=== PATIENT | female | born 1950 | race American Indian/Alaskan Native ===

== ENCOUNTER 2017-04-08 17:44 | Inpatient (IN) | payer MEDICARE, OTHER ==
[2017-04-08] MEDS ORDERED: NITROGLYCERIN OINT 1 INCH/GM PACKET TOPICAL STA (18:10)
--- NOTE | 2017-04-08 18:12 | ED ---
General Adult HPI - General Chief complaint: Arrhythmia/Palpitations Stated complaint: chest pain Time Seen by Provider: 04/08/17 18:05 Source: patient, RN notes reviewed Mode of arrival: wheelchair Limitations: no limitations - History of Present Illness Initial comments: Patient is a pleasant 66-year-old female presenting to the emergency department complaining of dyspnea and chest discomfort. Symptoms have been present for a couple of days. Patient has a known history of atrial fibrillation and does feel palpitations. Discomfort is mild and mostly persistent. Patient has noticed some leg swelling. Patient has similar symptoms previously that she attributes atrial fibrillation. - Related Data Home Medications Medication Instructions Recorded Confirmed Atenolol [Tenormin] 50 mg PO HS 04/08/17 04/08/17 Cholecalciferol [Vitamin D3] 1,000 unit PO DAILY 04/08/17 04/08/17 Escitalopram [Lexapro] 10 mg PO HS 04/08/17 04/08/17 Furosemide [Lasix] 40 mg PO DAILY 04/08/17 04/08/17 Glucosamine Sulfate 500 mg PO DAILY 04/08/17 04/08/17 Levothyroxine Sodium [Synthroid] 75 mcg PO DAILY 04/08/17 04/08/17 Lidocaine 5% Oint [Xylocaine 5% 1 applic TOPICAL DAILY PRN 04/08/17 04/08/17 Oint] Multivit-Min/Iron/Folic/Lutein 1 tab PO DAILY 04/08/17 04/08/17 [Centrum Silver Women Tablet] Olmesartan/Hydrochlorothiazide 1 tab PO DAILY 04/08/17 04/08/17 [Benicar Hct 20-12.5 mg Tablet] Rivaroxaban [Xarelto] 20 mg PO HS 04/08/17 04/08/17 Allergies Allergy/AdvReac Type Severity Reaction Status Date / Time aspirin Allergy Unknown Verified 04/08/17 18:36 ibuprofen [From Motrin] Allergy Unknown Verified 04/08/17 18:36 pregabalin [From Lyrica] Allergy Rapid Verified 04/08/17 18:36 Heart Rate Review of Systems ROS Statement: Those systems with pertinent positive or pertinent negative responses have been documented in the HPI. ROS Other: All systems not noted in ROS Statement are negative. Constitutional: Denies: fever Eyes: Denies: eye pain ENT: Denies: ear pain Respiratory: Reports: dyspnea Cardiovascular: Reports: chest pain, palpitations Endocrine: Denies: fatigue Gastrointestinal: Denies: abdominal pain Genitourinary: Denies: dysuria Musculoskeletal: Denies: back pain Skin: Denies: rash Neurological: Denies: weakness Past Medical History Past Medical History: Atrial Flutter, Fibromyalgia, Osteoarthritis (OA) Additional Past Medical History / Comment(s): won willebrand History of Any Multi-Drug Resistant Organisms: None Reported Past Surgical History: Joint Replacement, Orthopedic Surgery Additional Past Surgical History / Comment(s): bilateral knees , eye, left wrist Past Psychological History: No Psychological Hx Reported Smoking Status: Never smoker Past Alcohol Use History: None Reported Past Drug Use History: None Reported General Exam Limitations: no limitations General appearance: alert, in no apparent distress Head exam: Present: atraumatic Eye exam: Present: normal appearance, PERRL ENT exam: Present: normal oropharynx Neck exam: Present: normal inspection Respiratory exam: Present: normal lung sounds bilaterally Cardiovascular Exam: Present: tachycardia, irregular rhythm Expanded Peripheral pulses: 2+: Dorsalis Pedis (R), Dorsalis Pedis (L) GI/Abdominal exam: Present: soft. Absent: tenderness Extremities exam: Present: pedal edema. Absent: calf tenderness Neurological exam: Present: alert Psychiatric exam: Present: normal affect, normal mood Skin exam: Present: normal color Course Vital Signs 04/08/17 04/08/17 04/08/17 17:46 18:52 20:06 Temperature 98.5 F 98.7 F Pulse Rate 144 H 105 H Respiratory 22 24 15 Rate Blood Pressure 141/67 96/55 O2 Sat by Pulse 92 L 94 L Oximetry 04/08/17 21:28 Temperature Pulse Rate 89 Respiratory 18 Rate Blood Pressure 132/72 O2 Sat by Pulse 94 L Oximetry EKG Findings - EKG Comments: EKG Findings:: A. fib with RVR, rate 116. QRS 80. QT 328. QTC 455. Normal axis. Q waves in lead III. Nonspecific T waves. Medical Decision Making - Medical Decision Making Patient reevaluated and resting comfortably in bed. Discomfort mild this time. Patient and family updated on results and plan. Case was discussed with Dr. Mccarty, who will admit for hospital call. - Lab Data Result diagrams: 04/08/17 18:20 04/08/17 18:20 Lab Results 04/08/17 04/08/17 04/08/17 Range/Units 18:20 18:20 18:20 WBC 6.0 (3.8-10.6) k/uL RBC 4.05 (3.80-5.40) m/uL Hgb 13.3 (11.4-16.0) gm/dL Hct 38.6 (34.0-46.0) % MCV 95.3 (80.0-100.0) fL MCH 33.0 (25.0-35.0) pg MCHC 34.6 (31.0-37.0) g/dL RDW 13.5 (11.5-15.5) % Plt Count 242 (150-450) k/uL Neutrophils % 69 % Lymphocytes % 19 % Monocytes % 6 % Eosinophils % 4 % Basophils % 0 % Neutrophils # 4.2 (1.3-7.7) k/uL Lymphocytes # 1.2 (1.0-4.8) k/uL Monocytes # 0.4 (0-1.0) k/uL Eosinophils # 0.2 (0-0.7) k/uL Basophils # 0.0 (0-0.2) k/uL PT (9.0-12.0) sec INR (<1.2) APTT (22.0-30.0) sec D-Dimer (<0.60) mg/L FEU Sodium 140 (137-145) mmol/L Potassium 3.4 L (3.5-5.1) mmol/L Chloride 101 (98-107) mmol/L Carbon Dioxide 32 H (22-30) mmol/L Anion Gap 7 mmol/L BUN 15 (7-17) mg/dL Creatinine 0.96 (0.52-1.04) mg/dL Est GFR (MDRD) Af Amer >60 (>60 ml/min/1.73 sqM) Est GFR (MDRD) Non-Af 58 (>60 ml/min/1.73 sqM) Glucose 101 H (74-99) mg/dL Calcium 9.0 (8.4-10.2) mg/dL Total Bilirubin 0.6 (0.2-1.3) mg/dL AST 20 (14-36) U/L ALT 27 (9-52) U/L Alkaline Phosphatase 58 (38-126) U/L Total Creatine Kinase 40 (30-135) U/L CK-MB (CK-2) <0.2 (0.0-2.4) ng/mL CK-MB (CK-2) Rel Index Troponin I <0.012 (0.000-0.034) ng/mL NT-Pro-B Natriuret Pep pg/mL Total Protein 5.9 L (6.3-8.2) g/dL Albumin 3.2 L (3.5-5.0) g/dL 04/08/17 04/08/17 04/08/17 Range/Units 18:20 18:20 18:20 WBC (3.8-10.6) k/uL RBC (3.80-5.40) m/uL Hgb (11.4-16.0) gm/dL Hct (34.0-46.0) % MCV (80.0-100.0) fL MCH (25.0-35.0) pg MCHC (31.0-37.0) g/dL RDW (11.5-15.5) % Plt Count (150-450) k/uL Neutrophils % % Lymphocytes % % Monocytes % % Eosinophils % % Basophils % % Neutrophils # (1.3-7.7) k/uL Lymphocytes # (1.0-4.8) k/uL Monocytes # (0-1.0) k/uL Eosinophils # (0-0.7) k/uL Basophils # (0-0.2) k/uL PT 10.5 (9.0-12.0) sec INR 1.0 (<1.2) APTT 22.1 (22.0-30.0) sec D-Dimer 1.04 H (<0.60) mg/L FEU Sodium (137-145) mmol/L Potassium (3.5-5.1) mmol/L Chloride (98-107) mmol/L Carbon Dioxide (22-30) mmol/L Anion Gap mmol/L BUN (7-17) mg/dL Creatinine (0.52-1.04) mg/dL Est GFR (MDRD) Af Amer (>60 ml/min/1.73 sqM) Est GFR (MDRD) Non-Af (>60 ml/min/1.73 sqM) Glucose (74-99) mg/dL Calcium (8.4-10.2) mg/dL Total Bilirubin (0.2-1.3) mg/dL AST (14-36) U/L ALT (9-52) U/L Alkaline Phosphatase (38-126) U/L Total Creatine Kinase (30-135) U/L CK-MB (CK-2) (0.0-2.4) ng/mL CK-MB (CK-2) Rel Index Troponin I (0.000-0.034) ng/mL NT-Pro-B Natriuret Pep 1470 pg/mL Total Protein (6.3-8.2) g/dL Albumin (3.5-5.0) g/dL - Radiology Data Radiology results: report reviewed (Computed tomography scan of the chest shows no pulmonary embolism. There is pulmonary interstitial infiltrates possibly fibrosis.) Disposition Clinical Impression: Atrial fibrillation, Chest pain, Dyspnea Disposition: ADMITTED IP TO THIS HOSP Referrals: None,Stated [Primary Care Provider] - 1-2 days
[2017-04-08 18:34] LABS: Basophils % (A) 0 %; CH 32.5; CHCM 34.3; Eosinophils # (A) 0.2 k/uL (0-0.7); Eosinophils % (A) 4 %; HCT 38.6 % (34.0-46.0); HDW 2.61; HGB 13.3 gm/dL (11.4-16.0); Luc % (Auto) 2; Lymphocytes # (A) 1.2 k/uL (1.0-4.8); Lymphocytes % (A) 19 %; MCHC 34.6 g/dL (31.0-37.0); MCV 95.3 fL (80.0-100.0); Mean Platelet Volume 7.6; Monocytes # (A) 0.4 k/uL (0-1.0); Monocytes % (A) 6 %; Neutrophils # (A) 4.2 k/uL (1.3-7.7); Neutrophils % (A) 69 %; RBC 4.05 m/uL (3.80-5.40); RDW 13.5 % (11.5-15.5); WBC (Perox) 6.01
[2017-04-08 18:45] LABS: ALT 27 U/L (9-52); AST 20 U/L (14-36); Alkaline Phosphatase 58 U/L (38-126); Anion Gap 7 mmol/L; Blood Urea Nitrogen 15 mg/dL (7-17); Carbon Dioxide 32 mmol/L (22-30); Chloride 101 mmol/L (98-107); Glucose 101 mg/dL (74-99); Non-African American GFR(MDRD) 58 (>60 ml/min/1.73 sqM); Potassium 3.4 mmol/L (3.5-5.1); Sodium 140 mmol/L (137-145); Total Bilirubin 0.6 mg/dL (0.2-1.3); Total Protein 5.9 g/dL (6.3-8.2)
--- NOTE | 2017-04-08 18:48 | XR ---
EXAMINATION TYPE: XR chest 2V DATE OF EXAM: 04/08/2017 COMPARISON: 05/17/2012 HISTORY: Short of breath TECHNIQUE: Frontal and lateral views of the chest are obtained. FINDINGS: There is some coarsening of interstitial markings. There is no heart failure. Costophrenic angles are clear. Heart is not enlarged. There are chest leads. Bony thorax is intact. IMPRESSION: Mild pulmonary fibrotic changes. No heart failure.
[2017-04-08 18:50] LABS: Partial Thromboplastin Time 22.1 sec (22.0-30.0); Prothrombin Time 10.5 sec (9.0-12.0)
[2017-04-08 18:55] LABS: Creatine Kinase 40 U/L (30-135)
[2017-04-08 19:08] LABS: Creatine Kinase MB <0.2 ng/mL (0.0-2.4); Troponin I <0.012 ng/mL (0.000-0.034)
[2017-04-08] MEDS ORDERED: RX INFO: IV CONTRAST WAS GIVEN 1 EACH MISC MISCELLANE PRN (19:44)
--- NOTE | 2017-04-08 20:57 | CT ---
EXAMINATION TYPE: CT angio chest DATE OF EXAM: 04/08/2017 8:50 PM COMPARISON: 05/09/2012 HISTORY: Shortness of breath and chest pain CT DLP: 1034 mGycm Automated exposure control for dose reduction was used. CONTRAST: CTA scan of the thorax is performed with IV Contrast, patient injected with 100 mL of Visipaque 320, pulmonary embolism protocol. There are 3-D post processed images.. FINDINGS: There are patchy interstitial pulmonary infiltrates. There is no evidence of a pulmonary mass. Heart is enlarged. There is no pleural effusion. There is mild pleural thickening at the left posterior shira g base. There is no pericardial effusion. I see no filling defects in the pulmonary arteries. There is no evidence of thoracic aortic aneurysm or dissection. There are a few mediastinal lymph nodes that measure up to 1 cm. There are no hilar ma sses. IMPRESSION: NO EVIDENCE OF PULMONARY EMBOLISM. THERE IS PULMONARY INTERSTITIAL INFILTRATES THAT ARE SLIGHTLY INCR EASED COMPARED TO OLD CT SCAN AND COULD RELATE TO PULMONARY FIBROSIS. NONSPECIFIC MEDIASTINAL LYMPH N ODES ARE INCREASED COMPARED TO OLD EXAM.
[2017-04-08] MEDS ORDERED: IPRATROPIUM-ALBUTEROL 3 ML NEB INHALATION PRN (21:35)
[2017-04-08] MEDS ORDERED: NITROGLYCERIN SL TABS 0.4 MG TAB SUBLINGUAL PRN (21:35)
[2017-04-08] MEDS ORDERED: NON-FORMULARY DRUG (Lidocaine 5% Oint 1 APPLIC) TOPICAL PRN (23:24)
[2017-04-08] MEDS ORDERED: Potassium Replacement Protocol 1 EACH MISC MISCELLANE PRN (23:33)
[2017-04-09 00:16] LABS: Creatine Kinase 39 U/L (30-135)
[2017-04-09 00:30] LABS: Creatine Kinase MB <0.2 ng/mL (0.0-2.4); Troponin I <0.012 ng/mL (0.000-0.034)
[2017-04-09] MEDS: FUROSEMIDE 10 MG/ML 4 ML VIAL IV SCH ×3 (00:42→20:16)
[2017-04-09] MEDS: POTASSIUM CHLORIDE ER 20 MEQ TAB.ER PO SCH ×2 (00:42→01:13)
[2017-04-09] MEDS: ATENOLOL 50 MG TAB PO SCH ×2 (00:42→18:00)
[2017-04-09] MEDS: RIVAROXABAN 10 MG TAB PO SCH ×2 (00:42→20:16)
[2017-04-09] MEDS: NITROGLYCERIN OINT 1 INCH/GM PACKET TOPICAL SCH ×5 (00:55→16:53)
[2017-04-09 06:02] LABS: Cholesterol 164 mg/dL (<200); HDL Cholesterol 29 mg/dL (40-60)
[2017-04-09 06:19] LABS: Creatine Kinase 37 U/L (30-135)
[2017-04-09 06:33] LABS: Creatine Kinase MB 0.3 ng/mL (0.0-2.4); Troponin I <0.012 ng/mL (0.000-0.034)
[2017-04-09] MEDS: IPRATROPIUM-ALBUTEROL 3 ML NEB INHALATION SCH ×4 (08:33→21:00)
[2017-04-09] MEDS: MULTIVITAMINS, THERA 1 EACH TAB PO SCH (08:36)
[2017-04-09] MEDS: CHOLECALCIFEROL 1,000 UNIT TAB PO SCH (08:36)
[2017-04-09] MEDS: LOSARTAN 50 MG TAB PO SCH (08:37)
[2017-04-09] MEDS: HYDROCHLOROTHIAZIDE 12.5 MG CAP PO SCH (08:37)
[2017-04-09] MEDS ORDERED: NON-FORMULARY DRUG (Glucosamine Sulfate 500 MG) PO SCH (09:00)
[2017-04-09] MEDS ORDERED: LEVOTHYROXINE 75 MCG TAB PO SCH (09:00)
[2017-04-09 09:42] LABS: Calcium 8.6 mg/dL (8.4-10.2); Potassium 3.9 mmol/L (3.5-5.1)
[2017-04-09] MEDS: methylPREDNISolone SOD SUCCI 40 MG/ML 1 ML VIAL IV SCH ×2 (11:28→16:17)
--- NOTE | 2017-04-09 11:56 | CONS ---
CHIEF COMPLAINT: Shortness of breath. Radha is a 66 year old lady with history of atrial fibrillation, hypertension, dyslipidemia, who [place] to live out of town, recently moved to [place], comes in complaining of shortness of breath, leg edema and episodes of chest pain. Her shortness of breath is mild to moderate in intensity. Came on progressively related to exertion, relieved with rest. She also has leg edema. There is no history of paroxysmal nocturnal dyspnea or orthopnea. There is no history of recent myocardial infarction. There is no history of coronary artery disease or angioplasty. She apparently has had a negative stress test in the past. The patient has chronic atrial fibrillation and is adequately anticoagulated with Xarelto. Her chest discomfort is precordial and at times radiates to left arm. This has been going on for several months. It is mild in intensity. Sometimes related to exertion and sometimes it is not. The patient has also has cough. Her BNP is elevated at 1470. Past medical history is negative for chronic A. fib, hypertension, hypothyroidism. Medications include: 1. Xarelto. 2. Benicar. 3. Synthroid. 4. Lasix. 5. Lexapro. 6. Atenolol. ALLERGIC TO MOTRIN, LYRICA AND ASPIRIN. Family history is negative for premature coronary artery disease. Social history is negative for current smoking. There is no ETOH or drug abuse. Review of systems: HEENT: Unremarkable. Cardiac as described above. Respiratory as described above. GI negative. : Negative. Musculoskeletal significant for arthritis. Psych/social: Negative. Endocrine: Negative. Dermatological: Negative. Constitutional: Negative. Oncological: Negative. The rest of the system review is not relevant. On exam, comfortable at rest. Afebrile. Vital signs are stable. There is no jugular venous distention. Carotid upstroke is normal. There is no bruit. Chest exam reveals good air entry bilaterally. Heart exam first and second heart sounds. Irregular rhythm. There is a systolic murmur left lower sternal border. Abdomen is soft, nontender. Examination of the extremities reveals bilateral pitting edema. Peripheral pulses are felt. Labs show a potassium 3.9, creatinine 1, three sets of tropes are negative. BNP is 1470, LDL 112, hemoglobin 13.3. ASSESSMENT: 1. Acute onset congestive heart failure. 2. Chronic atrial fibrillation with controlled ventricular rate. 3. Chest pain, rule out coronary artery disease. PLAN: We will treat the patient with intravenous diuretics, marta inhibitors, beta blockers, obtain a 2D echo to evaluate her LV function. Once her heart failure improves, we should probably do a stress test on her and if this shows ischemia, consider cardiac catheterization. SHAE
--- NOTE | 2017-04-09 12:04 | P.CNPUL ---
History of Present Illness Consult date: 04/09/17 Requesting physician: Leobardo Mccarty Reason for consult: dyspnea Chief complaint: Shortness of breath History of present illness: This is a 66-year-old female patient being seen, examined and evaluated. This patient came into the emergency room on 04/08/2017 with shortness of breath, dyspnea and chest pain with palpitations. The patient states that these symptoms had been going on for the past 3-4 days. Patient also has had some bilateral lower extremity edema as well which she states she has experienced in the past due to her atrial fibrillation. Lab workup in the emergency room revealed a elevated d-dimer of 1.04, troponins were negative, BNP 1470 her potassium was 3.4. EKG revealed atrial fibrillation with rapid ventricular rate approximately 116. Nonspecific T waves were present. CTA of the chest was performed and shows no evidence of pulmonary embolism, there is pulmonary interstitial infiltrates that are slightly increased compared to old computed tomography scan and could relate to pulmonary fibrosis, nonspecific mediastinal lymph nodes are increased compared to old exam as well. The comparison exam was done on 05/09/2012. The patient does not use home oxygen or nebulizer treatment. This patient was a previous smoker, 1-2 packs per week for many years and quit approximately 2 years ago. Upon examination the patient is resting up in bed on 2 L of supplemental oxygen via nasal cannula. The patient states she feels slightly better today she reports having palpitations throughout the night however no chest pain this morning. Patient states she does feel short of breath with exertion or extensive conversation. Patient states the nebulizer treatments are helping though. Review of Systems 14 point review of systems was completed and is negative unless noted above in the HPI. Past Medical History Past Medical History: Atrial Flutter, Fibromyalgia, Osteoarthritis (OA) Additional Past Medical History / Comment(s): Harrison Harris History of Any Multi-Drug Resistant Organisms: None Reported Past Surgical History: Back Surgery, Breast Surgery, Joint Replacement, Orthopedic Surgery Additional Past Surgical History / Comment(s): bilateral knees , Cataracts with lens implants with both eyes , left breast lumpectomy Past Anesthesia/Blood Transfusion Reactions: Postoperative Nausea & Vomiting ( PONV) Past Psychological History: Depression Smoking Status: Former smoker Past Alcohol Use History: None Reported Additional Past Alcohol Use History / Comment(s): quit 2 years a go, smoked 1pack a week Past Drug Use History: None Reported - Past Family History Sister(s) Additional Family Medical History / Comment(s): form of Leukemia - bone marrow transplant from patient Brother(s) Family Medical History: Diabetes Mellitus Father Additional Family Medical History / Comment(s): from enlarged heart Medications and Allergies Home Medications Medication Instructions Recorded Confirmed Type Atenolol [Tenormin] 50 mg PO HS 04/08/17 04/08/17 History Cholecalciferol [Vitamin D3] 1,000 unit PO DAILY 04/08/17 04/08/17 History Escitalopram [Lexapro] 10 mg PO HS 04/08/17 04/08/17 History Furosemide [Lasix] 40 mg PO DAILY 04/08/17 04/08/17 History Levothyroxine Sodium [Synthroid] 75 mcg PO DAILY 04/08/17 04/08/17 History Lidocaine 5% Oint [Xylocaine 5% 1 applic TOPICAL DAILY PRN 04/08/17 04/08/17 History Oint] Multivit-Min/Iron/Folic/Lutein 1 tab PO DAILY 04/08/17 04/08/17 History [Centrum Silver Women Tablet] Olmesartan/Hydrochlorothiazide 1 tab PO DAILY 04/08/17 04/08/17 History [Benicar Hct 20-12.5 mg Tablet] RX: Glucosamine Sulfate 500 mg PO DAILY 04/08/17 04/08/17 History Rivaroxaban [Xarelto] 20 mg PO HS 04/08/17 04/08/17 History Allergies Allergy/AdvReac Type Severity Reaction Status Date / Time aspirin Allergy Unknown Verified 04/08/17 18:36 ibuprofen [From Motrin] Allergy Unknown Verified 04/08/17 18:36 pregabalin [From Lyrica] Allergy Rapid Verified 04/08/17 18:36 Heart Rate Physical Exam Vitals: Vital Signs Temp Pulse Pulse Resp BP BP Pulse Ox 04/09/17 08:47 70 04/09/17 08:35 70 96 04/09/17 04:00 97.3 F L 81 18 113/57 97 04/08/17 23:55 85 04/08/17 23:41 78 04/08/17 21:57 98.7 F 86 18 121/66 98 04/08/17 21:53 97.1 F L 94 20 94 L 04/08/17 21:28 89 18 132/72 94 L 04/08/17 20:06 98.7 F 105 H 15 96/55 94 L 04/08/17 18:52 24 04/08/17 17:46 98.5 F 144 H 22 141/67 92 L Intake and Output 04/08/17 04/09/17 04/09/17 22:59 06:59 14:59 Output Total 1800 800 Balance -1800 -800 Output: Urine 1800 800 Other: # Voids 2 Weight 153.1 kg 152.1 kg GENERAL EXAM: Alert, active, comfortable in no apparent distress. HEAD: Normocephalic. EYES: Normal reaction of pupils, equal size. NOSE: Clear with pink turbinates. THROAT: No erythema or exudates. NECK: No masses, no JVD. CHEST: No chest wall deformity. LUNGS: Equal air entry with faint few wheezes present, no crackles, rhonchi or dullness. CVS: S1 and S2 normal with no audible mumurs, regular rhythm. ABDOMEN: No hepatosplenomegaly, normal bowel sounds, no guarding or rigidity. EXTREMITIES: +1 edema noted, pedal pulses palpable. SKIN: No rashes CENTRAL NERVOUS SYSTEM: No focal deficits, tone is normal in all 4 extremities. Results - Laboratory Findings CBC and BMP: 04/08/17 18:20 04/09/17 05:38 PT/INR, D-dimer PT 10.5 sec (9.0-12.0) 04/08/17 18:20 INR 1.0 (<1.2) 04/08/17 18:20 D-Dimer 1.04 mg/L FEU (<0.60) H 04/08/17 18:20 Abnormal lab findings: Abnormal Labs 04/08/17 04/08/17 04/09/17 18:20 18:20 05:38 D-Dimer 1.04 H Potassium 3.4 L Carbon Dioxide 32 H Creatinine Glucose 101 H Total Protein 5.9 L Albumin 3.2 L LDL Cholesterol, Calc 112 H HDL Cholesterol 29 L 04/09/17 05:38 D-Dimer Potassium Carbon Dioxide 36 H Creatinine 1.12 H Glucose 108 H Total Protein Albumin LDL Cholesterol, Calc HDL Cholesterol - Diagnostic Findings CT scan - chest: report reviewed, image reviewed Assessment and Plan Plan: Assessment Pulomary Fibrosis Mediastinal lymphadenopathy Acute hypoxic respiratory failure Chest pain, can not exclude CAD Acute onset of congestive heart failure Atrial fibrillation with rapid ventricular rate Fibromyalgia Osteoarthritis Plan Medications have been reviewed and will be continued as ordered. We will add Solu-Medrol. Initiate and encourage incentive spirometer, patient pulling volumes approximately 2000. Continue with pulmonary hygiene, coughing and deep breathing exercises, and supportive care. Supplemental oxygen to maintain oxygen saturations of 92% or better. Continue nebulizer treatment, the addition of budesonide. GI and DVT prophylaxis. We will continue to monitor labs/results and adjust treatment as necessary. Further recommendations pending. I performed an examination of the patient and discussed their management with the nurse practitioner. I have reviewed the nurse practitioner's note and agree with the documented findings and plan of care.
--- NOTE | 2017-04-09 18:43 | ECHOF ---
Referral Reason:afib MEASUREMENTS -------- HEIGHT: 172.7 cm WEIGHT: 152.9 kg BP: 113/57 RVIDd: 2.4 cm (< 3.3) IVSd: 1.0 cm (0.6 - 1.1) LVIDd: 5.4 cm (3.9 - 5.3) LVPWd: 0.9 cm (0.6 - 1.1) IVSs: 1.5 cm LVIDs: 4.0 cm LVPWs: 1.1 cm LA Diam: 5.2 cm (2.7 - 3.8) Ao Diam: 3.2 cm (2.0 - 3.7) AV Cusp: 1.6 cm (1.5 - 2.6) LA Diam: 5.5 cm (2.7 - 3.8) MV EXCURSION: 22.256 mm (> 18.000) MV EF SLOPE: 106 mm/s (70 - 150) EPSS: 1.4 cm RAP: 5.00 mmHg RVSP: 15.66 mmHg FINDINGS -------- Atrial fibrillation. This was a technically difficult study with suboptimal views. Morbid Obesity This was a techncally difficult study with suboptimal views, , Definity utilized for enhancement of images. There is mild concentric left ventricular hypertrophy. Overall left ventricular systolic function is mild-moderately impaired with, an EF between 40 - 45 %. The right ventricle is normal in size. The left atrium is markedly dilated. The right atrial size is normal. 1.5MG OF DEFINITY UTLIZED: 2 OR MORE WALL SEGMENTS NOT VISUALIZED. There is mild aortic valve sclerosis. Mild mitral regurgitation is present. Mild tricuspid regurgitation present. There is no evidence of pulmonary hypertension. The right ventricular systolic pressure, as measured by Doppler, is 15.66mmHg. The pulmonic valve was not well visualized. The aortic root size is normal. There is no pericardial effusion. CONCLUSIONS -------- 1. This was a technically difficult study with suboptimal views. 2. Mild tricuspid regurgitation present. 3. There is no evidence of pulmonary hypertension. 4. The pulmonic valve was not well visualized. 5. The aortic root size is normal. 6. There is no pericardial effusion. 7. Morbid Obesity 8. This was a techncally difficult study with suboptimal views, , Definity utilized for enhancement of images. 9. There is mild concentric left ventricular hypertrophy. 10. Overall left ventricular systolic function is mild-moderately impaired with, an EF between 40 - 45 %. 11. The left atrium is markedly dilated. 12. 1.5MG OF DEFINITY UTLIZED: 2 OR MORE WALL SEGMENTS NOT VISUALIZED. 13. There is mild aortic valve sclerosis. 14. Mild mitral regurgitation is present. [employer]FFEE URN ATTENDANT: Katelyn Mireles RDCS
[2017-04-09] MEDS: INSULIN LISPRO (humaLOG) 300 UNIT/3 ML VIAL SQ SCH (20:15)
[2017-04-09] MEDS: ESCITALOPRAM 10 MG TAB PO SCH (20:16)
[2017-04-09] MEDS: ACETAMINOPHEN TAB 325 MG TAB PO PRN (20:16)
[2017-04-09 20:26] LABS: Glucose,Whole Blood 172 mg/dL (75-99)
[2017-04-09] MEDS: BUDESONIDE 0.5 MG/2 ML NEBU INHALATION SCH (21:00)
--- NOTE | 2017-04-09 21:32 | HP ---
CHIEF COMPLAINT: [id number]-old white female who presented to the ER with some dyspnea and chest discomfort for the past couple of days. She has a history of atrial fibrillation with palpitations. It is mainly substernal, more like a heaviness. She was exposed to some chemicals with fertilizer over the last 2 weeks that may have triggered some shortness of breath and wheezing. [place] That may be contributing to the atrial fibrillation and the shortness of breath and chest tightness. Home medications include: 1. Tenormin. 2. Multivitamins. 3. Lexapro. 4. Lasix. 5. Glucosamine. 6. Synthroid. 7. Benicar HCT. 8. Xarelto. ALLERGIES: 1. ASPIRIN. 2. MOTRIN. 3. LYRICA. Fourteen-point review of systems negative except as mentioned in the HPI. PAST MEDICAL HISTORY: 1. Atrial fibrillation/flutter. 2. Fibromyalgia. 3. Osteoarthritis. PAST SURGICAL HISTORY: 1. Joint replacement. 2. Orthopedic surgery, bilateral knees. 3. Eye. 4. Left wrist. Non-smoker. PHYSICAL EXAM: Temperature 98.7, pulse 100 to 140, respiratory rate 18 to 20, blood pressure 100 to 140 over 50s to 60s. Saturation 92% to 94% on room air. CARDIOVASCULAR: Tachycardia. Irregular rhythm. LUNGS: Normal lung sounds. Mild wheezes x4. Decreased breath sounds x4. ENT: Normal to inspection. Normal oropharynx. OPHTHALMOLOGIC: Pupils equal, round and reactive to light and accommodation. EXTREMITIES: Pedal edema. Calf tenderness. NEUROLOGIC: Alert and oriented x3. PSYCH: Fair mood and affect. SKIN: Normal color. ENDOCRINE: BMI is over 40. EKG shows atrial fibrillation with rapid ventricular response. Potassium is low at 3.4. Sodium 140. Platelets 101. White count is 6. Hemoglobin 13.3. Albumin is low at 3.2. ASSESSMENT: 1. Atrial fibrillation. 2. Chest pain. 3. Dyspnea. 4. Suspect pulmonary fibrosis as seen on CT scan of the chest. Cardiology workup will be done. Updrafts will be tried as well as some IV Lasix , as she has an elevated BNP for congestive heart failure, diastolic. Monitor for atrial fibrillation. Await cardiology recommendations and pulmonary recommendations. [facility]
[2017-04-09 22:32] LABS: Hemoglobin A1C 5.7 % (4.2-6.1)
[2017-04-10] MEDS: NITROGLYCERIN OINT 1 INCH/GM PACKET TOPICAL SCH ×5 (00:25→23:32)
[2017-04-10] MEDS: methylPREDNISolone SOD SUCCI 40 MG/ML 1 ML VIAL IV SCH ×4 (00:26→23:31)
[2017-04-10 06:04] LABS: Glucose,Whole Blood 146 mg/dL (75-99)
[2017-04-10] MEDS: INSULIN LISPRO (humaLOG) 300 UNIT/3 ML VIAL SQ SCH ×4 (06:32→21:03)
[2017-04-10] MEDS: LEVOTHYROXINE 75 MCG TAB PO SCH (06:32)
[2017-04-10] MEDS: ACETAMINOPHEN TAB 325 MG TAB PO PRN ×2 (06:39→21:03)
[2017-04-10 07:05] LABS: Basophils % (A) 0 %; CH 32.2; CHCM 33.1; Eosinophils # (A) 0.1 k/uL (0-0.7); Eosinophils % (A) 1 %; HCT 43.7 % (34.0-46.0); HDW 2.49; HGB 14.4 gm/dL (11.4-16.0); Luc # (Auto) 0.03; Luc % (Auto) 0; Lymphocytes # (A) 0.9 k/uL (1.0-4.8); Lymphocytes % (A) 9 %; MCH 32.2 pg (25.0-35.0); MCHC 32.9 g/dL (31.0-37.0); MCV 97.9 fL (80.0-100.0); Mean Platelet Volume 7.7; Monocytes # (A) 0.1 k/uL (0-1.0); Monocytes % (A) 1 %; Neutrophils # (A) 8.9 k/uL (1.3-7.7); Neutrophils % (A) 89 %; RBC 4.46 m/uL (3.80-5.40); RDW 13.8 % (11.5-15.5); WBC 10.1 k/uL (3.8-10.6); WBC (Perox) 10.45
[2017-04-10 07:16] LABS: ALT 31 U/L (9-52); AST 22 U/L (14-36); Alkaline Phosphatase 58 U/L (38-126); Anion Gap 11 mmol/L; Blood Urea Nitrogen 20 mg/dL (7-17); Calcium 9.5 mg/dL (8.4-10.2); Carbon Dioxide 30 mmol/L (22-30); Chloride 98 mmol/L (98-107); Glucose 144 mg/dL (74-99); Non-African American GFR(MDRD) 55 (>60 ml/min/1.73 sqM); Sodium 139 mmol/L (137-145); Total Bilirubin 0.7 mg/dL (0.2-1.3); Total Protein 6.7 g/dL (6.3-8.2)
[2017-04-10] MEDS: CHOLECALCIFEROL 1,000 UNIT TAB PO SCH (07:54)
[2017-04-10] MEDS: LOSARTAN 50 MG TAB PO SCH (07:54)
[2017-04-10] MEDS: FUROSEMIDE 10 MG/ML 4 ML VIAL IV SCH ×2 (07:54→21:03)
[2017-04-10] MEDS: HYDROCHLOROTHIAZIDE 12.5 MG CAP PO SCH (07:55)
[2017-04-10] MEDS: MULTIVITAMINS, THERA 1 EACH TAB PO SCH (07:55)
[2017-04-10] MEDS: IPRATROPIUM-ALBUTEROL 3 ML NEB INHALATION SCH ×4 (10:42→19:16)
[2017-04-10] MEDS: BUDESONIDE 0.5 MG/2 ML NEBU INHALATION SCH ×2 (10:45→19:16)
--- NOTE | 2017-04-10 11:16 | P.PN ---
Subjective Patient seen and evaluated examined during the round, she is feeling slightly better shortness of breath and palpitation has improved swelling in the lower extremity has reviewed as well her computed tomography scan of his chest has reviewed the nonspecific lymphadenopathy in the mediastinal area and some interstitial pattern was seen at the bases likely developing pulmonary fibrosis or interstitial lung disease her heart rate is better under control cardiovascular services following I've discussed with her about sleep study as outpatient which is to perform she will likely need follow-up computed tomography scan down the road for monitoring mediastinal lymph nodes as well as interstitial lung disease Objective - Vital Signs Vital signs: Vital Signs Temp 97.1 F L 04/10/17 08:00 Pulse 88 04/10/17 10:57 Resp 19 04/10/17 08:00 BP 108/68 04/10/17 08:00 Pulse Ox 90 L 04/10/17 08:00 Intake & Output 04/09/17 04/10/17 04/10/17 18:59 06:59 18:59 Intake Total 180 Output Total 3600 1750 Balance -3420 -1750 Weight 149.1 kg Intake: Oral 180 Output: Urine 3600 1750 - Exam GENERAL EXAM: Alert, active, comfortable in no apparent distress. HEAD: Normocephalic. EYES: Normal reaction of pupils, equal size. NOSE: Clear with pink turbinates. THROAT: No erythema or exudates. NECK: No masses, no JVD. CHEST: No chest wall deformity. LUNGS: Equal air entry with faint few wheezes present, no crackles, rhonchi or dullness. CVS: S1 and S2 normal with no audible mumurs, regular rhythm. ABDOMEN: No hepatosplenomegaly, normal bowel sounds, no guarding or rigidity. EXTREMITIES: +1 edema noted, pedal pulses palpable. SKIN: No rashes CENTRAL NERVOUS SYSTEM: No focal deficits, tone is normal in all 4 extremities. 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 We will add Solu-Medrol. Initiate and encourage incentive spirometer, patient pulling volumes approximately 2000. Continue with pulmonary hygiene, coughing and deep breathing exercises, and supportive care. Supplemental oxygen to maintain oxygen saturations of 92% or better. Continue nebulizer treatment, the addition of budesonide. GI and DVT prophylaxis. As dictated above likely will need to be followed up in office as well as sleep study We will continue to monitor labs /results and adjust treatment as necessary. Further recommendations pending. Time with Patient: Greater than 30
[2017-04-10 12:05] LABS: Glucose,Whole Blood 146 mg/dL (75-99)
--- NOTE | 2017-04-10 12:18 | P.PN ---
Subjective Principal diagnosis: Cogestive heart failure this is a 66-year-old with known history of atrial fibrillation, hypertension, and hyperlipidemia, who used to live in [place], currently moved back to this area. She presented to the hospital with symptoms of progressively worsening shortness of breath and associated leg edema. She has been diuresing well overall, continues to have peripheral edema however much improved. Echocardiogram with Doppler study was performed which revealed an ejection fraction of 40-45%. Objective - Vital Signs Vital signs: Vital Signs Temp 97.1 F L 04/10/17 08:00 Pulse 88 04/10/17 10:57 Resp 19 04/10/17 08:00 BP 108/68 04/10/17 08:00 Pulse Ox 90 L 04/10/17 08:00 Intake & Output 04/09/17 04/10/17 04/10/17 18:59 06:59 18:59 Intake Total 180 Output Total 3600 1750 Balance -3420 -1750 Weight 149.1 kg Intake: Oral 180 Output: Urine 3600 1750 - Exam PHYSICAL EXAMINATION: HEENT: [Head is atraumatic, normocephalic. Pupils equal, round. Neck is supple. There is no elevated jugular venous pressure.] HEART EXAMINATION: heart S1 and S2 irregularly irregular CHEST EXAMINATION:[ Lungs are clear with fine expiratory wheezing. No chest wall tenderness is noted on palpation or with deep breathing.] ABDOMEN: [ Soft,obese, nontender. Bowel sounds are heard. No organomegaly noted] . EXTREMITIES:[ 2+ peripheral pulses with 1+ evidence of peripheral edema and no calf tenderness noted]. NEUROLOGIC [patient is awake, alert and oriented -3.] . - Labs CBC & Chem 7: 04/10/17 06:43 04/10/17 06:43 Labs: Abnormal Lab Results - Last 24 Hours (Table) 04/09/17 04/10/17 04/10/17 Range/Units 20:14 06:02 06:43 Neutrophils # 8.9 H (1.3-7.7) k/uL Lymphocytes # 0.9 L (1.0-4.8) k/uL BUN (7-17) mg/dL Glucose (74-99) mg/dL POC Glucose (mg/dL) 172 H 146 H (75-99) mg/dL 04/10/17 04/10/17 Range/Units 06:43 11:52 Neutrophils # (1.3-7.7) k/uL Lymphocytes # (1.0-4.8) k/uL BUN 20 H (7-17) mg/dL Glucose 144 H (74-99) mg/dL POC Glucose (mg/dL) 146 H (75-99) mg/dL Assessment and Plan (1) Diastolic CHF, acute on chronic Status: Acute (2) Chronic a-fib Status: Acute (3) Chest pain Status: Acute Plan: From cardiology's perspective, we'll continue current dose of IV Lasix. Once the patient is stable from a heart failure perspective, consider stress testing. DNP note has been reviewed, I agree with a documented findings and plan of care. Patient was seen and examined.
--- NOTE | 2017-04-10 13:20 | XR ---
EXAMINATION TYPE: XR chest 2V DATE OF EXAM: 04/10/2017 COMPARISON: 04/08/2017 HISTORY: Pulmonary fibrosis TECHNIQUE: Frontal and lateral views of the chest are obtained. FINDINGS: There is no heart failure nor confluent pneumonic infiltrate. There is mild linear density at the left lung base. Heart size is normal. There are chest leads. IMPRESSION: Minimal subsegmental atelectasis or scarring at the left lung base. No change compared t o old exam.
[2017-04-10] MEDS: ALPRAZolam 0.5 MG TAB PO PRN (16:01)
[2017-04-10 17:17] LABS: Glucose,Whole Blood 135 mg/dL (75-99)
[2017-04-10 20:37] LABS: Glucose,Whole Blood 237 mg/dL (75-99)
[2017-04-10] MEDS: ESCITALOPRAM 10 MG TAB PO SCH (21:03)
[2017-04-10] MEDS: ATENOLOL 50 MG TAB PO SCH (21:03)
[2017-04-10] MEDS: RIVAROXABAN 10 MG TAB PO SCH (21:03)
[2017-04-11] MEDS: NITROGLYCERIN OINT 1 INCH/GM PACKET TOPICAL SCH ×4 (05:07→23:14)
[2017-04-11 06:18] LABS: Glucose,Whole Blood 144 mg/dL (75-99)
[2017-04-11] MEDS: LEVOTHYROXINE 75 MCG TAB PO SCH (06:55)
[2017-04-11] MEDS: INSULIN LISPRO (humaLOG) 300 UNIT/3 ML VIAL SQ SCH ×4 (06:55→22:14)
[2017-04-11 06:57] LABS: Basophils % (A) 0 %; CHCM 32.6; Eosinophils % (A) 0 %; HCT 44.5 % (34.0-46.0); HDW 2.49; HGB 14.9 gm/dL (11.4-16.0); Luc # (Auto) 0.03; Luc % (Auto) 0; Lymphocytes # (A) 0.9 k/uL (1.0-4.8); Lymphocytes % (A) 7 %; MCHC 33.4 g/dL (31.0-37.0); MCV 98.7 fL (80.0-100.0); Mean Platelet Volume 7.7; Monocytes # (A) 0.2 k/uL (0-1.0); Monocytes % (A) 2 %; Neutrophils # (A) 12.4 k/uL (1.3-7.7); Neutrophils % (A) 91 %; RBC 4.51 m/uL (3.80-5.40); RDW 13.7 % (11.5-15.5); WBC 13.6 k/uL (3.8-10.6); WBC (Perox) 13.87
[2017-04-11 07:08] LABS: ALT 33 U/L (9-52); AST 24 U/L (14-36); Alkaline Phosphatase 52 U/L (38-126); Anion Gap 10 mmol/L; Blood Urea Nitrogen 31 mg/dL (7-17); Calcium 9.5 mg/dL (8.4-10.2); Carbon Dioxide 32 mmol/L (22-30); Chloride 98 mmol/L (98-107); Glucose 135 mg/dL (74-99); Non-African American GFR(MDRD) 50 (>60 ml/min/1.73 sqM); Potassium 4.5 mmol/L (3.5-5.1); Sodium 140 mmol/L (137-145); Total Bilirubin 0.5 mg/dL (0.2-1.3)
[2017-04-11] MEDS: IPRATROPIUM-ALBUTEROL 3 ML NEB INHALATION SCH ×4 (08:40→19:31)
[2017-04-11] MEDS: BUDESONIDE 0.5 MG/2 ML NEBU INHALATION SCH ×2 (08:40→19:31)
[2017-04-11] MEDS: HYDROCHLOROTHIAZIDE 12.5 MG CAP PO SCH (09:28)
[2017-04-11] MEDS: LOSARTAN 50 MG TAB PO SCH (09:28)
[2017-04-11] MEDS: CHOLECALCIFEROL 1,000 UNIT TAB PO SCH (09:28)
[2017-04-11] MEDS: MULTIVITAMINS, THERA 1 EACH TAB PO SCH (09:28)
[2017-04-11] MEDS: methylPREDNISolone SOD SUCCI 40 MG/ML 1 ML VIAL IV SCH ×3 (09:29→23:13)
[2017-04-11] MEDS: FUROSEMIDE 10 MG/ML 4 ML VIAL IV SCH ×2 (09:29→22:14)
--- NOTE | 2017-04-11 10:00 | PN ---
SUBJECTIVE: 66 year old obese white female admitted with COPD exacerbation, CHF exacerbation, secondary to exposure to fertilizer fumes as well as dust and dirt at the [facility]. The patient is improving with IV Lasix as well as IV steroids and updrafts treatments. The patient will continue to wean steroids and Lasix to oral. Possible discharge home in the next 24 to 48 hours if she continues to improve. Her lungs are mostly clear today with mild wheezes. Hematological, she has 2 to 3+ pitting edema. Endocrine: Her BMI is over 40. She has wheezes times four. Lungs mild to moderate. Psych: She is appropriate , given appropriate answers. ASSESSMENT: 1. Chronic obstructive pulmonary disease exacerbation. 2. Diastolic congestive heart failure exacerbation. 3. Morbid obesity. 4. Hypertension. Continue current treatment with Lasix, Solu-Medrol and updrafts. She will follow up in my office in the next two to three days once discharged. SHAE
--- NOTE | 2017-04-11 10:49 | P.PN ---
Subjective Patient seen and evaluated examined during the round, she is feeling slightly better shortness of breath and palpitation has improved swelling in the lower extremity has reviewed as well her computed tomography scan of his chest has reviewed the nonspecific lymphadenopathy in the mediastinal area and some interstitial pattern was seen at the bases likely developing pulmonary fibrosis or interstitial lung disease her heart rate is better under control cardiovascular services following I've discussed with her about sleep study as outpatient which is to perform she will likely need follow-up computed tomography scan down the road for monitoring mediastinal lymph nodes as well as interstitial lung disease 04/11/17, patient seen and evaluated examined today she remains intermittently in atrial fibrillation with controlled ventricular response she is being diuresed anasarca and third spacing is slightly improved she feels a difference less short of breath now her cough congestion has improved still feel extremely weak and tired she does have a history of snoring not sure about apneic events though her medication laboratory data reviewed Objective - Vital Signs Vital signs: Vital Signs Temp 98 F 04/11/17 08:00 Pulse 76 04/11/17 08:56 Resp 18 04/11/17 08:00 BP 120/77 04/11/17 08:00 Pulse Ox 92 L 04/11/17 08:00 Intake & Output 04/10/17 04/11/17 04/11/17 18:59 06:59 18:59 Intake Total 280 Output Total 400 900 Balance -400 -900 280 Weight 149.3 kg Intake: Oral 280 Output: Urine 400 900 Other: # Voids 1,000 - Exam GENERAL EXAM: Alert, active, comfortable in no apparent distress. HEAD: Normocephalic. EYES: Normal reaction of pupils, equal size. NOSE: Clear with pink turbinates. THROAT: No erythema or exudates. NECK: No masses, no JVD. CHEST: No chest wall deformity. LUNGS: Equal air entry with faint few wheezes present, no crackles, rhonchi or dullness. CVS: S1 and S2 normal with no audible mumurs, regular rhythm. ABDOMEN: No hepatosplenomegaly, normal bowel sounds, no guarding or rigidity. EXTREMITIES: +1 edema noted, pedal pulses palpable. SKIN: No rashes CENTRAL NERVOUS SYSTEM: No focal deficits, tone is normal in all 4 extremities. - Labs CBC & Chem 7: 04/11/17 06:30 04/11/17 06:28 Labs: Abnormal Lab Results - Last 24 Hours (Table) 04/10/17 04/10/17 04/10/17 Range/Units 11:52 16:53 20:35 WBC (3.8-10.6) k/uL Neutrophils # (1.3-7.7) k/uL Lymphocytes # (1.0-4.8) k/uL Carbon Dioxide (22-30) mmol/L BUN (7-17) mg/dL Creatinine (0.52-1.04) mg/dL Glucose (74-99) mg/dL POC Glucose (mg/dL) 146 H 135 H 237 H (75-99) mg/dL 04/11/17 04/11/17 04/11/17 Range/Units 06:17 06:28 06:30 WBC 13.6 H (3.8-10.6) k/uL Neutrophils # 12.4 H (1.3-7.7) k/uL Lymphocytes # 0.9 L (1.0-4.8) k/uL Carbon Dioxide 32 H (22-30) mmol/L BUN 31 H (7-17) mg/dL Creatinine 1.09 H (0.52-1.04) mg/dL Glucose 135 H (74-99) mg/dL POC Glucose (mg/dL) 144 H (75-99) mg/dL Assessment and Plan Plan: Atrial fibrillation with rapid ventricular rate, leading to acute diastolic heart failure, with the acute and chronic systolic heart failure ejection fraction is 40% Mediastinal lymphadenopathy, nonspecific Acute hypoxic respiratory failure, likely related to multifactorial processes including pulmonary and cardiovascular Chest pain, can not exclude CAD Acute onset of congestive heart failure, acute on chronic diastolic heart failure, with systolic heart failure likely acute on chronic 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 We will add Solu-Medrol. Initiate and encourage incentive spirometer, patient pulling volumes approximately 2000. Continue with pulmonary hygiene, coughing and deep breathing exercises, and supportive care. Supplemental oxygen to maintain oxygen saturations of 92% or better. Continue nebulizer treatment, the addition of budesonide. GI and DVT prophylaxis. As dictated above likely will need to be followed up in office as well as sleep study We will continue to monitor labs /results and adjust treatment as necessary. Further recommendations pending. Will change IV steroids to by mouth prednisone next 24 hours Time with Patient: Greater than 30
[2017-04-11 12:20] LABS: Glucose,Whole Blood 104 mg/dL (75-99)
[2017-04-11 17:15] LABS: Glucose,Whole Blood 120 mg/dL (75-99)
[2017-04-11 20:50] LABS: Glucose,Whole Blood 157 mg/dL (75-99)
[2017-04-11] MEDS: ATENOLOL 50 MG TAB PO SCH (22:14)
[2017-04-11] MEDS: ESCITALOPRAM 10 MG TAB PO SCH (22:14)
[2017-04-11] MEDS: RIVAROXABAN 10 MG TAB PO SCH (22:14)
[2017-04-11] MEDS: ALPRAZolam 0.5 MG TAB PO PRN (23:13)
[2017-04-12 06:21] LABS: Glucose,Whole Blood 142 mg/dL (75-99)
[2017-04-12] MEDS: LEVOTHYROXINE 75 MCG TAB PO SCH (06:38)
[2017-04-12] MEDS: NITROGLYCERIN OINT 1 INCH/GM PACKET TOPICAL SCH ×3 (06:38→17:07)
[2017-04-12] MEDS: INSULIN LISPRO (humaLOG) 300 UNIT/3 ML VIAL SQ SCH ×4 (06:39→21:25)
[2017-04-12 07:00] LABS: Basophils % (A) 0 %; CH 31.9; CHCM 32.5; Eosinophils % (A) 0 %; HCT 45.4 % (34.0-46.0); HDW 2.45; HGB 14.6 gm/dL (11.4-16.0); Luc # (Auto) 0.03; Luc % (Auto) 0; Lymphocytes # (A) 0.7 k/uL (1.0-4.8); Lymphocytes % (A) 7 %; MCH 31.7 pg (25.0-35.0); MCHC 32.1 g/dL (31.0-37.0); MCV 98.8 fL (80.0-100.0); Mean Platelet Volume 7.5; Monocytes # (A) 0.3 k/uL (0-1.0); Monocytes % (A) 2 %; Neutrophils # (A) 9.7 k/uL (1.3-7.7); Neutrophils % (A) 90 %; RBC 4.59 m/uL (3.80-5.40); RDW 13.4 % (11.5-15.5); WBC 10.8 k/uL (3.8-10.6); WBC (Perox) 10.76
[2017-04-12 07:24] LABS: Calcium 9.2 mg/dL (8.4-10.2); Magnesium 2.2 mg/dL (1.6-2.3); Potassium 4.6 mmol/L (3.5-5.1); Total Bilirubin 0.5 mg/dL (0.2-1.3); Total Protein 6.5 g/dL (6.3-8.2)
[2017-04-12] MEDS: BUDESONIDE 0.5 MG/2 ML NEBU INHALATION SCH ×2 (08:42→19:50)
[2017-04-12] MEDS: IPRATROPIUM-ALBUTEROL 3 ML NEB INHALATION SCH ×4 (08:42→19:50)
[2017-04-12] MEDS: LOSARTAN 50 MG TAB PO SCH (09:35)
[2017-04-12] MEDS: HYDROCHLOROTHIAZIDE 12.5 MG CAP PO SCH (09:35)
[2017-04-12] MEDS: methylPREDNISolone SOD SUCCI 40 MG/ML 1 ML VIAL IV SCH ×2 (09:35→15:04)
[2017-04-12] MEDS: CHOLECALCIFEROL 1,000 UNIT TAB PO SCH (09:36)
[2017-04-12] MEDS: MULTIVITAMINS, THERA 1 EACH TAB PO SCH (09:36)
[2017-04-12] MEDS: FUROSEMIDE 10 MG/ML 4 ML VIAL IV SCH (09:36)
[2017-04-12 11:29] LABS: Glucose,Whole Blood 108 mg/dL (75-99)
--- NOTE | 2017-04-12 14:50 | P.PN ---
Subjective Principal diagnosis: Cogestive heart failure this is a 66-year-old with known history of atrial fibrillation, hypertension, and hyperlipidemia, who used to live in [place], currently moved back to this area. She presented to the hospital with symptoms of progressively worsening shortness of breath and associated leg edema. She has been diuresing well overall, her weight today is down 4 kg, continues to have peripheral edema however much improved. Echocardiogram with Doppler study was performed which revealed an ejection fraction of 40-45%. Patient did have an episode of chest discomfort through the night last night, by the time of her the nurse arrived, symptoms have pretty much resolved. She was given however Nitropaste along with one sublingual nitroglycerin. EKG was also performed at that time which did not reveal any acute changes. At the time of our examination she is currently chest pain-free. Objective - Vital Signs Vital signs: Vital Signs Temp 98.1 F 04/12/17 12:00 Pulse 76 04/12/17 12:26 Resp 20 04/12/17 12:00 BP 130/74 04/12/17 12:00 Pulse Ox 95 04/12/17 12:00 Intake & Output 04/11/17 04/12/17 04/12/17 18:59 06:59 18:59 Intake Total 620 700 Output Total 1800 5400 1100 Balance -1180 -5400 -400 Weight 145.9 kg Intake: Oral 620 700 Output: Urine 1800 5400 1100 Other: Voiding Method Toilet # Voids 1 1 # Bowel Movements 1 - Exam PHYSICAL EXAMINATION: HEENT: [Head is atraumatic, normocephalic. Pupils equal, round. Neck is supple. There is no elevated jugular venous pressure.] HEART EXAMINATION: heart S1 and S2 irregularly irregular CHEST EXAMINATION:[ Lungs are clear with fine expiratory wheezing. No chest wall tenderness is noted on palpation or with deep breathing.] ABDOMEN: [ Soft,obese, nontender. Bowel sounds are heard. No organomegaly noted] . EXTREMITIES:[ 2+ peripheral pulses with 1+ evidence of peripheral edema and no calf tenderness noted]. NEUROLOGIC [patient is awake, alert and oriented -3.] . - Labs CBC & Chem 7: 04/12/17 06:38 04/12/17 06:38 Labs: Abnormal Lab Results - Last 24 Hours (Table) 04/11/17 04/11/17 04/12/17 Range/Units 16:59 20:49 06:20 WBC (3.8-10.6) k/uL Neutrophils # (1.3-7.7) k/uL Lymphocytes # (1.0-4.8) k/uL Chloride (98-107) mmol/L Carbon Dioxide (22-30) mmol/L BUN (7-17) mg/dL Creatinine (0.52-1.04) mg/dL Glucose (74-99) mg/dL POC Glucose (mg/dL) 120 H 157 H 142 H (75-99) mg/dL 04/12/17 04/12/17 04/12/17 Range/Units 06:38 06:38 11:28 WBC 10.8 H (3.8-10.6) k/uL Neutrophils # 9.7 H (1.3-7.7) k/uL Lymphocytes # 0.7 L (1.0-4.8) k/uL Chloride 95 L (98-107) mmol/L Carbon Dioxide 35 H (22-30) mmol/L BUN 35 H (7-17) mg/dL Creatinine 1.23 H (0.52-1.04) mg/dL Glucose 137 H (74-99) mg/dL POC Glucose (mg/dL) 108 H (75-99) mg/dL Assessment and Plan (1) Diastolic CHF, acute on chronic Status: Acute (2) Chronic a-fib Status: Acute (3) Chest pain Status: Acute Plan: From cardiology's perspective, would discontinue the IV Lasix and start the patient on oral diuretics. We'll also obtain 3 troponins, if negative schedule the patient for Doris scan. If the enzymes are positive we would recommend cardiac catheterization. DNP note has been reviewed, I agree with a documented findings and plan of care. Patient was seen and examined.
[2017-04-12] MEDS: FUROSEMIDE 40 MG TAB PO SCH (15:04)
--- NOTE | 2017-04-12 15:29 | P.PN ---
Subjective Patient seen and evaluated examined during the round, she is feeling slightly better shortness of breath and palpitation has improved swelling in the lower extremity has reviewed as well her computed tomography scan of his chest has reviewed the nonspecific lymphadenopathy in the mediastinal area and some interstitial pattern was seen at the bases likely developing pulmonary fibrosis or interstitial lung disease her heart rate is better under control cardiovascular services following I've discussed with her about sleep study as outpatient which is to perform she will likely need follow-up computed tomography scan down the road for monitoring mediastinal lymph nodes as well as interstitial lung disease 04/11/17, patient seen and evaluated examined today she remains intermittently in atrial fibrillation with controlled ventricular response she is being diuresed anasarca and third spacing is slightly improved she feels a difference less short of breath now her cough congestion has improved still feel extremely weak and tired she does have a history of snoring not sure about apneic events though her medication laboratory data reviewed 04/12/17 patient is seen in the examined today on rounds. Patient continues on room air she does complain of some shortness of breath with exertion. She currently is using her incentive spirometer and pulling volumes of 1750 ML's. Apparently overnight the patient did have some chest discomfort she was given nitro paste as well as sub-lingual nitroglycerin. An EKG was performed and did not show any acute changes. Currently she denies any chest pain at this time. Cardiology is aware and is following the patient closely. Objective - Vital Signs Vital signs: Vital Signs Temp 98.1 F 04/12/17 12:00 Pulse 76 04/12/17 12:26 Resp 20 04/12/17 12:00 BP 130/74 04/12/17 12:00 Pulse Ox 95 04/12/17 12:00 Intake & Output 04/11/17 04/12/17 04/12/17 18:59 06:59 18:59 Intake Total 620 700 Output Total 1800 5400 2400 Balance -1180 -5400 -1700 Weight 145.9 kg Intake: Oral 620 700 Output: Urine 1800 5400 2400 Other: Voiding Method Toilet # Voids 1 1 # Bowel Movements 1 - Exam GENERAL EXAM: Alert, active, comfortable in no apparent distress. HEAD: Normocephalic. EYES: Normal reaction of pupils, equal size. NOSE: Clear with pink turbinates. THROAT: No erythema or exudates. NECK: No masses, no JVD. CHEST: No chest wall deformity. LUNGS: Equal air entry with faint few wheezes present, no crackles, rhonchi or dullness. CVS: S1 and S2 normal with no audible mumurs, regular rhythm. ABDOMEN: No hepatosplenomegaly, normal bowel sounds, no guarding or rigidity. EXTREMITIES: +1 edema noted, pedal pulses palpable. SKIN: No rashes CENTRAL NERVOUS SYSTEM: No focal deficits, tone is normal in all 4 extremities. - Labs CBC & Chem 7: 04/12/17 06:38 04/12/17 06:38 Labs: Abnormal Lab Results - Last 24 Hours (Table) 04/11/17 04/11/17 04/12/17 Range/Units 16:59 20:49 06:20 WBC (3.8-10.6) k/uL Neutrophils # (1.3-7.7) k/uL Lymphocytes # (1.0-4.8) k/uL Chloride (98-107) mmol/L Carbon Dioxide (22-30) mmol/L BUN (7-17) mg/dL Creatinine (0.52-1.04) mg/dL Glucose (74-99) mg/dL POC Glucose (mg/dL) 120 H 157 H 142 H (75-99) mg/dL 04/12/17 04/12/17 04/12/17 Range/Units 06:38 06:38 11:28 WBC 10.8 H (3.8-10.6) k/uL Neutrophils # 9.7 H (1.3-7.7) k/uL Lymphocytes # 0.7 L (1.0-4.8) k/uL Chloride 95 L (98-107) mmol/L Carbon Dioxide 35 H (22-30) mmol/L BUN 35 H (7-17) mg/dL Creatinine 1.23 H (0.52-1.04) mg/dL Glucose 137 H (74-99) mg/dL POC Glucose (mg/dL) 108 H (75-99) mg/dL Assessment and Plan Plan: Assessment Pulomary Fibrosis Mediastinal lymphadenopathy Acute hypoxic respiratory failure Chest pain, can not exclude CAD Acute onset of congestive heart failure Atrial fibrillation with rapid ventricular rate Fibromyalgia Osteoarthritis Plan Medications have been reviewed and will be continued as ordered. We will switch her over to oral steroids to start tomorrow morning. Initiate and encourage incentive spirometer, patient pulling volumes approximately 2000. Continue with pulmonary hygiene, coughing and deep breathing exercises, and supportive care. Supplemental oxygen to maintain oxygen saturations of 92% or better. Continue nebulizer treatment, the addition of budesonide. GI and DVT prophylaxis. Patient will likely need follow-up with in the outpatient setting as well as have a polysomnogram for sleep apnea. We will continue to monitor labs/results and adjust treatment as necessary. Further recommendations pending. I performed an examination of the patient and discussed their management with the nurse practitioner. I have reviewed the nurse practitioner's note and agree with the documented findings and plan of care.
[2017-04-12 16:30] LABS: Glucose,Whole Blood 150 mg/dL (75-99)
[2017-04-12] MEDS ORDERED: RIVAROXABAN 15 MG TAB PO SCH (21:00)
[2017-04-12 21:14] LABS: Glucose,Whole Blood 149 mg/dL (75-99)
[2017-04-12] MEDS: ESCITALOPRAM 10 MG TAB PO SCH (21:24)
[2017-04-12] MEDS: ATENOLOL 50 MG TAB PO SCH (21:25)
[2017-04-13] MEDS: NITROGLYCERIN OINT 1 INCH/GM PACKET TOPICAL SCH ×3 (00:41→12:26)
[2017-04-13] MEDS: ALPRAZolam 0.5 MG TAB PO PRN ×2 (00:41→21:52)
[2017-04-13] MEDS ORDERED: REGADENOSON 0.4 MG/5 ML SYRINGE IV ONE (06:00)
[2017-04-13 06:02] LABS: Glucose,Whole Blood 117 mg/dL (75-99)
[2017-04-13] MEDS: INSULIN LISPRO (humaLOG) 300 UNIT/3 ML VIAL SQ SCH ×4 (06:40→20:49)
[2017-04-13] MEDS: IPRATROPIUM-ALBUTEROL 3 ML NEB INHALATION SCH ×4 (07:47→20:45)
[2017-04-13] MEDS: BUDESONIDE 0.5 MG/2 ML NEBU INHALATION SCH ×2 (07:47→20:45)
--- NOTE | 2017-04-13 11:21 | NM ---
EXAMINATION TYPE: NM stress lexiscan cardiolite DATE OF EXAM: 04/13/2017 COMPARISON: 05/18/2012 HISTORY: 66-year-old female with chest pain TECHNIQUE: After the intravenous administration of 11.0 mCi Tc 99m Sestamibi - Cardiolite resting SP ECT images acquired 45 minutes post injection. The patient received 0.4mg Lexiscan, 27.5 mCi Tc 99m Sestamibi - Stress images obtained [address] injection FINDINGS: Review of stress and rest SPECT images demonstrates perfusion abnormality of involving the inferior m id to basal wall on rest images suggesting diaphragmatic attenuation. However, there is decreased per fusion to the inferolateral apical wall on stress images. Gated analysis shows wall. Estimated left ventricular ejection fraction is mildly reduced at 48 %. T ID is calculated at 0.82, within normal limits. IMPRESSION: 1. Prominent attenuation artifacts. However, there is an area suspicious for reversibility along the inferolateral apical wall. Further EKG and clinical correlation recommended. 2. Mildly reduced LVEF (48%).
[2017-04-13 11:27] LABS: Glucose,Whole Blood 104 mg/dL (75-99)
[2017-04-13] MEDS: CHOLECALCIFEROL 1,000 UNIT TAB PO SCH (12:24)
[2017-04-13] MEDS: LEVOTHYROXINE 75 MCG TAB PO SCH (12:24)
[2017-04-13] MEDS: HYDROCHLOROTHIAZIDE 12.5 MG CAP PO SCH (12:25)
[2017-04-13] MEDS: FUROSEMIDE 40 MG TAB PO SCH (12:25)
[2017-04-13] MEDS: LOSARTAN 50 MG TAB PO SCH (12:25)
[2017-04-13] MEDS: MULTIVITAMINS, THERA 1 EACH TAB PO SCH (12:25)
[2017-04-13] MEDS: predniSONE 20 MG TAB PO SCH (12:26)
--- NOTE | 2017-04-13 13:13 | PN ---
SUBJECTIVE: A 66-year-old white female who had some chest pain today from the right shoulder down to the left chest. Nitroglycerine paste was given. Chest pain improved. She remains on IV Lasix and updraft treatments and IV steroids and updrafts and IV antibiotics. PSYCH: She has flat mood and affect, more lively today. CARDIOVASCULAR: S1, S2. LUNGS: Scattered wheezes. HEMATOLOGIC: Negative Homans. VASCULAR: Normal dorsalis pedis, posterior. ASSESSMENT: 1. Acute congestive heart failure exacerbation. 2. Acute chronic obstructive pulmonary disease exacerbation. 3. Tracheobronchitis. 4. Atypical chest pain. 5. Angina equivalent. Continue with nitro paste, antibiotics, steroids, updrafts. Please see further orders. MTDD
--- NOTE | 2017-04-13 14:13 | EST ---
DATE OF SERVICE: 04/13/2017 LEXISCAN CARDIOLITE STUDY INDICATION: Chest pain. BASELINE HEART RATE: 73 BASELINE BLOOD PRESSURE: 129/81 MAXIMUM HEART RATE: 85 MAXIMUM BLOOD PRESSURE: 133/93 85% MPHR: 131 100% MPHR: 154 METS: - MAXIMUM STAGE REACHED:- TOTAL EXERCISE TIME: - Patient was given Lexiscan injection over a period of 15 seconds. Peak heart rate of 85 was achieved. Maximum blood pressure of 133/93 mmHg was noted. Resting EKG shows evidence of atrial fibrillation with normal QRS complex and nonspecific ST-T changes. No ST segment depression suggestive of ischemia was noted. No dysarrhthmias noted. FINAL IMPRESSION: This EKG does not show any evidence of ST-segment depression suggestive of ischemia during Lexiscan injection. The results of the nuclear study will follow. [facility]
--- NOTE | 2017-04-13 15:30 | P.PN ---
Subjective Principal diagnosis: Cogestive heart failure this is a 66-year-old with known history of atrial fibrillation, hypertension, and hyperlipidemia, who used to live in [place], currently moved back to this area. She presented to the hospital with symptoms of progressively worsening shortness of breath and associated leg edema. She has been diuresing well overall, her weight today is down 4 kg, continues to have peripheral edema however much improved. Echocardiogram with Doppler study was performed which revealed an ejection fraction of 40-45%. Patient did have an episode of chest discomfort through the night last night, by the time of her the nurse arrived, symptoms have pretty much resolved. She was given however Nitropaste along with one sublingual nitroglycerin. EKG was also performed at that time which did not reveal any acute changes. At the time of our examination she is currently chest pain-free. 04/13/2017 patient underwent a Lexiscan stress test today which revealed prominent attenuation artifacts. However there is an area suspicious for reversibility along the inferior lateral apical wall. For this reason patient was advised to undergo cardiac catheterization. The risks and the benefits were explained to the patient in detail. She is on Xarelto for anticoagulation, we will hold his Xarelto today and schedule the patient for cardiac catheterization on with Dr. Saenz.we'll also hold her Lasix today. Objective - Vital Signs Vital signs: Vital Signs Temp 96.6 F L 04/13/17 10:50 Pulse 96 04/13/17 15:23 Resp 18 04/13/17 10:50 BP 121/87 04/13/17 10:50 Pulse Ox 93 L 04/13/17 10:50 Intake & Output 04/12/17 04/13/17 04/13/17 18:59 06:59 18:59 Intake Total 700 240 Output Total 2650 800 200 Balance -1950 -800 40 Weight 145.9 kg 146.6 kg Intake: Oral 700 240 Output: Urine 2650 800 200 Other: Voiding Method Toilet Toilet Toilet # Voids 1 1 # Bowel Movements 1 - Exam PHYSICAL EXAMINATION: HEENT: [Head is atraumatic, normocephalic. Pupils equal, round. Neck is supple. There is no elevated jugular venous pressure.] HEART EXAMINATION: heart S1 and S2 irregularly irregular CHEST EXAMINATION:[ Lungs are clear with fine expiratory wheezing. No chest wall tenderness is noted on palpation or with deep breathing.] ABDOMEN: [ Soft,obese, nontender. Bowel sounds are heard. No organomegaly noted] . EXTREMITIES:[ 2+ peripheral pulses with 1+ evidence of peripheral edema and no calf tenderness noted]. NEUROLOGIC [patient is awake, alert and oriented -3.] . - Labs CBC & Chem 7: 04/12/17 06:38 04/12/17 06:38 Labs: Abnormal Lab Results - Last 24 Hours (Table) 04/12/17 04/12/17 04/13/17 Range/Units 16:29 21:14 06:00 POC Glucose (mg/dL) 150 H 149 H 117 H (75-99) mg/dL 04/13/17 Range/Units 11:26 POC Glucose (mg/dL) 104 H (75-99) mg/dL Assessment and Plan (1) Diastolic CHF, acute on chronic Status: Acute (2) Chronic a-fib Status: Acute (3) Chest pain Status: Acute Plan: From cardiology's perspective, we will hold the patient's Lasix today. Hold xarelto. Schedule patient for cardiac catheterization on with Dr. Saenz. DNP note has been reviewed, I agree with a documented findings and plan of care. Patient was seen and examined.
--- NOTE | 2017-04-13 16:45 | P.PN ---
Subjective Patient seen and evaluated examined during the round, she is feeling slightly better shortness of breath and palpitation has improved swelling in the lower extremity has reviewed as well her computed tomography scan of his chest has reviewed the nonspecific lymphadenopathy in the mediastinal area and some interstitial pattern was seen at the bases likely developing pulmonary fibrosis or interstitial lung disease her heart rate is better under control cardiovascular services following I've discussed with her about sleep study as outpatient which is to perform she will likely need follow-up computed tomography scan down the road for monitoring mediastinal lymph nodes as well as interstitial lung disease 04/11/17, patient seen and evaluated examined today she remains intermittently in atrial fibrillation with controlled ventricular response she is being diuresed anasarca and third spacing is slightly improved she feels a difference less short of breath now her cough congestion has improved still feel extremely weak and tired she does have a history of snoring not sure about apneic events though her medication laboratory data reviewed Patient seen and evaluated examined on selective care mild degree of shortness of breath and cough is present which is dry and nonproductive she has been ambulating she has been noted to have intermittent episodes of snoring and apneic events patient is agreeable for sleep study and outpatient basis Objective - Vital Signs Vital signs: Vital Signs Temp 96.6 F L 04/13/17 10:50 Pulse 96 04/13/17 15:23 Resp 18 04/13/17 10:50 BP 121/87 04/13/17 10:50 Pulse Ox 93 L 04/13/17 10:50 Intake & Output 04/12/17 04/13/17 04/13/17 18:59 06:59 18:59 Intake Total 700 240 Output Total 2650 800 500 Balance -1950 -800 -260 Weight 145.9 kg 146.6 kg Intake: Oral 700 240 Output: Urine 2650 800 500 Other: Voiding Method Toilet Toilet Toilet # Voids 1 1 # Bowel Movements 1 - Exam GENERAL EXAM: Alert, active, comfortable in no apparent distress. HEAD: Normocephalic. EYES: Normal reaction of pupils, equal size. NOSE: Clear with pink turbinates. THROAT: No erythema or exudates. NECK: No masses, no JVD. CHEST: No chest wall deformity. LUNGS: Equal air entry with faint few wheezes present, no crackles, rhonchi or dullness. CVS: S1 and S2 normal with no audible mumurs, regular rhythm. ABDOMEN: No hepatosplenomegaly, normal bowel sounds, no guarding or rigidity. EXTREMITIES: +1 edema noted, pedal pulses palpable. SKIN: No rashes CENTRAL NERVOUS SYSTEM: No focal deficits, tone is normal in all 4 extremities. - Labs CBC & Chem 7: 04/12/17 06:38 04/12/17 06:38 Labs: Abnormal Lab Results - Last 24 Hours (Table) 04/12/17 04/13/17 04/13/17 Range/Units 21:14 06:00 11:26 POC Glucose (mg/dL) 149 H 117 H 104 H (75-99) mg/dL Assessment and Plan Plan: Obstructive sleep apnea Atrial fibrillation with rapid ventricular rate, leading to acute diastolic heart failure, with the acute and chronic systolic heart failure ejection fraction is 40% Mediastinal lymphadenopathy, nonspecific Acute hypoxic respiratory failure, likely related to multifactorial processes including pulmonary and cardiovascular Chest pain, can not exclude CAD Acute onset of congestive heart failure, acute on chronic diastolic heart failure, with systolic heart failure likely acute on chronic 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 We will continue Solu-Medrol. Initiate and encourage incentive spirometer, patient pulling volumes, change in the the steroids to oral prednisone and next 24 approximately 1999. Continue with pulmonary hygiene, coughing and deep breathing exercises, and supportive care. Supplemental oxygen to maintain oxygen saturations of 92% or better. Continue nebulizer treatment, the addition of budesonide. GI and DVT prophylaxis. As dictated above likely will need to be followed up in office as well as sleep study We will continue to monitor labs /results and adjust treatment as necessary. Further recommendations pending. Sleep study as outpatient Time with Patient: Less than 30
[2017-04-13 16:50] LABS: Glucose,Whole Blood 119 mg/dL (75-99)
[2017-04-13] MEDS: ESCITALOPRAM 10 MG TAB PO SCH (20:34)
[2017-04-13] MEDS: ATENOLOL 50 MG TAB PO SCH (20:34)
[2017-04-13 20:45] LABS: Glucose,Whole Blood 169 mg/dL (75-99)
[2017-04-14 02:04] LABS: Glucose,Whole Blood 102 mg/dL (75-99)
[2017-04-14 06:11] LABS: Glucose,Whole Blood 111 mg/dL (75-99)
[2017-04-14] MEDS: INSULIN LISPRO (humaLOG) 300 UNIT/3 ML VIAL SQ SCH ×4 (06:12→21:50)
[2017-04-14] MEDS: LEVOTHYROXINE 75 MCG TAB PO SCH (06:15)
[2017-04-14] MEDS: ACETAMINOPHEN TAB 325 MG TAB PO PRN (06:25)
[2017-04-14] MEDS: BUDESONIDE 0.5 MG/2 ML NEBU INHALATION SCH ×2 (07:26→19:33)
[2017-04-14] MEDS: IPRATROPIUM-ALBUTEROL 3 ML NEB INHALATION SCH ×4 (07:26→19:33)
[2017-04-14] MEDS: HYDROCHLOROTHIAZIDE 12.5 MG CAP PO SCH (08:46)
[2017-04-14] MEDS: CHOLECALCIFEROL 1,000 UNIT TAB PO SCH (08:46)
[2017-04-14] MEDS: LOSARTAN 50 MG TAB PO SCH (08:46)
[2017-04-14] MEDS: MULTIVITAMINS, THERA 1 EACH TAB PO SCH (08:47)
[2017-04-14] MEDS: predniSONE 20 MG TAB PO SCH (08:47)
[2017-04-14 11:52] LABS: Glucose,Whole Blood 94 mg/dL (75-99)
--- NOTE | 2017-04-14 12:08 | P.PN ---
Subjective Patient seen and evaluated examined during the round, she is feeling slightly better shortness of breath and palpitation has improved swelling in the lower extremity has reviewed as well her computed tomography scan of his chest has reviewed the nonspecific lymphadenopathy in the mediastinal area and some interstitial pattern was seen at the bases likely developing pulmonary fibrosis or interstitial lung disease her heart rate is better under control cardiovascular services following I've discussed with her about sleep study as outpatient which is to perform she will likely need follow-up computed tomography scan down the road for monitoring mediastinal lymph nodes as well as interstitial lung disease 04/11/17, patient seen and evaluated examined today she remains intermittently in atrial fibrillation with controlled ventricular response she is being diuresed anasarca and third spacing is slightly improved she feels a difference less short of breath now her cough congestion has improved still feel extremely weak and tired she does have a history of snoring not sure about apneic events though her medication laboratory data reviewed 04/12/17 patient is seen in the examined today on rounds. Patient continues on room air she does complain of some shortness of breath with exertion. She currently is using her incentive spirometer and pulling volumes of 1750 ML's. Apparently overnight the patient did have some chest discomfort she was given nitro paste as well as sub-lingual nitroglycerin. An EKG was performed and did not show any acute changes. Currently she denies any chest pain at this time. Cardiology is aware and is following the patient closely. 04/13/17- Patient seen and evaluated examined on selective care mild degree of shortness of breath and cough is present which is dry and nonproductive she has been ambulating she has been noted to have intermittent episodes of snoring and apneic events patient is agreeable for sleep study and outpatient basis. 04/14/17 patient is seen and examined today on rounds. She continues to be on room air however does have a degree of shortness of breath with exertion. Patient denies any cough or congestion. The patient is scheduled to have a cardiac catheterization procedure with cardiology tomorrow. Cardiology is following her closely. Xarelto is currently on hold. Objective - Vital Signs Vital signs: Vital Signs Temp 97.0 F L 04/14/17 11:58 Pulse 80 04/14/17 11:59 Resp 16 04/14/17 11:59 BP 111/62 04/14/17 11:58 Pulse Ox 95 04/14/17 11:58 Intake & Output 04/13/17 04/14/17 04/14/17 18:59 06:59 18:59 Intake Total 480 180 Output Total 500 1400 Balance -20 -1400 180 Weight 146.6 kg Intake: Oral 480 180 Output: Urine 500 1400 Other: Voiding Method Toilet Toilet Toilet # Voids 1 1 - Exam GENERAL EXAM: Alert, active, comfortable in no apparent distress. HEAD: Normocephalic. EYES: Normal reaction of pupils, equal size. NOSE: Clear with pink turbinates. THROAT: No erythema or exudates. NECK: No masses, no JVD. CHEST: No chest wall deformity. LUNGS: Equal air entry with faint few wheezes present, no crackles, rhonchi or dullness. CVS: S1 and S2 normal with no audible mumurs, regular rhythm. ABDOMEN: No hepatosplenomegaly, normal bowel sounds, no guarding or rigidity. EXTREMITIES: +1 edema noted, pedal pulses palpable. SKIN: No rashes CENTRAL NERVOUS SYSTEM: No focal deficits, tone is normal in all 4 extremities. - Labs CBC & Chem 7: 04/12/17 06:38 04/12/17 06:38 Labs: Abnormal Lab Results - Last 24 Hours (Table) 04/13/17 04/13/17 04/14/17 Range/Units 16:49 20:44 02:02 POC Glucose (mg/dL) 119 H 169 H 102 H (75-99) mg/dL 04/14/17 Range/Units 06:10 POC Glucose (mg/dL) 111 H (75-99) mg/dL Assessment and Plan Plan: Assessment Pulomary Fibrosis Mediastinal lymphadenopathy Acute hypoxic respiratory failure Chest pain, can not exclude CAD Acute onset of congestive heart failure Atrial fibrillation with rapid ventricular rate Fibromyalgia Osteoarthritis Plan Medications have been reviewed and will be continued as ordered. We will decrease the patient's prednisone to 20 mg which we'll start tomorrow. Initiate and encourage incentive spirometer, patient pulling volumes approximately 2000. Continue with pulmonary hygiene, coughing and deep breathing exercises, and supportive care. Supplemental oxygen to maintain oxygen saturations of 92% or better. Continue nebulizer treatment, the addition of budesonide. GI and DVT prophylaxis. Patient will likely need follow-up with in the outpatient setting as well as have a polysomnogram for sleep apnea. We will continue to monitor labs/results and adjust treatment as necessary. Further recommendations pending. I performed an examination of the patient and discussed their management with the nurse practitioner. I have reviewed the nurse practitioner's note and agree with the documented findings and plan of care.
--- NOTE | 2017-04-14 12:29 | PN ---
SUBJECTIVE: A 66-year-old white female with acute diastolic CHF, unstable angina, COPD exacerbation, anxiety, hypertension. Patient continues on IV Lasix , updraft treatments, IV steroids, unstable angina with nitroglycerin paste. Abnormal stress test. Today was stress echo. She will be scheduled for heart catheterization in two days. Continue with IV Lasix at this time, IV steroids, updraft treatments. Cardiovascular: S1, S2. Lungs: Transmitted upper airway sounds. Hematologic: Negative Homans. Endocrine: BMI is over 40. ASSESSMENT: 1. Unstable angina. 2. Acute diastolic congestive heart failure. 3. Chronic obstructive pulmonary disease exacerbation 4. Anxiety. 5. Hypertension. Continue treatments as mentioned above. Prognosis is guarded. All medications reviewed with patient as well as her future care and cardiac catheterization on two days from now. SHAE
--- NOTE | 2017-04-14 14:39 | P.PN ---
Subjective Principal diagnosis: Cogestive heart failure this is a 66-year-old with known history of atrial fibrillation, hypertension, and hyperlipidemia, who used to live in [place], currently moved back to this area. She presented to the hospital with symptoms of progressively worsening shortness of breath and associated leg edema. She has been diuresing well overall, her weight today is down 4 kg, continues to have peripheral edema however much improved. Echocardiogram with Doppler study was performed which revealed an ejection fraction of 40-45%. Patient did have an episode of chest discomfort through the night last night, by the time of her the nurse arrived, symptoms have pretty much resolved. She was given however Nitropaste along with one sublingual nitroglycerin. EKG was also performed at that time which did not reveal any acute changes. At the time of our examination she is currently chest pain-free. 04/13/2017 patient underwent a Lexiscan stress test today which revealed prominent attenuation artifacts. However there is an area suspicious for reversibility along the inferior lateral apical wall. For this reason patient was advised to undergo cardiac catheterization. The risks and the benefits were explained to the patient in detail. She is on Xarelto for anticoagulation, we will hold his Xarelto today and schedule the patient for cardiac catheterization on with Dr. Saenz.we'll also hold her Lasix today. 04/14/2017 Patient seen and examined this morning, denies any further chest pain through the night last night. She is scheduled to undergo cardiac catheterization tomorrow with Dr. Saenz, Xarelto is on hold. Objective - Vital Signs Vital signs: Vital Signs Temp 97.0 F L 04/14/17 11:58 Pulse 80 04/14/17 11:59 Resp 16 04/14/17 11:59 BP 111/62 04/14/17 11:58 Pulse Ox 95 04/14/17 11:58 Intake & Output 04/13/17 04/14/17 04/14/17 18:59 06:59 18:59 Intake Total 480 180 Output Total 500 1400 Balance -20 -1400 180 Weight 146.6 kg Intake: Oral 480 180 Output: Urine 500 1400 Other: Voiding Method Toilet Toilet Toilet # Voids 1 1 - Exam PHYSICAL EXAMINATION: HEENT: [Head is atraumatic, normocephalic. Pupils equal, round. Neck is supple. There is no elevated jugular venous pressure.] HEART EXAMINATION: heart S1 and S2 irregularly irregular CHEST EXAMINATION:[ Lungs are clear with fine expiratory wheezing. No chest wall tenderness is noted on palpation or with deep breathing.] ABDOMEN: [ Soft,obese, nontender. Bowel sounds are heard. No organomegaly noted] . EXTREMITIES:[ 2+ peripheral pulses with 1+ evidence of peripheral edema and no calf tenderness noted]. NEUROLOGIC [patient is awake, alert and oriented -3.] . - Labs CBC & Chem 7: 04/12/17 06:38 04/12/17 06:38 Labs: Abnormal Lab Results - Last 24 Hours (Table) 04/13/17 04/13/17 04/14/17 Range/Units 16:49 20:44 02:02 POC Glucose (mg/dL) 119 H 169 H 102 H (75-99) mg/dL 04/14/17 Range/Units 06:10 POC Glucose (mg/dL) 111 H (75-99) mg/dL Assessment and Plan (1) Diastolic CHF, acute on chronic Status: Acute (2) Chronic a-fib Status: Acute (3) Chest pain Status: Acute Plan: From cardiology's perspective, we will hold the patient's Lasix today. Hold xarelto. Schedule patient for cardiac catheterization on with Dr. Saenz. DNP note has been reviewed, I agree with a documented findings and plan of care. Patient was seen and examined.
[2017-04-14] MEDS: SODIUM CHLORIDE 0.9% 1,000 ML IV SCH (16:10)
[2017-04-14 17:11] LABS: Glucose,Whole Blood 140 mg/dL (75-99)
[2017-04-14] MEDS: ESCITALOPRAM 10 MG TAB PO SCH (20:29)
[2017-04-14] MEDS: ATENOLOL 50 MG TAB PO SCH (20:29)
[2017-04-14 20:50] LABS: Glucose,Whole Blood 144 mg/dL (75-99)
[2017-04-14] MEDS: ALPRAZolam 0.5 MG TAB PO PRN (21:50)
[2017-04-15] MEDS: SODIUM CHLORIDE 0.9% 1,000 ML IV SCH ×3 (05:04→19:41)
[2017-04-15 06:03] LABS: Glucose,Whole Blood 82 mg/dL (75-99)
[2017-04-15] MEDS: predniSONE 20 MG TAB PO SCH ×2 (06:10→06:14)
[2017-04-15] MEDS: CHOLECALCIFEROL 1,000 UNIT TAB PO SCH (06:10)
[2017-04-15] MEDS: LOSARTAN 50 MG TAB PO SCH (06:11)
[2017-04-15] MEDS: MULTIVITAMINS, THERA 1 EACH TAB PO SCH (06:11)
[2017-04-15] MEDS: HYDROCHLOROTHIAZIDE 12.5 MG CAP PO SCH (06:11)
[2017-04-15] MEDS: LEVOTHYROXINE 75 MCG TAB PO SCH (06:11)
[2017-04-15] MEDS: INSULIN LISPRO (humaLOG) 300 UNIT/3 ML VIAL SQ SCH ×4 (06:14→21:43)
[2017-04-15 07:36] LABS: Calcium 8.6 mg/dL (8.4-10.2)
[2017-04-15] MEDS ORDERED: ASPIRIN 325 MG TAB PO STA (07:58)
[2017-04-15] MEDS: IPRATROPIUM-ALBUTEROL 3 ML NEB INHALATION SCH ×5 (08:42→20:37)
[2017-04-15] MEDS: BUDESONIDE 0.5 MG/2 ML NEBU INHALATION SCH ×3 (08:42→20:35)
[2017-04-15] MEDS ORDERED: MIDAZOLAM 2 MG/2 ML VIAL ONE (08:47)
[2017-04-15] MEDS ORDERED: fentaNYL (PF) 50 MCG/ML 2 ML AMP ONE (08:47)
[2017-04-15] MEDS ORDERED: LIDOCAINE 2% INJ 20 MG/ML SQ ONE (09:08)
[2017-04-15] MEDS ORDERED: fentaNYL (PF) 50 MCG/ML 2 ML AMP IV ONE (09:09)
[2017-04-15] MEDS ORDERED: IV FLUID CONTINUATION 1,000 ML IV ONE (09:10)
[2017-04-15] MEDS ORDERED: MIDAZOLAM 2 MG/2 ML VIAL IV ONE (09:10)
[2017-04-15] MEDS ORDERED: IODIXANOL 320 MG/ML 100 ML INTRAARTER ONE (09:17)
--- NOTE | 2017-04-15 09:24 | PN ---
SUBJECTIVE: A white female who is breathing better today despite pulmonary fibrosis and chest pain with abnormal echo stress testing for which she is scheduled to have heart catheterization in the morning. She remains on IV Lasix. Her Xarelto is on hold due to heart catheterizations in the morning. Temp 97, pulse 80s, respiratory 16 to 20, blood pressure 111/62, O2 is 95% on room air. CARDIOVASCULAR: S1, S2. LUNGS: Scattered wheeze. HEMATOLOGIC: Negative Homans. PSYCH: Fair mood and affect. NEUROLOGIC: Alert and oriented x3. White count 10.8, hemoglobin 14.6, BUN 35, creatinine 1.23. ASSESSMENT: 1. Pulmonary fibrosis. 2. Atypical chest pain, possible coronary artery disease. 3. Congestive heart failure. 4. Atrial fibrillation, rapid ventricular rate response. 5. Fibromyalgia. 6. Osteoarthritis. 7. Acute hypoxic respiratory failure. Continue to wean steroids, heart catheterization will be done in the morning if it is normal. She will be sent home on tapered course over the next few days. Maintain oxygen over 92%. ( ). Please see further orders. MTDD
[2017-04-15] MEDS ORDERED: RX INFO: IV CONTRAST WAS GIVEN 1 EACH MISC MISCELLANE PRN (09:25)
--- NOTE | 2017-04-15 10:02 | CC ---
INDICATION: Chest pain with abnormal stress test. PROCEDURE NOTE: After obtaining informed consent, left heart catheterization and coronary angiogram are performed via the right femoral artery using standard Keren catheters. The patient tolerated the procedure well without any obvious immediate complications. FINDINGS: 1. HEMODYNAMICS: Left ventricular end-diastolic pressure is 8 to 10 mm. There is no significant gradient across he aortic valve. 2. LEFT VENTRICULOGRAM: The left ventriculogram is not performed. 3. ANGIOGRAPHIC DATA: LEFT MAIN CORONARY ARTERY: Left main coronary artery is a normal size vessel and is free of stenosis. Divides into left anterior descending coronary artery and circumflex coronary artery. LAD and its branches and circumflex coronary artery and its branches are free of significant stenosis. Right coronary artery is a large codominant vessel and is free of significant stenosis. CONCLUSIONS: Normal coronary arteries. Normal left ventricular end-diastolic pressure. I reviewed angiographic data with the patient and told her that her chest discomfort is noncardiac in origin and the stress test is a false positive stress test. She is on Xarelto, which I am going to resume today. She can be discharged home later today if her groin is stable. I will perform GURDEEP and cardioversion on her in 3 weeks time. Patient received moderate conscious sedation and the total sedation time was about 20 minutes. [facility]
[2017-04-15 12:06] LABS: Glucose,Whole Blood 116 mg/dL (75-99)
--- NOTE | 2017-04-15 12:31 | P.PN ---
Subjective Patient seen and evaluated examined during the round, she is feeling slightly better shortness of breath and palpitation has improved swelling in the lower extremity has reviewed as well her computed tomography scan of his chest has reviewed the nonspecific lymphadenopathy in the mediastinal area and some interstitial pattern was seen at the bases likely developing pulmonary fibrosis or interstitial lung disease her heart rate is better under control cardiovascular services following I've discussed with her about sleep study as outpatient which is to perform she will likely need follow-up computed tomography scan down the road for monitoring mediastinal lymph nodes as well as interstitial lung disease 04/11/17, patient seen and evaluated examined today she remains intermittently in atrial fibrillation with controlled ventricular response she is being diuresed anasarca and third spacing is slightly improved she feels a difference less short of breath now her cough congestion has improved still feel extremely weak and tired she does have a history of snoring not sure about apneic events though her medication laboratory data reviewed 04/12/17 patient is seen in the examined today on rounds. Patient continues on room air she does complain of some shortness of breath with exertion. She currently is using her incentive spirometer and pulling volumes of 1750 ML's. Apparently overnight the patient did have some chest discomfort she was given nitro paste as well as sub-lingual nitroglycerin. An EKG was performed and did not show any acute changes. Currently she denies any chest pain at this time. Cardiology is aware and is following the patient closely. 04/13/17- Patient seen and evaluated examined on selective care mild degree of shortness of breath and cough is present which is dry and nonproductive she has been ambulating she has been noted to have intermittent episodes of snoring and apneic events patient is agreeable for sleep study and outpatient basis. 04/14/17 patient is seen and examined today on rounds. She continues to be on room air however does have a degree of shortness of breath with exertion. Patient denies any cough or congestion. The patient is scheduled to have a cardiac catheterization procedure with cardiology tomorrow. Cardiology is following her closely. Xarelto is currently on hold. 04/15/17- patient is seen and examined today resting flat in bed post cardiac catheterization. She continues on 2 L of supplemental oxygen. Patient denies cough and congestion today. Findings during the cardiac cath were there was normal coronary arteries, normal left ventricular end-diastolic pressure. The patient is supposed to go for a GURDEEP and cardioversion in 3 weeks in the outpatient setting. patient will require a nebulizer machine as well as breathing treatments upon discharge. Objective - Vital Signs Vital signs: Vital Signs Temp 97.1 F L 04/15/17 10:10 Pulse 83 04/15/17 10:40 Resp 18 04/15/17 10:40 BP 113/63 04/15/17 10:40 Pulse Ox 97 04/15/17 10:40 Intake & Output 04/14/17 04/15/17 04/15/17 18:59 06:59 18:59 Intake Total 405 1080 Balance 405 1080 Weight 146.2 kg Intake: Intake, IV Titration 225 900 Amount Sodium Chloride 0.9% 1, 225 900 000 ml @ 75 mls/hr IV . [id number] MARIANNE Rx#:[id number] Oral 180 180 Other: Voiding Method Toilet Toilet # Voids 1 1 1 - Exam GENERAL EXAM: Alert, active, comfortable in no apparent distress. HEAD: Normocephalic. EYES: Normal reaction of pupils, equal size. NOSE: Clear with pink turbinates. THROAT: No erythema or exudates. NECK: No masses, no JVD. CHEST: No chest wall deformity. LUNGS: Equal air entry with faint few wheezes present, no crackles, rhonchi or dullness. CVS: S1 and S2 normal with no audible mumurs, regular rhythm. ABDOMEN: No hepatosplenomegaly, normal bowel sounds, no guarding or rigidity. EXTREMITIES: +1 edema noted, pedal pulses palpable. SKIN: No rashes CENTRAL NERVOUS SYSTEM: No focal deficits, tone is normal in all 4 extremities. - Labs CBC & Chem 7: 04/12/17 06:38 04/15/17 06:26 Labs: Abnormal Lab Results - Last 24 Hours (Table) 04/14/17 04/14/17 04/15/17 Range/Units 16:48 20:47 06:26 BUN 37 H (7-17) mg/dL Creatinine 1.19 H (0.52-1.04) mg/dL POC Glucose (mg/dL) 140 H 144 H (75-99) mg/dL Assessment and Plan Plan: Assessment Pulomary Fibrosis Mediastinal lymphadenopathy Acute hypoxic respiratory failure Chest pain, can not exclude CAD Acute onset of congestive heart failure Atrial fibrillation with rapid ventricular rate Fibromyalgia Osteoarthritis Plan Patient could be discharged from a pulmonary standpoint in the near future. Patient will require home breathing treatments and nebulizer. Medications have been reviewed and will be continued as ordered. Patient will also require steroid taper in the outpatient setting. She should also follow up with us in the office for PFT as well as a sleep study.. Initiate and encourage incentive spirometer, patient pulling volumes approximately 2000. Continue with pulmonary hygiene, coughing and deep breathing exercises, and supportive care. Supplemental oxygen to maintain oxygen saturations of 92% or better. Continue nebulizer treatment, the addition of budesonide. GI and DVT prophylaxis. Patient will likely need follow-up with in the outpatient setting as well as have a polysomnogram for sleep apnea. We will continue to monitor labs/results and adjust treatment as necessary. Further recommendations pending. I performed an examination of the patient and discussed their management with the nurse practitioner. I have reviewed the nurse practitioner's note and agree with the documented findings and plan of care.
[2017-04-15] MEDS: ALPRAZolam 0.5 MG TAB PO PRN ×2 (13:57→21:51)
[2017-04-15] MEDS: ACETAMINOPHEN TAB 325 MG TAB PO PRN (13:58)
[2017-04-15 16:48] LABS: Glucose,Whole Blood 118 mg/dL (75-99)
[2017-04-15 20:12] LABS: Glucose,Whole Blood 114 mg/dL (75-99)
[2017-04-15] MEDS: ESCITALOPRAM 10 MG TAB PO SCH (21:45)
[2017-04-15] MEDS: ATENOLOL 50 MG TAB PO SCH (21:45)
[2017-04-16] MEDS: SODIUM CHLORIDE 0.9% 1,000 ML IV SCH ×3 (00:09→12:07)
[2017-04-16 05:58] LABS: Glucose,Whole Blood 82 mg/dL (75-99)
[2017-04-16] MEDS: INSULIN LISPRO (humaLOG) 300 UNIT/3 ML VIAL SQ SCH ×2 (06:06→12:07)
[2017-04-16] MEDS: LEVOTHYROXINE 75 MCG TAB PO SCH (06:13)
[2017-04-16 07:01] LABS: Basophils % (A) 0 %; CH 32.1; CHCM 32.6; Eosinophils # (A) 0.2 k/uL (0-0.7); Eosinophils % (A) 2 %; HCT 45.4 % (34.0-46.0); HDW 2.38; HGB 14.6 gm/dL (11.4-16.0); Luc % (Auto) 1; Lymphocytes # (A) 2.2 k/uL (1.0-4.8); Lymphocytes % (A) 26 %; MCH 31.9 pg (25.0-35.0); MCHC 32.2 g/dL (31.0-37.0); MCV 98.9 fL (80.0-100.0); Mean Platelet Volume 7.4; Monocytes # (A) 0.5 k/uL (0-1.0); Monocytes % (A) 5 %; Neutrophils # (A) 5.8 k/uL (1.3-7.7); Neutrophils % (A) 66 %; RBC 4.59 m/uL (3.80-5.40); WBC 8.8 k/uL (3.8-10.6); WBC (Perox) 8.61
[2017-04-16 07:20] LABS: Calcium 8.6 mg/dL (8.4-10.2); Potassium 4.4 mmol/L (3.5-5.1); Total Bilirubin 0.5 mg/dL (0.2-1.3); Total Protein 5.3 g/dL (6.3-8.2)
[2017-04-16] MEDS: predniSONE 20 MG TAB PO SCH (08:24)
[2017-04-16] MEDS: HYDROCHLOROTHIAZIDE 12.5 MG CAP PO SCH (08:24)
[2017-04-16] MEDS: MULTIVITAMINS, THERA 1 EACH TAB PO SCH (08:24)
[2017-04-16] MEDS: CHOLECALCIFEROL 1,000 UNIT TAB PO SCH (08:24)
[2017-04-16] MEDS: LOSARTAN 50 MG TAB PO SCH (08:24)
[2017-04-16] MEDS: BUDESONIDE 0.5 MG/2 ML NEBU INHALATION SCH (08:44)
[2017-04-16] MEDS: IPRATROPIUM-ALBUTEROL 3 ML NEB INHALATION SCH ×2 (08:47→11:51)
[2017-04-16 10:26] VITALS: BP 118/84; TEMP 97.9
--- NOTE | 2017-04-16 11:05 | PN ---
SUBJECTIVE: Overweight white female. CT of the chest shows nonspecific pulmonary fibrosis. She had cardiac catheterization with no acute arterial obstruction. She has shortness of breath with exertion. She is on 2 L oxygen post catheterization. She will try to wean that off today. Possible discharge home. Go for GURDEEP, cardioversion three weeks for atrial fibrillation. Continue Xarelto. Vital signs stable. Temp 97, Pulse 83. Respiratory rate 18. Blood pressure 113/ 63. O2 sat 97% on room air. CARDIOVASCULAR: S1, S2. Lungs transmitted upper airway sounds. Hematological: Negative Homans. PSYCH: Fair mood and affect. Ophthalmological: Pupils equal, round and reactive to light and accommodation. White count 10.8. BUN 37. Creatinine 1.9. Will taper steroids. Taper antibiotics. Continue ( ) exercises. O2 over 92%. Follow-up in the next 24 to 48 hours. Possible discharge home. SHAE
--- NOTE | 2017-04-16 11:46 | P.PN ---
Subjective Patient seen and evaluated examined during the round, she is feeling slightly better shortness of breath and palpitation has improved swelling in the lower extremity has reviewed as well her computed tomography scan of his chest has reviewed the nonspecific lymphadenopathy in the mediastinal area and some interstitial pattern was seen at the bases likely developing pulmonary fibrosis or interstitial lung disease her heart rate is better under control cardiovascular services following I've discussed with her about sleep study as outpatient which is to perform she will likely need follow-up computed tomography scan down the road for monitoring mediastinal lymph nodes as well as interstitial lung disease 04/11/17, patient seen and evaluated examined today she remains intermittently in atrial fibrillation with controlled ventricular response she is being diuresed anasarca and third spacing is slightly improved she feels a difference less short of breath now her cough congestion has improved still feel extremely weak and tired she does have a history of snoring not sure about apneic events though her medication laboratory data reviewed 04/12/17 patient is seen in the examined today on rounds. Patient continues on room air she does complain of some shortness of breath with exertion. She currently is using her incentive spirometer and pulling volumes of 1750 ML's. Apparently overnight the patient did have some chest discomfort she was given nitro paste as well as sub-lingual nitroglycerin. An EKG was performed and did not show any acute changes. Currently she denies any chest pain at this time. Cardiology is aware and is following the patient closely. 04/13/17- Patient seen and evaluated examined on selective care mild degree of shortness of breath and cough is present which is dry and nonproductive she has been ambulating she has been noted to have intermittent episodes of snoring and apneic events patient is agreeable for sleep study and outpatient basis. 04/14/17 patient is seen and examined today on rounds. She continues to be on room air however does have a degree of shortness of breath with exertion. Patient denies any cough or congestion. The patient is scheduled to have a cardiac catheterization procedure with cardiology tomorrow. Cardiology is following her closely. Xarelto is currently on hold. 04/15/17- patient is seen and examined today resting flat in bed post cardiac catheterization. She continues on 2 L of supplemental oxygen. Patient denies cough and congestion today. Findings during the cardiac cath were there was normal coronary arteries, normal left ventricular end-diastolic pressure. The patient is supposed to go for a GURDEEP and cardioversion in 3 weeks in the outpatient setting. patient will require a nebulizer machine as well as breathing treatments upon discharge. 04/16/17- patient is being seen and examined today she is post cardiac catheterization from yesterday afternoon. Patient's breathing has been significantly better. She denies any cough or congestion. She has no longer utilizing supplemental oxygen. She has been maintaining her oxygen saturations in the high 90s. Patient is getting ready for discharge. Patient has been advised to follow-up with us in the outpatient setting. Objective - Vital Signs Vital signs: Vital Signs Temp 97.9 F 04/16/17 08:00 Pulse 71 04/16/17 09:01 Resp 16 04/16/17 09:01 BP 118/84 04/16/17 08:00 Pulse Ox 95 04/16/17 08:47 Intake & Output 04/15/17 04/16/17 04/16/17 18:59 06:59 18:59 Intake Total 500 600 120 Output Total 950 Balance -450 600 120 Weight 147 kg Intake: Oral 500 600 120 Output: Urine 950 Other: Voiding Method Toilet Toilet # Voids 1 1 - Exam GENERAL EXAM: Alert, active, comfortable in no apparent distress. HEAD: Normocephalic. EYES: Normal reaction of pupils, equal size. NOSE: Clear with pink turbinates. THROAT: No erythema or exudates. NECK: No masses, no JVD. CHEST: No chest wall deformity. LUNGS: Equal air entry with faint few wheezes present, no crackles, rhonchi or dullness. CVS: S1 and S2 normal with no audible mumurs, regular rhythm. ABDOMEN: No hepatosplenomegaly, normal bowel sounds, no guarding or rigidity. EXTREMITIES: +1 edema noted, pedal pulses palpable. SKIN: No rashes CENTRAL NERVOUS SYSTEM: No focal deficits, tone is normal in all 4 extremities. - Labs CBC & Chem 7: 04/16/17 06:29 04/16/17 06:29 Labs: Abnormal Lab Results - Last 24 Hours (Table) 04/15/17 04/15/17 04/15/17 Range/Units 11:37 16:32 20:11 Carbon Dioxide (22-30) mmol/L BUN (7-17) mg/dL Creatinine (0.52-1.04) mg/dL POC Glucose (mg/dL) 116 H 118 H 114 H (75-99) mg/dL Total Protein (6.3-8.2) g/dL Albumin (3.5-5.0) g/dL 04/16/17 Range/Units 06:29 Carbon Dioxide 32 H (22-30) mmol/L BUN 32 H (7-17) mg/dL Creatinine 1.22 H (0.52-1.04) mg/dL POC Glucose (mg/dL) (75-99) mg/dL Total Protein 5.3 L (6.3-8.2) g/dL Albumin 2.8 L (3.5-5.0) g/dL Assessment and Plan Plan: Assessment Pulomary Fibrosis Mediastinal lymphadenopathy Acute hypoxic respiratory failure Chest pain, can not exclude CAD Acute onset of congestive heart failure Atrial fibrillation with rapid ventricular rate Fibromyalgia Osteoarthritis Plan Patient could be discharged from a pulmonary standpoint. Patient will require home breathing treatments and nebulizer. Medications have been reviewed and will be continued as ordered. Patient will also require steroid taper in the outpatient setting. She should also follow up with us in the office for PFT as well as a sleep study.. Initiate and encourage incentive spirometer, patient pulling volumes approximately 2000. Continue with pulmonary hygiene, coughing and deep breathing exercises, and supportive care. . Continue nebulizer treatment, the addition of budesonide. GI and DVT prophylaxis. Patient will likely need follow-up with in the outpatient setting as well as have a polysomnogram for sleep apnea. We will continue to monitor labs/results and adjust treatment as necessary. Further recommendations pending. I performed an examination of the patient and discussed their management with the nurse practitioner. I have reviewed the nurse practitioner's note and agree with the documented findings and plan of care.
[2017-04-16 11:54] VITALS: RESP 14
[2017-04-16 11:55] LABS: Glucose,Whole Blood 100 mg/dL (75-99)
[2017-04-16 12:57] VITALS: PULSE 67
[2017-04-16 13:37] VITALS: BMI 49.2
--- NOTE | 2017-04-16 14:37 | P.PN ---
Subjective Principal diagnosis: Cogestive heart failure this is a 66-year-old with known history of atrial fibrillation, hypertension, and hyperlipidemia, who used to live in [place], currently moved back to this area. She presented to the hospital with symptoms of progressively worsening shortness of breath and associated leg edema. She has been diuresing well overall, her weight today is down 4 kg, continues to have peripheral edema however much improved. Echocardiogram with Doppler study was performed which revealed an ejection fraction of 40-45%. Patient did have an episode of chest discomfort through the night last night, by the time of her the nurse arrived, symptoms have pretty much resolved. She was given however Nitropaste along with one sublingual nitroglycerin. EKG was also performed at that time which did not reveal any acute changes. At the time of our examination she is currently chest pain-free. 04/13/2017 patient underwent a Lexiscan stress test today which revealed prominent attenuation artifacts. However there is an area suspicious for reversibility along the inferior lateral apical wall. For this reason patient was advised to undergo cardiac catheterization. The risks and the benefits were explained to the patient in detail. She is on Xarelto for anticoagulation, we will hold his Xarelto today and schedule the patient for cardiac catheterization on with Dr. Saenz.we'll also hold her Lasix today. 04/14/2017 Patient seen and examined this morning, denies any further chest pain through the night last night. She is scheduled to undergo cardiac catheterization tomorrow with Dr. Saenz, Xarelto is on hold. 04/15/2017 Patient underwent a cardiac catheterization which did not reveal any obstructive coronary artery disease. She was seen and examined this morning, denies any chest pain or difficulty in breathing. She has been up ambulating without any difficulty. Objective - Vital Signs Vital signs: Vital Signs Temp 97.9 F 04/16/17 08:00 Pulse 81 04/16/17 12:06 Resp 14 04/16/17 12:06 BP 118/84 04/16/17 08:00 Pulse Ox 95 04/16/17 08:47 Intake & Output 04/15/17 04/16/17 04/16/17 18:59 06:59 18:59 Intake Total 500 600 120 Output Total 950 Balance -450 600 120 Weight 147 kg 147 kg Intake: Oral 500 600 120 Output: Urine 950 Other: Voiding Method Toilet Toilet # Voids 1 1 - Exam PHYSICAL EXAMINATION: HEENT: [Head is atraumatic, normocephalic. Pupils equal, round. Neck is supple. There is no elevated jugular venous pressure.] HEART EXAMINATION: heart S1 and S2 irregularly irregular CHEST EXAMINATION:[ Lungs are clear with fine expiratory wheezing. No chest wall tenderness is noted on palpation or with deep breathing.] ABDOMEN: [ Soft,obese, nontender. Bowel sounds are heard. No organomegaly noted] . Right groin soft, no evidence of any hematoma. EXTREMITIES:[ 2+ peripheral pulses with 1+ evidence of peripheral edema and no calf tenderness noted]. NEUROLOGIC [patient is awake, alert and oriented -3.] . - Labs CBC & Chem 7: 04/16/17 06:29 04/16/17 06:29 Labs: Abnormal Lab Results - Last 24 Hours (Table) 04/15/17 04/15/17 04/16/17 Range/Units 16:32 20:11 06:29 Carbon Dioxide 32 H (22-30) mmol/L BUN 32 H (7-17) mg/dL Creatinine 1.22 H (0.52-1.04) mg/dL POC Glucose (mg/dL) 118 H 114 H (75-99) mg/dL Total Protein 5.3 L (6.3-8.2) g/dL Albumin 2.8 L (3.5-5.0) g/dL 04/16/17 Range/Units 11:53 Carbon Dioxide (22-30) mmol/L BUN (7-17) mg/dL Creatinine (0.52-1.04) mg/dL POC Glucose (mg/dL) 100 H (75-99) mg/dL Total Protein (6.3-8.2) g/dL Albumin (3.5-5.0) g/dL Assessment and Plan (1) Diastolic CHF, acute on chronic Status: Acute (2) Chronic a-fib Status: Acute (3) Chest pain Status: Acute (4) S/P cardiac cath Status: Acute Plan: From cardiology's perspective, patient may be able to be discharged home today. We will resume her xarelto. Tomorrow. Follow-up appointment will be made with Dr. Saenz in the office was discharged. DNP note has been reviewed, I agree with a documented findings and plan of care. Patient was seen and examined.
[2017-04-16] MEDS ORDERED: RIVAROXABAN 10 MG TAB PO SCH (21:00)
== END 2017-04-16 14:58 | disposition home or self-care (01) | DRG 286 ==
LOC: EC 17:44 → 6SEL 21:35 → OBSVTOIN 04-10 09:26
PROVIDERS: ADMIT Family Medicine; ATTEND Family Medicine
PROC: B211YZZ Fluoroscopy of Multiple Coronary Arteries using Other Contrast (ICD-10-PCS; 2017-04-15)
PROC: 4A023N7 Measurement of Cardiac Sampling and Pressure, Left Heart, Percutaneous Approach (ICD-10-PCS; principal; 2017-04-15 08:58)
DX: I11.0 Hypertensive heart disease with heart failure (principal); J96.01 Acute respiratory failure with hypoxia; J44.1 Chronic obstructive pulmonary disease with (acute) exacerbation; E66.01 Morbid (severe) obesity due to excess calories; I50.43 Acute on chronic combined systolic (congestive) and diastolic (congestive) heart failure; J84.10 Pulmonary fibrosis, unspecified; I48.2 Chronic atrial fibrillation; R07.9 Chest pain, unspecified; E78.5 Hyperlipidemia, unspecified; F41.9 Anxiety disorder, unspecified; M19.90 Unspecified osteoarthritis, unspecified site; M79.7 Fibromyalgia; F32.9 Major depressive disorder, single episode, unspecified; R59.0 Localized enlarged lymph nodes; E03.9 Hypothyroidism, unspecified; G47.33 Obstructive sleep apnea (adult) (pediatric); Z79.01 Long term (current) use of anticoagulants; Z79.899 Other long term (current) drug therapy; Z88.6 Allergy status to analgesic agent; Z88.8 Allergy status to other drugs, medicaments and biological substances; Z87.891 Personal history of nicotine dependence; Z96.60 Presence of unspecified orthopedic joint implant
CPT/HCPCS: 36415; 71020; 71275; 78452; 80048; 80053; 80061; 82550; 82553; 83036; 83735; 83880; 84484; 85025; 85379; 85610; 85730; 93005; 93017; 93306; 93458; 94640; 94760; 96374; 96375; 96376; 99285

== ENCOUNTER 2018-03-11 09:34 | Emergency (ER) | payer MEDICARE ==
[2018-03-11] MEDS ORDERED: SODIUM CHLORIDE 0.9% 1,000 ML IV STA ×2 (10:13)
[2018-03-11] MEDS ORDERED: KETOROLAC 30 MG/ML 1 ML VIAL IVP STA (10:13)
[2018-03-11] MEDS ORDERED: ORPHENADRINE 30 MG/ML 2 ML VIAL IVP STA (10:14)
[2018-03-11] MEDS: ONDANSETRON 4 MG/2 ML VIAL IVP STA ×2 (10:32→11:37)
[2018-03-11 10:49] LABS: Basophils % (A) 0 %; Eosinophils # (A) 0.2 k/uL (0-0.7); Eosinophils % (A) 3 %; Lymphocytes # (A) 1.3 k/uL (1.0-4.8); Lymphocytes % (A) 20 %; MCH 31.5 pg (25.0-35.0); MCHC 33.3 g/dL (31.0-37.0); MCV 94.7 fL (80.0-100.0); Mean Platelet Volume 7.4; Monocytes # (A) 0.4 k/uL (0-1.0); Monocytes % (A) 6 %; Neutrophils # (A) 4.8 k/uL (1.3-7.7); Neutrophils % (A) 70 %; Platelet Count 259 k/uL (150-450); RBC 4.43 m/uL (3.80-5.40); WBC 6.8 k/uL (3.8-10.6)
[2018-03-11 10:56] LABS: Appearance,Urine Cloudy (Clear); Bacteria,Urine Moderate /hpf; Bilirubin,Urine Negative (Negative); Blood,Urine Trace (Negative); Color,Urine Yellow; Glucose,Urine (UA) Negative (Negative); Ketones,Urine Negative (Negative); Leukocyte Esterase,Urine Large (Negative); Mucus,Urine Rare /hpf; Nitrite,Urine Negative (Negative); Protein,Urine 1+ (Negative); RBC,Urine 7 /hpf (0-5); Specific Gravity,Urine 1.022 (1.001-1.035); Squamous Epithelial Cell,Urine 7 /hpf (0-4); WBC,Urine 132 /hpf (0-5)
[2018-03-11 10:58] LABS: Albumin 3.6 g/dL (3.5-5.0); Calcium 8.8 mg/dL (8.4-10.2); Potassium 4.5 mmol/L (3.5-5.1); Total Bilirubin 0.5 mg/dL (0.2-1.3); Total Protein 6.3 g/dL (6.3-8.2)
[2018-03-11 11:02] LABS: Partial Thromboplastin Time 22.5 sec (22.0-30.0); Prothrombin Time 9.7 sec (9.0-12.0)
--- NOTE | 2018-03-11 11:14 | CT ---
EXAMINATION TYPE: CT abdomen pelvis wo con DATE OF EXAM: 03/11/2018 HISTORY: Severe abdominal and back pain CT DLP: 1163 mGycm. Automated Exposure Control for Dose Reduction was Utilized. TECHNIQUE: CT scan of the abdomen and pelvis is performed without oral or IV contrast. COMPARISON: Prior CT is too old for direct comparison from 2009 FINDINGS: Within the limitations of a non-contrast study, the following observations are made. LUNG BASES: No significant abnormality is appreciated. LIVER/GB: Cholecystectomy clips are present. PANCREAS: No significant abnormality is seen. SPLEEN: No significant abnormality is seen. ADRENALS: No significant abnormality is seen. KIDNEYS: There is simple appearing 4.6 cm cyst posteriorly mid pole level right kidney axial image 61 . No renal calculi or hydronephrosis is seen bilaterally. BOWEL: There are diverticula throughout the colon most prominent in the sigmoid colon. There is no CT evidence for acute diverticulitis. No suspicious small or large bowel dilatation is seen. Appendix i s within normal limits extending medially from the cecum. GENITAL ORGANS: Uterus is surgically absent or markedly atrophic. LYMPH NODES: No greater than 1cm abdominal or pelvic lymph nodes are appreciated. OSSEOUS STRUCTURES: There is slight underlying levoconvex scoliosis centered in the upper lumbar spin e. There is mild to moderate multilevel disc space narrowing and vacuum disc phenomenon. There is mul tilevel facet arthropathy in the mid to lower lumbar spine. OTHER: Surgical clips left groin region are seen. There is small fat-containing incisional hernia héctor ng scar of the lower abdomen/upper pelvis containing fat axial image 103 IMPRESSION: No renal stones or hydronephrosis is seen bilaterally. No significant acute finding is se en to account for patient's symptoms. Incidental chronic findings as noted above.
[2018-03-11] MEDS ORDERED: cefTRIAXone IN SWFI 1,000 MG/10 ML SYRINGE IVP STA (11:22)
[2018-03-11] MEDS ORDERED: cefTRIAXone IN SWFI 2,000 MG/20 ML SYRINGE IVP STA (11:25)
--- NOTE | 2018-03-11 11:25 | ED ---
Back Pain HPI - General Chief Complaint: Back Pain/Injury Stated Complaint: Back pain Time Seen by Provider: 03/11/18 09:42 Source: patient, RN notes reviewed, old records reviewed Limitations: no limitations - History of Present Illness Initial Comments: 67-year-old female presents emergency Department chief complaint of right-sided flank pain. She reports that she's been having this pain for the past 2 months. He worse over the past day. Reports that shooting from her lower back up to her spine. Patient states that it's worse with movements occasionally. She denies any fever or chills. She does feel nauseated and has had some upper epigastric abdominal pain today. - Related Data Home Medications Medication Instructions Recorded Confirmed Escitalopram [Lexapro] 10 mg PO HS 04/08/17 03/11/18 Glucosamine Sulfate 500 mg PO DAILY 04/08/17 03/11/18 Levothyroxine Sodium [Synthroid] 75 mcg PO HS 04/08/17 03/11/18 Lidocaine 5% Oint [Xylocaine 5% 1 applic TOPICAL DAILY PRN 04/08/17 03/11/18 Oint] Multivit-Min/Iron/Folic/Lutein 1 tab PO DAILY 04/08/17 03/11/18 [Centrum Silver Women Tablet] Atenolol [Tenormin] 25 mg PO HS 03/11/18 03/11/18 Budesonide [Pulmicort] 0.5 mg INHALATION RT-BID 03/11/18 03/11/18 Cholecalciferol (Vitamin D3) 8,000 unit PO DAILY 03/11/18 03/11/18 [Vitamin D3] Crestor Unknown Dose 0.5 tab PO HS 03/11/18 03/11/18 Eliquis Unknown Dose 0.5 tab PO HS 03/11/18 03/11/18 Furosemide [Lasix] 20 mg PO DAILY 03/11/18 03/11/18 Ipratropium-Albuterol Nebulize 3 ml INHALATION RT-QID 03/11/18 03/11/18 [Duoneb 0.5 mg-3 mg/3 ml Soln] Lisinopril [Zestril] 10 mg PO DAILY 03/11/18 03/11/18 Previous Rx's Medication Instructions Recorded Ciprofloxacin HCl [Cipro] 500 mg PO Q12HR #14 tablet 03/11/18 Cyclobenzaprine [Flexeril] 10 mg PO TID #15 tab 03/11/18 traMADol HCL [Ultram] 50 mg PO Q4HR PRN 3 Days #18 tab 03/11/18 Allergies Allergy/AdvReac Type Severity Reaction Status Date / Time ibuprofen [From Motrin] Allergy Unknown Verified 03/11/18 10:01 pregabalin [From Lyrica] Allergy Rapid Verified 03/11/18 10:01 Heart Rate aspirin AdvReac Unknown Verified 03/11/18 10:01 Review of Systems ROS Statement: Those systems with pertinent positive or pertinent negative responses have been documented in the HPI. ROS Other: All systems not noted in ROS Statement are negative. Past Medical History Past Medical History: Atrial Flutter, Fibromyalgia, Osteoarthritis (OA) Additional Past Medical History / Comment(s): [place] History of Any Multi-Drug Resistant Organisms: None Reported Past Surgical History: Back Surgery, Breast Surgery, Joint Replacement, Orthopedic Surgery Additional Past Surgical History / Comment(s): bilateral knees , Cataracts with lens implants with both eyes , left breast lumpectomy Past Anesthesia/Blood Transfusion Reactions: Postoperative Nausea & Vomiting ( PONV) Past Psychological History: Depression Smoking Status: Former smoker Past Alcohol Use History: None Reported Past Drug Use History: None Reported - Past Family History Sister(s) Additional Family Medical History / Comment(s): form of Leukemia - bone marrow transplant from patient Brother(s) Family Medical History: Diabetes Mellitus Father Additional Family Medical History / Comment(s): from enlarged heart General Exam - General Exam Comments Initial Comments: 67-year-old female. Alert and oriented. No significant distress. Limitations: no limitations General appearance: alert, in no apparent distress Head exam: Present: atraumatic, normocephalic, normal inspection Eye exam: Present: normal appearance, PERRL, EOMI. Absent: scleral icterus, conjunctival injection, periorbital swelling ENT exam: Present: normal exam, mucous membranes moist Neck exam: Present: normal inspection. Absent: tenderness, meningismus, lymphadenopathy Respiratory exam: Present: normal lung sounds bilaterally. Absent: respiratory distress, wheezes, rales, rhonchi, stridor Cardiovascular Exam: Present: regular rate, normal rhythm, normal heart sounds. Absent: systolic murmur, diastolic murmur, rubs, gallop, clicks GI/Abdominal exam: Present: soft, tenderness (Right CVA tenderness), normal bowel sounds. Absent: distended, guarding, rebound, rigid Extremities exam: Present: normal inspection, full ROM, normal capillary refill. Absent: tenderness, pedal edema, joint swelling, calf tenderness Back exam: Present: normal inspection Neurological exam: Present: alert, oriented X3, CN II-XII intact Psychiatric exam: Present: normal affect, normal mood Skin exam: Present: warm, dry, intact, normal color. Absent: rash Course Vital Signs 03/11/18 03/11/18 09:38 11:54 Temperature 98.4 F 97.5 F L Pulse Rate 86 81 Respiratory 20 18 Rate Blood Pressure 131/62 120/52 O2 Sat by Pulse 96 90 L Oximetry Medical Decision Making - Medical Decision Making 67-year-old female with 2 months of right sided back pain. She reports is worse with movements. She states it seems to be worse over the past few days. Does report a history of renal cyst. Concern for possible kidney stone or infection due to the increased pain. Patient lab work does show evidence of urinary tract infection. Over 100 white blood cells. She is no fever. White blood cell count was within normal limits. Initially on patient's presentation concern for possibility of stone. CT abdomen and pelvis without contrast was completed. There is no evidence of renal stones. 46.6 cm renal cyst. She does have evidence of multilevel spinal changes throughout the drastic and lumbar spine. I clinically think the Patient has or ecchymosis skeletal nature of her back pain is been going on for 2 months and her lab work was otherwise unremarkable. She does have an acute urinary tract infection. I did give the Patient 2 g of Rocephin in the emergency department. Plan to discharge the Patient with follow-up with PCP and spine specialty. - Lab Data Result diagrams: 03/11/18 10:29 03/11/18 10:29 Lab Results 03/11/18 03/11/18 03/11/18 Range/Units 10:29 10:29 10:29 WBC 6.8 (3.8-10.6) k/uL RBC 4.43 (3.80-5.40) m/uL Hgb 14.0 (11.4-16.0) gm/dL Hct 42.0 (34.0-46.0) % MCV 94.7 (80.0-100.0) fL MCH 31.5 (25.0-35.0) pg MCHC 33.3 (31.0-37.0) g/dL RDW 13.0 (11.5-15.5) % Plt Count 259 (150-450) k/uL Neutrophils % 70 % Lymphocytes % 20 % Monocytes % 6 % Eosinophils % 3 % Basophils % 0 % Neutrophils # 4.8 (1.3-7.7) k/uL Lymphocytes # 1.3 (1.0-4.8) k/uL Monocytes # 0.4 (0-1.0) k/uL Eosinophils # 0.2 (0-0.7) k/uL Basophils # 0.0 (0-0.2) k/uL PT 9.7 (9.0-12.0) sec INR 1.0 (<1.2) APTT 22.5 (22.0-30.0) sec Sodium 140 (137-145) mmol/L Potassium 4.5 (3.5-5.1) mmol/L Chloride 103 (98-107) mmol/L Carbon Dioxide 30 (22-30) mmol/L Anion Gap 7 mmol/L BUN 21 H (7-17) mg/dL Creatinine 1.00 (0.52-1.04) mg/dL Est GFR (CKD-EPI)AfAm 68 (>60 ml/min/1.73 sqM) Est GFR (CKD-EPI)NonAf 59 (>60 ml/min/1.73 sqM) Glucose 143 H (74-99) mg/dL Calcium 8.8 (8.4-10.2) mg/dL Total Bilirubin 0.5 (0.2-1.3) mg/dL AST 21 (14-36) U/L ALT 29 (9-52) U/L Alkaline Phosphatase 66 (38-126) U/L Total Protein 6.3 (6.3-8.2) g/dL Albumin 3.6 (3.5-5.0) g/dL Amylase 45 (30-110) U/L Lipase 82 (23-300) U/L Urine Color Urine Appearance (Clear) Urine pH (5.0-8.0) Ur Specific [place] (1.001-1.035) Urine Protein (Negative) Urine Glucose (UA) (Negative) Urine Ketones (Negative) Urine Blood (Negative) Urine Nitrite (Negative) Urine Bilirubin (Negative) Urine Urobilinogen (<2.0) mg/dL Ur Leukocyte Esterase (Negative) Urine RBC (0-5) /hpf Urine WBC (0-5) /hpf Urine WBC Clumps (None) /hpf Ur Squamous Epith Cells (0-4) /hpf Urine Bacteria (None) /hpf Urine Mucus (None) /hpf 03/11/18 Range/Units 10:29 WBC (3.8-10.6) k/uL RBC (3.80-5.40) m/uL Hgb (11.4-16.0) gm/dL Hct (34.0-46.0) % MCV (80.0-100.0) fL MCH (25.0-35.0) pg MCHC (31.0-37.0) g/dL RDW (11.5-15.5) % Plt Count (150-450) k/uL Neutrophils % % Lymphocytes % % Monocytes % % Eosinophils % % Basophils % % Neutrophils # (1.3-7.7) k/uL Lymphocytes # (1.0-4.8) k/uL Monocytes # (0-1.0) k/uL Eosinophils # (0-0.7) k/uL Basophils # (0-0.2) k/uL PT (9.0-12.0) sec INR (<1.2) APTT (22.0-30.0) sec Sodium (137-145) mmol/L Potassium (3.5-5.1) mmol/L Chloride (98-107) mmol/L Carbon Dioxide (22-30) mmol/L Anion Gap mmol/L BUN (7-17) mg/dL Creatinine (0.52-1.04) mg/dL Est GFR (CKD-EPI)AfAm (>60 ml/min/1.73 sqM) Est GFR (CKD-EPI)NonAf (>60 ml/min/1.73 sqM) Glucose (74-99) mg/dL Calcium (8.4-10.2) mg/dL Total Bilirubin (0.2-1.3) mg/dL AST (14-36) U/L ALT (9-52) U/L Alkaline Phosphatase (38-126) U/L Total Protein (6.3-8.2) g/dL Albumin (3.5-5.0) g/dL Amylase (30-110) U/L Lipase (23-300) U/L Urine Color Yellow Urine Appearance Cloudy H (Clear) Urine pH 7.0 (5.0-8.0) Ur Specific [place] 1.022 (1.001-1.035) Urine Protein 1+ H (Negative) Urine Glucose (UA) Negative (Negative) Urine Ketones Negative (Negative) Urine Blood Trace H (Negative) Urine Nitrite Negative (Negative) Urine Bilirubin Negative (Negative) Urine Urobilinogen 6.0 (<2.0) mg/dL Ur Leukocyte Esterase Large H (Negative) Urine RBC 7 H (0-5) /hpf Urine WBC 132 H (0-5) /hpf Urine WBC Clumps Occasional H (None) /hpf Ur Squamous Epith Cells 7 H (0-4) /hpf Urine Bacteria Moderate H (None) /hpf Urine Mucus Rare H (None) /hpf - Radiology Data Radiology results: report reviewed No renal stones or hydronephrosis seen bilaterally. No acute findings for patient's symptoms. Incidental chronic findings such as Scoliosis and her upper lumbar spine. There is mild to moderate multilevel disc space narrowing and vacuum disc phenomenon. Multilevel facet arthropathy the mid lower spine. There is also small fat-containing incisional hernia the upper abdomen and pelvis. 4.6 and a meter cyst posteriorly mid pole C1. No renal colliculi gram Disposition Clinical Impression: UTI (urinary tract infection), Back pain Disposition: HOME SELF-CARE Condition: Good Instructions: Chronic Back Pain (ED), Urinary Traction Infection in Older Adults (ED) Additional Instructions: Patient must follow-up with primary care provider to recheck urine in one week. Patient that there is no continued blood in the urine. Return to emergency department if any alarming signs or symptoms occur. Take the medications as prescribed. Prescriptions: Ciprofloxacin HCl [Cipro] 500 mg PO Q12HR #14 tablet Cyclobenzaprine [Flexeril] 10 mg PO TID #15 tab traMADol HCL [Ultram] 50 mg PO Q4HR PRN 3 Days #18 tab PRN Reason: Pain Is patient prescribed a controlled substance at d/c from ED?: Yes When asked, does pt state using other controlled substances?: No If prescribed controlled substance>3 days was MAPS reviewed?: Prescribed <3 Days If opioid is for acute pain is fill amount 7 days or less?: Yes If Rx opioid, was Start Talking consent form obtained?: No Referrals: Leobardo Mccarty MD [Primary Care Provider] - 1-2 days Time of Disposition: 12:51
[2018-03-11 11:55] VITALS: RESP 18
[2018-03-11 13:03] VITALS: BP 125/87; PULSE 87; TEMP 97.4
== END 2018-03-11 13:03 | disposition home or self-care (01) ==
LOC: EC 09:34
DX: N39.0 Urinary tract infection, site not specified (principal); M54.9 Dorsalgia, unspecified; R10.13 Epigastric pain; R11.0 Nausea; N28.1 Cyst of kidney, acquired; I48.92 Unspecified atrial flutter; M79.7 Fibromyalgia; M19.90 Unspecified osteoarthritis, unspecified site; F32.9 Major depressive disorder, single episode, unspecified; Z87.891 Personal history of nicotine dependence; Z79.01 Long term (current) use of anticoagulants; Z79.899 Other long term (current) drug therapy; Z88.6 Allergy status to analgesic agent; Z88.8 Allergy status to other drugs, medicaments and biological substances; Z98.890 Other specified postprocedural states
CPT/HCPCS: 36415; 80053; 82150; 83690; 85025; 85610; 85730; 81001; 74176; 99284; 96374; 96375 ×3; 96361 ×2; J2360; J2405; J0696; J1885

== ENCOUNTER 2018-04-19 09:58 | Inpatient (IN) | payer MEDICARE ==
[2018-04-19 10:51] LABS: Basophils % (A) 1 %; Eosinophils # (A) 0.2 k/uL (0-0.7); Eosinophils % (A) 5 %; HCT 38.9 % (34.0-46.0); HGB 12.5 gm/dL (11.4-16.0); Lymphocytes # (A) 1.5 k/uL (1.0-4.8); Lymphocytes % (A) 30 %; MCH 30.4 pg (25.0-35.0); MCHC 32.1 g/dL (31.0-37.0); MCV 94.9 fL (80.0-100.0); Mean Platelet Volume 7.2; Monocytes # (A) 0.2 k/uL (0-1.0); Monocytes % (A) 4 %; Neutrophils # (A) 2.9 k/uL (1.3-7.7); Neutrophils % (A) 59 %; Platelet Count 202 k/uL (150-450); WBC 4.9 k/uL (3.8-10.6)
--- NOTE | 2018-04-19 10:53 | ED ---
General Adult HPI - General Chief complaint: Chest Pain Stated complaint: chest pain, SOB Source: patient, family Mode of arrival: wheelchair Limitations: no limitations - History of Present Illness Initial comments: Dictation was produced using [employer] dictation software. please excuse any grammatical, word or spelling errors. Chief Complaint: 67-year-old female past medical history of atrial fibrillation, fibromyalgia, hypertension presents with shortness of breath 3 weeks. History of Present Illness: Shortness of breath has been increasing over the last 3 weeks. Patient has a history of atrial fibrillation for which she is on beta blockers and I will close. States that today her shortness of breath became so bad that her to come to the emergency department. Patient states that with exertion her shortness of breath is coming along a lot sooner. She also did have some episodes of sharp anterior chest pain with radiation to the left neck. Patient states she had a cardiac cath around this time last year. Last cardiac stress test was more than 3 months ago. Patient denies any constitutional symptoms. The ROS documented in this emergency department record has been reviewed and confirmed by me. Those systems with pertinent positive or negative responses have been documented in the HPI. All other systems are other negative and/or noncontributory. - Related Data Home Medications Medication Instructions Recorded Confirmed Escitalopram [Lexapro] 10 mg PO HS 04/08/17 04/19/18 Levothyroxine Sodium [Synthroid] 75 mcg PO DAILY 04/08/17 04/19/18 Lidocaine 5% Oint [Xylocaine 5% 1 applic TOPICAL DAILY PRN 04/08/17 04/19/18 Oint] Multivit-Min/Iron/Folic/Lutein 1 tab PO DAILY 04/08/17 04/19/18 [Centrum Silver Women Tablet] Atenolol [Tenormin] 25 mg PO BID 03/11/18 04/19/18 Ipratropium-Albuterol Nebulize 3 ml INHALATION RT-Q4H 03/11/18 04/19/18 [Duoneb 0.5 mg-3 mg/3 ml Soln] Apixaban [Eliquis] 2.5 mg PO HS 04/19/18 04/19/18 Cyclobenzaprine [Flexeril] 10 mg PO TID PRN 04/19/18 04/19/18 Fluticasone/Salmeterol [Advair 1 puff INHALATION RT-BID PRN 04/19/18 04/19/18 250-50 Diskus] Furosemide [Lasix] 40 mg PO BID 04/19/18 04/19/18 Lisinopril [Zestril] 10 mg PO DAILY 04/19/18 04/19/18 Previous Rx's Medication Instructions Recorded traMADol HCL [Ultram] 50 mg PO Q4HR PRN 3 Days #18 tab 03/11/18 Allergies Allergy/AdvReac Type Severity Reaction Status Date / Time ibuprofen [From Motrin] Allergy Unknown Verified 04/19/18 10:45 pregabalin [From Lyrica] Allergy Rapid Verified 04/19/18 10:45 Heart Rate aspirin AdvReac Unknown Verified 04/19/18 10:45 green pepper AdvReac Vomiting Verified 04/19/18 10:45 Review of Systems ROS Statement: Those systems with pertinent positive or pertinent negative responses have been documented in the HPI. ROS Other: All systems not noted in ROS Statement are negative. Past Medical History Past Medical History: Atrial Flutter, Fibromyalgia, Hyperlipidemia, Hypertension , Osteoarthritis (OA), Thyroid Disorder Additional Past Medical History / Comment(s): [place] History of Any Multi-Drug Resistant Organisms: None Reported Past Surgical History: Back Surgery, Breast Surgery, Joint Replacement, Orthopedic Surgery Additional Past Surgical History / Comment(s): bilateral knees , Cataracts with lens implants with both eyes , left breast lumpectomy Past Anesthesia/Blood Transfusion Reactions: Postoperative Nausea & Vomiting ( PONV) Past Psychological History: Anxiety, Depression Smoking Status: Former smoker Past Alcohol Use History: Rare Past Drug Use History: Marijuana - Past Family History Sister(s) Additional Family Medical History / Comment(s): form of Leukemia - bone marrow transplant from patient Brother(s) Family Medical History: Diabetes Mellitus Father Additional Family Medical History / Comment(s): from enlarged heart General Exam - General Exam Comments Initial Comments: PHYSICAL EXAM: General Impression: Alert and oriented x3, not in acute distress HEENT: Normocephalic atraumatic, extra-ocular movements intact, pupils equal and reactive to light bilaterally, mucous membranes moist. Cardiovascular: Heart regular rate and rhythm, S1&S2 audible, no murmurs, rubs or gallops Chest: Bilateral lung crackles Abdomen: Bowel sounds present, abdomen soft, non-tender, non-distended, no organomegaly Musculoskeletal: Pulses present and equal in all extremities, no peripheral edema Motor: Power 5/5 bilaterally, no focal deficits noted Neurological: CN II-XII grossly intact, no focal motor or sensory deficits noted Skin: Intact with no visualized rashes Psych: Normal affect and mood Limitations: no limitations Course Vital Signs 04/19/18 04/19/18 04/19/18 10:11 10:39 11:15 Temperature 98.4 F Pulse Rate 92 75 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 Vital signs upon arrival are within acceptable limits.Laboratory evaluation obtained. CBC unremarkable, coag panel unremarkable. Metabolic panel is negative. Cardiac enzymes are negative. X-ray obtained showing findings consistent with congestive heart failure. Chart review was performed. Patient had echocardiogram, stress test and cardiac cath around his last seizure. Clinical presentation is consistent with congestive heart failure exacerbation. Discussed patient case with primary care physician who is willing to have patient placed in observation for echocardiogram and further management. EKG Interpretation: A 12 lead EKG was obtained. It was interpreted by myself and attending physician. There is a P wave before every QRS complex. Rate is 80. Rhythm is A. fib, QRS 86, QTC 468. QT is not prolonged. No ST segment depression or elevation. Overall, this EKG is unremarkable - Lab Data Result diagrams: 04/19/18 10:30 04/19/18 10:30 Lab Results 04/19/18 04/19/18 04/19/18 Range/Units 10:30 10:30 10:30 WBC 4.9 (3.8-10.6) k/uL RBC 4.10 (3.80-5.40) m/uL Hgb 12.5 (11.4-16.0) gm/dL Hct 38.9 (34.0-46.0) % MCV 94.9 (80.0-100.0) fL MCH 30.4 (25.0-35.0) pg MCHC 32.1 (31.0-37.0) g/dL RDW 13.0 (11.5-15.5) % Plt Count 202 (150-450) k/uL Neutrophils % 59 % Lymphocytes % 30 % Monocytes % 4 % Eosinophils % 5 % Basophils % 1 % Neutrophils # 2.9 (1.3-7.7) k/uL Lymphocytes # 1.5 (1.0-4.8) k/uL Monocytes # 0.2 (0-1.0) k/uL Eosinophils # 0.2 (0-0.7) k/uL Basophils # 0.0 (0-0.2) k/uL PT (9.0-12.0) sec INR (<1.2) APTT (22.0-30.0) sec Sodium 140 (137-145) mmol/L Potassium 4.0 (3.5-5.1) mmol/L Chloride 102 (98-107) mmol/L Carbon Dioxide 31 H (22-30) mmol/L Anion Gap 7 mmol/L BUN 18 H (7-17) mg/dL Creatinine 0.93 (0.52-1.04) mg/dL Est GFR (CKD-EPI)AfAm 74 (>60 ml/min/1.73 sqM) Est GFR (CKD-EPI)NonAf 64 (>60 ml/min/1.73 sqM) Glucose 141 H (74-99) mg/dL Calcium 9.0 (8.4-10.2) mg/dL Magnesium 1.7 (1.6-2.3) mg/dL Total Bilirubin 0.3 (0.2-1.3) mg/dL AST 21 (14-36) U/L ALT 27 (9-52) U/L Alkaline Phosphatase 55 (38-126) U/L Total Creatine Kinase 60 (30-135) U/L CK-MB (CK-2) 0.8 (0.0-2.4) ng/mL CK-MB (CK-2) Rel Index 1.3 Troponin I <0.012 (0.000-0.034) ng/mL Total Protein 6.1 L (6.3-8.2) g/dL Albumin 3.5 (3.5-5.0) g/dL Lipase 76 (23-300) U/L 04/19/18 Range/Units 10:30 WBC (3.8-10.6) k/uL RBC (3.80-5.40) m/uL Hgb (11.4-16.0) gm/dL Hct (34.0-46.0) % MCV (80.0-100.0) fL MCH (25.0-35.0) pg MCHC (31.0-37.0) g/dL RDW (11.5-15.5) % Plt Count (150-450) k/uL Neutrophils % % Lymphocytes % % Monocytes % % Eosinophils % % Basophils % % Neutrophils # (1.3-7.7) k/uL Lymphocytes # (1.0-4.8) k/uL Monocytes # (0-1.0) k/uL Eosinophils # (0-0.7) k/uL Basophils # (0-0.2) k/uL PT 9.8 (9.0-12.0) sec INR 1.0 (<1.2) APTT 22.0 (22.0-30.0) sec Sodium (137-145) mmol/L Potassium (3.5-5.1) mmol/L Chloride (98-107) mmol/L Carbon Dioxide (22-30) mmol/L Anion Gap mmol/L BUN (7-17) mg/dL Creatinine (0.52-1.04) mg/dL Est GFR (CKD-EPI)AfAm (>60 ml/min/1.73 sqM) Est GFR (CKD-EPI)NonAf (>60 ml/min/1.73 sqM) Glucose (74-99) mg/dL Calcium (8.4-10.2) mg/dL Magnesium (1.6-2.3) mg/dL Total Bilirubin (0.2-1.3) mg/dL AST (14-36) U/L ALT (9-52) U/L Alkaline Phosphatase (38-126) U/L Total Creatine Kinase (30-135) U/L CK-MB (CK-2) (0.0-2.4) ng/mL CK-MB (CK-2) Rel Index Troponin I (0.000-0.034) ng/mL Total Protein (6.3-8.2) g/dL Albumin (3.5-5.0) g/dL Lipase (23-300) U/L Disposition Clinical Impression: Dyspnea Disposition: ADMITTED IP TO THIS HOSP Referrals: Leobardo Mccarty MD [Primary Care Provider] - 1-2 days Decision Time: 12:02
[2018-04-19 11:07] LABS: Prothrombin Time 9.8 sec (9.0-12.0)
[2018-04-19 11:14] LABS: Albumin 3.5 g/dL (3.5-5.0); Creatine Kinase 60 U/L (30-135); Magnesium 1.7 mg/dL (1.6-2.3); Total Bilirubin 0.3 mg/dL (0.2-1.3); Total Protein 6.1 g/dL (6.3-8.2)
--- NOTE | 2018-04-19 11:21 | XR ---
EXAMINATION TYPE: XR chest 2V DATE OF EXAM: 04/19/2018 COMPARISON: 04/10/2017 HISTORY: 67-year-old female with chest pain TECHNIQUE: PA and lateral views FINDINGS: The heart is mildly enlarged. Elongation/ectasia of the thoracic aorta. Diffuse interstitial and vasc ular prominence. No consolidation or pleural effusion. Accentuated thoracic kyphosis. IMPRESSION: Mild cardiomegaly. Interstitial prominence appears in part chronic. Correlate to exclude mild pulmona ry vascular congestion.
[2018-04-19 11:26] LABS: Creatine Kinase MB 0.8 ng/mL (0.0-2.4); Troponin I <0.012 ng/mL (0.000-0.034)
[2018-04-19] MEDS ORDERED: NALOXONE 0.4 MG/ML 1 ML VIAL IV PRN (12:02)
[2018-04-19] MEDS ORDERED: LIDOCAINE 5% OINTMENT 50 GM JAR TOPICAL PRN (17:47)
[2018-04-19] MEDS: IPRATROPIUM-ALBUTEROL 3 ML NEB INHALATION SCH (18:35)
[2018-04-19] MEDS: SYMBICORT 80-4.5 MCG INHALER INHALATION SCH (18:35)
[2018-04-19 20:20] LABS: Glucose,Whole Blood 105 mg/dL (75-99)
[2018-04-19] MEDS: CYCLOBENZAPRINE 10 MG TAB PO PRN (20:58)
[2018-04-19] MEDS: APIXABAN 2.5 MG TABLET PO SCH (20:58)
[2018-04-19] MEDS: ESCITALOPRAM 10 MG TAB PO SCH (20:58)
[2018-04-19] MEDS: ATENOLOL 25 MG TAB PO SCH (20:58)
[2018-04-19] MEDS ORDERED: FUROSEMIDE 40 MG TAB PO SCH (21:00)
--- NOTE | 2018-04-19 21:38 | HP ---
HISTORY AND PHYSICAL CHIEF COMPLAINT: Chest pain, congestive heart failure, progressive increasing dyspnea with chest pain, shortness of breath. She has a history of atrial fibrillation, fibromyalgia, hypertension, obesity. She has severe stress in her life with her son dying, his other son getting 3rd degree millard and her best friend dying and for the past few weeks she has been very depressed, following a poor diet. She has gained 20-15 pounds. She has been with more shortness of breath. She developed a sharp anterior chest pain with radiation to the left neck. She had cardiac cath done last year which apparently was good. REVIEW OF SYSTEMS: Fourteen point review of systems negative except for mentioned in the HPI. MEDICATIONS: 1. Lexapro 10 mg daily. 2. Synthroid 75 mcg daily. 3. Lidocaine topically daily. 4. Multivitamin daily. 5. Tenormin 25 mg b.i.d. 6. DuoNeb q.i.d. 7. Eliquis 2.5 daily. 8. Flexeril 10 mg t.i.d. 9. Advair 1 puff b.i.d. 10.Lasix 40 mg b.i.d. 11.Zestril 10 mg daily. ALLERGIES: Are to MOTRIN, LYRICA, ASPIRIN, GREEN PEPPER. PAST MEDICAL HISTORY: Atrial flutter, fibromyalgia, dyslipidemia, hypertension, osteoarthritis, hypothyroidism, Von Willebrand disease. She has had bilateral cataracts removed, left breast lumpectomy, history of breast surgery, joint replacement, back surgery. SOCIAL HISTORY: Former smoker, does marijuana, rare alcohol. FAMILY HISTORY: Sister with leukemia. Brother with diabetes mellitus. Father: Heart. EXAM: She is very anxious white female. BMI is over 50. HEENT: Normocephalic, atraumatic. OPHTHALMOLOGIC: Pupils equal, round, and reactive to light and accommodation. CARDIOVASCULAR: Regular rate and rhythm, S1, S2. LUNGS: With bilateral crackles. ABDOMEN: Soft, nontender. MUSCULOSKELETAL: Pulses are equal in all extremities,5/5 motor x4 extremities. Cranial nerves 2-12 are intact. SKIN: No rash or excoriation present. PSYCH: Fair mood and affect. VITAL SIGNS: Reviewed. ASSESSMENT: Acute worsening of exertional dyspnea and exertional angina in atrial fibrillation. Will order echogram, possible stress test, Cardiology consult. Resume home medicines. EKG shows no ST depression. Labs are reviewed. Await BNP level which was ordered. Please see further orders. Await cardiology consultation to rule out myocardial infarction. MMODL / IJN: [id number] /
--- NOTE | 2018-04-19 23:08 | CT ---
EXAMINATION TYPE: CT angio chest DATE OF EXAM: 04/19/2018 10:53 PM COMPARISON: 04/08/2017 HISTORY: Chest pain and SOB CT DLP: 819.7 mGycm Automated exposure control for dose reduction was used. CONTRAST: CTA scan of the thorax is performed with IV Contrast, patient injected with 100 mL of Isovue 370, pul monary embolism protocol. There are 3-D post processed images.. FINDINGS: There are patchy bilateral pulmonary interstitial infiltrates. There is no pleural effusion. Heart ap pears enlarged. Thoracic aorta appears normal without evidence of aneurysm or dissection. There are a few mediastinal lymph nodes that measure up to 1.5 cm. There are bronchial lymph nodes up to 1.5 cm. I see no filling defects in the pulmonary arteries. There is spurring in the thoracic spine. There i s no compression fracture. IMPRESSION: NO EVIDENCE OF PULMONARY EMBOLISM. THERE IS SOME MEDIASTINAL AND BRONCHIAL MILD ADENOPATHY. INTERSTIT IAL PULMONARY INFILTRATES. THIS COULD RELATE TO SARCOIDOSIS. NO SIGNIFICANT CHANGE COMPARED TO OLD EX AM.
[2018-04-19] MEDS: traMADol 50 MG TAB PO PRN (23:29)
[2018-04-20] MEDS: IPRATROPIUM-ALBUTEROL 3 ML NEB INHALATION SCH ×6 (00:20→19:57)
[2018-04-20] MEDS: LEVOTHYROXINE 75 MCG TAB PO SCH ×2 (06:18→12:30)
[2018-04-20] MEDS: SYMBICORT 80-4.5 MCG INHALER INHALATION SCH ×2 (08:09→19:57)
[2018-04-20 09:55] VITALS: BMI 49.5
--- NOTE | 2018-04-20 10:12 | P.CRDCN ---
History of Present Illness History of present illness: Mrs. Olsen is a pleasant 67-year-old female past medical history significant for systolic heart failure, atrial fibrillation, dyslipidemia, hypertension, von Willebrand's disease, osteoarthritis, hypothyroidism, history of tobacco use and daily marijuana use. She underwent cardiac catheterization in March 2017 which revealed normal coronary arteries. At that time she was found to have decreased systolic function of 40-45%. She does not follow with a temporary help agency referral clerk. We have been asked to see her in consultation for shortness of breath. She states she has been having increasing shortness of breath, fatigue , lower extremity edema and PND over the previous 2 months. She denies symptoms of chest pain, palpitations, dizziness, nausea, vomiting or diaphoresis. She states she has been sleeping using a wedge in bed due to inability to lay flat for breathing. EKG reveals atrial fibrillation with controlled ventricular response. Chest x-ray reveals cardiomegaly with mild pulmonary congestion. CT angiogram negative for pulmonary embolism. No evidence of aortic aneurysm or dissection. Laboratory data reviewed, hemoglobin 12.5, platelets 202, d-dimer 0.72, sodium 140, potassium 4.0, magnesium 1.7, creatinine 0.93, cardiac enzymes negative 2 , proBNP 1350. Current cardiac medications include lisinopril 10 mg daily, Lasix 40 mg twice a day, atenolol 25 mg twice a day and Eliquis 2.5 mg daily. Review of Systems At the time of my exam: CONSTITUTIONAL: Denies fever. Denies chills. EYES: Denies blurred vision. Denies vision changes. Denies eye pain. EARS, NOSE, MOUTH & THROAT: Denies headache. Denies sore throat. Denies ear pain. CARDIOVASCULAR: Denies chest pain. Complains of shortness of breath. Complains of orthopnea. Denies PND. Denies palpitations. RESPIRATORY: Denies cough. GASTROINTESTINAL: Denies abdominal pain. Denies diarrhea. Denies constipation. Denies nausea. Denies vomiting. MUSCULOSKELETAL: Denies myalgias. INTEGUMENTARY: Denies pruitis. Denies rash. NEUROLOGIC: Denies numbness. Denies tingling. Denies weakness. PSYCHIATRIC: Denies anxiety. Denies depression. ENDOCRINE: Denies fatigue. Denies weight change. Denies polydipsia. Denies polyurina. GENITOURINARY: Denies burning, hematuria or urgency with micturation. HEMATOLOGIC: Denies history of anemia. Denies bleeding. Past Medical History Past Medical History: Atrial Flutter, Chest Pain / Angina, Fibromyalgia, Hyperlipidemia, Hypertension, Osteoarthritis (OA), Thyroid Disorder Additional Past Medical History / Comment(s): Von Wildebrands , pne vaccine in past-not sure of date and keno writer / runner unabel to verify at time of this admit. History of Any Multi-Drug Resistant Organisms: None Reported Past Surgical History: Back Surgery, Breast Surgery, Heart Catheterization, Joint Replacement, Orthopedic Surgery Additional Past Surgical History / Comment(s): bilateral knee replacements , Cataracts with lens implants with both eyes , left breast lumpectomy -benign Past Anesthesia/Blood Transfusion Reactions: Postoperative Nausea & Vomiting ( PONV) Additional Past Anesthesia/Blood Transfusion Reaction / Comment(s): never had a blood transfusion Smoking Status: Former smoker - Past Family History Sister(s) Additional Family Medical History / Comment(s): form of Leukemia - bone marrow transplant from patient Brother(s) Family Medical History: Diabetes Mellitus Father Additional Family Medical History / Comment(s): from enlarged heart Medications and Allergies Home Medications Medication Instructions Recorded Confirmed Type Escitalopram [Lexapro] 10 mg PO HS 04/08/17 04/19/18 History Levothyroxine Sodium [Synthroid] 75 mcg PO DAILY 04/08/17 04/19/18 History Lidocaine 5% Oint [Xylocaine 5% 1 applic TOPICAL DAILY PRN 04/08/17 04/19/18 History Oint] Multivit-Min/Iron/Folic/Lutein 1 tab PO DAILY 04/08/17 04/19/18 History [Centrum Silver Women Tablet] Atenolol [Tenormin] 25 mg PO BID 03/11/18 04/19/18 History Ipratropium-Albuterol Nebulize 3 ml INHALATION RT-Q4H 03/11/18 04/19/18 History [Duoneb 0.5 mg-3 mg/3 ml Soln] traMADol HCL [Ultram] 50 mg PO Q4HR PRN 3 Days #18 tab 03/11/18 04/19/18 Rx Apixaban [Eliquis] 2.5 mg PO HS 04/19/18 04/19/18 History Cyclobenzaprine [Flexeril] 10 mg PO TID PRN 04/19/18 04/19/18 History Fluticasone/Salmeterol [Advair 1 puff INHALATION RT-BID PRN 04/19/18 04/19/18 History 250-50 Diskus] Furosemide [Lasix] 40 mg PO BID 04/19/18 04/19/18 History Lisinopril [Zestril] 10 mg PO DAILY 04/19/18 04/19/18 History Allergies Allergy/AdvReac Type Severity Reaction Status Date / Time ibuprofen [From Motrin] Allergy Unknown Verified 04/19/18 10:45 pregabalin [From Lyrica] Allergy Rapid Verified 04/19/18 10:45 Heart Rate aspirin AdvReac Unknown Verified 04/19/18 10:45 green pepper AdvReac Vomiting Verified 04/19/18 10:45 Physical Exam Vitals: Vital Signs Temp Pulse Pulse Pulse Resp BP BP 04/20/18 07:25 97.5 F L 89 18 123/79 04/20/18 04:00 18 04/20/18 03:50 97.7 F 78 18 113/65 04/20/18 00:33 114 H 04/20/18 00:22 114 H 04/20/18 00:00 18 04/19/18 23:50 98.1 F 73 18 144/90 04/19/18 20:00 18 04/19/18 18:51 98.6 F 102 H 18 163/65 04/19/18 18:48 118 H 04/19/18 18:42 88 04/19/18 15:34 88 18 154/78 04/19/18 13:46 98.3 F 80 18 136/71 04/19/18 13:04 71 18 132/71 04/19/18 11:15 75 18 126/75 04/19/18 10:39 81 04/19/18 10:11 98.4 F 92 20 150/92 Pulse Ox 04/20/18 07:25 98 04/20/18 04:00 04/20/18 03:50 92 L 04/20/18 00:33 04/20/18 00:22 04/20/18 00:00 04/19/18 23:50 96 04/19/18 20:00 04/19/18 18:51 95 04/19/18 18:48 04/19/18 18:42 04/19/18 15:34 97 04/19/18 13:46 95 04/19/18 13:04 98 04/19/18 11:15 97 04/19/18 10:39 04/19/18 10:11 97 Intake and Output 04/19/18 04/20/18 04/20/18 22:59 06:59 14:59 Intake Total 900 Balance 900 Intake: Oral 900 Other: Voiding Method Toilet Toilet # Voids 1 3 Weight 147.7 kg Blood pressure 123/79 heart rate 89 afebrile maintaining oxygen saturation on room air GENERAL: This is a 67-year-old occasion female in no apparent distress at the time of my examination. Morbidly obese. HEENT: Head is atraumatic, normocephalic. Pupils are equal, round. Sclerae anicteric. Conjunctivae are clear. Mucous membranes of the mouth are moist. Neck is supple. There is no jugular venous distention. No carotid bruit is heard. LUNGS: Clear to auscultation no wheezes, rales or rhonchi. No chest wall tenderness is noted on palpation or with deep breathing. HEART: Irregular rate and rhythm with systolic ejection murmur at the base, no rubs or gallops. S1 and S2 heard. ABDOMEN: Soft, nontender. Bowel sounds are heard. No organomegaly noted. EXTREMITIES: 1+ bilateral lower extremity pitting edema, discoloration lower extremities noted and no calf tenderness noted. VASCULAR: Radial and dorsalis pedis pulses palpated, no evidence of clubbing. NEUROLOGIC: Patient is awake, alert and oriented x3. Results 04/19/18 10:30 04/19/18 10:30 Cardiac Enzymes 04/19/18 04/19/18 04/19/18 Range/Units 10:30 10:30 19:34 AST 21 (14-36) U/L CK-MB (CK-2) 0.8 (0.0-2.4) ng/mL Troponin I <0.012 <0.012 (0.000-0.034) ng/mL Coagulation 04/19/18 Range/Units 10:30 PT 9.8 (9.0-12.0) sec APTT 22.0 (22.0-30.0) sec CBC 04/19/18 Range/Units 10:30 WBC 4.9 (3.8-10.6) k/uL RBC 4.10 (3.80-5.40) m/uL Hgb 12.5 (11.4-16.0) gm/dL Hct 38.9 (34.0-46.0) % Plt Count 202 (150-450) k/uL Comprehensive Metabolic Panel 04/19/18 Range/Units 10:30 Sodium 140 (137-145) mmol/L Potassium 4.0 (3.5-5.1) mmol/L Chloride 102 (98-107) mmol/L Carbon Dioxide 31 H (22-30) mmol/L BUN 18 H (7-17) mg/dL Creatinine 0.93 (0.52-1.04) mg/dL Glucose 141 H (74-99) mg/dL Calcium 9.0 (8.4-10.2) mg/dL AST 21 (14-36) U/L ALT 27 (9-52) U/L Alkaline Phosphatase 55 (38-126) U/L Total Protein 6.1 L (6.3-8.2) g/dL Albumin 3.5 (3.5-5.0) g/dL Current Medications Generic Name Dose Route Start Last Admin Trade Name Freq PRN Reason Stop Dose Admin Albuterol/Ipratropium 3 ml 04/19/18 20:00 04/20/18 04:59 Duoneb 0.5 Mg-3 Mg/3 Ml Soln INHALATION Not Given RT-Q4H MARIANNE Apixaban 2.5 mg 04/19/18 21:00 04/19/18 20:58 Eliquis PO 2.5 mg HS MARIANNE Administration Atenolol 25 mg 04/19/18 21:00 04/19/18 20:58 Tenormin PO 25 mg BID MARIANNE Administration Budesonide/Formoterol Fumarate 2 puff 04/19/18 21:00 04/19/18 18:35 Symbicort 80-4.5 Mcg Inhaler INHALATION 2 puff BID MARIANNE Administration Cyclobenzaprine HCl 10 mg 04/19/18 17:47 04/19/18 20:58 Flexeril PO 10 mg TID PRN Administration Spasms Escitalopram Oxalate 10 mg 04/19/18 21:00 04/19/18 20:58 Lexapro PO 10 mg HS MARIANNE Administration Furosemide 40 mg 04/19/18 21:00 04/19/18 20:58 Lasix PO 40 mg BID MARIANNE Administration Levothyroxine Sodium 75 mcg 04/20/18 06:30 04/20/18 06:18 Synthroid PO Not Given DAILY@0630 MARIANNE Lidocaine 1 applic 04/19/18 17:47 Xylocaine 5% Oint TOPICAL DAILY PRN BACK PAIN Lisinopril 10 mg 04/20/18 09:00 Zestril PO DAILY [facility] Multivitamins 1 each 04/20/18 12:00 Theragran PO DAILY@1200 [facility] Naloxone HCl 0.2 mg 04/19/18 12:02 Narcan IV Q2M PRN Opioid Reversal Tramadol HCl 50 mg 04/19/18 17:47 04/19/18 23:29 Ultram PO 50 mg Q4HR PRN Administration Pain Intake and Output 04/19/18 04/20/18 04/20/18 22:59 06:59 14:59 Intake Total 900 Balance 900 Intake: Oral 900 Other: Voiding Method Toilet Toilet # Voids 1 3 Weight 147.7 kg 04/19/18 10:30 04/19/18 10:30 Assessment and Plan Assessment: ASSESSMENT Acute on chronic systolic heart failure Chronic persistent atrial fibrillation on low-dose anticoagulation secondary to clotting disorder Hypertension Dyslipidemia Hypothyroidism Fibromyalgia Chronic marijuana use Former nicotine dependence, quit 2014 Morbid obesity PLAN Obtain 2-D echocardiogram and Doppler study to assess cardiac structure and function. Initiate on Lasix IV 40 mg twice a day. Obtain intake and output with daily weights to effectively evaluate diuresis. Continue Eliquis, atenolol and lisinopril as was previously ordered. Further recommendations to follow based on clinical course. Thank you kindly for this consultation. The above impression and plan of care have been discussed and directed by the signing physician. Princess Arrieta, nurse practitioner, acting as scribe for signing physician.
--- NOTE | 2018-04-20 11:02 | ECHOF ---
Referral Reason:chf MEASUREMENTS -------- HEIGHT: 172.7 cm WEIGHT: 147.4 kg BP: 113/65 RVIDd: 3.3 cm (< 3.3) IVSd: 0.9 cm (0.6 - 1.1) LVIDd: 6.0 cm (3.9 - 5.3) LVPWd: 1.2 cm (0.6 - 1.1) IVSs: 1.5 cm LVIDs: 4.5 cm LVPWs: 1.2 cm LA Diam: 5.1 cm (2.7 - 3.8) LAESV Index (A-L): 38.70 ml/m Ao Diam: 2.8 cm (2.0 - 3.7) AV Cusp: 1.9 cm (1.5 - 2.6) LA Diam: 4.7 cm (2.7 - 3.8) MV EXCURSION: 17.722 mm (> 18.000) MV EF SLOPE: 139 mm/s (70 - 150) EPSS: 0.7 cm MV E Lucian: 0.82 m/s MV DecT: 111 ms MV A Lucian: 0.28 m/s MV E/A Ratio: 2.91 RAP: 5.00 mmHg RVSP: 13.19 mmHg FINDINGS -------- Atrial fibrillation. Morbid Obesity The left ventricular size is normal. Overall left ventricular systolic function is low-normal with, an EF between 50 - 55 %. The right ventricle is normal in size. The left atrium is moderately dilated. LA is moderately dilated 34-39 ml/m2 The right atrial size is normal. 5.0mg OF Lumason UTLIZED: 2 OR MORE WALL SEGMENTS NOT VISUALIZED. There is mild aortic valve sclerosis. There is no evidence of aortic regurgitation. Mild mitral annular calcification present. Mild mitral regurgitation is present. Mild tricuspid regurgitation present. There is no evidence of pulmonary hypertension. The right v entricular systolic pressure, as measured by Doppler, is 13.19mmHg. The pulmonic valve was not well visualized. There is no pericardial effusion. CONCLUSIONS -------- 1. Morbid Obesity 2. The left ventricular size is normal. 3. Overall left ventricular systolic function is low-normal with, an EF between 50 - 55 %. 4. The right ventricle is normal in size. 5. The left atrium is moderately dilated. 6. LA is moderately dilated 34-39 ml/m2 7. The right atrial size is normal. 8. 5.0mg OF Lumason UTLIZED: 2 OR MORE WALL SEGMENTS NOT VISUALIZED. 9. There is mild aortic valve sclerosis. 10. Mild mitral annular calcification present. 11. Mild mitral regurgitation is present. 12. Mild tricuspid regurgitation present. 13. There is no evidence of pulmonary hypertension. 14. The right ventricular systolic pressure, as measured by Doppler, is 13.19mmHg. 15. The pulmonic valve was not well visualized. 16. There is no pericardial effusion. CONTROL CABINET ASSEMBLER: Katelyn Mireles RDCS
[2018-04-20] MEDS: LISINOPRIL 10 MG TAB PO SCH (12:25)
[2018-04-20] MEDS: FUROSEMIDE 10 MG/ML 4 ML VIAL IV SCH ×2 (12:25→20:26)
[2018-04-20] MEDS: MULTIVITAMINS, THERA 1 EACH TAB PO SCH (12:25)
[2018-04-20] MEDS: ATENOLOL 25 MG TAB PO SCH ×2 (12:25→20:26)
[2018-04-20] MEDS: traMADol 50 MG TAB PO PRN (14:37)
[2018-04-20] MEDS: CYCLOBENZAPRINE 10 MG TAB PO PRN ×2 (15:55→20:26)
--- NOTE | 2018-04-20 19:00 | PN ---
PROGRESS NOTE SUBJECTIVE: This is a 67-year-old white female with CHF exacerbation. Awaiting cardiology consult and echo report. CARDIOVASCULAR: S1, S2. LUNGS: Rales at the base. HEMATOLOGY: Negative Homans. PSYCH: Fair mood and affect. ASSESSMENT: 1. Congestive heart failure exacerbation. 2. Acute hypoxemic respiratory distress. Continue treatment for CHF. Echo. Cardiology consult. Discharge home pending cardiology recommendations. MMODL / IJN: [id number] /
[2018-04-20] MEDS: ESCITALOPRAM 10 MG TAB PO SCH (20:26)
[2018-04-20] MEDS: APIXABAN 2.5 MG TABLET PO SCH (20:26)
[2018-04-20] MEDS ORDERED: IPRATROPIUM-ALBUTEROL 3 ML NEB INHALATION PRN (20:56)
[2018-04-21] MEDS: LEVOTHYROXINE 75 MCG TAB PO SCH (06:47)
[2018-04-21] MEDS: SYMBICORT 80-4.5 MCG INHALER INHALATION SCH ×2 (07:03→19:05)
[2018-04-21] MEDS: IPRATROPIUM-ALBUTEROL 3 ML NEB INHALATION SCH ×4 (07:03→19:05)
[2018-04-21 07:25] LABS: Potassium 4.1 mmol/L (3.5-5.1)
[2018-04-21] MEDS: FUROSEMIDE 10 MG/ML 4 ML VIAL IV SCH (08:56)
[2018-04-21] MEDS: LISINOPRIL 10 MG TAB PO SCH (08:56)
[2018-04-21] MEDS: ATENOLOL 25 MG TAB PO SCH ×2 (08:57→21:01)
[2018-04-21] MEDS: traMADol 50 MG TAB PO PRN ×3 (11:22→21:05)
[2018-04-21] MEDS: MULTIVITAMINS, THERA 1 EACH TAB PO SCH (11:22)
[2018-04-21] MEDS: CYCLOBENZAPRINE 10 MG TAB PO PRN ×2 (11:22→21:55)
--- NOTE | 2018-04-21 11:31 | P.PN ---
Subjective Mrs. Olsen is a pleasant 67-year-old female past medical history significant for systolic heart failure, atrial fibrillation, dyslipidemia, hypertension, von Willebrand's disease, osteoarthritis, hypothyroidism, history of tobacco use and daily marijuana use. She underwent cardiac catheterization in March 2017 which revealed normal coronary arteries. At that time she was found to have decreased systolic function of 40-45%. She does not follow with a well drill operator. We have been asked to see her in consultation for shortness of breath. She states she has been having increasing shortness of breath, fatigue , lower extremity edema and PND over the previous 2 months. She denies symptoms of chest pain, palpitations, dizziness, nausea, vomiting or diaphoresis. She states she has been sleeping using a wedge in bed due to inability to lay flat for breathing. EKG reveals atrial fibrillation with controlled ventricular response. Chest x-ray reveals cardiomegaly with mild pulmonary congestion. CT angiogram negative for pulmonary embolism. No evidence of aortic aneurysm or dissection. Laboratory data reviewed, hemoglobin 12.5, platelets 202, d-dimer 0.72, sodium 140, potassium 4.0, magnesium 1.7, creatinine 0.93, cardiac enzymes negative 2 , proBNP 1350. Current cardiac medications include lisinopril 10 mg daily, Lasix 40 mg twice a day, atenolol 25 mg twice a day and Eliquis 2.5 mg daily. 04/21/2018 Mrs. Olsen is seen and examined sitting up in bed. She states she is feeling much better since admission. Her breathing is improved as well as lower extremity edema. Documented weight has decreased significantly and she has achieved -8300 cc fluid balance while on IV lasix. She denies chest pain, palpitations, dizziness or shortness of breath. Laboratory data reviewed, sodium 139, potassium 4.1, creatinine 1.0. Blood pressure 118/75 heart rate 89 afebrile maintaining oxygen saturation on room air. Telemetry tracings have been unremarkable. Echocardiogram reveals low normal left ventricular systolic function with ejection fraction 50-55%. This is an improvement from previous echocardiogram. Objective - Vital Signs Vital signs: Vital Signs Temp 97.9 F 04/21/18 07:20 Pulse 89 04/21/18 08:00 Resp 18 04/21/18 08:00 BP 118/75 04/21/18 07:20 Pulse Ox 95 04/21/18 07:20 Intake & Output 04/20/18 04/21/18 04/21/18 18:59 06:59 18:59 Intake Total 422 360 Output Total 3526 5250 Balance -3103 -5250 360 Weight 144.9 kg 120.202 kg Intake: Oral 422 360 Output: Urine 3525 5250 Other: Voiding Method Toilet Toilet Toilet - Exam GENERAL: Well-appearing, well-nourished and in no acute distress. NECK: Supple without JVD or thyromegaly. LUNGS: Breath sounds clear to auscultation bilaterally. Respiration equal and unlabored. No wheezes, rales or rhonchi. HEART: Irregular rate and rhythm with systolic ejection murmur at the base, no rubs or gallops. S1 and S2 heard. EXTREMITIES: Normal range of motion, trace bilateral lower extremity edema with discoloration. No clubbing or cyanosis. Peripheral pulses intact. - Labs CBC & Chem 7: 04/19/18 10:30 04/21/18 06:37 Labs: Abnormal Lab Results - Last 24 Hours (Table) 04/21/18 Range/Units 06:37 Chloride 97 L (98-107) mmol/L Carbon Dioxide 38 H (22-30) mmol/L BUN 19 H (7-17) mg/dL Glucose 108 H (74-99) mg/dL Assessment and Plan Assessment: ASSESSMENT Acute on chronic systolic heart failure, improving Chronic persistent atrial fibrillation on low-dose anticoagulation secondary to clotting disorder Hypertension Dyslipidemia Hypothyroidism Fibromyalgia Chronic marijuana use Former nicotine dependence, quit 2014 Morbid obesity PLAN Transition to oral diuretics. Follow BMP in the morning. Expect stable for discharge in 24 hours. We will continue to follows. The above impression and plan of care have been discussed and directed by the signing physician. Princess Arrieta, nurse practitioner, acting as scribe for signing physician.
[2018-04-21] MEDS: FUROSEMIDE 20 MG TAB PO SCH (15:23)
[2018-04-21] MEDS: APIXABAN 2.5 MG TABLET PO SCH (21:01)
[2018-04-21] MEDS: ESCITALOPRAM 10 MG TAB PO SCH (21:01)
--- NOTE | 2018-04-22 05:07 | PN ---
PROGRESS NOTE SUBJECTIVE: 67-year-old white female who has lost 25 pounds with IV Lasix while admitted. The patient is greatly improved. Cardiovascular: S1-S2. Lungs: Scattered rales at the bases. Hematology: Negative Homans. Psych: Fair mood and affect. ASSESSMENT: 1. Acute diastolic congestive heart failure. 2. Chronic obstructive pulmonary disease, improving with IV Lasix. We will switch to oral Lasix. Possible discharge home in next 24 to 48 hours. Monitor potassium levels. MMODL / IJN: [id number] /
[2018-04-22] MEDS: CYCLOBENZAPRINE 10 MG TAB PO PRN ×2 (05:59→21:09)
[2018-04-22] MEDS: LEVOTHYROXINE 75 MCG TAB PO SCH (05:59)
[2018-04-22] MEDS: traMADol 50 MG TAB PO PRN ×2 (06:02→21:09)
[2018-04-22 06:06] LABS: Calcium 9.1 mg/dL (8.4-10.2); Potassium 4.4 mmol/L (3.5-5.1)
[2018-04-22] MEDS: SYMBICORT 80-4.5 MCG INHALER INHALATION SCH ×2 (07:41→20:13)
[2018-04-22] MEDS: IPRATROPIUM-ALBUTEROL 3 ML NEB INHALATION SCH ×4 (07:41→20:13)
[2018-04-22] MEDS: ATENOLOL 25 MG TAB PO SCH ×2 (09:11→21:09)
[2018-04-22] MEDS: LISINOPRIL 10 MG TAB PO SCH (09:11)
[2018-04-22] MEDS: FUROSEMIDE 20 MG TAB PO SCH ×2 (09:11→17:10)
[2018-04-22] MEDS: MULTIVITAMINS, THERA 1 EACH TAB PO SCH (13:21)
--- NOTE | 2018-04-22 14:24 | P.PN ---
Subjective Progress Note Date: 04/22/18 Mrs. Olsen is a pleasant 67-year-old female past medical history significant for systolic heart failure, atrial fibrillation, dyslipidemia, hypertension, von Willebrand's disease, osteoarthritis, hypothyroidism, history of tobacco use and daily marijuana use. She underwent cardiac catheterization in March 2017 which revealed normal coronary arteries. At that time she was found to have decreased systolic function of 40-45%. She does not follow with a nuclear equipment research engineer. She initially presented to the hospital with symptoms of increasing shortness of breath, fatigue, lower extremity edema, PND for approximately 2 months duration. Patient was treated for congestive heart failure, overall doing much better. She complained this morning of some mild nausea, otherwise her breathing is stable. The pressure 124/68 with a heart rate in the 70s, 95% on room air. Objective - Vital Signs Vital signs: Vital Signs Temp 97.6 F 04/22/18 08:00 Pulse 86 04/22/18 11:54 Resp 16 04/22/18 08:00 BP 125/68 04/22/18 08:00 Pulse Ox 95 04/22/18 08:00 Intake & Output 04/21/18 04/22/18 04/22/18 18:59 06:59 18:59 Intake Total 600 240 Output Total 1999 1900 Balance -1400 -1900 240 Weight 140 kg Intake: Oral 600 240 Output: Urine 1999 1899 Other: Voiding Method Toilet Toilet - Exam GENERAL: Well-appearing, well-nourished and in no acute distress. NECK: Supple without JVD or thyromegaly. LUNGS: Breath sounds clear to auscultation bilaterally. Respiration equal and unlabored. No wheezes, rales or rhonchi. HEART: Irregular rate and rhythm with systolic ejection murmur at the base, no rubs or gallops. S1 and S2 heard. EXTREMITIES: Normal range of motion, trace bilateral lower extremity edema with discoloration. No clubbing or cyanosis. Peripheral pulses intact. - Labs CBC & Chem 7: 04/19/18 10:30 04/22/18 05:18 Labs: Abnormal Lab Results - Last 24 Hours (Table) 04/22/18 Range/Units 05:18 Sodium 134 L (137-145) mmol/L Chloride 94 L (98-107) mmol/L Carbon Dioxide 36 H (22-30) mmol/L BUN 26 H (7-17) mg/dL Glucose 104 H (74-99) mg/dL Assessment and Plan Plan: Assessment and plan #1 systolic congestive heart failure acute on chronic #2 chronic persistent atrial fibrillation, on anticoagulation, low dose secondary to a clotting disorder #3 hypertension #4 hyperlipidemia #5 hypothyroidism #6 chronic marijuana use #7 morbid obesity Plan From cardiology's perspective, patient may be able to be discharged home once cleared by primary. DNP note has been reviewed, I agree with a documented findings and plan of care. Patient was seen and examined.
[2018-04-22] MEDS ORDERED: DOCUSATE 100 MG CAP PO PRN (20:20)
[2018-04-22] MEDS: APIXABAN 2.5 MG TABLET PO SCH (21:09)
[2018-04-22] MEDS: ESCITALOPRAM 10 MG TAB PO SCH (21:09)
--- NOTE | 2018-04-22 21:50 | PN ---
PROGRESS NOTE This is a white female, 67 years old, does not feel good today. Does not want to be discharged due to weakness and fatigue. Remains on DuoNeb updrafts as well as Symbicort, Lexapro for depression. Lasix has been switched to oral and Synthroid. Labs today show sodium 134, potassium 4.4, creatinine 1.00. I suspect the patient will be able to go home tomorrow. Vital signs were reviewed. Abdomen is soft, nontender. CARDIOVASCULAR: S1, S2. PSYCH: Fair mood and affect. NEUROLOGIC: She looks weak and fatigued. Await recommendations from Pulmonary and cardiology in the morning. If she is feeling better, I will get her home in the morning. MMODL / IJN: [id number] /
[2018-04-23 06:05] LABS: Basophils % (A) 1 %; Eosinophils # (A) 0.4 k/uL (0-0.7); Eosinophils % (A) 6 %; HCT 40.3 % (34.0-46.0); Lymphocytes # (A) 1.5 k/uL (1.0-4.8); Lymphocytes % (A) 27 %; MCH 30.6 pg (25.0-35.0); MCHC 32.3 g/dL (31.0-37.0); MCV 94.5 fL (80.0-100.0); Mean Platelet Volume 6.9; Monocytes # (A) 0.3 k/uL (0-1.0); Monocytes % (A) 6 %; Neutrophils # (A) 3.2 k/uL (1.3-7.7); Neutrophils % (A) 57 %; Platelet Count 227 k/uL (150-450); RBC 4.26 m/uL (3.80-5.40); WBC 5.5 k/uL (3.8-10.6)
[2018-04-23 06:20] LABS: Albumin 3.4 g/dL (3.5-5.0); Calcium 8.6 mg/dL (8.4-10.2); Potassium 4.1 mmol/L (3.5-5.1); Total Bilirubin 0.8 mg/dL (0.2-1.3); Total Protein 6.2 g/dL (6.3-8.2)
[2018-04-23] MEDS: LEVOTHYROXINE 75 MCG TAB PO SCH (06:46)
[2018-04-23] MEDS: SYMBICORT 80-4.5 MCG INHALER INHALATION SCH (07:28)
[2018-04-23] MEDS: IPRATROPIUM-ALBUTEROL 3 ML NEB INHALATION SCH ×3 (07:28→15:23)
[2018-04-23 08:48] VITALS: TEMP 98.3
[2018-04-23] MEDS: FUROSEMIDE 20 MG TAB PO SCH (08:49)
[2018-04-23] MEDS: ATENOLOL 25 MG TAB PO SCH (08:49)
[2018-04-23] MEDS: LISINOPRIL 10 MG TAB PO SCH (08:49)
[2018-04-23] MEDS: CYCLOBENZAPRINE 10 MG TAB PO PRN (09:31)
[2018-04-23] MEDS: MULTIVITAMINS, THERA 1 EACH TAB PO SCH (11:42)
[2018-04-23 11:46] VITALS: BP 101/60; PULSE 100; RESP 17
--- NOTE | 2018-04-23 20:48 | DS ---
DISCHARGE SUMMARY DISCHARGE MEDICATIONS: 1. Eliquis 2.5 mg daily. 2. Tenormin 25 mg b.i.d. 3. Budesonide 2 puffs b.i.d. 4. Flexeril 10 mg q.8 hours p.r.n. 5. Colace 100 mg daily. 6. Lexapro 10 daily. 7. Lasix 60 p.o. b.i.d. 8. DuoNeb updraft q.i.d. 9. Levothyroxine 75 mcg p.o. daily.. 10.Lisinopril 10 mg daily. 11.Multivitamin daily. 12.Tramadol 50 q.4 hours p.r.n. CONDITION: Stable. PROGNOSIS: Guarded. Ambulate as tolerated. HOSPITAL COURSE OF EVENTS: 67 -year-old white female came in with systolic congestive heart failure. She had Cardiology who saw her. She had echocardiogram. She had a chest CTA. Echocardiogram showed atrial fibrillation with ejection fraction 50 to 55%. She was diagnosed with diastolic heart failure with atrial fibrillation, rapid ventricular response. She was treated with Lasix which took a lot of fluid off her while she was in the hospital here and she became very impressively less short of breath. She stabilized in the hospital. Her medications were adjusted by Cardiology and a chest CTA of her lung was performed. Chest CTA showed no evidence of pulmonary embolism. Interstitial pulmonary infiltrates, possibly due to sarcoidosis. No change from prior. She will follow up as an outpatient with Dr. Mccarty in office. MMODL / MARANDAN: [id number] /
== END 2018-04-23 18:24 | disposition home or self-care (01) | DRG 292 ==
LOC: EC 09:58 → 3OBS 12:02 → OBSVTOIN 04-20 15:06 → 6SEL 04-21 13:58
PROVIDERS: ADMIT Family Medicine; ATTEND Family Medicine
DX: I11.0 Hypertensive heart disease with heart failure (principal); D68.0 Von Willebrand disease; I48.1 Persistent atrial fibrillation; I48.92 Unspecified atrial flutter; Z68.42 Body mass index [BMI] 45.0-49.9, adult; E03.9 Hypothyroidism, unspecified; E66.01 Morbid (severe) obesity due to excess calories; E78.5 Hyperlipidemia, unspecified; F32.9 Major depressive disorder, single episode, unspecified; I20.8 Other forms of angina pectoris; I48.2 Chronic atrial fibrillation; I50.43 Acute on chronic combined systolic (congestive) and diastolic (congestive) heart failure; J44.9 Chronic obstructive pulmonary disease, unspecified; M79.7 Fibromyalgia; R06.03 Acute respiratory distress; R09.02 Hypoxemia; Z79.01 Long term (current) use of anticoagulants; Z79.899 Other long term (current) drug therapy; Z80.6 Family history of leukemia; Z83.3 Family history of diabetes mellitus; Z87.891 Personal history of nicotine dependence; Z96.653 Presence of artificial knee joint, bilateral; Z98.42 Cataract extraction status, left eye; Z98.41 Cataract extraction status, right eye; Z96.1 Presence of intraocular lens; Z88.6 Allergy status to analgesic agent; Z88.8 Allergy status to other drugs, medicaments and biological substances; Z79.890 Hormone replacement therapy; Z82.49 Family history of ischemic heart disease and other diseases of the circulatory system; F41.9 Anxiety disorder, unspecified
CPT/HCPCS: 36415; 71046; 71275; 80048; 80053; 82550; 82553; 83690; 83735; 83880; 84484; 85025; 85379; 85610; 85730; 93306; 94640; 94760; 99285

== ENCOUNTER 2018-08-14 18:37 | Emergency (ER) | payer MEDICARE ==
[2018-08-14 18:42] VITALS: TEMP 98.1
[2018-08-14] MEDS ORDERED: HYDROcodone/APAP 5-325MG 1 EACH TAB PO STA (19:18)
--- NOTE | 2018-08-14 20:27 | ED ---
Extremity Problem HPI - General Chief complaint: Extremity Problem,Nontraumatic Stated complaint: Leg pain Time Seen by Provider: 08/14/18 19:01 Source: patient Mode of arrival: wheelchair Limitations: no limitations - History of Present Illness Initial comments: 67-year-old female patient presents to the emergency department today for complaints of pain to the right groin radiating down the inside of her leg to her knee and down to her foot. Patient states she feels that the right leg is also more swollen than usual. States that she does have a history of blood clots for which she does take Eliquis, states she has been taking as directed. States it does feel similar to when she's had blood clots in the past. She denies any injury to the leg. Denies any fever or chills with this. As a numbness or tingling to the leg. Denies any recent travel. Patient denies any recent rash, shortness breath, chest pain, abdominal pain, nausea, vomiting, diarrhea, constipation, back pain, numbness, tingling, dizziness, weakness, hematuria, dysuria, urinary urgency, urinary frequency, headache, visual changes , or any other complaints. - Related Data Home Medications Medication Instructions Recorded Confirmed Escitalopram [Lexapro] 10 mg PO HS 04/08/17 08/14/18 Levothyroxine Sodium [Synthroid] 75 mcg PO DAILY 04/08/17 08/14/18 Lidocaine 5% Oint [Xylocaine 5% 1 applic TOPICAL DAILY PRN 04/08/17 08/14/18 Oint] Multivit-Min/Iron/Folic/Lutein 1 tab PO DAILY 04/08/17 08/14/18 [Centrum Silver Women Tablet] Atenolol [Tenormin] 25 mg PO BID 03/11/18 08/14/18 Ipratropium-Albuterol Nebulize 3 ml INHALATION RT-QID PRN 03/11/18 08/14/18 [Duoneb 0.5 mg-3 mg/3 ml Soln] Apixaban [Eliquis] 2.5 mg PO HS 04/19/18 08/14/18 Cyclobenzaprine [Flexeril] 10 mg PO TID PRN 04/19/18 08/14/18 Fluticasone/Salmeterol [Advair 1 puff INHALATION RT-BID 04/19/18 08/14/18 250-50 Diskus] Lisinopril [Zestril] 10 mg PO DAILY 04/19/18 08/14/18 ARIPiprazole [Abilify] 5 mg PO HS 08/14/18 08/14/18 Celecoxib [CeleBREX] 200 mg PO BID 08/14/18 08/14/18 Previous Rx's Medication Instructions Recorded traMADol HCL [Ultram] 50 mg PO Q4HR PRN 3 Days #18 tab 03/11/18 Furosemide [Lasix] 60 mg PO BID@0900,1600 tab 04/22/18 Allergies Allergy/AdvReac Type Severity Reaction Status Date / Time ibuprofen [From Motrin] Allergy Unknown Verified 08/14/18 19:20 pregabalin [From Lyrica] Allergy Rapid Verified 08/14/18 19:20 Heart Rate aspirin AdvReac Unknown Verified 08/14/18 19:20 green pepper AdvReac Vomiting Verified 08/14/18 19:20 Review of Systems ROS Statement: Those systems with pertinent positive or pertinent negative responses have been documented in the HPI. ROS Other: All systems not noted in ROS Statement are negative. Past Medical History Past Medical History: Atrial Flutter, Chest Pain / Angina, Fibromyalgia, Hyperlipidemia, Hypertension, Osteoarthritis (OA), Thyroid Disorder Additional Past Medical History / Comment(s): [employer] , pne vaccine in past-not sure of date and scenario writer unabel to verify at time of this admit. History of Any Multi-Drug Resistant Organisms: None Reported Past Surgical History: Back Surgery, Breast Surgery, Heart Catheterization, Joint Replacement, Orthopedic Surgery Additional Past Surgical History / Comment(s): bilateral knee replacements , Cataracts with lens implants with both eyes , left breast lumpectomy -benign Past Anesthesia/Blood Transfusion Reactions: Postoperative Nausea & Vomiting ( PONV) Additional Past Anesthesia/Blood Transfusion Reaction / Comment(s): never had a blood transfusion Past Psychological History: Anxiety, Depression Smoking Status: Current some day smoker Past Alcohol Use History: None Reported Past Drug Use History: None Reported - Past Family History Sister(s) Additional Family Medical History / Comment(s): form of Leukemia - bone marrow transplant from patient Brother(s) Family Medical History: Diabetes Mellitus Father Additional Family Medical History / Comment(s): from enlarged heart General Exam Limitations: no limitations General appearance: alert, in no apparent distress, other (This is a well- developed, well-nourished adult female patient in no acute distress. Vital signs upon presentation are temperature 98.1F, pulse 103, respirations 20, blood pressure 188/82, pulse ox 98% on room air.) Eye exam: Present: normal appearance, PERRL, EOMI. Absent: scleral icterus, conjunctival injection, periorbital swelling Respiratory exam: Present: normal lung sounds bilaterally. Absent: respiratory distress, wheezes, rales, rhonchi, stridor Cardiovascular Exam: Present: regular rate, normal rhythm, normal heart sounds. Absent: systolic murmur, diastolic murmur, rubs, gallop, clicks GI/Abdominal exam: Present: soft, normal bowel sounds. Absent: distended, tenderness, guarding, rebound, rigid Extremities exam: Present: normal inspection, full ROM, normal capillary refill , other (Tenderness to the right posterior knee and right medial calf. No erythema or swelling noted.). Absent: tenderness, pedal edema, joint swelling, calf tenderness Neurological exam: Present: alert, oriented X3, CN II-XII intact Psychiatric exam: Present: normal affect, normal mood Skin exam: Present: warm, dry, intact, normal color. Absent: rash Course Vital Signs 08/14/18 08/14/18 08/14/18 18:38 21:14 23:16 Temperature 98.1 F Pulse Rate 103 H 86 80 Respiratory 20 16 16 Rate Blood Pressure 188/82 152/81 128/105 O2 Sat by Pulse 98 96 98 Oximetry Medical Decision Making - Medical Decision Making 67-year-old female patient presents the emergency department today for complaints of right medial leg pain. Physical examination was relatively unremarkable. Patient's skin is pink, warm, dry. No evidence of rash. There is some mild tenderness to the posterior knee and to the medial calf. Patient is neurovascularly intact. Did perform venous Doppler duplex of the right lower extremity which showed no evidence for DVT. I did discuss findings and results with the patient. She does have history of chronic low back pain there is some concern for lumbar radiculopathy. She does have [place] at home for pain management, she is urged use this as needed. She is instructed to follow-up with her primary care physician for recheck as soon as possible. She agrees to call in the morning for an appointment. Return parameters were discussed in detail. She verbalizes understanding and agrees with this plan. - Radiology Data Radiology results: report reviewed Venous Doppler duplex of the right lower extremities was obtained. Report was reviewed in its entirety. Impression by Dr. Hernandez shows normal exam at no evidence for deep venous thrombosis in the right leg. Disposition Clinical Impression: Right leg pain Disposition: HOME SELF-CARE Condition: Good Instructions: Leg Pain (ED) Additional Instructions: Rest the right leg. Take home medication as directed. Follow up with your primary care physician for recheck in 1-2 days. Return immediately for any new, worsening, or concerning symptoms. Is patient prescribed a controlled substance at d/c from ED?: No Referrals: Leobardo Mccarty MD [Primary Care Provider] - 1-2 days Time of Disposition: 23:21
[2018-08-14 21:15] VITALS: RESP 16
--- NOTE | 2018-08-14 22:27 | US ---
EXAMINATION TYPE: US venous doppler duplex LE RT DATE OF EXAM: 08/14/2018 7:18 PM COMPARISON: NONE CLINICAL HISTORY: Pain. SIDE PERFORMED: Right TECHNIQUE: The lower extremity deep venous system is examined utilizing real time linear array sonog chantell with graded compression, doppler sonography and color-flow sonography. VESSELS IMAGED: External Iliac Vein (EIV) Common Femoral Vein Deep Femoral Vein Greater Saphenous Vein * Femoral Vein Popliteal Vein Small Saphenous Vein * Proximal Calf Veins (* superficial vessels) Right leg. Right Leg: Negative for DVT IMPRESSION: Normal exam. No evidence of deep venous thrombosis in the left leg
[2018-08-14 23:17] VITALS: BP 128/105; PULSE 80
== END 2018-08-14 23:25 | disposition home or self-care (01) ==
LOC: EC 18:37
DX: M79.604 Pain in right leg (principal); I48.92 Unspecified atrial flutter; M79.7 Fibromyalgia; I10 Essential (primary) hypertension; M19.90 Unspecified osteoarthritis, unspecified site; E07.9 Disorder of thyroid, unspecified; F41.9 Anxiety disorder, unspecified; F32.9 Major depressive disorder, single episode, unspecified; F17.200 Nicotine dependence, unspecified, uncomplicated; Z96.653 Presence of artificial knee joint, bilateral; Z98.890 Other specified postprocedural states; Z79.01 Long term (current) use of anticoagulants; Z79.1 Long term (current) use of non-steroidal anti-inflammatories (NSAID); Z79.51 Long term (current) use of inhaled steroids; Z79.899 Other long term (current) drug therapy; Z88.6 Allergy status to analgesic agent; Z88.8 Allergy status to other drugs, medicaments and biological substances; Z91.018 Allergy to other foods
CPT/HCPCS: 99283

== ENCOUNTER → 2019-10-27 | Outpatient (CLI) | payer MEDICARE, OTHER ==
[~2019-10-27] MED LIST: REGADENOSON 0.4 MG/5 ML SYRINGE IV ONE
--- NOTE | 2019-10-27 11:25 | EST ---
EXERCISE STRESS DATE OF SERVICE: 10/27/2019 AGE: 69 SEX: Female HT: 5'8" WT: 300 pounds PROTOCOL: Lexiscan Cardiolite STAGE: DURATION OF EXERCISE: HEART RATE REST: 75 BLOOD PRESSURE REST: 119/73 MAXIMUM HEART RATE ACHIEVED: 85 MAXIMUM BLOOD PRESSURE: 111/65 85% MPHR: 100% MPHR: METS: INDICATIONS: Chest pressure, palpitations. CLINICAL INFORMATION: Baseline EKG revealed atrial fibrillation with a controlled ventricular rate nonspecific ST and T wave changes were noted. With Lexiscan administration, heart rate changed from 75 to 85 beats per minute. Patient had some shortness of breath, left arm pressure. Blood pressure changed from 119/73 to 111/65, and came back to baseline. No anginal symptoms were noted. By EKG criteria, this is an inconclusive Lexiscan stress test with underlying atrial fibrillation and controlled ventricular rate. The nuclear scan results which are more pertinent will be reported by the radiologist. MMTRICIA / MARANDAN: [id number] /
--- NOTE | 2019-10-27 12:37 | NM ---
EXAMINATION TYPE: NM stress lexiscan cardiolite DATE OF EXAM: 10/27/2019 COMPARISON: NONE HISTORY: Atrial fibrillation TECHNIQUE: After the intravenous administration of 10.2 mCi Tc 99m Sestamibi - Cardiolite resting SP ECT images acquired 45 minutes post injection. The patient received 0.4mg Lexiscan, 25.9 mCi Tc 99m Sestamibi - Stress images obtained [address] injection FINDINGS: There is diminished radiotracer within the cardiac apex compatible some cardiac thinning. D iminished radiotracer accumulation is within the inferior lateral wall compatible some mild stress-in duced ischemic change. This area appears reversible. Ejection fraction is 51%. Normal greater than 50%. Mild dyskinesia of the distal anterior wall and at the cardiac apex may be present and gated wall motion. Findings are subtle. IMPRESSION: 1. Some mild diminished radiotracer along the inferior lateral wall suggestive for some mild stress-i nduced ischemic change. 2. Mild hypokinesia of the distal anterior and lateral robert. 3. Normal ejection fraction with some mild dyskinesia of the distal anterior and cardiac apex.
== END | disposition home or self-care (01) ==
LOC: RADNMMAIN 08:37
PROVIDERS: ATTEND Family Medicine
DX: G24.9 Dystonia, unspecified (principal); I51.89 Other ill-defined heart diseases; I48.91 Unspecified atrial fibrillation
CPT/HCPCS: 93017; 78452; A9500; J2785

== ENCOUNTER → 2019-11-08 | Outpatient (CLI) | payer MEDICARE, OTHER ==
[2019-11-08 12:30] LABS: HCT 45.6 % (34.0-46.0); HGB 14.7 gm/dL (11.4-16.0); MCH 30.9 pg (25.0-35.0); MCHC 32.3 g/dL (31.0-37.0); MCV 95.6 fL (80.0-100.0); Mean Platelet Volume 8.1; Platelet Count 248 k/uL (150-450); RBC 4.77 m/uL (3.80-5.40); RDW 12.5 % (11.5-15.5); WBC 7.3 k/uL (3.8-10.6)
[2019-11-08 12:49] LABS: Potassium 4.6 mmol/L (3.5-5.1)
== END | disposition home or self-care (01) ==
LOC: LABPAT 11:18
PROVIDERS: ATTEND Internal Medicine Cardiovascular Disease
DX: Z01.812 Encounter for preprocedural laboratory examination (principal); R07.2 Precordial pain
CPT/HCPCS: 80051; 82565; 84520; 85027

== ENCOUNTER 2019-11-10 07:03 | Day surgery (SDC) | payer MEDICARE, OTHER ==
[2019-11-08 15:45] VITALS: BMI 45.6
[~2019-11-10 07:03] MED LIST changes: +ALPRAZolam 0.25 MG TAB PO PRN; +ALPRAZolam 0.5 MG TAB PO PRN; +ASPIRIN 325 MG TAB PO ONE; +ATORVASTATIN 80 MG TAB PO ONE; +NITROGLYCERIN SL TABS 0.4 MG TAB SUBLINGUAL PRN; -REGADENOSON 0.4 MG/5 ML SYRINGE IV ONE; +SODIUM CHLORIDE 0.9% 1,000 ML in EMPTY BAG 1 BAG IV ONE
[2019-11-10] MEDS ORDERED: SODIUM CHLORIDE 0.9% 1,000 ML IV ONE (07:30)
[2019-11-10 07:33] VITALS: TEMP 98.1
[2019-11-10] MEDS ORDERED: NITROGLYCERIN OINT 1 INCH/GM PACKET TOPICAL ONE (07:39)
[2019-11-10] MEDS ORDERED: NITROGLYCERIN OINT 1 INCH/GM PACKET TOPICAL STA (07:41)
[2019-11-10] MEDS ORDERED: fentaNYL (PF) 50 MCG/ML 2 ML AMP IV ONE (07:56)
[2019-11-10] MEDS ORDERED: MIDAZOLAM 2 MG/2 ML VIAL IV ONE (07:57)
[2019-11-10] MEDS ORDERED: LIDOCAINE 1% INJ 10MG/ML (20 ML MDV) SQ ONE (07:58)
[2019-11-10] MEDS ORDERED: RX INFO: IV CONTRAST WAS GIVEN 1 EACH MISC MISCELLANE PRN (08:14)
[2019-11-10] MEDS ORDERED: SODIUM CHLORIDE 0.9% 1,000 ML IV SCH (08:15)
[2019-11-10] MEDS ORDERED: IOPAMIDOL-370 125ML BTL INJ ONE (08:17)
--- NOTE | 2019-11-10 08:37 | LTR ---
November 10, 2019 Re: Radha Olsen Dear Leobardo: I performed cardiac catheterization on Radha Olsen. A detailed catheterization note is enclosed for your records. In brief, her cardiac catheterization revealed normal coronary arteries and her stress test is a false positive stress test. Thank you for giving me the privilege to participate in the care of this pleasant lady. Sincerely, MD SIMA Cevallos / JOHN: [id number] /
--- NOTE | 2019-11-10 08:37 | CC ---
CARDIAC CATHETERIZATION REPORT INDICATION: Shortness of breath with abnormal stress test. PROCEDURE NOTE: After obtaining informed consent, left heart catheterization and coronary angiogram are performed via the right femoral artery using standard Keren catheters. Patient tolerated the procedure well without any obvious immediate complications. A femoral angiogram was performed and Angio-Seal was deployed for hemostasis. FINDINGS: 1. HEMODYNAMICS: Left ventricular end-diastolic pressure is 12 to 14 mm. There is no significant gradient across the aortic valve. 2. LEFT VENTRICULOGRAM: Left ventriculogram is not performed. 3. ANGIOGRAPHIC DATA: Left Main Coronary Artery: Left main coronary artery is a normal-sized vessel and is free of stenosis. Divides into left anterior descending coronary artery and circumflex coronary artery. LAD and its branches, circumflex coronary artery and its branches are free of significant stenosis. Right coronary artery is a large dominant vessel and is free of significant disease. CONCLUSIONS: 1. Normal coronaries. 2. Normal left ventricular end-diastolic pressure. PLAN: Patient's shortness of breath seems noncardiac in origin and the stress test is a false positive stress test. Her management is going to be in the form of risk factor modification and optimal medical therapy. MMODL / IJN: [id number] /
[2019-11-10] MEDS ORDERED: HYDROcodone/APAP 7.5-325MG 1 EACH TAB ONE (08:53)
[2019-11-10 13:08] VITALS: BP 145/78; PULSE 95; RESP 16
== END 2019-11-10 13:24 | disposition home or self-care (01) ==
LOC: CATHCVL 07:03
PROVIDERS: ATTEND Internal Medicine Cardiovascular Disease
DX: R07.2 Precordial pain (principal); R06.02 Shortness of breath; R94.39 Abnormal result of other cardiovascular function study; I10 Essential (primary) hypertension; I73.9 Peripheral vascular disease, unspecified; I48.21 Permanent atrial fibrillation; E07.9 Disorder of thyroid, unspecified; E78.5 Hyperlipidemia, unspecified; Z87.891 Personal history of nicotine dependence; Z79.01 Long term (current) use of anticoagulants; Z79.890 Hormone replacement therapy; Z79.899 Other long term (current) drug therapy; Z88.6 Allergy status to analgesic agent; Z88.1 Allergy status to other antibiotic agents; Z82.49 Family history of ischemic heart disease and other diseases of the circulatory system
CPT/HCPCS: 93458; C1760; C1894; C1769; J2250; J2001; J3010; Q9967

== ENCOUNTER 2020-03-05 08:17 | Day surgery (SDC) | payer MEDICARE, OTHER ==
[2020-03-01 15:12] VITALS: BMI 44.1
[~2020-03-05 08:17] MED LIST changes: -ALPRAZolam 0.25 MG TAB PO PRN; -ALPRAZolam 0.5 MG TAB PO PRN; -ASPIRIN 325 MG TAB PO ONE; -ATORVASTATIN 80 MG TAB PO ONE; +LACTATED RINGERS 1,000 ML IV SCH; -NITROGLYCERIN SL TABS 0.4 MG TAB SUBLINGUAL PRN; +SODIUM CHLORIDE 0.9% 1,000 ML IV SCH; -SODIUM CHLORIDE 0.9% 1,000 ML in EMPTY BAG 1 BAG IV ONE
[2020-03-05 08:39] VITALS: TEMP 98.8
[2020-03-05] MEDS ORDERED: PROPOFOL 10 MG/ML 20 ML VIAL IV ONE (09:00)
[2020-03-05] MEDS ORDERED: BENZOCAINE SPRAY 1 CAN MUCOUS MEM ONE ×2 (09:00→09:10)
[2020-03-05 09:16] LABS: Calcium 9.2 mg/dL (8.4-10.2); Potassium 4.2 mmol/L (3.5-5.1)
[2020-03-05 09:59] VITALS: RESP 18
--- NOTE | 2020-03-05 11:32 | ECHOT ---
TRANSESOPHAGEAL ECHOCARDIOGRAM GURDEEP: INDICATION: To rule out intracardiac thrombus in a patient with persistent atrial fibrillation prior to cardioversion. PROCEDURE NOTE: After obtaining informed consent, transesophageal echocardiogram was performed in left lateral position using an Omni plane probe. Local and IV sedation were obtained by the photoengraving printer. Patient tolerated the procedure well without any obvious immediate complications. FINDINGS: 1. There is no intracardiac thrombus within the left atrial appendage, left atrium, right atrium, or right ventricle. 2. Left atrium appears enlarged. 3. Right atrium and right ventricle are within normal limits. 4. Left ventricle has normal size, shows mild diffuse global hypokinesis with mild LV dysfunction with an ejection fraction of 45% to 50%. 5. Mitral valve shows mild central mitral regurgitation. 6. Aortic valve is free of stenosis or regurgitation. 7. Tricuspid valve shows mild tricuspid regurgitation. 8. Interatrial septum, there is no evidence of grye-eg-gpolo shunt by color-flow Doppler or [id number] shunt by agitated saline contrast study. Aorta shows mild atherosclerotic changes. CONCLUSION: No intracardiac thrombus. PLAN: Patient will undergo cardioversion. CARDIOVERSION NOTE: INDICATION: Persistent atrial fibrillation. After obtaining informed consent, the patient underwent electrical cardioversion with 360 joules of synchronized DC current. We initially attempted cardioversion with 300 joules. The patient did not convert, so the patient converted to sinus rhythm following a second shock. She had been adequately anticoagulated with Eliquis and we confirmed that there is no intracardiac thrombus by transesophageal echo. Patient was anesthetized by the photoengraving printer, tolerated the procedure. Procedure was completed uneventfully. MMODL / IJN: [id number] /
[2020-03-05 12:51] VITALS: BP 135/60; PULSE 60
== END 2020-03-05 10:55 | disposition home or self-care (01) ==
LOC: CATHCVL 08:17
PROVIDERS: ATTEND Internal Medicine Cardiovascular Disease
DX: I48.19 Other persistent atrial fibrillation (principal); I08.1 Rheumatic disorders of both mitral and tricuspid valves; I11.0 Hypertensive heart disease with heart failure; I50.9 Heart failure, unspecified; I25.2 Old myocardial infarction; E07.9 Disorder of thyroid, unspecified; M19.90 Unspecified osteoarthritis, unspecified site; G43.909 Migraine, unspecified, not intractable, without status migrainosus; M79.7 Fibromyalgia; Z88.6 Allergy status to analgesic agent; Z88.8 Allergy status to other drugs, medicaments and biological substances; Z79.01 Long term (current) use of anticoagulants; Z79.51 Long term (current) use of inhaled steroids; Z79.899 Other long term (current) drug therapy; Z90.49 Acquired absence of other specified parts of digestive tract; Z96.653 Presence of artificial knee joint, bilateral; Z98.41 Cataract extraction status, right eye; Z98.42 Cataract extraction status, left eye; Z98.890 Other specified postprocedural states; Z99.81 Dependence on supplemental oxygen
CPT/HCPCS: 93312; 93320; 93325; 92960; 80048; J2704

== ENCOUNTER 2020-05-04 02:36 | Emergency (ER) | payer MEDICARE, OTHER ==
[2020-05-04 02:44] VITALS: BP 132/81; PULSE 72; RESP 18; TEMP 98.9
[2020-05-04] MEDS ORDERED: HYDROmorphone 0.5 MG/0.5 ML SYRINGE IM STA (02:59)
--- NOTE | 2020-05-04 03:34 | XR ---
EXAMINATION TYPE: XR forearm LT DATE OF EXAM: 05/04/2020 COMPARISON: NONE HISTORY: Fall. Wrist pain TECHNIQUE: 2 views FINDINGS: There is impacted transverse fracture of the distal radial metaphysis with comminution. Det ail is limited by the views. Elbow joint appears intact. There is osteoarthritic joint space narrowing at the first carpometacarpal joint. Carpal bones are gr ossly intact. IMPRESSION: Comminuted impacted intra-articular fracture of the distal radius.
--- NOTE | 2020-05-04 03:35 | XR ---
EXAMINATION TYPE: XR humerus LT DATE OF EXAM: 05/04/2020 COMPARISON: NONE HISTORY: Pain TECHNIQUE: 2 views FINDINGS: Shoulder joint appears anatomic. The elbow joint appears intact. I see no fracture. IMPRESSION: Negative left humerus exam.
--- NOTE | 2020-05-04 03:36 | XR ---
EXAMINATION TYPE: XR lumbar spine 2 or 3V DATE OF EXAM: 05/04/2020 COMPARISON: NONE HISTORY: Fall. Back pain TECHNIQUE: 3 views FINDINGS: Lumbar vertebra have normal alignment. There is mild narrowing of lumbar disc spaces with s ome sparing of L4-5. There is no compression fracture. Posterior elements are intact. Sacroiliac join ts are normal. There is mild thoracolumbar levoscoliosis. There are clips from cholecystectomy. IMPRESSION: Mild spondylotic changes. No fracture seen.
--- NOTE | 2020-05-04 03:50 | ED ---
Fall HPI - General Chief Complaint: Fall Stated Complaint: Fall Time Seen by Provider: 05/04/20 02:46 Source: family Mode of arrival: ambulatory - History of Present Illness Initial Comments: This patient is a 69-year-old woman who presents to be evaluated for left arm pain after fall. The patient states that she had been sitting on a wheeled walker and went to push back away from her stent old. Patient states that the walker scooted out from under her and she fell onto her left arm. The patient felt the pop at the wrist and has had pain and swelling. She has pain that radiates up the left arm. She states she is also having a little bit of lumbar back discomfort. Denies other injuries. Complaint: fall Onset/Timin -: hour(s) Fall From: wheelchair When Fall Occurred: [address] Fall Occurred: home Loss of Consciousness: none Prolonged Down Time?: no Symptoms Prior to Fall: none Location - Extremities: Left: Forearm Severity: moderate Quality: sharp Context: tripped/slipped Associated Symptoms: denies - Related Data Home Medications Medication Instructions Recorded Confirmed Multivit-Min/Iron/Folic/Lutein 1 tab PO DAILY 04/08/17 03/05/20 [Centrum Silver Women Tablet] Ipratropium-Albuterol Nebulize 3 ml INHALATION RT-QID PRN 03/11/18 03/05/20 [Duoneb 0.5 mg-3 mg/3 ml Soln] Apixaban [Eliquis] 5 mg PO BID 04/19/18 03/05/20 Cyclobenzaprine [Flexeril] 10 mg PO TID PRN 04/19/18 03/05/20 lisinopriL [Zestril] 10 mg PO DAILY 04/19/18 03/05/20 Celecoxib [CeleBREX] 200 mg PO DAILY 08/14/18 03/05/20 Cannabidiol (Cbd) [Epidiolex] 1 applic PO DIRECTED PRN 11/08/19 03/01/20 DULoxetine HCL [Cymbalta] 60 mg PO BID 11/08/19 03/05/20 Fluticasone/Umeclidin/Vilanter 1 inhalation INHALATION DAILY PRN 11/08/19 03/05/20 [Trelegy Ellipta 100-62.5-25] Furosemide [Lasix] 40 mg PO BID 11/08/19 03/05/20 Acetaminophen [Tylenol Extra 1,000 mg PO TID PRN 03/01/20 03/05/20 Strength] Ergocalciferol [Vitamin D2 50,000 unit PO [place] 03/01/20 03/05/20 (DRISDOL)] Previous Rx's Medication Instructions Recorded atenoloL [Tenormin] 50 mg PO DAILY #90 tab 03/05/20 HYDROcodone/APAP 10-325MG [[place] 1 tab PO Q4HR PRN 3 Days #18 tab 05/04/20 10-325] Allergies Allergy/AdvReac Type Severity Reaction Status Date / Time bee venom protein (honey bee) Allergy Anaphylaxis Verified 05/04/20 02:44 ibuprofen [From Motrin] Allergy renal Verified 05/04/20 02:44 failure pregabalin [From Lyrica] Allergy Rapid Verified 05/04/20 02:44 Heart Rate/afib aspirin AdvReac nose bleeds Verified 05/04/20 02:44 green pepper AdvReac Vomiting Verified 05/04/20 02:44 Review of Systems ROS Statement: Those systems with pertinent positive or pertinent negative responses have been documented in the HPI. ROS Other: All systems not noted in ROS Statement are negative. Constitutional: Denies: fever, weakness Respiratory: Denies: cough, dyspnea Cardiovascular: Denies: chest pain, palpitations Gastrointestinal: Denies: abdominal pain, vomiting, diarrhea Musculoskeletal: Reports: arthralgia (Left wrist). Denies: back pain Skin: Denies: lesions Neurological: Denies: headache, weakness, numbness, paresthesias Past Medical History Past Medical History: Atrial Fibrillation, Blood Disorder, Chest Pain / Angina, Heart Failure, Deep Vein Thrombosis (DVT), Fibromyalgia, Hypertension, Myocardial Infarction ([place]), Osteoarthritis (OA), Skin Disorder, Thyroid Disorder Additional Past Medical History / Comment(s): [place], SOB, states has "fibrosis in lungs", hypersensitive chronic fibromyalgia, optical migraines, uses oxygen at night at 2L, hx ulcer, gets swelling of feet, psoriasis, hx anemia, told silent [place] by PCP Last Myocardial Infarction Date:: unknown History of Any Multi-Drug Resistant Organisms: None Reported Past Surgical History: Back Surgery, Breast Surgery, Cholecystectomy, Heart Catheterization, Hysterectomy, Joint Replacement, Orthopedic Surgery Additional Past Surgical History / Comment(s): bilateral knee replacements, Cataracts with lens implants with both eyes, left breast lumpectomy -benign, veins removed left leg, achillies tendon repair left leg, carpal tunnel rt hand, surgrery to repair injury end of nose, Past Anesthesia/Blood Transfusion Reactions: Postoperative Nausea & Vomiting (PONV) Additional Past Anesthesia/Blood Transfusion Reaction / Comment(s): had a blood transfusion at 7 years old, no reactions known, no family hx-adopted Past Psychological History: Anxiety, Depression Smoking Status: Current every day smoker Past Alcohol Use History: None Reported Past Drug Use History: None Reported - Past Family History Sister(s) Family Medical History: Cancer Additional Family Medical History / Comment(s): form of Leukemia - bone marrow transplant from patient Brother(s) Family Medical History: Diabetes Mellitus Father Additional Family Medical History / Comment(s): from enlarged heart General Exam Limitations: no limitations General appearance: alert, in no apparent distress Head exam: Present: atraumatic, normocephalic Neck exam: Present: normal inspection, full ROM. Absent: tenderness Respiratory exam: Present: normal lung sounds bilaterally. Absent: respiratory distress, wheezes, rales, rhonchi, stridor, chest wall tenderness Cardiovascular Exam: Present: regular rate, normal rhythm, normal heart sounds. Absent: systolic murmur, diastolic murmur, rubs, gallop GI/Abdominal exam: Present: soft. Absent: tenderness, guarding, rebound Extremities exam: Present: normal capillary refill Left Shoulder Exam: Present: normal inspection, full ROM. Absent: tenderness Upper Arm exam: Present: normal inspection, full ROM. Absent: tenderness Elbow exam: Present: normal inspection, full ROM, tenderness Forearm Wrist exam: Present: normal inspection. Absent: full ROM, tenderness Hand Wrist exam: Present: tenderness, swelling. Absent: full ROM, abrasion, laceration, ecchymosis Neuro motor exam: Present: wrist extension intact, thumb opposition intact, thumb IP flexion intact, thumb adduction intact, fingers 2-5 abduction intact Vascular: Present: normal capillary refill. Absent: pulse deficit radial art, pulse deficit ulnar art, pulse deficit brachial art Back exam: Present: normal inspection. Absent: vertebral tenderness Neurological exam: Present: alert Skin exam: Present: warm, dry, intact, normal color. Absent: rash Course Vital Signs 05/04/20 02:42 Temperature 98.9 F Pulse Rate 72 Respiratory 18 Rate Blood Pressure 132/81 O2 Sat by Pulse 94 L Oximetry Disposition Clinical Impression: Fall, Closed left radial fracture Disposition: HOME SELF-CARE Condition: Good Instructions (If sedation given, give patient instructions): Wrist Fracture in Adults (ED) Prescriptions: HYDROcodone/APAP 10-325MG [[place] 10-325] 1 tab PO Q4HR PRN 3 Days #18 tab PRN Reason: Pain Is patient prescribed a controlled substance at d/c from ED?: Yes When asked, does pt state using other controlled substances?: No If prescribed controlled substance>3 days was MAPS reviewed?: Prescribed <3 Days If opioid is for acute pain is fill amount 7 days or less?: Yes If Rx opioid, was Start Talking consent form obtained?: Yes Referrals: Leobardo Mccarty MD [Primary Care Provider] - 1-2 days Reggie Johnson MD [REFERRING] - 1-2 days
[2020-05-04] MEDS ORDERED: HYDROmorphone 1 MG/ML 1 ML SYRINGE IM STA (04:26)
== END 2020-05-04 04:39 | disposition home or self-care (01) ==
LOC: EC 02:36
DX: S52.92XA Unspecified fracture of left forearm, initial encounter for closed fracture (principal); I11.0 Hypertensive heart disease with heart failure; I50.9 Heart failure, unspecified; M79.7 Fibromyalgia; F41.9 Anxiety disorder, unspecified; F32.9 Major depressive disorder, single episode, unspecified; M19.90 Unspecified osteoarthritis, unspecified site; E07.9 Disorder of thyroid, unspecified; I25.2 Old myocardial infarction; F17.200 Nicotine dependence, unspecified, uncomplicated; Z79.1 Long term (current) use of non-steroidal anti-inflammatories (NSAID); Z79.01 Long term (current) use of anticoagulants; Z79.899 Other long term (current) drug therapy; Z91.030 Bee allergy status; Z88.6 Allergy status to analgesic agent; Z88.8 Allergy status to other drugs, medicaments and biological substances; Z91.018 Allergy to other foods; Z96.653 Presence of artificial knee joint, bilateral; Z86.718 Personal history of other venous thrombosis and embolism; W05.0XXA Fall from non-moving wheelchair, initial encounter
CPT/HCPCS: 72100; 73060; 73090; 99284; 96372 ×2; J1170 ×2

== ENCOUNTER 2020-05-09 06:17 | Day surgery (SDC) | payer MEDICARE, OTHER ==
--- NOTE | 2020-05-08 08:22 | HP ---
HISTORY AND PHYSICAL CHIEF COMPLAINT: Left wrist pain. HISTORY OF PRESENT ILLNESS: The patient is a 69-year-old right-hand dominant female who presents with left wrist pain after an injury on 05/04/2020. She was backing away from the stove when she fell landing on the left wrist. She was seen in the emergency room and placed in a splint. She denies previous injury. PAST MEDICAL HISTORY: Significant for depression, gastroesophageal reflux disease, hypertension, arthritis, and atrial fibrillation. PAST SURGICAL HISTORY: Significant for previous spine surgery, left total knee replacement, and hysterectomy. CURRENT MEDICATIONS: Atenolol, Cymbalta, Lotensin, [place], Eliquis and Lortab. ALLERGIES: She has sensitivity to aspirin, however, no rock drug allergies. FAMILY HISTORY: Significant for diabetes and heart disease along with cancer. SOCIAL HISTORY: Significant for 1/4 pack per day tobacco use. REVIEW OF SYSTEMS: Sixteen point review of systems otherwise reviewed and is noncontributory. PHYSICAL EXAMINATION: On examination, the patient is approximately 5 foot 8, 290 pounds of endomorphic habitus. HEENT exam is nonfocal. Neck is supple. She is nontender about the left shoulder and elbow. On examination of her left wrist, she has moderate dorsal swelling. Skin is intact. She is tender over the distal radius. She has limited motion secondary to pain. Light touch is mildly diminished in the left thumb. She does fire the EPL and FPL. Capillary refill is less than 2 seconds throughout the left digits. IMAGING: X-rays of the left wrist obtained in the office show an intra-articular distal radius fracture with significant comminution and displacement. IMPRESSION: 1. Left intra-articular distal radius fracture-displaced. 2. Atrial fibrillation on anticoagulation. 3. Obesity. RECOMMENDATIONS: I talked to the patient at length regarding her condition and the complexity of it. At this point, she opts to proceed with surgery. We will plan to proceed with open reduction and internal fixation. MMODL / IJN: [id number] /
[~2020-05-09 06:17] MED LIST changes: +DEXAMETHASONE SOD PHOSPHATE 10 MG/ML 1 ML VIAL IV ONE; +ONDANSETRON 4 MG/2 ML VIAL IVP ONE; -SODIUM CHLORIDE 0.9% 1,000 ML IV SCH
[2020-05-09 06:56] LABS: Glucose,Whole Blood 116 mg/dL (75-99)
[2020-05-09] MEDS ORDERED: ONDANSETRON 4 MG/2 ML VIAL ONE (07:02)
[2020-05-09] MEDS ORDERED: LIDOCAINE 1% (10MG/ML) FOR IV START INTRADERMA ONE (07:12)
[2020-05-09 07:27] LABS: Calcium 8.8 mg/dL (8.4-10.2); Potassium 4.3 mmol/L (3.5-5.1)
[2020-05-09] MEDS ORDERED: MIDAZOLAM 2 MG/2 ML VIAL IV ONE (07:52)
[2020-05-09] MEDS ORDERED: ceFAZolin 3 GM in SODIUM CHLORIDE 0.9% 100 ML IVPB ONE (08:04)
[2020-05-09] MEDS ORDERED: NALOXONE 0.4 MG/ML 1 ML VIAL ONE (08:14)
[2020-05-09] MEDS ORDERED: SUCCINYLCHOLINE CHLORIDE VIAL 200 MG/10 ML VIAL IV ONE (08:14)
[2020-05-09] MEDS ORDERED: fentaNYL (PF) 50 MCG/ML 2 ML AMP ONE (08:14)
[2020-05-09] MEDS ORDERED: PROPOFOL 10 MG/ML 20 ML VIAL IV ONE (08:14)
[2020-05-09] MEDS ORDERED: DEXAMETHASONE SOD PHOSPHATE 4 MG/ML 1 ML VIAL ONE (08:14)
[2020-05-09] MEDS ORDERED: MIDAZOLAM 2 MG/2 ML VIAL ONE (08:14)
[2020-05-09] MEDS ORDERED: ROPIVACAINE 5 MG/ML 30 ML VIAL ONE (08:14)
[2020-05-09] MEDS ORDERED: ALBUTEROL INHALER 60 PUFF/8 GM INHALER (MHU) INHALATION ONE (08:14)
[2020-05-09] MEDS ORDERED: LIDOCAINE 1% INJ 10MG/ML (20 ML MDV) ONE (08:14)
--- NOTE | 2020-05-09 08:54 | P.ANPRN ---
Procedure Note - Anesthesia - Nerve Block Performed Left Supraclavicular Single Time Out Performed: Yes Date of Procedure: 05/09/20 Procedure Start Time: 07:52 Procedure Stop Time: 07:56 Location of Patient: PreOp Indication: Acute Post-Operative Pain, Requested by Surgeon Sedation Type: Sedate with meaningful contact maintained Preparation: Sterile Prep Position: Supine Needle Types: Pajunk Needle Gauge: 21 Ultrasound used to visualize needle placement: Yes Ultrasound used to observe medication spread: Yes Blood Aspirated: No Pain Paresthesia on Injection Noted: No Resistance on Injection: Normal Image Stored and Saved: Yes Events: Uneventful and Well Tolerated (ropi .5% 30 cc plus dexamethasone 4mg)
[2020-05-09] MEDS ORDERED: LACTATED RINGERS 1,000 ML IV ONE (10:15)
--- NOTE | 2020-05-09 10:16 | XR ---
EXAMINATION TYPE: XR wrist limited LT DATE OF EXAM: 05/09/2020 COMPARISON: NONE TECHNIQUE: Two views submitted HISTORY: Post op FINDINGS: There is postsurgical change in near anatomic alignment. There is soft tissue edema and emphysema. IMPRESSION: 1. Postoperative change. Appears in near-anatomic alignment
--- NOTE | 2020-05-09 10:16 | FL ---
EXAMINATION TYPE: FL guidance operating room DATE OF EXAM: 05/09/2020 HISTORY: Fluoroscopy time 1 minute and 35 seconds of fluoroscopy provided. IMPRESSION: 1. Fluoroscopy time.
--- NOTE | 2020-05-09 10:17 | P.OP ---
Date of Procedure: 05/09/20 Preoperative Diagnosis: Displaced intra-articular 3 part left distal radius fracture Postoperative Diagnosis: Same Procedure(s) Performed: Open reduction and internal fixation left intra-articular distal radius fracture Implants: Arthrex standard with 3-hole volar distal radius plate Anesthesia: jenni CAMACHO Surgeon: Renzo Jhaveri Station Gateman #1: Jeramie Dillon Estimated Blood Loss (ml): 10 Pathology: none sent Condition: stable Disposition: PACU Indications for Procedure: The patient's a 69-year-old female who presents after falling injuring her left wrist. Upon evaluation she was noted have a significantly displaced intra- articular left distal radius fracture. A discussion of the risks and benefits of operative intervention was made with patient. She opted to proceed. Operative risks to include infection, neurovascular injury, development of blood clots, possible development nonunion, malunion and possible need for subsequent procedures was discussed. Informed consent was obtained. Operative Findings: As below Description of Procedure: The patient was brought to the operating room, and after induction of general anesthesia the left upper extremity was prepped and draped in normal fashion. The tourniquet was inflated to 250 mmHg. An 8 cm incision was then made centered along the volar radial aspect of the left wrist over the flexor carpi radialis. Skin was incised sharply. Subcu change tissues were divided bluntly. Electrocautery was used for hemostasis. Flexor carpi radialis sheath was opened and the tendon was gently retracted ulnarly and the radial artery was retracted radially. The underlying fascia was opened. The contents the carpal canal were gently retracted ulnarly. The pronator quadratus was elevated off the distal radius. The fracture site was identified and cleaned of clot and debris. It was then provisionally reduced. A 3 hole standard width volar plate was then placed and held with an olive wire proximally. The radial styloid fragment was captured with a 0.062 inch K wire that was placed bicortically. Distal K wires were then placed for provisional reduction. Fluoroscopy is used. I felt I was able to adequately align this complex intra-articular fracture pattern. Proximal 3.5 mm cortical screws the appropriate length were placed. The distal locking smooth pegs were placed in the appropriate length. Final fluoroscopic view showed adequate reduction of the articular surface and the fracture fragments. I was able to restore neutral volar tilt. Final fluoroscopic views to include PA, AP, and elevator lateral were obtained. The wound was irrigated normal saline. The pronator was repaired with simple 3-0 Vicryl suture. The subcutaneous tissues reapproximated 3-0 Vicryl interrupted sutures. Skin was reapproximated with 3-0 subcuticular Prolene suture. Steri- Strips were applied. The tourniquet was deflated proximal 75 minutes total tourniquet time. The K wire was clipped below the level of the skin. A sterile dressing was applied in addition to a volar splint. The patient was then awoken from general anesthesia and transferred to recovery room in good condition. Blood loss was estimated at 10 mL. No complications were incurred. Sponge and needle counts were correct at the end the case.
[2020-05-09 10:28] VITALS: TEMP 96.8
[2020-05-09] MEDS: HYDROmorphone 0.5 MG/0.5 ML SYRINGE IVP PRN ×3 (10:42→11:05)
[2020-05-09 12:48] VITALS: BP 149/97
[2020-05-09 13:05] VITALS: PULSE 111; RESP 16
== END 2020-05-09 13:36 | disposition home or self-care (01) ==
LOC: OR 06:17
PROVIDERS: ATTEND Orthopaedic Surgery
DX: S52.572A Other intraarticular fracture of lower end of left radius, initial encounter for closed fracture (principal); I10 Essential (primary) hypertension; I48.91 Unspecified atrial fibrillation; E78.5 Hyperlipidemia, unspecified; E66.9 Obesity, unspecified; F32.9 Major depressive disorder, single episode, unspecified; K21.9 Gastro-esophageal reflux disease without esophagitis; Z68.42 Body mass index [BMI] 45.0-49.9, adult; M54.9 Dorsalgia, unspecified; F17.210 Nicotine dependence, cigarettes, uncomplicated; M19.90 Unspecified osteoarthritis, unspecified site; Z83.3 Family history of diabetes mellitus; Z80.9 Family history of malignant neoplasm, unspecified; Z82.49 Family history of ischemic heart disease and other diseases of the circulatory system; Z79.891 Long term (current) use of opiate analgesic; Z79.1 Long term (current) use of non-steroidal anti-inflammatories (NSAID); Z79.01 Long term (current) use of anticoagulants; Z79.899 Other long term (current) drug therapy; Z88.6 Allergy status to analgesic agent; Z88.8 Allergy status to other drugs, medicaments and biological substances; Z96.653 Presence of artificial knee joint, bilateral; Z90.710 Acquired absence of both cervix and uterus; Z98.890 Other specified postprocedural states; W19.XXXA Unspecified fall, initial encounter; Y93.G3 Activity, cooking and baking
CPT/HCPCS: 25609; 64415; 76942; 80048; 73100; C1713; J2250; J0330; J1100 ×2; J2310; J0690; J2405; J2001; J3010; J2795; J2704; J1170

== ENCOUNTER 2020-05-28 06:49 | Observation (INO) | payer MEDICARE, OTHER ==
--- NOTE | 2020-05-25 13:28 | HP ---
HISTORY AND PHYSICAL CHIEF COMPLAINT: Left wrist pain. HISTORY OF PRESENT ILLNESS: The patient is a 69-year-old female who presents after undergoing open reduction and internal fixation of a comminuted left intra-articular distal radius fracture on 05/09/2020 with increasing pain and swelling. She denies any new injury. She states she has been wearing a splint. Her initial injury was on 05/04/2020. PAST MEDICAL HISTORY: Significant for depression, reflux disease, hypertension, arthritis, atrial fibrillation, and obesity. PAST SURGICAL HISTORY: Significant for previous spine surgery, left total knee replacement, hysterectomy, and recent ORIF of a comminuted left intra-articular distal radius fracture. MEDICATIONS: Cymbalta, amiodarone, apixaban, Celebrex, Lasix, lisinopril, metoprolol, and [place]. ALLERGIES: SHE NOTES SENSITIVITY TO ASPIRIN WITH QUESTIONABLE ALLERGY TO IBUPROFEN AND LYRICA. FAMILY HISTORY: Family history is noncontributory. SOCIAL HISTORY: Significant for 1/4 pack per day tobacco use. REVIEW OF SYSTEMS: 16 point review of systems otherwise reviewed and is noncontributory. PHYSICAL EXAMINATION: On examination, the patient is a well developed, well nourished female, approximately 5 foot 8, 290 pounds of endomorphic habitus. HEENT exam is nonfocal. NECK: Supple. On examination of her left upper extremity, she is nontender about the left shoulder and elbow. On examination pf the left wrist the volar incision is healing well. There is moderate volar swelling and ecchymosis. Light touch is distally intact throughout the digits except mildly diminished in the ring and small finger. She has mild digital stiffness. She fires the FPL, EPL, FDS, FDP, and EDC. X-rays of left wrist in the office show ORIF of intra-articular distal radius fracture with significant comminution. There appears to be significant dorsal angulation and tunneling. One of the smooth pegs appears to have loosened. IMPRESSION: 1. Status post open reduction internal fixation, left comminuted intra-articular distal radius fracture. 2. Atrial fibrillation. 3. Obesity. RECOMMENDATIONS: I talked to the patient at length regarding her condition along with treatment options. She understands the complexity of this. At this point, we will plan to proceed with revision open reduction and internal fixation. Risks and benefits were discussed at length. MMODL / IJN: [id number] /
[~2020-05-28 06:49] MED LIST changes: +AMPICILLIN-SULBACTAM 3 GM in SODIUM CHLORIDE 0.9% 100 ML IVPB ONE; -DEXAMETHASONE SOD PHOSPHATE 10 MG/ML 1 ML VIAL IV ONE; -LACTATED RINGERS 1,000 ML IV SCH; -ONDANSETRON 4 MG/2 ML VIAL IVP ONE
[2020-05-28] MEDS ORDERED: ONDANSETRON 4 MG/2 ML VIAL ONE (11:45)
[2020-05-28 12:12] LABS: Glucose,Whole Blood 112 mg/dL (75-99)
[2020-05-28] MEDS ORDERED: LACTATED RINGERS 1,000 ML IV ONE ×2 (12:17→15:44)
[2020-05-28] MEDS ORDERED: LIDOCAINE 1% (10MG/ML) FOR IV START IV ONE (12:17)
[2020-05-28] MEDS ORDERED: ONDANSETRON 4 MG/2 ML VIAL IVP ONE (12:18)
[2020-05-28] MEDS ORDERED: DEXAMETHASONE SOD PHOSPHATE 10 MG/ML 1 ML VIAL IV ONE (12:18)
[2020-05-28] MEDS ORDERED: ALBUTEROL NEBULIZED 2.5 MG/3 ML INHALATION STA (12:25)
[2020-05-28] MEDS ORDERED: MIDAZOLAM 2 MG/2 ML VIAL IV ONE ×2 (12:40→12:50)
[2020-05-28] MEDS ORDERED: PHENYLEPHRINE-0.9% NACL SYG 1 MG/10 ML SYRINGE ONE (13:39)
[2020-05-28] MEDS ORDERED: ROPIVACAINE 5 MG/ML 30 ML VIAL ONE (13:39)
[2020-05-28] MEDS ORDERED: LIDOCAINE 1% INJ 10MG/ML (20 ML MDV) ONE (13:39)
[2020-05-28] MEDS ORDERED: SUCCINYLCHOLINE CHLORIDE VIAL 200 MG/10 ML VIAL IV ONE (13:39)
[2020-05-28] MEDS ORDERED: WATER FOR INJECTION, STERILE 10 ML VIAL IV ONE (13:39)
[2020-05-28] MEDS ORDERED: fentaNYL (PF) 50 MCG/ML 2 ML AMP ONE (13:39)
[2020-05-28] MEDS ORDERED: PROPOFOL 10 MG/ML 20 ML VIAL IV ONE (13:39)
[2020-05-28] MEDS ORDERED: NALOXONE 0.4 MG/ML 1 ML VIAL ONE (13:39)
[2020-05-28] MEDS ORDERED: ePHEDrine SULFATE/0.9% NACL/PF 50 MG/5 ML SYRINGE IV ONE (13:39)
[2020-05-28] MEDS ORDERED: LIDOCAINE 2%-EPI 1:100,000 20 ML VIAL ONE (13:39)
[2020-05-28] MEDS ORDERED: ceFAZolin 1,000 MG VIAL IVPB ONE (14:00)
[2020-05-28] MEDS ORDERED: ceFAZolin 1,000 MG in SODIUM CHLORIDE 0.9% 1,000 ML IRRIGATION ONE (14:16)
--- NOTE | 2020-05-28 15:54 | XR ---
EXAMINATION TYPE: XR wrist limited LT, FL guidance operating room DATE OF EXAM: 05/28/2020 CLINICAL HISTORY: Left wrist fracture. TECHNIQUE: Fluoroscopy. Intraoperative limited views left wrist. COMPARISON: Outside a left wrist xray 4 days ago.. FINDINGS: Fluoroscopic guidance was provided during open reduction and internal fixation procedure p erformed by Dr. Jhaveri. A total of 60 seconds of fluoroscopic time was utilized during the procedure and 3 spot images was acquired. Intraoperative images acquired show placement of new K wire through the dorsal ulnar aspect of the di stal radial meta-epiphysis. Additional K wire and volar fixating plate are redemonstrated. IMPRESSION: As Above.
--- NOTE | 2020-05-28 16:13 | P.OP ---
Date of Procedure: 05/28/20 Preoperative Diagnosis: Status post ORIF left distal radius fracture with loss of fixation Postoperative Diagnosis: Same Procedure(s) Performed: Revision open reduction internal fixation left four-part intra-articular distal radius fracture Implants: 0.062 inch K wire 1, 0.054 inch K wire 1 Anesthesia: [facility] Surgeon: Renzo Jhaveri Ent Surgeon #1: Jeramie Dillon Estimated Blood Loss (ml): 15 Pathology: none sent Condition: stable Disposition: PACU Indications for Procedure: The patient's a 69-year-old female who presents after undergoing open reduction internal fixation of a left four-part intra-articular distal radius fracture with increasing displacement despite previous fixation. A discussion of the risks and benefits of operative intervention was made with patient. Proceed. Operative risks to include neurovascular injury, infection, development of blood clots, possible loss of fixation, possible development of nonunion/malunion and need for subsequent procedures was discussed. Informed consent was obtained. Operative Findings: As below Description of Procedure: The patient was brought to the operating room, and after induction of general an esthesia the left upper extremity was prepped and draped in normal fashion. The tourniquet was inflated to 250 mmHg. The previous volar radial incision was utilized extending approximately 8 cm. Skin was incised sharply. Subcutaneous tissues were divided bluntly. The flexor carpi radialis was identified and retracted ulnarly and the radial artery was retracted radially. Blunt dissection was made down to level of the distal radius. The contents the carpal canal were gently retracted ulnarly. The previously placed plate was identified. There were 2 locking pegs that had backed out. These were removed. The remaining pegs were removed. The proximal cortical screws were removed. The plate was taken off. The fracture site was identified and cleaned of clot and debris. I did also remove the previously placed K wire. I was able to reduce the fracture to neutral volar tilt. The plate was again placed along the volar surface to the watershed line. It was attached proximally with a 3.5 mm cortical screw of the appropriate length. A distal K wire was placed holding the fracture reduced. Several distal locking pegs were placed with the aid of fluoroscopy. I did place a dorsal ulnar 0.054 inch K wire to help with fixation. A radial styloid K wire was also placed once the radial styloid fragment was reduced. The proximal and distal rows were filled with smooth locking pegs of the appropriate length. The remaining 3.5 mm cortical screws were placed proximally. Final fluoroscopic views to include AP, PA, and elevated lateral showed adequate reduction of this complex fracture pattern. The articular surface was reasonably aligned. Neutral volar tilt was restored. The wounds were irrigated normal saline. The subcutaneous tissues reapproximated interrupted 3-0 Vicryl suture. The skin was reprepped with simple 3-0 nylon suture. A sterile dressing was applied in addition to a volar splint. The tourniquet was deflated with approximately 65 minutes total tour niquet time prior to final wound closure. The patient was awoken from general anesthesia and transferred to recovery room in good condition. Blood loss was estimated 15 mL. No complications were incurred. Sponge and needle counts were correct at the end the case.
[2020-05-28] MEDS ORDERED: CYCLOBENZAPRINE 10 MG TAB PO PRN (18:11)
[2020-05-28] MEDS: METOPROLOL SUCCINATE (ER) 25 MG TAB.ER.24H PO SCH (20:49)
[2020-05-28] MEDS: FUROSEMIDE 40 MG TAB PO SCH (20:49)
[2020-05-28] MEDS: APIXABAN 5 MG TAB PO SCH (20:50)
[2020-05-28] MEDS: DULoxetine HCL 60 MG CAPSULE.DR PO SCH (20:50)
[2020-05-29] MEDS: HYDROcodone/APAP 7.5-325MG 1 EACH TAB PO PRN ×5 (04:17→21:27)
--- NOTE | 2020-05-29 07:04 | P.ANPRN ---
Procedure Note - Anesthesia - Nerve Block Performed Left Supraclavicular Single Time Out Performed: Yes Date of Procedure: 05/28/20 Procedure Start Time: 14:57 Procedure Stop Time: 15:07 Location of Patient: PreOp Indication: Acute Post-Operative Pain, Requested by Surgeon Specifically requested for management of pain by DrAlberto: Renzo Jhaveri Sedation Type: Sedate with meaningful contact maintained Preparation: Sterile Prep Position: Supine Catheter: None Needle Types: [employer] Needle Gauge: 20 Ultrasound used to visualize needle placement: Yes Ultrasound used to observe medication spread: Yes Injectate: 0.5% Ropivacaine (see comment for volume) Blood Aspirated: No Pain Paresthesia on Injection Noted: No Resistance on Injection: Normal Image Stored and Saved: Yes Events: Uneventful and Well Tolerated (0.5% 20 cc Ropivacaine)
[2020-05-29] MEDS: SYMBICORT 80-4.5 MCG INHALER INHALATION PRN (07:58)
[2020-05-29] MEDS: IPRATROPIUM-ALBUTEROL 3 ML NEB INHALATION PRN ×2 (07:58→11:41)
[2020-05-29] MEDS: APIXABAN 5 MG TAB PO SCH ×2 (08:14→21:27)
[2020-05-29] MEDS: DULoxetine HCL 60 MG CAPSULE.DR PO SCH ×2 (08:14→21:27)
[2020-05-29] MEDS: FUROSEMIDE 40 MG TAB PO SCH ×2 (08:14→21:27)
[2020-05-29] MEDS: MULTIVITAMINS, THERA 1 EACH TAB PO SCH (08:15)
[2020-05-29] MEDS: lisinopriL 10 MG TAB PO SCH (08:15)
[2020-05-29] MEDS: MELOXICAM 7.5 MG TAB PO SCH (08:15)
--- NOTE | 2020-05-29 11:18 | P.PN ---
Subjective Progress Note Date: 05/29/20 Principal diagnosis: status post revision ORIF left distal radius fracture Patient is examined today bedside, resting comfortably. She does note some discomfort in the left wrist. The block she received preoperatively wore off about 7 and this. She currently denies any chest pain or shortness of breath. Objective - Vital Signs Vital signs: Vital Signs Temp 98.3 F 05/29/20 04:59 Pulse 85 05/29/20 08:14 Resp 16 05/29/20 04:59 BP 90/59 05/29/20 04:59 Pulse Ox 96 05/29/20 04:59 Intake & Output 05/28/20 05/29/20 05/29/20 18:59 06:59 18:59 Intake Total 1001 Output Total 15 1200 Balance 986 -1200 Weight 155.4 kg Intake: IV 1001 Output: Urine 1200 Estimated Blood Loss 15 Other: # Voids 3 # Bowel Movements 0 - Exam Left upper extremity: Postop splint is in good position and condition. Insertional light touch both proximal this splint. Skin is warm to touch. - Labs CBC & Chem 7: 05/28/20 12:05 Labs: Abnormal Lab Results - Last 24 Hours (Table) 05/28/20 Range/Units 12:11 POC Glucose (mg/dL) 112 H (75-99) mg/dL Assessment and Plan Assessment: Status post revision ORIF left distal radius fracture Plan: Pain control, [place] 7.5 mg/325 mg at discharge Wound care and cast instructions were discussed Activity level restrictions discussed Plan for follow-up at [facility] 2 weeks Time with Patient: Less than 30
--- NOTE | 2020-05-29 11:23 | P.DS ---
Providers Date of admission: 05/28/2020 Expected date of discharge: 05/29/20 Attending physician: Renzo Jhaveri Consults: 05/28/20 18:10 Consult Physician Routine Consulting Provider: Leobardo Mccarty Reason/Comments: medical management Do you want consulting provider notified?: Yes Primary care physician: Leobardo Mccarty [facility] Course: Date of admission: 05/28/2020 Date of discharge: 05/29/2020 Admission diagnosis: Status post revision ORIF left distal radius fracture Discharge diagnosis: Seen Attending physician: Dr. Jhaveri Surgical procedures: Revision open reduction internal fixation left distal radius fracture Brief history: Patient is a 69-year-old female with a history of a previous injury involving her left distal radius are resulted in a ORIF procedure. It was determined at her first postoperative visit that the overall alignment and construct of the distal radius fracture was not adequate. Case in treatment options were discussed with the attending Dr. Jhaveri, she was scheduled for a revision ORIF of the left distal radius fracture from 05/28/2020. Hospital course: Patient's orthopeidc and medical care was provided daily. Patient had daily laboratory tests performed for evaluation of overall blood counts. Patient had daily physical therapy to include strengthening range of motion as well as education with walker ambulation. Patient was noted to have a relatively uneventful postoperative course. Patient reported satisfactory pain control with oral pain medications by postoperative day 0. Patient showed satisfactory progress with physical therapy. Patient moved steadily through the program and had no difficulty meeting the goals by postoperative day 1. Given patient's otherwise satisfactory course and having met physical therapy goals, plan is to discharge patient home on postoperative day 1. Discharge condition/disposition: Patient will be discharged home in stable condition. Discharge medications: Instructions are given on resumption of patient's normal daily medications per primary care recommendation, in addition patient will be prescribed [place] 7.5 mg/325 mg. Discharge instructions: 1. Cast instructions were discussed with the patient 2. Activity level restrictions discussed 3. Plan for follow-up at [facility] 2 weeks Procedures: Revision open reduction internal fixation left distal radius fracture Patient Condition at Discharge: Good Plan - Discharge Summary New Discharge Prescriptions: New HYDROcodone/APAP 7.5-325MG [[place] 7.5] 1 each PO Q6HR PRN #28 tab PRN Reason: Pain No Action Multivit-Min/Iron/Folic/Lutein [Centrum Silver Women Tablet] 1 tab PO DAILY Ipratropium-Albuterol Nebulize [Duoneb 0.5 mg-3 mg/3 ml Soln] 3 ml INHALATION RT-QID PRN PRN Reason: Shortness Of Breath Apixaban [Eliquis] 5 mg PO BID Cyclobenzaprine [Flexeril] 10 mg PO TID PRN PRN Reason: Spasms lisinopriL [Zestril] 10 mg PO QAM Celecoxib [CeleBREX] 200 mg PO QAM DULoxetine HCL [Cymbalta] 60 mg PO BID Fluticasone/Umeclidin/Vilanter [Trelegy Ellipta 100-62.5-25] 1 inhalation INHALATION DAILY PRN PRN Reason: sob Furosemide [Lasix] 40 mg PO BID Cannabidiol (Cbd) [Epidiolex] 1 applic PO DIRECTED PRN PRN Reason: Pain Ergocalciferol [Vitamin D2 (DRISDOL)] 50,000 unit PO [place] Metoprolol Succinate (ER) [Toprol XL] 25 mg PO HS HYDROcodone/APAP 7.5-325MG [[place] 7.5-325] 1 tab PO Q4H PRN PRN Reason: Pain Discharge Medication List Multivit-Min/Iron/Folic/Lutein [Centrum Silver Women Tablet] 1 tab PO DAILY 04/08/17 [History] Ipratropium-Albuterol Nebulize [Duoneb 0.5 mg-3 mg/3 ml Soln] 3 ml INHALATION RT-QID PRN 03/11/18 [History] Apixaban [Eliquis] 5 mg PO BID 04/19/18 [History] Cyclobenzaprine [Flexeril] 10 mg PO TID PRN 04/19/18 [History] lisinopriL [Zestril] 10 mg PO QAM 04/19/18 [History] Celecoxib [CeleBREX] 200 mg PO QAM 08/14/18 [History] Cannabidiol (Cbd) [Epidiolex] 1 applic PO DIRECTED PRN 11/08/19 [History] DULoxetine HCL [Cymbalta] 60 mg PO BID 11/08/19 [History] Fluticasone/Umeclidin/Vilanter [Trelegy Ellipta 100-62.5-25] 1 inhalation INHALATION DAILY PRN 11/08/19 [History] Furosemide [Lasix] 40 mg PO BID 11/08/19 [History] Ergocalciferol [Vitamin D2 (DRISDOL)] 50,000 unit PO [place] 03/01/20 [History] HYDROcodone/APAP 7.5-325MG [[place] 7.5-325] 1 tab PO Q4H PRN 05/07/20 [History] Metoprolol Succinate (ER) [Toprol XL] 25 mg PO HS 05/07/20 [History] HYDROcodone/APAP 7.5-325MG [[place] 7.5] 1 each PO Q6HR PRN #28 tab 05/28/20 [Rx] Follow up Appointment(s)/Referral(s): Renzo Jhaveri MD [STAFF PHYSICIAN] - 2 Weeks Activity/Diet/Wound Care/Special Instructions: Discharge instructions: 1. Resume home medication 2. Pain medication as needed 3. Utilize arm sling as needed 4. Ice to and often 5. Avoid strenuous activity an overuse with an 6. Plan for follow-up at [facility] in 2 weeks Discharge Disposition: HOME SELF-CARE
[2020-05-29] MEDS: METOPROLOL SUCCINATE (ER) 25 MG TAB.ER.24H PO SCH (21:27)
--- NOTE | 2020-05-30 00:01 | CONS ---
CONSULTATION This is a 69-year-old white female with history of diastolic CHF, COPD after open reduction, internal fixation of comminuted left intra-articular distal radial fracture on 05/09/2020. She is wearing a splint. PAST MEDICAL HISTORY: Depression, GERD, hypertension, arthritis, atrial fibrillation, obesity. REVIEW OF SYSTEMS: Fourteen-point review of systems negative except for mentioned in HPI. SOCIAL HISTORY: Quarter pack of cigarettes a day. PHYSICAL EXAMINATION: Well-developed, well-nourished white female, 5 feet 8 inches, 290. HEENT: Normocephalic, atraumatic. NECK: Supple. CARDIOVASCULAR: S1, S2. ENDOCRINE: BMI is over 40. INTEGUMENT: She has a cast on her left arm, short-arm cast. ASSESSMENT: 1. Status post internal fixation of left comminuted intra-articular distal radial fracture. 2. Atrial fibrillation. 3. Obesity. She has got a cast on. Status post open reduction, internal fixation. Continue with home medications. Follow up as outpatient. MMODL / IJN: [id number] /
[2020-05-30] MEDS ORDERED: HYDROcodone/APAP 7.5-325MG 1 EACH TAB ONE (02:43)
[2020-05-30 06:19] VITALS: RESP 18
[2020-05-30] MEDS: SYMBICORT 80-4.5 MCG INHALER INHALATION PRN (07:22)
[2020-05-30] MEDS: IPRATROPIUM-ALBUTEROL 3 ML NEB INHALATION PRN ×2 (07:22→11:33)
[2020-05-30] MEDS: APIXABAN 5 MG TAB PO SCH (07:26)
[2020-05-30] MEDS: MELOXICAM 7.5 MG TAB PO SCH (07:26)
[2020-05-30] MEDS: DULoxetine HCL 60 MG CAPSULE.DR PO SCH (07:26)
[2020-05-30] MEDS: FUROSEMIDE 40 MG TAB PO SCH (07:26)
[2020-05-30] MEDS: lisinopriL 10 MG TAB PO SCH (07:26)
[2020-05-30] MEDS: MULTIVITAMINS, THERA 1 EACH TAB PO SCH (07:26)
[2020-05-30] MEDS: HYDROcodone/APAP 7.5-325MG 1 EACH TAB PO PRN ×3 (07:29→15:35)
--- NOTE | 2020-05-30 07:52 | P.PN ---
Subjective Progress Note Date: 05/30/20 Principal diagnosis: status post revision ORIF left distal radius fracture Patient is examined today bedside, resting comfortably. Patient is doing a lot better than yesterday, her pain is better controlled. She's not having any increase in temperature in her O2 sats returned to normal. Objective - Vital Signs Vital signs: Vital Signs Temp 97.6 F 05/30/20 04:24 Pulse 100 05/30/20 07:37 Resp 18 05/30/20 04:24 BP 116/81 05/30/20 04:24 Pulse Ox 97 05/30/20 04:24 Intake & Output 05/29/20 05/30/20 05/30/20 18:59 06:59 18:59 Intake Total 300 600 Output Total 70 1400 Balance 230 -800 Intake: Oral 300 600 Output: Urine 70 1400 Other: # Voids 1 - Exam Left upper extremity: Postop splint is in good position and condition. Insertional light touch both proximal this splint. Skin is warm to touch. - Labs CBC & Chem 7: 05/28/20 12:05 Assessment and Plan Assessment: Status post revision ORIF left distal radius fracture Plan: Pain control, [place] 7.5 mg/325 mg at discharge Wound care and cast instructions were discussed Activity level restrictions discussed Plan for follow-up at [facility] 2 weeks Time with Patient: Less than 30
[2020-05-30 12:17] VITALS: BP 108/70; PULSE 79; TEMP 97.7
== END 2020-05-30 16:51 | disposition home health service (06) ==
LOC: OR 06:49 → 6NMEDSUR 16:12 → INTOOBSV 05-29 11:59 → 6NMEDSUR 05-29 11:59 → OR 05-29 14:40 → UNDODISIN 05-30 16:51
PROVIDERS: ADMIT Orthopaedic Surgery; ATTEND Orthopaedic Surgery
DX: T84.123A Displacement of internal fixation device of bone of left forearm, initial encounter (principal); F32.9 Major depressive disorder, single episode, unspecified; K21.9 Gastro-esophageal reflux disease without esophagitis; I11.0 Hypertensive heart disease with heart failure; I50.30 Unspecified diastolic (congestive) heart failure; M19.90 Unspecified osteoarthritis, unspecified site; J44.9 Chronic obstructive pulmonary disease, unspecified; I48.91 Unspecified atrial fibrillation; E66.01 Morbid (severe) obesity due to excess calories; Z68.43 Body mass index [BMI] 50.0-59.9, adult; Z96.652 Presence of left artificial knee joint; Z72.0 Tobacco use; Z90.710 Acquired absence of both cervix and uterus; Z98.890 Other specified postprocedural states; Z79.1 Long term (current) use of non-steroidal anti-inflammatories (NSAID); Z79.02 Long term (current) use of antithrombotics/antiplatelets; Z79.891 Long term (current) use of opiate analgesic; Z79.899 Other long term (current) drug therapy; Z88.6 Allergy status to analgesic agent; Z88.8 Allergy status to other drugs, medicaments and biological substances; Z91.018 Allergy to other foods
CPT/HCPCS: 25609; 94640 ×5; 97535; 97166; 64415; 76942; 84132; 73100; G0378 ×2; C1713; J2250; J0330; J1100; J2310; J2405; J0690; J2001; J3010; J2795; J2370; J2704

== ENCOUNTER 2021-10-04 02:13 | Emergency (ER) | payer MEDICARE, OTHER ==
--- NOTE | 2021-10-04 02:43 | ED ---
General Adult HPI - General Source: patient, EMS Mode of arrival: EMS Limitations: no limitations - History of Present Illness -: days(s) Quality: aching Consistency: constant Improves with: none Worsens with: none Associated Symptoms: cough, fever/chills, headaches, shortness of breath <Gene Olivera - Last Filed: 10/04/21 07:23> <Darnell Rodriguez - Last Filed: 10/04/21 12:09> - General Chief complaint: Headache Stated complaint: Flu-like symptoms Time Seen by Provider: 10/04/21 02:33 - Related Data Home Medications Medication Instructions Recorded Confirmed Multivit-Min/Iron/Folic/Lutein 1 tab PO DAILY 04/08/17 05/28/20 [Centrum Silver Women Tablet] Ipratropium-Albuterol Nebulize 3 ml INHALATION RT-QID PRN 03/11/18 05/28/20 [Duoneb 0.5 mg-3 mg/3 ml Soln] Apixaban [Eliquis] 5 mg PO BID 04/19/18 05/28/20 Cyclobenzaprine [Flexeril] 10 mg PO TID PRN 04/19/18 05/28/20 lisinopriL [Zestril] 10 mg PO QAM 04/19/18 05/28/20 Celecoxib [CeleBREX] 200 mg PO QAM 08/14/18 05/28/20 Cannabidiol (Cbd) [Epidiolex] 1 applic PO DIRECTED PRN 11/08/19 05/28/20 DULoxetine HCL [Cymbalta] 60 mg PO BID 11/08/19 05/28/20 Fluticasone/Umeclidin/Vilanter 1 inhalation INHALATION DAILY PRN 11/08/19 05/28/20 [Trelegy Ellipta 100-62.5-25] Furosemide [Lasix] 40 mg PO BID 11/08/19 05/28/20 Ergocalciferol [Vitamin D2 50,000 unit PO [place] 03/01/20 05/28/20 (DRISDOL)] HYDROcodone/APAP 7.5-325MG [[place] 1 tab PO Q4H PRN 05/07/20 05/28/20 7.5-325] Metoprolol Succinate (ER) [Toprol 25 mg PO HS 05/07/20 05/28/20 XL] Previous Rx's Medication Instructions Recorded HYDROcodone/APAP 7.5-325MG [[place] 1 each PO Q6HR PRN #28 tab 05/28/20 7.5] Allergies Allergy/AdvReac Type Severity Reaction Status Date / Time bee venom protein (honey bee) Allergy Anaphylaxis Verified 10/04/21 02:19 ibuprofen [From Motrin] Allergy renal Verified 10/04/21 02:19 failure pregabalin [From Lyrica] Allergy Rapid Verified 10/04/21 02:19 Heart Rate/afib aspirin AdvReac nose bleeds Verified 10/04/21 02:19 green pepper AdvReac Vomiting Verified 10/04/21 02:19 Review of Systems ROS Other: All systems not noted in ROS Statement are negative. Constitutional: Reports: fever, chills, weakness ENT: Reports: congestion Respiratory: Reports: cough, dyspnea. Denies: wheezes, hemoptysis Cardiovascular: Denies: chest pain, palpitations, orthopnea, edema, syncope Gastrointestinal: Reports: nausea. Denies: diarrhea, constipation, melena, hematochezia Genitourinary: Denies: dysuria, hematuria Musculoskeletal: Reports: myalgia. Denies: back pain Skin: Denies: rash Neurological: Reports: headache. Denies: weakness, numbness <Gene Olivera - Last Filed: 10/04/21 07:23> ROS Other: All systems not noted in ROS Statement are negative. <Darnell Rodriguez - Last Filed: 10/04/21 12:09> ROS Statement: Those systems with pertinent positive or pertinent negative responses have been documented in the HPI. Past Medical History Past Medical History: Atrial Fibrillation, Blood Disorder, Chest Pain / Angina, Heart Failure, Deep Vein Thrombosis (DVT), Fibromyalgia, Hypertension, Myocardial Infarction (SD), Osteoarthritis (OA), Skin Disorder, Thyroid Disorder Additional Past Medical History / Comment(s): 05/04/20 FELL ON SIT OF HER WALKER AND BROKE LEFT DISTAL RADIUS. CHRONIC BACK PAIN. [employer] (BLOOD COAGULATION STABLE PER DR. BABCOCK IN FALL 2018). 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 optical migraines. HX: ulcer, swelling of feet, psoriasis, anemia. WAS TOLD SHE HAD A "silent SD" by PCP. Last Myocardial Infarction Date:: unknown History of Any Multi-Drug Resistant Organisms: None Reported Past Surgical History: Back Surgery, Breast Surgery, Cholecystectomy, Heart Catheterization, Hysterectomy, Joint Replacement, Orthopedic Surgery Additional Past Surgical History / Comment(s): bilateral knee replacements, Cataracts with lens implants with both eyes, left breast lumpectomy -benign, veins removed left leg, achillies tendon repair left leg, carpal tunnel rt hand, surgrery to repair injury end of nose, Past Anesthesia/Blood Transfusion Reactions: Postoperative Nausea & Vomiting (PONV) Additional Past Anesthesia/Blood Transfusion Reaction / Comment(s): had a blood transfusion at 7 years old, no reactions known. no family hx-adopted Past Psychological History: Anxiety, Depression Smoking Status: Former smoker Past Alcohol Use History: None Reported Past Drug Use History: None Reported - Past Family History Sister(s) Family Medical History: Cancer Additional Family Medical History / Comment(s): form of Leukemia - bone marrow transplant from patient Brother(s) Family Medical History: Diabetes Mellitus Father Additional Family Medical History / Comment(s): from enlarged heart <JoselinGene - Last Filed: 10/04/21 07:23> General Exam Limitations: no limitations General appearance: alert, in no apparent distress Head exam: Present: atraumatic, normocephalic Eye exam: Present: normal appearance. Absent: scleral icterus, conjunctival i njection Neck exam: Present: normal inspection Respiratory exam: Present: normal lung sounds bilaterally. Absent: respiratory distress, wheezes, rales, rhonchi, stridor Cardiovascular Exam: Present: regular rate, normal rhythm, normal heart sounds. Absent: systolic murmur, diastolic murmur, rubs, gallop GI/Abdominal exam: Present: soft. Absent: distended, tenderness, guarding, rebound, rigid Extremities exam: Present: normal inspection, normal capillary refill. Absent: pedal edema, calf tenderness Neurological exam: Present: alert Skin exam: Present: warm, dry, intact, normal color. Absent: rash <JoselinGene - Last Filed: 10/04/21 07:23> Course Vital Signs 10/04/21 10/04/21 10/04/21 02:16 02:19 03:19 Temperature 98.3 F Pulse Rate 104 H 102 H 99 Respiratory 22 22 22 Rate Blood Pressure 112/72 112/72 102/79 O2 Sat by Pulse 92 L 94 L 99 Oximetry 10/04/21 10/04/21 10/04/21 04:00 05:00 05:21 Temperature Pulse Rate 102 H 87 84 Respiratory 22 20 22 Rate Blood Pressure 93/71 104/78 106/74 O2 Sat by Pulse 97 97 98 Oximetry 10/04/21 10/04/21 10/04/21 06:50 07:39 08:10 Temperature 98 F Pulse Rate 90 115 H 87 Respiratory 22 18 16 Rate Blood Pressure 105/67 112/58 128/86 O2 Sat by Pulse 97 98 96 Oximetry 10/04/21 10/04/21 10/04/21 10:29 11:40 11:52 Temperature 101.6 F H Pulse Rate 110 H 123 H Respiratory 18 Rate Blood Pressure 150/89 96/65 109/53 O2 Sat by Pulse 97 Oximetry EKG Findings - EKG Comments: EKG Findings:: Possible old anterior infarct. - EKG Results: EKG: interpreted by ERMD, normal axis EKG shows: atrial fibrillation (With PVC, rate 100) <Gene Olivera - Last Filed: 10/04/21 07:23> Medical Decision Making - Lab Data Result diagrams: 10/04/21 02:42 10/04/21 02:42 <Gene Olivera - Last Filed: 10/04/21 07:23> - Lab Data Result diagrams: 10/04/21 02:42 10/04/21 02:42 <Darnell Rodriguez - Last Filed: 10/04/21 12:09> - Medical Decision Making EKG shows atrial fibrillation with rapid ventricular response at 120 bpm QRS is 86 Q-T intervals 310 QTC is 438. Patient at this point time at 101.6 fever (Darnell Rodriguez) - Lab Data Lab Results 10/04/21 10/04/21 10/04/21 Range/Units 02:40 02:40 02:42 WBC 6.7 (3.8-10.6) k/uL RBC 5.10 (3.80-5.40) m/uL Hgb 16.5 H (11.4-16.0) gm/dL Hct 50.2 H (34.0-46.0) % MCV 98.5 (80.0-100.0) fL MCH 32.3 (25.0-35.0) pg MCHC 32.8 (31.0-37.0) g/dL RDW 13.9 (11.5-15.5) % Plt Count 286 (150-450) k/uL MPV 7.9 Neutrophils % 69 % Lymphocytes % 18 % Monocytes % 11 % Eosinophils % 0 % Basophils % 0 % Neutrophils # 4.6 (1.3-7.7) k/uL Lymphocytes # 1.2 (1.0-4.8) k/uL Monocytes # 0.7 (0-1.0) k/uL Eosinophils # 0.0 (0-0.7) k/uL Basophils # 0.0 (0-0.2) k/uL Sodium (137-145) mmol/L Potassium (3.5-5.1) mmol/L Chloride (98-107) mmol/L Carbon Dioxide (22-30) mmol/L Anion Gap mmol/L BUN (7-17) mg/dL Creatinine (0.52-1.04) mg/dL Est GFR (CKD-EPI)AfAm (>60 ml/min/1.73 sqM) Est GFR (CKD-EPI)NonAf (>60 ml/min/1.73 sqM) Glucose (74-99) mg/dL Lactic Ac Sepsis Rflx Plasma Lactic Acid Angelo (0.7-2.0) mmol/L Calcium (8.4-10.2) mg/dL Magnesium (1.6-2.3) mg/dL Total Bilirubin (0.2-1.3) mg/dL AST (14-36) U/L ALT (4-34) U/L Alkaline Phosphatase (38-126) U/L Troponin I (0.000-0.034) ng/mL Total Protein (6.3-8.2) g/dL Albumin (3.5-5.0) g/dL Urine Color Yellow Urine Appearance Cloudy H (Clear) Urine pH 5.5 (5.0-8.0) Ur Specific [place] 1.021 (1.001-1.035) Urine Protein Trace H (Negative) Urine Glucose (UA) Negative (Negative) Urine Ketones Negative (Negative) Urine Blood Trace H (Negative) Urine Nitrite Negative (Negative) Urine Bilirubin Negative (Negative) Urine Urobilinogen <2.0 (<2.0) mg/dL Ur Leukocyte Esterase Negative (Negative) Urine RBC 2 (0-5) /hpf Urine WBC 3 (0-5) /hpf Ur Squamous Epith Cells 15 H (0-4) /hpf Amorphous Sediment Moderate H (None) /hpf Urine Bacteria Few H (None) /hpf Hyaline Casts 82 H (0-2) /lpf Urine Mucus Rare H (None) /hpf Coronavirus (PCR) Detected A (Not Detectd) 10/04/21 10/04/21 10/04/21 Range/Units 02:42 02:42 02:42 WBC (3.8-10.6) k/uL RBC (3.80-5.40) m/uL Hgb (11.4-16.0) gm/dL Hct (34.0-46.0) % MCV (80.0-100.0) fL MCH (25.0-35.0) pg MCHC (31.0-37.0) g/dL RDW (11.5-15.5) % Plt Count (150-450) k/uL MPV Neutrophils % % Lymphocytes % % Monocytes % % Eosinophils % % Basophils % % Neutrophils # (1.3-7.7) k/uL Lymphocytes # (1.0-4.8) k/uL Monocytes # (0-1.0) k/uL Eosinophils # (0-0.7) k/uL Basophils # (0-0.2) k/uL Sodium 130 L (137-145) mmol/L Potassium 3.3 L (3.5-5.1) mmol/L Chloride 94 L (98-107) mmol/L Carbon Dioxide 28 (22-30) mmol/L Anion Gap 8 mmol/L BUN 49 H (7-17) mg/dL Creatinine 1.81 H (0.52-1.04) mg/dL Est GFR (CKD-EPI)AfAm 32 (>60 ml/min/1.73 sqM) Est GFR (CKD-EPI)NonAf 28 (>60 ml/min/1.73 sqM) Glucose 121 H (74-99) mg/dL Lactic Ac Sepsis Rflx Plasma Lactic Acid Angelo 2.2 H* (0.7-2.0) mmol/L Calcium 8.6 (8.4-10.2) mg/dL Magnesium 2.0 (1.6-2.3) mg/dL Total Bilirubin 0.8 (0.2-1.3) mg/dL AST 39 H (14-36) U/L ALT 33 (4-34) U/L Alkaline Phosphatase 62 (38-126) U/L Troponin I 0.013 (0.000-0.034) ng/mL Total Protein 6.6 (6.3-8.2) g/dL Albumin 3.5 (3.5-5.0) g/dL Urine Color Urine Appearance (Clear) Urine pH (5.0-8.0) Ur Specific [place] (1.001-1.035) Urine Protein (Negative) Urine Glucose (UA) (Negative) Urine Ketones (Negative) Urine Blood (Negative) Urine Nitrite (Negative) Urine Bilirubin (Negative) Urine Urobilinogen (<2.0) mg/dL Ur Leukocyte Esterase (Negative) Urine RBC (0-5) /hpf Urine WBC (0-5) /hpf Ur Squamous Epith Cells (0-4) /hpf Amorphous Sediment (None) /hpf Urine Bacteria (None) /hpf Hyaline Casts (0-2) /lpf Urine Mucus (None) /hpf Coronavirus (PCR) (Not Detectd) 10/04/21 10/04/21 10/04/21 Range/Units 04:01 06:28 06:59 WBC (3.8-10.6) k/uL RBC (3.80-5.40) m/uL Hgb (11.4-16.0) gm/dL Hct (34.0-46.0) % MCV (80.0-100.0) fL MCH (25.0-35.0) pg MCHC (31.0-37.0) g/dL RDW (11.5-15.5) % Plt Count (150-450) k/uL MPV Neutrophils % % Lymphocytes % % Monocytes % % Eosinophils % % Basophils % % Neutrophils # (1.3-7.7) k/uL Lymphocytes # (1.0-4.8) k/uL Monocytes # (0-1.0) k/uL Eosinophils # (0-0.7) k/uL Basophils # (0-0.2) k/uL Sodium (137-145) mmol/L Potassium (3.5-5.1) mmol/L Chloride (98-107) mmol/L Carbon Dioxide (22-30) mmol/L Anion Gap mmol/L BUN (7-17) mg/dL Creatinine (0.52-1.04) mg/dL Est GFR (CKD-EPI)AfAm (>60 ml/min/1.73 sqM) Est GFR (CKD-EPI)NonAf (>60 ml/min/1.73 sqM) Glucose (74-99) mg/dL Lactic Ac Sepsis Rflx Y Y Plasma Lactic Acid Angelo 2.7 H* (0.7-2.0) mmol/L Calcium (8.4-10.2) mg/dL Magnesium (1.6-2.3) mg/dL Total Bilirubin (0.2-1.3) mg/dL AST (14-36) U/L ALT (4-34) U/L Alkaline Phosphatase (38-126) U/L Troponin I (0.000-0.034) ng/mL Total Protein (6.3-8.2) g/dL Albumin (3.5-5.0) g/dL Urine Color Urine Appearance (Clear) Urine pH (5.0-8.0) Ur Specific [place] (1.001-1.035) Urine Protein (Negative) Urine Glucose (UA) (Negative) Urine Ketones (Negative) Urine Blood (Negative) Urine Nitrite (Negative) Urine Bilirubin (Negative) Urine Urobilinogen (<2.0) mg/dL Ur Leukocyte Esterase (Negative) Urine RBC (0-5) /hpf Urine WBC (0-5) /hpf Ur Squamous Epith Cells (0-4) /hpf Amorphous Sediment (None) /hpf Urine Bacteria (None) /hpf Hyaline Casts (0-2) /lpf Urine Mucus (None) /hpf Coronavirus (PCR) (Not Detectd) 10/04/21 Range/Units 09:28 WBC (3.8-10.6) k/uL RBC (3.80-5.40) m/uL Hgb (11.4-16.0) gm/dL Hct (34.0-46.0) % MCV (80.0-100.0) fL MCH (25.0-35.0) pg MCHC (31.0-37.0) g/dL RDW (11.5-15.5) % Plt Count (150-450) k/uL MPV Neutrophils % % Lymphocytes % % Monocytes % % Eosinophils % % Basophils % % Neutrophils # (1.3-7.7) k/uL Lymphocytes # (1.0-4.8) k/uL Monocytes # (0-1.0) k/uL Eosinophils # (0-0.7) k/uL Basophils # (0-0.2) k/uL Sodium (137-145) mmol/L Potassium (3.5-5.1) mmol/L Chloride (98-107) mmol/L Carbon Dioxide (22-30) mmol/L Anion Gap mmol/L BUN (7-17) mg/dL Creatinine (0.52-1.04) mg/dL Est GFR (CKD-EPI)AfAm (>60 ml/min/1.73 sqM) Est GFR (CKD-EPI)NonAf (>60 ml/min/1.73 sqM) Glucose (74-99) mg/dL Lactic Ac Sepsis Rflx Plasma Lactic Acid Angel[place] 1.1 (0.7-2.0) mmol/L Calcium (8.4-10.2) mg/dL Magnesium (1.6-2.3) mg/dL Total Bilirubin (0.2-1.3) mg/dL AST (14-36) U/L ALT (4-34) U/L Alkaline Phosphatase (38-126) U/L Troponin I (0.000-0.034) ng/mL Total Protein (6.3-8.2) g/dL Albumin (3.5-5.0) g/dL Urine Color Urine Appearance (Clear) Urine pH (5.0-8.0) Ur Specific [place] (1.001-1.035) Urine Protein (Negative) Urine Glucose (UA) (Negative) Urine Ketones (Negative) Urine Blood (Negative) Urine Nitrite (Negative) Urine Bilirubin (Negative) Urine Urobilinogen (<2.0) mg/dL Ur Leukocyte Esterase (Negative) Urine RBC (0-5) /hpf Urine WBC (0-5) /hpf Ur Squamous Epith Cells (0-4) /hpf Amorphous Sediment (None) /hpf Urine Bacteria (None) /hpf Hyaline Casts (0-2) /lpf Urine Mucus (None) /hpf Coronavirus (PCR) (Not Detectd) Disposition Is patient prescribed a controlled substance at d/c from ED?: No <Gene Olivera - Last Filed: 10/04/21 07:23> <Darnell Rodriguez - Last Filed: 10/04/21 12:09> Clinical Impression: COVID-19 Disposition: HOME SELF-CARE Condition: Good Instructions (If sedation given, give patient instructions): Coronavirus Disease 2019 (COVID-19) Referrals: None,Stated [REFERRING] - 1-2 days
--- NOTE | 2021-10-04 03:09 | XR ---
EXAMINATION TYPE: XR chest 1V portable DATE OF EXAM: 10/04/2021 COMPARISON: 04/19/2018 HISTORY: Cough TECHNIQUE: 2 views FINDINGS: There is no heart failure nor confluent pneumonic infiltrate. Costophrenic angles are clear. There are chest leads. Bony thorax appears intact. IMPRESSION: No active cardiopulmonary disease. No change.
[2021-10-04 03:11] LABS: Albumin 3.5 g/dL (3.5-5.0); Calcium 8.6 mg/dL (8.4-10.2); Potassium 3.3 mmol/L (3.5-5.1); Total Bilirubin 0.8 mg/dL (0.2-1.3); Total Protein 6.6 g/dL (6.3-8.2)
[2021-10-04 03:24] LABS: Basophils % (A) 0 %; Eosinophils % (A) 0 %; HCT 50.2 % (34.0-46.0); HGB 16.5 gm/dL (11.4-16.0); Lymphocytes # (A) 1.2 k/uL (1.0-4.8); Lymphocytes % (A) 18 %; MCH 32.3 pg (25.0-35.0); MCHC 32.8 g/dL (31.0-37.0); MCV 98.5 fL (80.0-100.0); Mean Platelet Volume 7.9; Monocytes # (A) 0.7 k/uL (0-1.0); Monocytes % (A) 11 %; Neutrophils # (A) 4.6 k/uL (1.3-7.7); Neutrophils % (A) 69 %; Platelet Count 286 k/uL (150-450); RDW 13.9 % (11.5-15.5); WBC 6.7 k/uL (3.8-10.6)
[2021-10-04] MEDS ORDERED: SODIUM CHLORIDE 0.9% 500 ML 500 ML IV STA ×2 (04:12→07:23)
[2021-10-04] MEDS ORDERED: SODIUM CHLORIDE 0.9% 50 ML IVPB ONE (04:15)
[2021-10-04] MEDS ORDERED: SOTROVIMAB (EUA) 500 MG in SODIUM CHLORIDE 0.9% 100 ML IVPB ONE (04:15)
[2021-10-04 06:38] LABS: Amorphous Sediment,Urine Moderate /hpf; Appearance,Urine Cloudy (Clear); Bacteria,Urine Few /hpf; Bilirubin,Urine Negative (Negative); Blood,Urine Trace (Negative); Color,Urine Yellow; Glucose,Urine (UA) Negative (Negative); Hyaline Casts,Urine 82 /lpf (0-2); Ketones,Urine Negative (Negative); Leukocyte Esterase,Urine Negative (Negative); Mucus,Urine Rare /hpf; Nitrite,Urine Negative (Negative); PH, Urine 5.5 (5.0-8.0); Protein,Urine Trace (Negative); RBC,Urine 2 /hpf (0-5); Specific Gravity,Urine 1.021 (1.001-1.035); Squamous Epithelial Cell,Urine 15 /hpf (0-4); Urobilinogen,Urine <2.0 mg/dL (<2.0); WBC,Urine 3 /hpf (0-5)
[2021-10-04] MEDS ORDERED: SODIUM CHLORIDE 0.9% 1,000 ML IV ONE (07:23)
[2021-10-04] MEDS ORDERED: ACETAMINOPHEN TAB 325 MG TAB PO STA (10:23)
[2021-10-04 11:52] VITALS: RESP 18
[2021-10-04 12:57] VITALS: BP 110/42; PULSE 108; TEMP 100.1
== END 2021-10-04 12:49 | disposition home or self-care (01) ==
LOC: EC 02:13
DX: U07.1 COVID-19 (principal); Z79.01 Long term (current) use of anticoagulants; I11.0 Hypertensive heart disease with heart failure; I50.9 Heart failure, unspecified; I48.91 Unspecified atrial fibrillation; I25.2 Old myocardial infarction; M19.90 Unspecified osteoarthritis, unspecified site; M79.7 Fibromyalgia; E07.9 Disorder of thyroid, unspecified; F41.9 Anxiety disorder, unspecified; F32.A Depression, unspecified; Z86.718 Personal history of other venous thrombosis and embolism; Z90.49 Acquired absence of other specified parts of digestive tract; Z90.710 Acquired absence of both cervix and uterus; Z96.653 Presence of artificial knee joint, bilateral; Z87.891 Personal history of nicotine dependence
CPT/HCPCS: 99285; 96360; 36415; 93005; 80053; 83605; 83735; 84484; 85025; 81001; 87635; 71045; Q0247

== ENCOUNTER → 2021-11-20 | Outpatient (CLI) | payer MEDICARE ==
--- NOTE | 2021-11-20 08:47 | CT ---
EXAMINATION TYPE: CT chest wo con DATE OF EXAM: 11/20/2021 INDICATION: COPD. Recent COVID. SOB CT DLP: 637.6 mGy.cm Automated Exposure Control for Dose Reduction was Utilized. TECHNIQUE AND CONTRAST: Multiplanar CT scan of the chest was performed without IV contrast administration. COMPARISON: CT dated 04/19/2018 FINDINGS: Relative loss of volume of the lower lobes with bilateral peripheral mainly posterior and lower lobar subpleural reticulations, mild fibrotic changes and minimal groundglass opacities, slightly more on the right side and slightly more prominent as compared to 2018 CT scan. Stable 3 mm nodule along the right oblique fissure consistent with benign nodule and requiring no fur ther follow-up. The 3 mm nodule at the posterior aspect of the left upper lobe is also stable (image #22, series 4). Unremarkable lungs otherwise. Patent central airways. No pleural or pericardial effus ion. Dilated left atrium, please correlate with echocardiographic results. Scattered arterial and coronary artery atherosclerotic calcifications. Prominent subcentimeter mediastinal lymph nodes, stable since 2018 CT scan. The pulmonary trunk measures 3 cm, please correlate for pulmonary hypertension. Bulky liver with prev ious cholecystectomy. Right upper pole cyst without suspicious feature, not completely included in th e scan. Degenerative changes of the thoracic and upper lumbar spine. IMPRESSION: Bilateral peripheral pulmonary subpleural reticulations, fibrotic changes and minimal groundglass opa cities, mainly seen posteriorly and in the lower lobes, and slightly more on the right side as descri bed above, slightly progressed compared to 2018 CT scan. Further pulmonology consultation can be cons idered. Stable lung nodules, requiring no further follow-up. Cardiomegaly and dilated pulmonary artery, pleas e correlate with echocardiographic results. Other incidental findings as described above.
== END | disposition home or self-care (01) ==
LOC: RADCTMAIN 06:56
PROVIDERS: ATTEND Family Medicine
DX: J84.10 Pulmonary fibrosis, unspecified (principal); R91.8 Other nonspecific abnormal finding of lung field; I51.7 Cardiomegaly; I28.1 Aneurysm of pulmonary artery
CPT/HCPCS: 71250

== ENCOUNTER 2022-01-11 16:22 | Inpatient (IN) | payer MEDICARE ==
[2022-01-11 17:13] LABS: Albumin 3.4 g/dL (3.5-5.0); Calcium 9.1 mg/dL (8.4-10.2); Potassium 4.1 mmol/L (3.5-5.1); Total Bilirubin 0.6 mg/dL (0.2-1.3); Total Protein 6.1 g/dL (6.3-8.2)
[2022-01-11 17:14] LABS: Basophils % (A) 0 %; Eosinophils # (A) 0.2 k/uL (0-0.7); Eosinophils % (A) 3 %; HCT 40.1 % (34.0-46.0); HGB 13.5 gm/dL (11.4-16.0); Lymphocytes # (A) 1.4 k/uL (1.0-4.8); Lymphocytes % (A) 26 %; MCH 32.4 pg (25.0-35.0); MCHC 33.6 g/dL (31.0-37.0); MCV 96.6 fL (80.0-100.0); Mean Platelet Volume 7.5; Monocytes # (A) 0.3 k/uL (0-1.0); Monocytes % (A) 6 %; Neutrophils # (A) 3.4 k/uL (1.3-7.7); Neutrophils % (A) 62 %; Partial Thromboplastin Time 23.3 sec (22.0-30.0); Platelet Count 242 k/uL (150-450); Prothrombin Time 10.4 sec (9.0-12.0); RBC 4.15 m/uL (3.80-5.40); RDW 13.5 % (11.5-15.5); WBC 5.5 k/uL (3.8-10.6)
--- NOTE | 2022-01-11 17:57 | XR ---
EXAMINATION TYPE: XR chest 2V DATE OF EXAM: 01/11/2022 COMPARISON: 10/04/2021 HISTORY: Difficulty breathing TECHNIQUE: 2 views FINDINGS: There is some coarsening of interstitial markings. No heart failure. Heart is top normal in size. No pleural effusion. IMPRESSION: Lung markings increased compared to old exam that could be related to poor inspiration wh ich is a change compared to last exam. No heart failure or pulmonary consolidation.
[2022-01-11] MEDS ORDERED: FAMOTIDINE 20 MG/2 ML VIAL IV STA (19:37)
[2022-01-11] MEDS ORDERED: ONDANSETRON 4 MG/2 ML VIAL IVP STA (19:37)
[2022-01-11] MEDS ORDERED: MAG HYDROX/AL HYDROX/SIMETH 30 ML CUP PO PRN (19:37)
[2022-01-11] MEDS ORDERED: KETOROLAC 15 MG/ML 1 ML VIAL IVP STA (19:37)
[2022-01-11] MEDS ORDERED: diphenhydrAMINE 50 MG/ML 1 ML VIAL IVP STA (19:37)
--- NOTE | 2022-01-11 21:01 | CT ---
EXAMINATION TYPE: CT abdomen pelvis wo con DATE OF EXAM: 01/11/2022 COMPARISON: None HISTORY: Epigastric pain. CT DLP: 2271.2 mGycm Automated exposure control for dose reduction was used. Images obtained from the diaphragm to the floor the pelvis without contrast. Lung bases are clear of infiltrate. No pleural effusion. Heart size is normal. No pericardial effusio n. Liver spleen stomach pancreas appear intact. There are clips from cholecystectomy. There is no adrenal mass. Kidneys show normal size. There is 7 cm cortical cyst posterior right kidne y. No hydronephrosis. Ureters are not dilated. There is no retroperitoneal adenopathy. Bladder disten ds smoothly. There is no inguinal hernia. There are clips in the left inguinal region. There are some sigmoid diverticula. No free air. No mesenteric edema or ascites. No sign of a bowel obstruction. There is 3 cm fat-contai alfonso periumbilical hernia. Appendix is short and appears normal. The lumbar vertebrae have normal alignment. There is multilevel vacuum disc. No compression fracture. No evidence of focal bone destruction. The bony pelvis is intact. The hip joints are intact. Sacroil iac joints are intact. IMPRESSION: No evidence of renal stone or obstruction. Large right renal cortical cyst. No dilated ducts. Colonic diverticulosis without diverticulitis.
[2022-01-11] MEDS ORDERED: ONDANSETRON 4 MG/2 ML VIAL IVP PRN (21:04)
[2022-01-11] MEDS ORDERED: NALOXONE 0.4 MG/ML 1 ML VIAL IV PRN (21:04)
[2022-01-11] MEDS: FUROSEMIDE 10 MG/ML 4 ML VIAL IV SCH (21:11)
--- NOTE | 2022-01-11 21:16 | ED ---
General Adult HPI - General Chief complaint: Shortness of Breath Stated complaint: Chest Pain,SOB Time Seen by Provider: 01/11/22 19:08 Source: patient, RN notes reviewed, old records reviewed Mode of arrival: ambulatory Limitations: no limitations - History of Present Illness Initial comments: Patient is a 71-year-old female with past medical history remarkable for heart failure, atrial fibrillation on blood thinners, hypertension, fibromyalgia who p resents emergency Department complaining of exertional dyspnea that is worsening. Also explained that her lower extremities seem to be more swollen. She is experiencing worsening orthopnea. Denies PND. States she has been taking her home Lasix. Denies any chest pain. Does endorse some epigastric burning sensation with mild nausea. No episodes of emesis. Denies any constipation. Still having flatus. Has no other acute complaints at this time. Presents over concern for worsening heart failure exacerbation. Doesn't endorse a nonproductive cough. He was not vaccinated for Covid but previously had Covid 2 months ago. Presents for further evaluation. - Related Data Home Medications Medication Instructions Recorded Confirmed Multivit-Min/Iron/Folic/Lutein 1 tab PO DAILY 04/08/17 01/11/22 [Centrum Silver Women Tablet] Furosemide [Lasix] 40 mg PO DAILY 11/08/19 01/11/22 Albuterol Sulfate [Albuterol 2 puff PO RT-Q4H PRN 01/11/22 01/11/22 Sulfate Hfa] Alpha Lipoic Acid 600 mg PO HS 01/11/22 01/11/22 Amiodarone [Cordarone] 400 mg PO BID 01/11/22 01/11/22 Apixaban [Eliquis] 5 mg PO BID 01/11/22 01/11/22 Budesonide/Glycopyr/Formoterol 2 puff INHALATION RT-BID 01/11/22 01/11/22 [Breztri Aerosphere Inhaler] Cholecalciferol [Vitamin D3 (125 250 mcg PO DAILY 01/11/22 01/11/22 Mcg = 5000 Iu)] Dulaglutide [Trulicity] 3 mg SQ WE 01/11/22 01/11/22 Levothyroxine Sodium [Synthroid] 50 mcg PO DAILY 01/11/22 01/11/22 Magnesium Oxide [Gomes] 500 mg PO DAILY 01/11/22 01/11/22 Olmesartan/Hydrochlorothiazide 1 tab PO DAILY 01/11/22 01/11/22 [Olmesartan-Hctz 20-12.5 mg Tab] Potassium 500 mg PO DAILY 01/11/22 01/11/22 Thiamine [Vitamin B-1] 100 mg PO HS 01/11/22 01/11/22 Allergies Allergy/AdvReac Type Severity Reaction Status Date / Time bee venom protein (honey bee) Allergy Anaphylaxis Verified 01/11/22 20:45 ibuprofen [From Motrin] Allergy renal Verified 01/11/22 20:45 failure pregabalin [From Lyrica] Allergy Rapid Verified 01/11/22 20:45 Heart Rate/afib aspirin AdvReac nose bleeds Verified 01/11/22 20:45 green pepper AdvReac Vomiting Verified 01/11/22 20:45 Review of Systems ROS Statement: Those systems with pertinent positive or pertinent negative responses have been documented in the HPI. Review of Systems: CONST: Denies fever EYES: Denies blurry vision ENT: Denies nasal congestion C/V: Denies Chest pain RESP: Endorses exertional shortness of breath GI: Denies abdominal pain : Denies dysuria SKIN: Denies rash. MSK: Denies joint pain. NEURO: Denies headache ROS Other: All systems not noted in ROS Statement are negative. Past Medical History Past Medical History: Atrial Fibrillation, Blood Disorder, Chest Pain / Angina, Heart Failure, Deep Vein Thrombosis (DVT), Fibromyalgia, Hypertension, Myocardial Infarction (AL), Osteoarthritis (OA), Skin Disorder, Thyroid Disorder Additional Past Medical History / Comment(s): 05/04/20 FELL ON SIT OF HER WALKER AND BROKE LEFT DISTAL RADIUS. CHRONIC BACK PAIN. [employer] (BLOOD COAGULATION STABLE PER DR. BABCOCK IN FALL 2018). 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 optical migraines. HX: ulcer, swelling of feet, psoriasis, anemia. WAS TOLD SHE HAD A "silent AL" by PCP. Last Myocardial Infarction Date:: unknown History of Any Multi-Drug Resistant Organisms: None Reported Past Surgical History: Back Surgery, Breast Surgery, Cholecystectomy, Heart Catheterization, Hysterectomy, Joint Replacement, Orthopedic Surgery Additional Past Surgical History / Comment(s): bilateral knee replacements, Cataracts with lens implants with both eyes, left breast lumpectomy -benign, veins removed left leg, achillies tendon repair left leg, carpal tunnel rt hand, surgrery to repair injury end of nose, Past Anesthesia/Blood Transfusion Reactions: Postoperative Nausea & Vomiting (PONV) Additional Past Anesthesia/Blood Transfusion Reaction / Comment(s): had a blood transfusion at 7 years old, no reactions known. no family hx-adopted Past Psychological History: Anxiety, Depression Smoking Status: Former smoker Past Alcohol Use History: None Reported Past Drug Use History: None Reported - Past Family History Sister(s) Family Medical History: Cancer Additional Family Medical History / Comment(s): form of Leukemia - bone marrow transplant from patient Brother(s) Family Medical History: Diabetes Mellitus Father Additional Family Medical History / Comment(s): from enlarged heart General Exam - General Exam Comments Initial Comments: General: Appears in no acute distress. HEAD: Normal with no signs of head trauma. EYES: PERRLA, EOMI, conjunctiva normal, no discharge. ENT: Hearing grossly intact, normal oropharynx. RESPIRATORY: Clear breath sounds bilaterally. No wheezes, rales, or rhonchi. C/V: Irregular rate and rhythm. S1 and S2 auscultated. 1-2+ pitting edema bilateral lower extremities. Peripheral pulses 2+ and intact throughout. ABD: Abd is soft, nontender, nondistended EXT: Normal range of motion, no obvious deformity SKIN: No rashes or lesions observed on exposed skin. NEURO: Alert and oriented 4. No focal deficits. Limitations: no limitations Course Vital Signs 01/11/22 16:26 Temperature 98.0 F Pulse Rate 67 Respiratory 18 Rate Blood Pressure 123/70 O2 Sat by Pulse 96 Oximetry Medical Decision Making - Medical Decision Making Based on the patient's presentation and physical exam, I'm concerned for possible cardiac pulmonary etiology for her current symptoms. Patient also appears to be having gastritis. Symptoms have been ongoing for days. We'll obtain cardio pulmonary work up as well as abdominal laboratory studies. She was in agreement this plan. EKG showed atrial fibrillation without any signs of acute ischemia. Laboratory studies were remarkable for a mildly elevated BUN/creatinine setting of CK D. Does appear to be around her baseline or improved. Troponin is indeterminate. BNP is 512. Covid is negative. Chest x-ray shows no acute cardiopulmonary process. CT abdomen and pelvis was added on due to her abdominal discomfort without contrast due to her renal disease. There is a large right renal cortical cysts but no other acute findings. On reevaluation, patient is resting comfortably. I expect her the results for laboratory studies and imaging. I would like to admitted to the hospital. She was in agreement this plan. Appears she is having a mild CHF exacerbation. Patient will be started on twice a day Lasix as well as her home medications. Cardiology will be consulted. I discussed the case with Dr. Mccarty who accepted the patient. Patient was admitted in stable condition. - Lab Data Result diagrams: 01/11/22 16:34 01/11/22 16:34 Lab Results 01/11/22 01/11/22 01/11/22 Range/Units 16:34 16:34 16:34 WBC 5.5 (3.8-10.6) k/uL RBC 4.15 (3.80-5.40) m/uL Hgb 13.5 (11.4-16.0) gm/dL Hct 40.1 (34.0-46.0) % MCV 96.6 (80.0-100.0) fL MCH 32.4 (25.0-35.0) pg MCHC 33.6 (31.0-37.0) g/dL RDW 13.5 (11.5-15.5) % Plt Count 242 (150-450) k/uL MPV 7.5 Neutrophils % 62 % Lymphocytes % 26 % Monocytes % 6 % Eosinophils % 3 % Basophils % 0 % Neutrophils # 3.4 (1.3-7.7) k/uL Lymphocytes # 1.4 (1.0-4.8) k/uL Monocytes # 0.3 (0-1.0) k/uL Eosinophils # 0.2 (0-0.7) k/uL Basophils # 0.0 (0-0.2) k/uL PT 10.4 (9.0-12.0) sec INR 1.0 (<1.2) APTT 23.3 (22.0-30.0) sec Sodium 139 (137-145) mmol/L Potassium 4.1 (3.5-5.1) mmol/L Chloride 99 (98-107) mmol/L Carbon Dioxide 36 H (22-30) mmol/L Anion Gap 4 mmol/L BUN 20 H (7-17) mg/dL Creatinine 1.28 H (0.52-1.04) mg/dL Est GFR (CKD-EPI)AfAm 49 (>60 ml/min/1.73 sqM) Est GFR (CKD-EPI)NonAf 42 (>60 ml/min/1.73 sqM) Glucose 107 H (74-99) mg/dL Plasma Lactic Acid Angelo (0.7-2.0) mmol/L Calcium 9.1 (8.4-10.2) mg/dL Total Bilirubin 0.6 (0.2-1.3) mg/dL AST 26 (14-36) U/L ALT 19 (4-34) U/L Alkaline Phosphatase 54 (38-126) U/L Troponin I (0.000-0.034) ng/mL NT-Pro-B Natriuret Pep pg/mL Total Protein 6.1 L (6.3-8.2) g/dL Albumin 3.4 L (3.5-5.0) g/dL Coronavirus (PCR) (Not Detectd) 01/11/22 01/11/22 01/11/22 Range/Units 16:34 16:34 16:34 WBC (3.8-10.6) k/uL RBC (3.80-5.40) m/uL Hgb (11.4-16.0) gm/dL Hct (34.0-46.0) % MCV (80.0-100.0) fL MCH (25.0-35.0) pg MCHC (31.0-37.0) g/dL RDW (11.5-15.5) % Plt Count (150-450) k/uL MPV Neutrophils % % Lymphocytes % % Monocytes % % Eosinophils % % Basophils % % Neutrophils # (1.3-7.7) k/uL Lymphocytes # (1.0-4.8) k/uL Monocytes # (0-1.0) k/uL Eosinophils # (0-0.7) k/uL Basophils # (0-0.2) k/uL PT (9.0-12.0) sec INR (<1.2) APTT (22.0-30.0) sec Sodium (137-145) mmol/L Potassium (3.5-5.1) mmol/L Chloride (98-107) mmol/L Carbon Dioxide (22-30) mmol/L Anion Gap mmol/L BUN (7-17) mg/dL Creatinine (0.52-1.04) mg/dL Est GFR (CKD-EPI)AfAm (>60 ml/min/1.73 sqM) Est GFR (CKD-EPI)NonAf (>60 ml/min/1.73 sqM) Glucose (74-99) mg/dL Plasma Lactic Acid Angelo 2.0 (0.7-2.0) mmol/L Calcium (8.4-10.2) mg/dL Total Bilirubin (0.2-1.3) mg/dL AST (14-36) U/L ALT (4-34) U/L Alkaline Phosphatase (38-126) U/L Troponin I <0.012 (0.000-0.034) ng/mL NT-Pro-B Natriuret Pep 512 pg/mL Total Protein (6.3-8.2) g/dL Albumin (3.5-5.0) g/dL Coronavirus (PCR) (Not Detectd) 01/11/22 Range/Units 19:37 WBC (3.8-10.6) k/uL RBC (3.80-5.40) m/uL Hgb (11.4-16.0) gm/dL Hct (34.0-46.0) % MCV (80.0-100.0) fL MCH (25.0-35.0) pg MCHC (31.0-37.0) g/dL RDW (11.5-15.5) % Plt Count (150-450) k/uL MPV Neutrophils % % Lymphocytes % % Monocytes % % Eosinophils % % Basophils % % Neutrophils # (1.3-7.7) k/uL Lymphocytes # (1.0-4.8) k/uL Monocytes # (0-1.0) k/uL Eosinophils # (0-0.7) k/uL Basophils # (0-0.2) k/uL PT (9.0-12.0) sec INR (<1.2) APTT (22.0-30.0) sec Sodium (137-145) mmol/L Potassium (3.5-5.1) mmol/L Chloride (98-107) mmol/L Carbon Dioxide (22-30) mmol/L Anion Gap mmol/L BUN (7-17) mg/dL Creatinine (0.52-1.04) mg/dL Est GFR (CKD-EPI)AfAm (>60 ml/min/1.73 sqM) Est GFR (CKD-EPI)NonAf (>60 ml/min/1.73 sqM) Glucose (74-99) mg/dL Plasma Lactic Acid Angelo (0.7-2.0) mmol/L Calcium (8.4-10.2) mg/dL Total Bilirubin (0.2-1.3) mg/dL AST (14-36) U/L ALT (4-34) U/L Alkaline Phosphatase (38-126) U/L Troponin I (0.000-0.034) ng/mL NT-Pro-B Natriuret Pep pg/mL Total Protein (6.3-8.2) g/dL Albumin (3.5-5.0) g/dL Coronavirus (PCR) Not Detected (Not Detectd) - EKG Data -: EKG Interpreted by Me EKG Comments: 12-lead Electrocardiogram Interpretation Note EKG was reviewed and interpreted by myself. 12-lead ECG performed at 1643 is interpreted by me as revealing atrial fibrillation at a rate of 98 beats per minute. [place] is normal. HI interval is unobtainable, QRS duration is 94 ms, QTc is 424 ms.. There were no ST or T wave abnormalities to suggest myocardial ischemia or injury. R wave progression across the precordium was satisfactory. By my interpretation this EKG is non-diagnostic for acute ischemia. Disposition Clinical Impression: Congestive heart failure, Dyspepsia, Atrial fibrillation Disposition: ADMITTED IP TO THIS HOSP Condition: Stable Referrals: Leobardo Mccarty MD [Primary Care Provider] - 1-2 days Time of Disposition: 21:00
[2022-01-11] MEDS: APIXABAN 5 MG TAB PO SCH (21:38)
[2022-01-12] MEDS: LEVOTHYROXINE 50 MCG TAB PO SCH (05:19)
[2022-01-12 08:43] LABS: Calcium 8.4 mg/dL (8.4-10.2); Potassium 3.8 mmol/L (3.5-5.1)
[2022-01-12 08:49] LABS: Basophils % (A) 1 %; Eosinophils # (A) 0.2 k/uL (0-0.7); Eosinophils % (A) 4 %; HCT 38.1 % (34.0-46.0); HGB 12.3 gm/dL (11.4-16.0); Lymphocytes # (A) 1.2 k/uL (1.0-4.8); Lymphocytes % (A) 26 %; MCH 32.6 pg (25.0-35.0); MCHC 32.3 g/dL (31.0-37.0); MCV 100.7 fL (80.0-100.0); Mean Platelet Volume 8.1; Monocytes # (A) 0.3 k/uL (0-1.0); Monocytes % (A) 7 %; Neutrophils # (A) 2.8 k/uL (1.3-7.7); Neutrophils % (A) 60 %; Platelet Count 228 k/uL (150-450); RBC 3.79 m/uL (3.80-5.40); RDW 13.4 % (11.5-15.5); WBC 4.6 k/uL (3.8-10.6)
[2022-01-12] MEDS ORDERED: AMIODARONE 200 MG TAB PO SCH (09:00)
[2022-01-12] MEDS ORDERED: hydroCHLOROthiazide 12.5 MG CAP PO SCH (09:00)
--- NOTE | 2022-01-12 11:41 | CONS ---
CONSULTATION This is a 71-year-old lady who has been admitted to the hospital with episode of shortness of breath and chest tightness. Troponins have been negative. EKG reveals atrial fibrillation with nonspecific ST-T changes. Very limited information is available since the [employer] system is down. However, she is comfortable resting. She received IV Lasix yesterday. This morning her breathing is good. Vital signs are stable. Heart rate is in the 80s. She is currently on a combination of amiodarone and Benicar. Here we will give losartan instead of Benicar and I will reduce the dose of amiodarone from 400 b.i.d. to 200 mg daily and add atenolol 12.5 mg b.i.d. Physical exam revealed vitals are stable. JVD is not evident. S1-S2 heard normally with irregularity in rhythm. No significant murmurs. Lungs reveal bilateral decent air entry. Abdomen is soft, nontender. No organomegaly. Lower extremities reveal diminished pulses. Bilateral varicose veins are noted with trace edema. Central nervous system: No focal deficits. IMPRESSION: 1. Chronic atrial fibrillation with decent rate control. 2. History of congestive heart failure, but patient currently is not in congestive heart failure. 3. History of hypertension. RECOMMENDATIONS: I am recommending that we decrease amiodarone to 200 mg daily, add atenolol 12.5 mg b.i.d., switch her from IV to oral Lasix, increase activity, and she can be discharged today. MMODL / IJN: [id number] /
[2022-01-12] MEDS: LOSARTAN 50 MG TAB PO SCH (12:16)
[2022-01-12] MEDS: APIXABAN 5 MG TAB PO SCH ×2 (12:16→21:38)
[2022-01-12] MEDS: FUROSEMIDE 10 MG/ML 4 ML VIAL IV SCH (12:16)
--- NOTE | 2022-01-12 13:07 | HP ---
HISTORY AND PHYSICAL This is a 71-year-old white female who came into the hospital with severe leg swelling and edema. She has a history of congestive heart failure and atrial fibrillation in the past. She came in with severe shortness of breath, chest tightness. She was found to be in atrial fibrillation in the ER. Cardiology saw her. We gave her IV Lasix last night. Her breathing has improved overnight. Heart rates are in the 80s currently. She is on amiodarone and Benicar. Cardiology saw her and switched her to losartan instead of Benicar and reduced the amiodarone from 400 b.i.d. to 200 daily and added atenolol to slow the heart rate down. On physical examination, she has large 3+ edema in bilateral legs. Cardiovascular: Irregularly irregular rhythm, some tachycardia. Now sinus rhythm. No JVD. Psych: Fair mood and affect. Lungs are fairly clear. Medication list: See chart. Allergies: See chart. Family history: See chart. All reviewed. ASSESSMENT: 1. Chronic atrial fibrillation with decent rate control. 2. History of congestive heart failure. 3. Hypertension with fluid overload and edema; possibly some side effects from amiodarone, which is going to be decreased. Medicines are adjusted. Possibly discharge home today or tomorrow. Will have to readjust medicine and see how she does. Chest x-ray shows no heart failure, some coarsening. Prognosis is guarded. 1. She has elevated BUN and creatinine with prerenal renal insufficiency. 2. Low protein levels, which can make the leg swell also. 3. Mild protein-calorie. Order a D-dimer to make sure there is no significant finding before we order a CTA of the lungs depending on D-dimers and possible discharge home later. MMODL / IJN: [id number] /
[2022-01-12] MEDS: FORMOTEROL FUMARATE 20 MCG/2 ML NEBU INHALATION SCH ×2 (15:22→20:26)
[2022-01-12] MEDS: FLUTICASONE 44 MCG INHALER INHALATION SCH ×2 (15:22→20:25)
[2022-01-12] MEDS: IPRATROPIUM 0.5 MG/2.5 ML NEBU INHALATION SCH ×3 (15:22→20:25)
[2022-01-12] MEDS: HYDROmorphone 1 MG/ML 1 ML SYRINGE IVP PRN (19:37)
[2022-01-12] MEDS: AZITHROMYCIN 500 MG in SODIUM CHLORIDE 0.9% 250 ML IVPB SCH (19:38)
[2022-01-12] MEDS: methylPREDNISolone SOD SUCCI 40 MG/ML 1 ML VIAL IV SCH (19:38)
--- NOTE | 2022-01-12 20:49 | CT ---
EXAMINATION TYPE: CT chest wo con DATE OF EXAM: 01/12/2022 COMPARISON: 11/20/2021 HISTORY: dyspnea CT DLP: 916 mGycm Automated exposure control for dose reduction was used. Images obtained from the thoracic inlet to the diaphragm with no contrast. There is some patchy interstitial infiltrate and atelectasis in the posterior lung calle bilaterally . Heart size is top normal. No pericardial effusion. No evidence of any significant pleural fluid. There are no hilar masses. There are a few paratracheal lymph nodes up to 1 cm. Thoracic aorta shows no aneurysm. The thoracic spine shows degenerative spur formation. No compression fracture. Sternum i s intact. IMPRESSION: Mild interstitial infiltrates and atelectasis in the posterior lung calle which appear similar to ol d exam. No suspicious pulmonary mass.
[2022-01-12] MEDS ORDERED: FUROSEMIDE 10 MG/ML 10 ML VIAL IV SCH (21:00)
[2022-01-12] MEDS: THIAMINE 100 MG TAB PO SCH (21:38)
[2022-01-12] MEDS: PANTOPRAZOLE 40 MG/10 ML VIAL IVP SCH (21:38)
[2022-01-13] MEDS: methylPREDNISolone SOD SUCCI 40 MG/ML 1 ML VIAL IV SCH ×3 (00:33→16:27)
[2022-01-13] MEDS: HYDROmorphone 1 MG/ML 1 ML SYRINGE IVP PRN ×2 (03:21→16:29)
[2022-01-13] MEDS: LEVOTHYROXINE 50 MCG TAB PO SCH (05:30)
[2022-01-13] MEDS: FORMOTEROL FUMARATE 20 MCG/2 ML NEBU INHALATION SCH ×2 (08:01→19:20)
[2022-01-13] MEDS: IPRATROPIUM 0.5 MG/2.5 ML NEBU INHALATION SCH ×4 (08:01→19:20)
[2022-01-13] MEDS ORDERED: FUROSEMIDE 40 MG TAB PO SCH (09:00)
[2022-01-13] MEDS ORDERED: FUROSEMIDE 20 MG TAB PO SCH (09:00)
[2022-01-13] MEDS: MAGNESIUM OXIDE 400 MG TAB PO SCH (09:01)
[2022-01-13] MEDS: CHOLECALCIFEROL 125 MCG (5000 IU) TABLET PO SCH (09:01)
[2022-01-13] MEDS: AMIODARONE 200 MG TAB PO SCH (09:01)
[2022-01-13] MEDS: MULTIVITAMINS, THERA 1 EACH TAB PO SCH (09:01)
[2022-01-13] MEDS: APIXABAN 5 MG TAB PO SCH ×2 (09:01→21:03)
[2022-01-13] MEDS: LOSARTAN 50 MG TAB PO SCH (09:02)
--- NOTE | 2022-01-13 09:11 | CA ---
Transthoracic Echo Report Name: Radha Olsen Age: 71 Gender: F : 1950 Exam Date: 01/12/2022 15:49 Exam Location: [facility] Ht (in): 69 Wt (lb): 290 Ordering Physician: Arcadio Pyle MD Attending/Referring Phys: [employer] Attorney Paola Magana RDCS Procedure CPT: Indications: Heart failure Cardiac Hx: HX of Afib Technical Quality: Technically difficult study limited study Contrast 1: Lumason Total Dose (mL): 1 Contrast 2: Total Dose (mL): MEASUREMENTS (Male / Female) Normal Values 2D ECHO LV Diastolic Diameter PLAX 5.1 cm 4.2 - 5.9 / 3.9 - 5.3 cm LV Systolic Diameter PLAX 4.3 cm IVS Diastolic Thickness 1.3 cm 0.6 - 1.0 / 0.6 - 0.9 cm LVPW Diastolic Thickness 1.3 cm 0.6 - 1.0 / 0.6 - 0.9 cm LV Relative Wall Thickness 0.5 FINDINGS Left Ventricle Mildly increased septal wall thickness. Mildly increased posterior wall thickness. Left ventricular ejection fraction is estimated at 50-55 %. Right Ventricle Right Atrium Left Atrium Mitral Valve Aortic Valve Tricuspid Valve Pulmonic Valve Pericardium Aorta CONCLUSIONS Technically difficult study LV size and systolic function is normal. Right ventricle is not well seen, does not seem to be enlarged. Doppler exam is suboptimal Previewed by: Dr. Rocael Hou MD (Electronically Signed) Final Date: 13 January 2022 09:10
[2022-01-13] MEDS: PANTOPRAZOLE 40 MG/10 ML VIAL IVP SCH (09:31)
--- NOTE | 2022-01-13 10:05 | P.PN ---
Subjective This is a 71-year-old female with past medical history of hypertension, peripheral vascular disease, persistent atrial fibrillation on Eliquis, hyper tension, obesity, recent covid-19 infection 2 months ago. No history of coronary artery disease cardiac catheterization 10/2019 revealed normal coronary arteries. She follows in the office with Dr. Schumacher. We have been consulted for congestive heart failure. Patient presents emergency department on 01/11/22 with complaints of shortness of breath, cough, lower extremity edema, and chest tightness. She does not appear to be in congestive heart failure on exam. She received IV Lasix 40mg 425 AM and 80mg IV 4/ PM. Pro BNP was normal. D-dimer negative, troponin negative CT chest revealed mild interstitial infiltrates and atelectasis in the posterior lung calle which is similar to old exam. Chest x-ray with no acute heart failure. Limited echocardiogram revealed EF of 5055%, difficult study. 01/13/2022 She is seen and examined at bedside, no acute distress. Continue to have cough. Breathing has not improved. She does have some non-pitting generalized edema. Does not appear to be in acute heart failure. Labs, revealed serum creatinine increased 1.44 (from 1.28 yesterday). Labs today pending She continues to be nature fibrillation with controlled ventricular rates GENERAL: Well-appearing, well-nourished and in no acute distress. NECK: Supple without JVD or thyromegaly. LUNGS: Breath sounds clear to auscultation bilaterally. Respiration equal and unlabored. No wheezes, rales or rhonchi. HEART: Regular rate and rhythm without murmurs, rubs or gallops. S1 and S2 heard. EXTREMITIES: Normal range of motion, no edema. No clubbing or cyanosis. Pe ripheral pulses intact. ASSESSMENT Symptoms of shortness of breath, cough Hypertension Persistent atrial fibrillation on Eliquis Obesity BMI 51 PLAN Patient does not appear to be in acute heart failure on exam Recommend discontinuing IV Lasix and continue PO Lasix 40mg daily Monitor I/Os, daily weights, renal function and electrolytes Recommend pulmonary consultation Amiodarone 200mg daily, atenolol 12.5mg, losartan 100mg daily Further recommendations based on clinical course Nurse Practitioner note has been reviewed, I agree with a documented findings and plan of care. Patient was seen and examined. Objective - Vital Signs Vital signs: Vital Signs Temp 97.5 F L 01/13/22 08:01 Pulse 80 01/13/22 08:19 Resp 20 01/13/22 08:01 BP 120/63 01/13/22 08:01 Pulse Ox 96 01/13/22 08:01 Intake & Output 01/12/22 01/13/22 01/13/22 18:59 06:59 18:59 Intake Total 150 Balance 150 Weight 152 kg Intake: Intake, IV Titration 50 Amount cefTRIAXone 1 gm In 50 Sodium Chloride 0.9% 50 ml @ 100 mls/hr IVPB Q12HR [facility] Rx#:[id number] Oral 100 Other: Voiding Method Bedside Commode # Voids 3 3 - Labs CBC & Chem 7: 01/12/22 06:30 01/12/22 06:49 Labs: Abnormal Lab Results - Last 24 Hours (Table) 01/12/22 01/12/22 Range/Units 06:30 06:49 RBC 3.79 L (3.80-5.40) m/uL MCV 100.7 H (80.0-100.0) fL Carbon Dioxide 33 H (22-30) mmol/L BUN 23 H (7-17) mg/dL Creatinine 1.44 H (0.52-1.04) mg/dL Glucose 117 H (74-99) mg/dL
[2022-01-13] MEDS ORDERED: FUROSEMIDE 10 MG/ML 4 ML VIAL IV SCH (11:15)
[2022-01-13] MEDS: FLUTICASONE 44 MCG INHALER INHALATION SCH ×2 (11:25→19:21)
--- NOTE | 2022-01-13 13:28 | CDI ---
Documentation Clarification Form Date: 01/13/2022 01:03:17 PM From: Nevin Landeros RN, CCDS Admit Date: 01/11/2022 09:05:00 PM Patient Name: Radha Olsen Visit Number: [id number] Discharge Date: ATTENTION: The Clinical Documentation Specialists (CDI) and [facility] Coding Staff appreciate your assistance in clarifying documentation. Please respond to the clarification below the line at the bottom and electronically sign. The CDI & [facility] Coding staff will review the response and follow-up if needed. Please note: Queries are made part of the Legal Health Record. If you have any questions, please contact the author of this message via ITS. Ameya Álvarez Your patient has the documented diagnosis of unspecified CHF in the consult and subsequent progress note. Additional information regarding the type and acuity of CHF is requested. History/Risk Factors: Clinical Indicators: 71-year-old female present to ED with complaints of shortness of breath, chest pain. Her past medical history is remarkable for heart failure, but patient currently is not in congestive heart failure per consult. 01/11 VS/Pulse OX: 123/70 67 18 98.0 96 % RA 01/11 BNP: 512 01/12 Echocardiogram Results: Limited:: Left ventricular dejection fraction is estimated at 50-55 % 01/11 Chest X Ray: No heart failure or pulmonary consolidation. 01/11 bun 20, creatinine 1.28 Treatment: Telemetry Monitoring Lasix 40 MG IV Q 12 01/11-01/12, Change to 80 MG IV Q 12 (01/12) Lasix 40 MG IV Daily (01/13) Tenormin 12.5 MG PO Daily In your professional opinion, can you please clarify the acuity and type of CHF if known? [ ] Acute Systolic Heart Failure (reduced EF) [ ] Chronic Systolic Heart Failure (reduced EF) [ ] Acute on Chronic Systolic Heart Failure (reduced EF) [ ] Acute Diastolic Heart Failure (preserved EF) [ ] Chronic Diastolic Heart Failure (preserved EF) [ ] Acute on Chronic Diastolic Heart Failure (preserved EF) [ ] Acute Systolic & Diastolic Heart Failure [ ] Chronic Systolic & Diastolic Heart Failure [ ] Acute on Chronic Heart Failure Systolic & Diastolic Heart Failure [ ] Other, please specify [ ] Unable to determine (Template Last Revised: October 2020) MTDD
--- NOTE | 2022-01-13 13:46 | P.CNPUL ---
History of Present Illness Consult date: 01/13/22 Chief complaint: fluid overload History of present illness: This is a 71-year-old morbidly obese female patient who presented to the emergency department with some increased shortness of breath, increased lower extremity edema, fluid overload as the patient reported to have gained significant amount of weight over this past several months. She had increased pitting edema lower extremities bilaterally. She stated that she was taken Lasix at home. She denied having any chest pain. No cough. No sputum production. No chest tightness. No wheezing. She has a previous history of COVID 19 back in September 2021. She is not vaccinated for COVID 19.. The patient has previous history of smoking. She is an ex-smoker. She has been maintained on Breztri as maintenance inhaler for her COPD 2 puffs twice a day and she has been using Lipitor HFA on an estimated basis. She has history of morbid obesity, and the patient has been using 2 obesity for weight loss. She suffers from obstructive sleep apnea and she utilizes CPAP on outpatient basis, she has other issues with chronic atrial fibrillation, hypertension arthritis, chronic back pain, von Willebrand disease and psoriasis. No documented history of coronary artery disease. The patient had a white cell count of 5.5 at time of admission with a hemoglobin of 16.5, platelet count of 242, normal correlation profile and normal d-dimer. Her COVID 19 testing was negative. Creatinine was 1.22, admission and currently is at 1.44 as the patient is a chronic stage II chronic kidney disease. Serum bicarb is at 33 with a sodium level of 138 and a potassium level of 3.8. The computed tomography scan of the chest was also done that showed mild interstitial infiltrates and atelectatic changes in lung bases bilaterally. This was compared to an earlier CAT scan of the chest from 2019 and the findings are essentially similar. No evidence of any interstitial lung disease. The patient has degenerative changes involving the spine without any compression fracture. The sternum stable clean and intact.Previous echocardiogram from 12/05/2021 showed an ejection fraction of 50-55%. The patient has underlying chronic atrial fibrillation. No synovial valvular abnormalities. Review of Systems Constitutional: Reports weight gain Eyes: denies as per HPI, denies blurred vision, denies bulging eye, denies decreased vision, denies diplopia, denies discharge, denies dry eye, denies irritation, denies itching, denies pain, denies photophobia, denies loss of peripheral vision, denies loss of vision, denies tunnel vision/blind spots Ears: deny: decreased hearing, ear discharge, earache, tinnitus Ears, nose, mouth and throat: Reports as per HPI Breasts: absent: as per HPI, change in shape, gynecomastia, masses, nipple discharge, pain, skin changes, swelling Breasts: Reports as per HPI Cardiovascular: Reports decreased exercise tolerance, Reports dyspnea on exertion, Reports edema, Reports irregular heart beat, Reports shortness of breath Respiratory: Reports dyspnea, Reports wheezing Gastrointestinal: Reports as per HPI Genitourinary: Reports as per HPI Menstruation: Reports as per HPI Musculoskeletal: Reports as per HPI Musculoskeletal: bilateral: ankle swelling, absent: ankle pain, ankle stiffness Integumentary: Reports as per HPI Neurological: Reports as per HPI Psychiatric: Reports as per HPI Endocrine: Reports as per HPI Hematologic/Lymphatic: Reports as per HPI Allergic/Immunologic: Reports as per HPI Past Medical History Past Medical History: Atrial Fibrillation (Previous cardioversion), Blood Disorder (VWD), Heart Failure, Deep Vein Thrombosis (DVT), Fibromyalgia, Hypertension, Osteoarthritis (OA), Skin Disorder, Sleep Apnea/CPAP/BIPAP, Thyroid Disorder Additional Past Medical History / Comment(s): obesity, MELIA, COPD, exsmoker, COVID 19 (Sep 2021), diverticulosis, real cyst, CKD stage 2, Obesity on Trulicity (lost weight) 05/04/20 FELL ON SIT OF HER WALKER AND BROKE LEFT DISTAL RADIUS. CHRONIC BACK PAIN. [employer] (BLOOD COAGULATION STABLE PER DR. BABCOCK IN FALL 2018). SOB, states has "fibrosis inlungs" u optical migraines. HX: ulcer, swelling of feet, psoriasis, anemia.was told that she had a "slient IA" Last Myocardial Infarction Date:: unknown History of Any Multi-Drug Resistant Organisms: None Reported Past Surgical History: Back Surgery, Breast Surgery, Cholecystectomy, Heart Catheterization, Hysterectomy, Joint Replacement, Orthopedic Surgery Additional Past Surgical History / Comment(s): bilateral knee replacements, Cataracts with lens implants with both eyes, left breast lumpectomy -benign, veins removed left leg, achillies tendon repair left leg, carpal tunnel rt hand, surgrery to repair injury end of nose, Past Anesthesia/Blood Transfusion Reactions: Postoperative Nausea & Vomiting (PONV) Additional Past Anesthesia/Blood Transfusion Reaction / Comment(s): had a blood transfusion at 7 years old, no reactions known. no family hx-adopted Past Psychological History: Anxiety, Depression Smoking Status: Former smoker Past Alcohol Use History: None Reported Additional Past Alcohol Use History / Comment(s): started smoking age 10 and quit 2013 , smoked 1pack a week, Past Drug Use History: None Reported - Past Family History Sister(s) Family Medical History: Cancer Additional Family Medical History / Comment(s): form of Leukemia - bone marrow transplant from patient Brother(s) Family Medical History: Diabetes Mellitus Father Additional Family Medical History / Comment(s): from enlarged heart Medications and Allergies Home Medications Medication Instructions Recorded Confirmed Type Multivit-Min/Iron/Folic/Lutein 1 tab PO DAILY 04/08/17 01/11/22 History [Centrum Silver Women Tablet] Furosemide [Lasix] 40 mg PO DAILY 11/08/19 01/11/22 History Albuterol Sulfate [Albuterol 2 puff PO RT-Q4H PRN 01/11/22 01/11/22 History Sulfate Hfa] Alpha Lipoic Acid 600 mg PO HS 01/11/22 01/11/22 History Amiodarone [Cordarone] 400 mg PO BID 01/11/22 01/11/22 History Apixaban [Eliquis] 5 mg PO BID 01/11/22 01/11/22 History Budesonide/Glycopyr/Formoterol 2 puff INHALATION RT-BID 01/11/22 01/11/22 History [Breztri Aerosphere Inhaler] Cholecalciferol [Vitamin D3 (125 250 mcg PO DAILY 01/11/22 01/11/22 History Mcg = 5000 Iu)] Dulaglutide [Trulicity] 3 mg SQ WE 01/11/22 01/11/22 History Levothyroxine Sodium [Synthroid] 50 mcg PO DAILY 01/11/22 01/11/22 History Magnesium Oxide [Gomes] 500 mg PO DAILY 01/11/22 01/11/22 History Olmesartan/Hydrochlorothiazide 1 tab PO DAILY 01/11/22 01/11/22 History [Olmesartan-Hctz 20-12.5 mg Tab] Potassium 500 mg PO DAILY 01/11/22 01/11/22 History Thiamine [Vitamin B-1] 100 mg PO HS 01/11/22 01/11/22 History Allergies Allergy/AdvReac Type Severity Reaction Status Date / Time bee venom protein (honey bee) Allergy Anaphylaxis Verified 01/11/22 20:45 ibuprofen [From Motrin] Allergy renal Verified 01/11/22 20:45 failure pregabalin [From Lyrica] Allergy Rapid Verified 01/11/22 20:45 Heart Rate/afib aspirin AdvReac nose bleeds Verified 01/11/22 20:45 green pepper AdvReac Vomiting Verified 01/11/22 20:45 Physical Exam Vitals: Vital Signs Temp Pulse Pulse Resp BP Pulse Ox 01/13/22 08:19 80 01/13/22 08:09 72 01/13/22 08:01 97.5 F L 78 20 120/63 96 01/13/22 07:58 72 01/13/22 05:00 98 F 95 18 138/62 91 L 01/12/22 20:33 78 01/12/22 20:29 98.6 F 69 18 139/69 94 L 01/12/22 20:28 76 01/12/22 16:03 80 01/12/22 15:56 78 01/12/22 11:41 80 01/12/22 11:40 98.5 F 90 20 107/71 94 L 01/12/22 11:31 80 Intake and Output 01/12/22 01/13/22 01/13/22 22:59 06:59 14:59 Intake Total 50 Balance 50 Intake: Intake, IV Titration 50 Amount cefTRIAXone 1 gm In 50 Sodium Chloride 0.9% 50 ml @ 100 mls/hr IVPB Q12HR [facility] Rx#:[id number] Other: Voiding Method Bedside Commode # Voids 3 3 Weight 152 kg General: Appears in no acute distress.the patient is morbidly obesity BMI 51. Breathing is nonlabored at this point in time HEAD: Normal with no signs of head trauma. EYES: PERRLA, EOMI, conjunctiva normal, no discharge. Neck was supple and without jugular venous distension, thyromegaly, or carotid bruits. Carotids were easily palpable bilaterally. There was no adenopathy. RESPIRATORY: Clear breath sounds bilaterally. diminished breath sound and the patient has some scattered expiratory wheezes bilaterally especially upon forceful exhalation C/V: Irregular rate and rhythm. S1 and S2 auscultated. 1-2+ pitting edema bilateral lower extremities. Peripheral pulses 2+ and intact throughout. Abdominal exam revealed normal bowel sounds. The abdomen was soft, non-tender, and without masses, organomegaly, or appreciable enlargement of the abdominal ao rta. EXT: Normal range of motion, no obvious deformity, there is increased lower extremity edema SKIN: No rashes or lesions observed on exposed skin. Neurologically, the patient is awake and alert and the patient does not have any focal neurological deficit. Cranial nerves are essentially intact. Results - Laboratory Findings CBC and BMP: 01/12/22 06:30 01/12/22 06:49 PT/INR, D-dimer PT 10.4 sec (9.0-12.0) 01/11/22 16:34 INR 1.0 (<1.2) 01/11/22 16:34 D-Dimer 0.19 mg/L FEU (<0.60) 01/12/22 13:02 Abnormal lab findings: Abnormal Labs 01/11/22 01/12/22 01/12/22 16:34 06:30 06:49 RBC 3.79 L MCV 100.7 H Carbon Dioxide 36 H 33 H BUN 20 H 23 H Creatinine 1.28 H 1.44 H Glucose 107 H 117 H Total Protein 6.1 L Albumin 3.4 L - Diagnostic Findings Chest x-ray: image reviewed CT scan - chest: image reviewed Assessment and Plan Plan: 1 shortness of breath, multifactorial, currently under investigation. Echo of the heart was a preserved LV function, no evidence of any valvular abnormal ities, no evidence of any significant pulmonary hypertension. CAT scan of the chest shows some atelectatic changes in lung bases, no evidence of any interstitial lung disease no evidence of a pneumonia or any other significant abnormalities. Patient has underlying COPD with some mild exacerbation the patient has obvious signs of fluid overload. 2 morbid obesity with BMI 51 3 chronic atrial fibrillation 4 previous history of COVID 19 back in September 2021, recovered and her follow-up testing is been negative 5 chronic stage II chronic kidney disease 6 chronic back pain 7 VON Willebrand's disease 8 history of psoriasis 9 hypothyroidism 10 COPD 11 obstructive sleep apnea 12 remote history of a DVT 13 degenerative arthritis Plan With the patient Lasix 40 mg IV every 24 hours Continue DuoNeb the blood she was [id number] The patient IV Solu Medrol Continue anticoagulation with Eliquis 5 mg by mouth twice a day No clear indication for an underlying infection and antibiotic coverage is essentially empiric Resume home medication We'll continue to follow
[2022-01-13] MEDS: AZITHROMYCIN 500 MG in SODIUM CHLORIDE 0.9% 250 ML IVPB SCH (17:42)
[2022-01-13] MEDS: PANTOPRAZOLE 40 MG TABLET PO SCH (17:42)
[2022-01-13] MEDS: THIAMINE 100 MG TAB PO SCH (21:03)
[2022-01-13] MEDS: ZOLPIDEM 5 MG TAB PO SCH (21:03)
[2022-01-13] MEDS: FUROSEMIDE 10 MG/ML 4 ML VIAL IV SCH (21:04)
[2022-01-14] MEDS: methylPREDNISolone SOD SUCCI 40 MG/ML 1 ML VIAL IV SCH ×4 (00:32→23:05)
[2022-01-14] MEDS: LEVOTHYROXINE 50 MCG TAB PO SCH (06:03)
[2022-01-14] MEDS: FORMOTEROL FUMARATE 20 MCG/2 ML NEBU INHALATION SCH ×2 (08:12→19:58)
[2022-01-14] MEDS: IPRATROPIUM 0.5 MG/2.5 ML NEBU INHALATION SCH ×4 (08:12→19:58)
[2022-01-14] MEDS: FLUTICASONE 44 MCG INHALER INHALATION SCH ×2 (08:13→19:58)
[2022-01-14] MEDS ORDERED: NON FORMULARY DRUG (Dulaglutide [Trulicity] 3 MG/0.5 ML Each) SQ SCH ×2 (09:00→22:00)
--- NOTE | 2022-01-14 09:02 | PN ---
PROGRESS NOTE This 71-year-old white female has a large amount of swelling. A lot of urination has occurred with IV Lasix this afternoon ordered by Dr. Tejeda. Discussed the case with her mercerizing range controller this morning. Treating for asthma, COPD and acid reflux with cough and congestion. Prognosis is guarded, but patient appears to be improving from yesterday. Continue with diuresis and treat for asthma and COPD exacerbation, possible pneumonia. MMODL / IJN: [id number] /
[2022-01-14] MEDS: PANTOPRAZOLE 40 MG TABLET PO SCH ×2 (09:34→15:46)
[2022-01-14] MEDS: APIXABAN 5 MG TAB PO SCH ×2 (09:34→20:08)
[2022-01-14] MEDS: LOSARTAN 50 MG TAB PO SCH (09:34)
[2022-01-14] MEDS: CHOLECALCIFEROL 125 MCG (5000 IU) TABLET PO SCH (09:34)
[2022-01-14] MEDS: MAGNESIUM OXIDE 400 MG TAB PO SCH (09:34)
[2022-01-14] MEDS: MULTIVITAMINS, THERA 1 EACH TAB PO SCH (09:34)
[2022-01-14] MEDS: AMIODARONE 200 MG TAB PO SCH (09:34)
[2022-01-14] MEDS: FUROSEMIDE 10 MG/ML 4 ML VIAL IV SCH ×2 (09:43→20:08)
[2022-01-14 10:52] LABS: Basophils # (A) 0.02 X 10*3/uL (0.00-0.10); Basophils % (A) 0.2 %; Eosinophils # (A) 0 X 10*3/uL (0.04-0.35); Eosinophils % (A) 0 %; HGB 12.6 g/dL (12.0-15.0); Immature Grans, Automated 0.6 %; Lymphocytes # (A) 0.87 X 10*3/uL (0.90-5.00); Lymphocytes % (A) 8.6 %; MCHC 31.5 g/dL (32.0-37.0); MCV 98.3 fL (80.0-97.0); Monocytes # (A) 0.22 X 10*3/uL (0.20-1.00); Monocytes % (A) 2.2 %; NRBC Per 100 WBC 0 /100 WBCS (0.0-0.0); Neutrophils # (A) 8.93 X 10*3/uL (1.80-7.70); Neutrophils % (A) 88.4 %; Platelet Count 253 X 10*3/uL (140-440); RBC 4.07 X 10*6/uL (4.10-5.20); RDW 13.1 % (11.5-14.5)
[2022-01-14 11:04] LABS: African American GFR (CKD) 43.7 (60.0-200.0); Albumin 3.7 g/dL (3.8-4.9); Albumin/Globulin Ratio 1.61 (1.60-3.17); Anion Gap 10.8 mmol/L (10.00-18.00); BUN/Creat Ratio 21.43 Ratio (12.00-20.00); Calcium 9.1 mg/dL (8.7-10.3); Carbon Dioxide 32.2 mmol/L (20.0-27.5); Globulin 2.3 g/dL (1.6-3.3); Non-African American GFR(CKD) 37.7 (60.0-200.0); Potassium 4.1 mmol/L (3.5-5.5); Total Bilirubin 0.3 mg/dL (0.30-1.20)
--- NOTE | 2022-01-14 11:19 | P.PN ---
Subjective This is a 71-year-old female with past medical history of hypertension, peripheral vascular disease, persistent atrial fibrillation on Eliquis, hyper tension, obesity, recent covid-19 infection 2 months ago. No history of coronary artery disease cardiac catheterization 10/2019 revealed normal coronary arteries. She follows in the office with Dr. Schumacher. We have been consulted for congestive heart failure. Patient presents emergency department on 01/11/22 with complaints of shortness of breath, cough, lower extremity edema, and chest tightness. She does not appear to be in congestive heart failure on exam. She received IV Lasix 40mg 01/12 AM and 80mg IV 4/ PM. Pro BNP was normal. D-dimer negative, troponin negative CT chest revealed mild interstitial infiltrates and atelectasis in the posterior lung calle which is similar to old exam. Chest x-ray with no acute heart failure. Limited echocardiogram revealed EF of 5055%, difficult study. 01/14/2022 She is seen and examined at bedside, no acute distress. Continue to have cough, non-productive. Breathing has not changed but Edema has improved. She does have some non-pitting generalized edema. She was started on IV Lasix yesterday and evaluated by Pulmonary. Labs, WBC 10.1, hemoglobin 12.6, platelets 253, sodium 141, potassium 4.1, BUN 30, serum creatinine 1.4, pro-calcitonin 0.09 She continues to be nature fibrillation with controlled ventricular rates GENERAL: Well-appearing, well-nourished and in no acute distress. NECK: Supple without JVD or thyromegaly. LUNGS: Breath sounds diminished in the bases to auscultation bilaterally. Respiration equal and unlabored. No wheezes, rales or rhonchi. HEART: Regular rate and rhythm without murmurs, rubs or gallops. S1 and S2 heard. EXTREMITIES: Normal range of motion, Non-pitting generalized edema. No clubbing or cyanosis. Peripheral pulses intact. ASSESSMENT Symptoms of shortness of breath, cough, likely multifactorial, does not appear to be in acute heart failure Hypertension Persistent atrial fibrillation on Eliquis Obesity BMI 51 Chronic heart failure with preserved ejection fraction Acute on chronic kidney disease History of Covid-19 in 09/2021 Obstructive sleep apnea PLAN IV Lasix per primary Recommend Monitoring I/Os, daily weights, renal function and electrolytes Recommend continuing Amiodarone 200mg daily, atenolol 12.5mg, losartan 100mg daily Patient seen and evaluated by Dr. Hou. We will follow the patient as needed. Please reconsult if needed. Recommend patient follow up with Dr. Schumacher outpatient within 1-2 weeks. Nurse Practitioner note has been reviewed, I agree with a documented findings and plan of care. Patient was seen and examined. Objective - Vital Signs Vital signs: Vital Signs Temp 97.3 F L 01/14/22 07:49 Pulse 80 01/14/22 10:19 Resp 20 01/14/22 10:19 BP 128/66 01/14/22 07:49 Pulse Ox 95 01/14/22 07:49 Intake & Output 01/13/22 01/14/22 01/14/22 18:59 06:59 18:59 Weight 152 kg 157 kg 151 kg Other: Voiding Method Toilet Toilet Toilet # Bowel Movements 0 - Labs CBC & Chem 7: 01/14/22 05:58 01/14/22 05:58 Labs: Abnormal Lab Results - Last 24 Hours (Table) 01/14/22 01/14/22 Range/Units 05:58 05:58 WBC 10.10 H (4.50-10.00) X 10*3/uL RBC 4.07 L (4.10-5.20) X 10*6/uL MCV 98.3 H (80.0-97.0) fL MCHC 31.5 L (32.0-37.0) g/dL Immature Gran # 0.06 H (0.00-0.04) X 10*3/uL Neutrophils # 8.93 H (1.80-7.70) X 10*3/uL Lymphocytes # 0.87 L (0.90-5.00) X 10*3/uL Eosinophils # 0 L (0.04-0.35) X 10*3/uL Carbon Dioxide 32.2 H (20.0-27.5) mmol/L BUN 30.0 H (9.0-27.0) mg/dL Est GFR (CKD-EPI)AfAm 43.7 L (60.0-200.0) Est GFR (CKD-EPI)NonAf 37.7 L (60.0-200.0) BUN/Creatinine Ratio 21.43 H (12.00-20.00) Ratio Glucose 149 H (70-110) mg/dL Total Protein 6.0 L (6.2-8.2) g/dL Albumin 3.7 L (3.8-4.9) g/dL
--- NOTE | 2022-01-14 13:37 | P.PN ---
Subjective Progress Note Date: 01/14/22 This is a 71-year-old morbidly obese female patient who presented to the emergency department with some increased shortness of breath, increased lower extremity edema, fluid overload as the patient reported to have gained significant amount of weight over this past several months. She had increased pitting edema lower extremities bilaterally. She stated that she was taken Lasix at home. She denied having any chest pain. No cough. No sputum production. No chest tightness. No wheezing. She has a previous history of COVID 19 back in September 2021. She is not vaccinated for COVID 19.. The brody nt has previous history of smoking. She is an ex-smoker. She has been maintained on Breztri as maintenance inhaler for her COPD 2 puffs twice a day and she has been using Lipitor HFA on an estimated basis. She has history of morbid obesity, and the patient has been using 2 obesity for weight loss. She suffers from obstructive sleep apnea and she utilizes CPAP on outpatient basis, she has other issues with chronic atrial fibrillation, hypertension arthritis, chronic back pain, von Willebrand disease and psoriasis. No documented history of coronary artery disease. The patient had a white cell count of 5.5 at time of admission with a hemoglobin of 16.5, platelet count of 242, normal corre lation profile and normal d-dimer. Her COVID 19 testing was negative. Creatinine was 1.22, admission and currently is at 1.44 as the patient is a chronic stage II chronic kidney disease. Serum bicarb is at 33 with a sodium level of 138 and a potassium level of 3.8. The computed tomography scan of the chest was also done that showed mild interstitial infiltrates and atelectatic changes in lung bases bilaterally. This was compared to an earlier CAT scan of the chest from 2019 and the findings are essentially similar. No evidence of any interstitial lung disease. The patient has degenerative changes involving the spine without any compression fracture. The sternum stable clean and intac t.Previous echocardiogram from 12/05/2021 showed an ejection fraction of 50-55%. The patient has underlying chronic atrial fibrillation. No synovial valvular abnormalities. The patient is seen today the 2021 in follow-up on the regular medical floor. She is currently sitting up in a chair at the bedside. Awake and alert in no acute distress. She is maintaining good O2 saturations in the mid 90s on room air. Afebrile. Hemodynamically stable. White count 10.1. Hemoglobin 12.6. Sodium 141. Potassium 4.1. BUN 30. Creatinine 1.4. Glucose 149. Calcitonin 0.09. She remains on Lasix 40 mg IV every 12 hours. Continued on bronchodilators, IV Solu-Medrol. Anticoagulated with Eliquis. Remains on empiric antibiotics in the form of ceftriaxone. Objective - Vital Signs Vital signs: Vital Signs Temp 98.1 F 01/14/22 11:48 Pulse 90 01/14/22 12:16 Resp 20 01/14/22 11:48 BP 121/57 01/14/22 11:48 Pulse Ox 95 01/14/22 11:48 Intake & Output 01/13/22 01/14/22 01/14/22 18:59 06:59 18:59 Weight 152 kg 157 kg 151 kg Other: Voiding Method Toilet Toilet Toilet # Bowel Movements 0 - Exam General: Awake, alert and morbidly obese 71-year-old female patient on room air. Appears in no acute distress. Breathing is nonlabored at this point in time HEAD: Normal with no signs of head trauma. EYES: PERRLA, EOMI, conjunctiva normal, no discharge. Neck was supple and without jugular venous distension, thyromegaly, or carotid bruits. Carotids were easily palpable bilaterally. There was no adenopathy. RESPIRATORY: Diminished breath sound and the patient has some scattered expiratory wheezes bilaterally especially upon forceful exhalation C/V: Irregular rate and rhythm. S1 and S2 auscultated. 1-2+ pitting edema bilateral lower extremities. Peripheral pulses 2+ and intact throughout. Abdominal exam revealed normal bowel sounds. The abdomen was soft, non-tender, and without masses, organomegaly, or appreciable enlargement of the abdominal aorta. EXT: Normal range of motion, no obvious deformity, there is increased lower extremity edema SKIN: No rashes or lesions observed on exposed skin. Neurologically, the patient is awake and alert and the patient does not have any focal neurological deficit. Cranial nerves are essentially intact. - Labs CBC & Chem 7: 01/14/22 05:58 01/14/22 05:58 Labs: Abnormal Lab Results - Last 24 Hours (Table) 01/14/22 01/14/22 Range/Units 05:58 05:58 WBC 10.10 H (4.50-10.00) X 10*3/uL RBC 4.07 L (4.10-5.20) X 10*6/uL MCV 98.3 H (80.0-97.0) fL MCHC 31.5 L (32.0-37.0) g/dL Immature Gran # 0.06 H (0.00-0.04) X 10*3/uL Neutrophils # 8.93 H (1.80-7.70) X 10*3/uL Lymphocytes # 0.87 L (0.90-5.00) X 10*3/uL Eosinophils # 0 L (0.04-0.35) X 10*3/uL Carbon Dioxide 32.2 H (20.0-27.5) mmol/L BUN 30.0 H (9.0-27.0) mg/dL Est GFR (CKD-EPI)AfAm 43.7 L (60.0-200.0) Est GFR (CKD-EPI)NonAf 37.7 L (60.0-200.0) BUN/Creatinine Ratio 21.43 H (12.00-20.00) Ratio Glucose 149 H (70-110) mg/dL Total Protein 6.0 L (6.2-8.2) g/dL Albumin 3.7 L (3.8-4.9) g/dL Assessment and Plan Assessment: 1 shortness of breath, multifactorial, currently under investigation. Echo of the heart was a preserved LV function, no evidence of any valvular abnormalities, no evidence of any significant pulmonary hypertension. CAT scan of the chest shows some atelectatic changes in lung bases, no evidence of any interstitial lung disease no evidence of a pneumonia or any other significant abnormalities. Patient has underlying COPD with some mild exacerbation the patient has obvious signs of fluid overload. 2 morbid obesity with BMI 51 3 chronic atrial fibrillation 4 previous history of COVID 19 back in September 2021, recovered and her follow-up testing is been negative 5 chronic stage II chronic kidney disease 6 chronic back pain 7 VON Willebrand's disease 8 history of psoriasis 9 hypothyroidism 10 COPD 11 obstructive sleep apnea 12 remote history of a DVT 13 degenerative arthritis Plan: The patient was seen and evaluated Stable and on room air Edema improved. Weight improved Continue IV diuretics for now Procalcitonin within normal limits Antibiotics will be discontinued We will continue to follow I have personally seen and examined the patient, performed the documentation and the assessment and plan as written. Number of minutes spent on the visit: 10. I have personally seen and examined the patient and reviewed the documentation. I performed a joint evaluation with the nurse practitioner in this evaluation was done more than 20 minutes. I fully agree with the documentation above and the plan of care. Clinically the patient is much improved. Continue treatment for another 24 hours. She is less short of breath. She reports improvement in her body weight which is down by around 8 pounds and she is also reporting some fluid lower extremity edema. No chest pain. We'll continue same treatment. Discontinue antibiotics for now. Pro calcitonin level has been within normal limits.
--- NOTE | 2022-01-14 16:47 | CT ---
EXAMINATION TYPE: CT lumbar spine wo con DATE OF EXAM: 01/14/2022 COMPARISON: 01/11/2022 HISTORY: Chronic lower back pain, DDD CT DLP: 2749.5 mGycm Automated exposure control for dose reduction was used. Images obtained from the level of T12-S3 vertebra without contrast. The lumbar vertebral have fairly normal alignment. There is multilevel spondylotic changes with vacuum disc. There is disc space narrowing and spur form ation. No compression fracture. There is multilevel hypertrophic facet arthropathy. There is no lumba r paraspinal mass. There is a slight lumbar thoracic levoscoliosis. Sacroiliac joints are intact. No evidence of focal bone destruction. IMPRESSION: Multilevel spondylotic changes. Mild levoscoliosis. No fracture. No significant change compared to ol d exam.
[2022-01-14] MEDS: HYDROmorphone 1 MG/ML 1 ML SYRINGE IVP PRN (20:05)
[2022-01-14] MEDS: THIAMINE 100 MG TAB PO SCH (20:08)
[2022-01-14] MEDS: ZOLPIDEM 5 MG TAB PO SCH (22:45)
[2022-01-15] MEDS: LEVOTHYROXINE 50 MCG TAB PO SCH (05:30)
[2022-01-15] MEDS: PANTOPRAZOLE 40 MG TABLET PO SCH ×2 (07:20→18:02)
[2022-01-15] MEDS: methylPREDNISolone SOD SUCCI 40 MG/ML 1 ML VIAL IV SCH (07:20)
[2022-01-15] MEDS: FLUTICASONE 44 MCG INHALER INHALATION SCH ×2 (07:40→20:18)
[2022-01-15] MEDS: FORMOTEROL FUMARATE 20 MCG/2 ML NEBU INHALATION SCH ×2 (07:40→20:16)
[2022-01-15] MEDS: IPRATROPIUM 0.5 MG/2.5 ML NEBU INHALATION SCH ×4 (07:40→20:15)
[2022-01-15 08:16] LABS: ALT 22 U/L (4-34); AST 26 U/L (14-36); African American GFR (CKD) 49 (>60 ml/min/1.73 sqM); Albumin 3.5 g/dL (3.5-5.0); Albumin/Globulin Ratio 1.2; Alkaline Phosphatase 49 U/L (38-126); Anion Gap 6 mmol/L; Blood Urea Nitrogen 43 mg/dL (7-17); Calcium 8.8 mg/dL (8.4-10.2); Carbon Dioxide 32 mmol/L (22-30); Chloride 101 mmol/L (98-107); Glucose 131 mg/dL (74-99); Magnesium 2.5 mg/dL (1.6-2.3); Non-African American GFR(CKD) 43 (>60 ml/min/1.73 sqM); Potassium 4.1 mmol/L (3.5-5.1); Sodium 139 mmol/L (137-145); Total Bilirubin 0.5 mg/dL (0.2-1.3); Total Protein 6.5 g/dL (6.3-8.2)
[2022-01-15] MEDS: APIXABAN 5 MG TAB PO SCH ×2 (09:39→20:10)
[2022-01-15] MEDS: AMIODARONE 200 MG TAB PO SCH (09:39)
[2022-01-15] MEDS: LOSARTAN 50 MG TAB PO SCH (09:41)
[2022-01-15] MEDS: MAGNESIUM OXIDE 400 MG TAB PO SCH (09:41)
[2022-01-15] MEDS: FUROSEMIDE 10 MG/ML 4 ML VIAL IV SCH ×2 (09:41→20:10)
[2022-01-15] MEDS: CHOLECALCIFEROL 125 MCG (5000 IU) TABLET PO SCH (09:41)
[2022-01-15] MEDS: MULTIVITAMINS, THERA 1 EACH TAB PO SCH (09:41)
[2022-01-15] MEDS: HYDROmorphone 1 MG/ML 1 ML SYRINGE IVP PRN (10:07)
--- NOTE | 2022-01-15 11:57 | P.PN ---
Subjective Progress Note Date: 01/15/22 This is a 71-year-old morbidly obese female patient who presented to the emergency department with some increased shortness of breath, increased lower extremity edema, fluid overload as the patient reported to have gained significant amount of weight over this past several months. She had increased pitting edema lower extremities bilaterally. She stated that she was taken Lasix at home. She denied having any chest pain. No cough. No sputum production. No chest tightness. No wheezing. She has a previous history of COVID 19 back in September 2021. She is not vaccinated for COVID 19.. The brody nt has previous history of smoking. She is an ex-smoker. She has been maintained on Breztri as maintenance inhaler for her COPD 2 puffs twice a day and she has been using Lipitor HFA on an estimated basis. She has history of morbid obesity, and the patient has been using 2 obesity for weight loss. She suffers from obstructive sleep apnea and she utilizes CPAP on outpatient basis, she has other issues with chronic atrial fibrillation, hypertension arthritis, chronic back pain, von Willebrand disease and psoriasis. No documented history of coronary artery disease. The patient had a white cell count of 5.5 at time of admission with a hemoglobin of 16.5, platelet count of 242, normal corre lation profile and normal d-dimer. Her COVID 19 testing was negative. Creatinine was 1.22, admission and currently is at 1.44 as the patient is a chronic stage II chronic kidney disease. Serum bicarb is at 33 with a sodium level of 138 and a potassium level of 3.8. The computed tomography scan of the chest was also done that showed mild interstitial infiltrates and atelectatic changes in lung bases bilaterally. This was compared to an earlier CAT scan of the chest from 2019 and the findings are essentially similar. No evidence of any interstitial lung disease. The patient has degenerative changes involving the spine without any compression fracture. The sternum stable clean and intac t.Previous echocardiogram from 12/05/2021 showed an ejection fraction of 50-55%. The patient has underlying chronic atrial fibrillation. No synovial valvular abnormalities. The patient is seen today the 2021 in follow-up on the regular medical floor. She is currently sitting up in a chair at the bedside. Awake and alert in no acute distress. She is maintaining good O2 saturations in the mid 90s on room air. Afebrile. Hemodynamically stable. White count 10.1. Hemoglobin 12.6. Sodium 141. Potassium 4.1. BUN 30. Creatinine 1.4. Glucose 149. Calcitonin 0.09. She remains on Lasix 40 mg IV every 12 hours. Continued on bronchodilators, IV Solu-Medrol. Anticoagulated with Eliquis. Remains on empiric antibiotics in the form of ceftriaxone. The patient is seen today 01/15/2022 in follow-up on the regular medical floor. She is currently resting comfortably in bed. Awake and alert in no acute distress. She is still having some generalized pain including back pain. Com puted tomography scan of the lumbar spine revealed multilevel spondylotic changes. Mild renal scoliosis. No fractures. No significant change compared to previous on 01/11/2022. Sodium 139. Potassium 4.1. BUN 43. Creatinine 1.27. Glucose 131. She is continued on IV Solu-Medrol, Flovent, Perforomist. She remains on IV diuretics 40 mg every 12 hours. No accurate I&O. She's anticoagulated with Eliquis. Dilaudid for pain control. She is maintaining good O2 saturations in the mid 90s on room air. She's afebrile. Hemodynamically stable. Objective - Vital Signs Vital signs: Vital Signs Temp 97.2 F L 01/15/22 04:30 Pulse 74 01/15/22 11:40 Resp 20 01/15/22 04:30 BP 152/80 01/15/22 09:38 Pulse Ox 97 01/15/22 04:30 Intake & Output 01/14/22 01/15/22 01/15/22 18:59 06:59 18:59 Intake Total 200 Balance 200 Weight 151 kg 154 kg Intake: Oral 200 Other: Voiding Method Toilet Toilet Toilet # Bowel Movements 0 0 - Exam General: Awake, alert and morbidly obese 71-year-old female patient on room air. Appears in no acute distress. Breathing is nonlabored at this point in time HEAD: Normal with no signs of head trauma. EYES: PERRLA, EOMI, conjunctiva normal, no discharge. Neck was supple and without jugular venous distension, thyromegaly, or carotid bruits. Carotids were easily palpable bilaterally. There was no adenopathy. RESPIRATORY: Diminished breath sound and the patient has some scattered expiratory wheezes bilaterally especially upon forceful exhalation C/V: Irregular rate and rhythm. S1 and S2 auscultated. 1-2+ pitting edema bilateral lower extremities. Peripheral pulses 2+ and intact throughout. Abdominal exam revealed normal bowel sounds. The abdomen was soft, non-tender, and without masses, organomegaly, or appreciable enlargement of the abdominal aorta. EXT: Normal range of motion, no obvious deformity, there is increased lower extremity edema SKIN: No rashes or lesions observed on exposed skin. Neurologically, the patient is awake and alert and the patient does not have any focal neurological deficit. Cranial nerves are essentially intact. - Labs CBC & Chem 7: 01/14/22 05:58 01/15/22 07:06 Labs: Abnormal Lab Results - Last 24 Hours (Table) 01/15/22 Range/Units 07:06 Carbon Dioxide 32 H (22-30) mmol/L BUN 43 H (7-17) mg/dL Creatinine 1.27 H (0.52-1.04) mg/dL Glucose 131 H (74-99) mg/dL Magnesium 2.5 H (1.6-2.3) mg/dL Assessment and Plan Assessment: 1 shortness of breath, multifactorial, currently under investigation. Echo of the heart was a preserved LV function, no evidence of any valvular abnormalities, no evidence of any significant pulmonary hypertension. CAT scan of the chest shows some atelectatic changes in lung bases, no evidence of any interstitial lung disease no evidence of a pneumonia or any other significant abnormalities. Pro-calcitonin 0.09. Patient has underlying COPD with some mild exacerbation the patient has obvious signs of fluid overload. 2 morbid obesity with BMI 51 3 chronic atrial fibrillation 4 previous history of COVID 19 back in September 2021, recovered and her follow-up testing is been negative 5 chronic stage II chronic kidney disease 6 chronic back pain 7 VON Willebrand's disease 8 history of psoriasis 9 hypothyroidism 10 COPD 11 obstructive sleep apnea 12 remote history of a DVT 13 degenerative arthritis Plan: The patient was seen and evaluated Stable and on room air Discontinue IV site Medrol Initiate prednisone 40 mg daily We'll follow on as-needed basis I have personally seen and examined the patient, performed the documentation and the assessment and plan as written. Number of minutes spent on the visit: 10. I have personally seen and examined the patient and reviewed the documentation. I performed a joint evaluation with the nurse practitioner in this evaluation was done more than 15 minutes. I fully agree with the documentation above and the plan of care.
[2022-01-15 19:43] VITALS: RESP 20
[2022-01-15] MEDS: THIAMINE 100 MG TAB PO SCH (20:10)
[2022-01-15] MEDS: ZOLPIDEM 5 MG TAB PO SCH (22:55)
[2022-01-16] MEDS: LEVOTHYROXINE 50 MCG TAB PO SCH (05:29)
[2022-01-16 05:32] VITALS: TEMP 98.6
[2022-01-16] MEDS: PANTOPRAZOLE 40 MG TABLET PO SCH (07:59)
[2022-01-16] MEDS: FLUTICASONE 44 MCG INHALER INHALATION SCH (08:44)
[2022-01-16] MEDS: FORMOTEROL FUMARATE 20 MCG/2 ML NEBU INHALATION SCH (08:44)
[2022-01-16] MEDS: IPRATROPIUM 0.5 MG/2.5 ML NEBU INHALATION SCH ×2 (08:44→12:21)
[2022-01-16] MEDS ORDERED: predniSONE 20 MG TAB PO SCH (09:00)
[2022-01-16 09:25] VITALS: BP 140/80; PULSE 77
[2022-01-16] MEDS: APIXABAN 5 MG TAB PO SCH (09:25)
[2022-01-16] MEDS: AMIODARONE 200 MG TAB PO SCH (09:25)
[2022-01-16] MEDS: FUROSEMIDE 10 MG/ML 4 ML VIAL IV SCH (09:26)
[2022-01-16] MEDS: CHOLECALCIFEROL 125 MCG (5000 IU) TABLET PO SCH (09:26)
[2022-01-16] MEDS: LOSARTAN 50 MG TAB PO SCH (09:27)
[2022-01-16] MEDS: MULTIVITAMINS, THERA 1 EACH TAB PO SCH (09:27)
[2022-01-16] MEDS: MAGNESIUM OXIDE 400 MG TAB PO SCH (09:27)
--- NOTE | 2022-01-16 12:33 | P.PN ---
Subjective Progress Note Date: 01/16/22 Principal diagnosis: Shortness of breath This is a 71-year-old morbidly obese female patient who presented to the emergency department with some increased shortness of breath, increased lower extremity edema, fluid overload as the patient reported to have gained significant amount of weight over this past several months. She had increased pitting edema lower extremities bilaterally. She stated that she was taken Lasix at home. She denied having any chest pain. No cough. No sputum production. No chest tightness. No wheezing. She has a previous history of COVID 19 back in September 2021. She is not vaccinated for COVID 19.. The patient has previous history of smoking. She is an ex-smoker. She has been maintained on Breztri as maintenance inhaler for her COPD 2 puffs twice a day and she has been using Lipitor HFA on an estimated basis. She has history of morbid obesity, and the patient has been using 2 obesity for weight loss. She suffers from obstructive sleep apnea and she utilizes CPAP on outpatient basis, she has other issues with chronic atrial fibrillation, hypertension arthritis, chronic back pain, von Willebrand disease and psoriasis. No documented history of coronary artery disease. The patient had a white cell count of 5.5 at time of admission with a hemoglobin of 16.5, platelet count of 242, normal correlation profile and normal d-dimer. Her COVID 19 testing was negative. Creatinine was 1.22, admission and currently is at 1.44 as the patient is a chronic stage II chronic kidney disease. Serum bicarb is at 33 with a sodium level of 138 and a potassium level of 3.8. The computed tomography scan of the chest was also done that showed mild interstitial infiltrates and atelectatic changes in lung bases bilaterally. This was compared to an earlier CAT scan of the chest from 2019 and the findings are essentially similar. No evidence of any interstitial lung disease. The patient has degenerative changes involving the spine without any compression fracture. The sternum stable clean and intact.Previous echocardiogram from 12/05/2021 showed an ejection fraction of 50-55%. The patient has underlying chronic atrial fibrillation. No synovial valvular abnormalities. The patient is seen today the 2021 in follow-up on the regular medical floor. She is currently sitting up in a chair at the bedside. Awake and alert in no acute distress. She is maintaining good O2 saturations in the mid 90s on room air. Afebrile. Hemodynamically stable. White count 10.1. Hemoglobin 12.6. Sodium 141. Potassium 4.1. BUN 30. Creatinine 1.4. Glucose 149. Calcitonin 0.09. She remains on Lasix 40 mg IV every 12 hours. Continued on bronchodilators, IV Solu-Medrol. Anticoagulated with Eliquis. Remains on empiric antibiotics in the form of ceftriaxone. The patient is seen today 01/15/2022 in follow-up on the regular medical floor. She is currently resting comfortably in bed. Awake and alert in no acute distress. She is still having some generalized pain including back pain. Computed tomography scan of the lumbar spine revealed multilevel spondylotic changes. Mild renal scoliosis. No fractures. No significant change compared to previous on 01/11/2022. Sodium 139. Potassium 4.1. BUN 43. Creatinine 1. 27. Glucose 131. She is continued on IV Solu-Medrol, Flovent, Perforomist. She remains on IV diuretics 40 mg every 12 hours. No accurate I&O. She's anticoagulated with Eliquis. Dilaudid for pain control. She is maintaining good O2 saturations in the mid 90s on room air. She's afebrile. Hemo dynamically stable. On 01/16/2022 patient seen in follow-up on medical surgical floor. She is fully dressed, she is getting ready to go home today, pulse ox is 99%, she sitting on edge of bed, breathing comfortably, lung sounds are clear to auscultation, lower extremity edema is improved, vital signs have been stable, no acute events overnight: No complaints of chest discomfort. Patient remains on Lasix 40 mg every 8 hours, her weight is stable, but patient states breathing is improved. Objective - Vital Signs Vital signs: Vital Signs Temp 98.6 F 01/16/22 05:31 Pulse 77 01/16/22 09:24 Resp 20 01/16/22 05:31 BP 140/80 01/16/22 09:24 Pulse Ox 99 01/16/22 09:24 Intake & Output 01/15/22 01/16/22 01/16/22 18:59 06:59 18:59 Intake Total 550 Balance 550 Weight 154 kg Intake: Intake, IV Titration 50 Amount cefTRIAXone 1 gm In 50 Sodium Chloride 0.9% 50 ml @ 100 mls/hr IVPB Q12HR [facility] Rx#:[id number] Oral 500 Other: Voiding Method Toilet Toilet Toilet # Voids 2 - Exam GENERAL EXAM: Alert, very pleasant, 71-year-old morbidly obese white female, sitting up on the edge of the bed, breathing comfortably, room air pulse ox is 99%, comfortable in no apparent distress. HEAD: Normocephalic/atraumatic. EYES: Normal reaction of pupils, equal size. Conjunctiva pink, sclera white. NOSE: Clear with pink turbinates. THROAT: No erythema or exudates. NECK: No masses, no JVD, no thyroid enlargement, no adenopathy. CHEST: No chest wall deformity. Symmetrical expansion. LUNGS: Equal air entry with no crackles, wheeze, rhonchi or dullness. CVS: Regular rate and rhythm, normal S1 and S2, no gallops, no murmurs, no rubs ABDOMEN: Soft, nontender. No hepatosplenomegaly, normal bowel sounds, no guarding or rigidity. EXTREMITIES: No clubbing, 1+ lower extremity edema, no cyanosis, 2+ pulses and upper and lower extremities. MUSCULOSKELETAL: Muscle strength and tone normal. SPINE: No scoliosis or deformity SKIN: No rashes CENTRAL NERVOUS SYSTEM: Alert and oriented -3. No focal deficits, tone is normal in all 4 extremities. PSYCHIATRIC: Alert and oriented -3. Appropriate affect. Intact judgment and insight. - Labs CBC & Chem 7: 01/14/22 05:58 01/15/22 07:06 Assessment and Plan Plan: Assessment: 1 shortness of breath, multifactorial, currently under investigation. Echo of the heart was a preserved LV function, no evidence of any valvular abnormalities, no evidence of any significant pulmonary hypertension. CAT scan of the chest shows some atelectatic changes in lung bases, no evidence of any interstitial lung disease no evidence of a pneumonia or any other significant abnormalities. Pro-calcitonin 0.09. Patient has underlying COPD with some mild exacerbation the patient has obvious signs of fluid overload. 2 morbid obesity with BMI 51 3 chronic atrial fibrillation 4 previous history of COVID 19 back in September 2021, recovered and her follow-up testing is been negative 5 chronic stage II chronic kidney disease 6 chronic back pain 7 VON Willebrand's disease 8 history of psoriasis 9 hypothyroidism 10 COPD 11 obstructive sleep apnea 12 remote history of a DVT 13 degenerative arthritis Plan: Patient has been diuresed Lower extremity edema and breathing are improved She is on room air, No acute events overnight Patient is being discharged home today She will continue on her albuterol HFA inhaler, she will finish outpatient course of prednisone taper, and continue on oral Lasix 40 mg twice daily Outpatient follow-up with Dr. Tejeda in the office in one week I have personally seen and examined the patient, performed the documentation and the assessment and plan as written. Number of minutes spent on the visit: [10] I have personally seen and examined the patient and reviewed the documentation. I performed a joint evaluation with the nurse practitioner in this evaluation was done more than 11 minutes. I fully agree with the documentation above and the plan of care. Time with Patient: Less than 30
[2022-01-16 12:35] VITALS: BMI 51.6
--- NOTE | 2022-01-20 14:17 | CDI ---
Documentation Clarification Form Date: 01/20/2022 01:39:31 PM From: Nevin Landeros RN, CCDS Admit Date: 01/11/2022 09:05:00 PM Patient Name: Radha Olsen Visit Number: [id number] Discharge Date: 01/16/2022 01:35:00 PM ATTENTION: The Clinical Documentation Specialists (CDI) and [facility] Coding Staff appreciate your assistance in clarifying documentation. Please respond to the clarification below the line at the bottom and electronically sign. The CDI & [facility] Coding staff will review the response and follow-up if needed. Please note: Queries are made part of the Legal Health Record. If you have any questions, please contact the author of this message via ITS. Dr. Leobardo Mccarty Conflicting documentation has been found in the medical record. As attending physician, please provide clarification. 01/14 (attending Dr. Mccarty) Continue with diuresis and treatment for asthma and COPD exacerbation, possible pneumonia 01/16 (Pulmonary: Dr. Tejeda): CAT scan of the chest shows some atelectatic changes in lung bases, no evidence of any interstitial lung disease no evidence of a pneumonia or any other significant abnormalities. Pro-calcitonin 0.09. Patient has underlying COPD with some mild exacerbation the patient has obvious signs of fluid overload. History/Risk Factors: Atrial Fibrillation, Heart failure, Hypertension, Clinical Indicators: 71-year-old female present with shortness of breath, dyspnea, lower extremities more swollen. She is experiencing worsening orthopnea. 01/11 Vital sign: 123/70 67 18 98.0 96 % 01/11 EKG: atrial fibrillation Treatment: Solu-Medrol 40 MG IV Q 8 HRS Rocephin 1GM IVPB Q 12 HRS01/12-01/16 Zithromycin 500 mg IVPH Q 24 HRS 01/12-01/13 Please clarify which diagnosis is most appropriate: [ ] Pneumonia present on admission and treated. [ ] Pneumonia Ruled Out [ ] Other (please specify) [ ] Unable to determine (Template Last Revised: November 2020) MTDD
--- NOTE | 2022-01-21 15:47 | PN ---
PROGRESS NOTE Pneumonia ruled in. MMODL / IJN: [id number] /
== END 2022-01-16 13:35 | disposition home or self-care (01) | DRG 190 ==
LOC: EC 16:22 → 5NMEDONC 21:05
PROVIDERS: ADMIT Family Medicine; ATTEND Family Medicine
DX: J44.1 Chronic obstructive pulmonary disease with (acute) exacerbation (principal); J18.9 Pneumonia, unspecified organism; D68.0 Von Willebrand disease; I13.0 Hypertensive heart and chronic kidney disease with heart failure and stage 1 through stage 4 chronic kidney disease, or unspecified chronic kidney disease; I48.19 Other persistent atrial fibrillation; I50.32 Chronic diastolic (congestive) heart failure; Z68.43 Body mass index [BMI] 50.0-59.9, adult; E44.1 Mild protein-calorie malnutrition; E03.9 Hypothyroidism, unspecified; E66.01 Morbid (severe) obesity due to excess calories; G47.33 Obstructive sleep apnea (adult) (pediatric); G89.29 Other chronic pain; I25.2 Old myocardial infarction; I73.9 Peripheral vascular disease, unspecified; I83.93 Asymptomatic varicose veins of bilateral lower extremities; K21.9 Gastro-esophageal reflux disease without esophagitis; L40.9 Psoriasis, unspecified; M19.90 Unspecified osteoarthritis, unspecified site; M41.9 Scoliosis, unspecified; K57.90 Diverticulosis of intestine, part unspecified, without perforation or abscess without bleeding; J84.10 Pulmonary fibrosis, unspecified; J44.0 Chronic obstructive pulmonary disease with (acute) lower respiratory infection; Z20.822 Contact with and (suspected) exposure to COVID-19; M54.9 Dorsalgia, unspecified; M79.7 Fibromyalgia; N18.2 Chronic kidney disease, stage 2 (mild); N28.1 Cyst of kidney, acquired; Z28.310 Unvaccinated for COVID-19; Z79.01 Long term (current) use of anticoagulants; Z79.890 Hormone replacement therapy; Z79.899 Other long term (current) drug therapy; Z80.6 Family history of leukemia; Z83.3 Family history of diabetes mellitus; Z86.16 Personal history of COVID-19; Z86.718 Personal history of other venous thrombosis and embolism; Z87.891 Personal history of nicotine dependence; Z90.710 Acquired absence of both cervix and uterus; Z96.653 Presence of artificial knee joint, bilateral; Z98.42 Cataract extraction status, left eye; Z98.41 Cataract extraction status, right eye; Z96.1 Presence of intraocular lens; Z90.49 Acquired absence of other specified parts of digestive tract; Z98.890 Other specified postprocedural states; Z88.6 Allergy status to analgesic agent; Z91.030 Bee allergy status
CPT/HCPCS: 36415; 71046; 71250; 72131; 74176; 80048; 80053; 83605; 83735; 83880; 84145; 84484; 85025; 85379; 85610; 85730; 87635; 93005; 93308; 94640; 94660; 96374; 96375; 99285

== ENCOUNTER 2022-01-26 20:24 | Observation (INO) | payer MEDICARE ==
--- NOTE | 2022-01-26 21:48 | XR ---
EXAMINATION TYPE: XR chest 2V DATE OF EXAM: 01/26/2022 COMPARISON: 01/11/2022 HISTORY: Short of breath TECHNIQUE: FINDINGS: Heart appears slightly enlarged. No heart failure. Lungs are clear of consolidation. Costop hrenic angles are clear. There is mild coarsening of interstitial markings. IMPRESSION: Mild pulmonary fibrotic changes. No acute lung disease. No change.
[2022-01-26 22:26] LABS: Basophils % (A) 1 %; Eosinophils # (A) 0.2 k/uL (0-0.7); Eosinophils % (A) 3 %; HCT 40.6 % (34.0-46.0); HGB 13.5 gm/dL (11.4-16.0); Lymphocytes % (A) 26 %; MCH 32.3 pg (25.0-35.0); MCHC 33.3 g/dL (31.0-37.0); MCV 96.9 fL (80.0-100.0); Mean Platelet Volume 7.5; Monocytes # (A) 0.4 k/uL (0-1.0); Monocytes % (A) 5 %; Neutrophils # (A) 4.9 k/uL (1.3-7.7); Neutrophils % (A) 63 %; Platelet Count 212 k/uL (150-450); RBC 4.19 m/uL (3.80-5.40); RDW 13.6 % (11.5-15.5); WBC 7.8 k/uL (3.8-10.6)
[2022-01-26 22:37] LABS: Albumin 3.3 g/dL (3.5-5.0); Calcium 8.4 mg/dL (8.4-10.2); Potassium 3.8 mmol/L (3.5-5.1); Total Bilirubin 0.6 mg/dL (0.2-1.3)
[2022-01-26 22:43] LABS: INR 0.9 (<1.2); Partial Thromboplastin Time 22.4 sec (22.0-30.0); Prothrombin Time 9.8 sec (9.0-12.0)
--- NOTE | 2022-01-27 03:27 | ED ---
SOB HPI - General Chief Complaint: Shortness of Breath Stated Complaint: Shortness of Breath, Swelling Time Seen by Provider: 01/27/22 03:11 Source: patient Mode of arrival: wheelchair - History of Present Illness Initial Comments: This patient is 71-year-old woman who presents to be evaluated for dyspnea and bilateral leg swelling. She states this been getting worse over the past 2-3 days. She states that her weight has gone up by over 20 pounds this weekend. She states that she was recently here for congestive heart failure and had been given some diuresis but she believes that she gained most of the water back over the weekend. No chest pain. There is dyspnea and orthopnea. Cough with no sputum. MD Complaint: shortness of breath -: days(s) Consistency: constant Improves With: nothing Worsens With: lying flat Known History Of: congestive heart failure - Related Data Home Medications Medication Instructions Recorded Confirmed Multivit-Min/Iron/Folic/Lutein 1 tab PO DAILY 04/08/17 01/27/22 [Centrum Silver Women Tablet] Albuterol Sulfate [Albuterol 2 puff PO RT-Q4H PRN 01/11/22 01/27/22 Sulfate Hfa] Alpha Lipoic Acid 600 mg PO HS 01/11/22 01/27/22 Apixaban [Eliquis] 5 mg PO BID 01/11/22 01/27/22 Cholecalciferol [Vitamin D3 (125 250 mcg PO DAILY 01/11/22 01/27/22 Mcg = 5000 Iu)] Dulaglutide [Trulicity] 3 mg SQ WE 01/11/22 01/27/22 Magnesium Oxide [Gomes] 500 mg PO DAILY 01/11/22 01/27/22 Potassium 500 mg PO DAILY 01/11/22 01/27/22 Thiamine [Vitamin B-1] 100 mg PO HS 01/11/22 01/27/22 Amiodarone [Cordarone] 200 mg PO DAILY 01/27/22 01/27/22 Budesonide/Glycopyr/Formoterol 2 puff INHALATION RT-BID 01/27/22 01/27/22 [Breztri Aerosphere Inhaler] Levothyroxine Sodium [Synthroid] 50 mcg PO DAILY 01/27/22 01/27/22 Mirtazapine [Remeron] 15 mg PO HS 01/27/22 01/27/22 Omeprazole 40 mg PO BID 01/27/22 01/27/22 Torsemide [Demadex] 10 mg PO DAILY 01/27/22 01/27/22 atenoloL [Tenormin] 25 mg PO DAILY 01/27/22 01/27/22 Allergies Allergy/AdvReac Type Severity Reaction Status Date / Time bee venom protein (honey bee) Allergy Anaphylaxis Verified 01/27/22 07:23 ibuprofen [From Motrin] Allergy renal Verified 01/27/22 07:23 failure pregabalin [From Lyrica] Allergy Rapid Verified 01/27/22 07:23 Heart Rate/afib aspirin AdvReac nose bleeds Verified 01/27/22 07:23 green pepper AdvReac Vomiting Verified 01/27/22 07:23 Review of Systems ROS Statement: Those systems with pertinent positive or pertinent negative responses have been documented in the HPI. ROS Other: All systems not noted in ROS Statement are negative. Constitutional: Denies: fever Respiratory: Reports: cough, dyspnea Cardiovascular: Reports: orthopnea, edema. Denies: chest pain, palpitations, syncope Gastrointestinal: Denies: abdominal pain, vomiting, diarrhea Genitourinary: Denies: dysuria Musculoskeletal: Denies: back pain Skin: Denies: rash Neurological: Denies: headache, weakness Past Medical History Past Medical History: Atrial Fibrillation, Blood Disorder, Heart Failure, Deep Vein Thrombosis (DVT), Fibromyalgia, Hypertension, Osteoarthritis (OA), Skin Disorder, Sleep Apnea/CPAP/BIPAP, Thyroid Disorder Additional Past Medical History / Comment(s): obesity, MELIA, COPD, exsmoker, COVID 19 (Sep 2021), diverticulosis, real cyst, CKD stage 2, Obesity on Trulicity (lost weight) 05/04/20 FELL ON SIT OF HER WALKER AND BROKE LEFT DISTAL RADIUS. CHRONIC BACK PAIN. [employer] (BLOOD COAGULATION STABLE PER DR. BABCOCK IN FALL 2018). SOB, states has "fibrosis inlungs" u optical migraines. HX: ulcer, swelling of feet, psoriasis, anemia.was told that she had a "slient [place]" Last Myocardial Infarction Date:: unknown History of Any Multi-Drug Resistant Organisms: None Reported Past Surgical History: Back Surgery, Breast Surgery, Cholecystectomy, Heart Catheterization, Hysterectomy, Joint Replacement, Orthopedic Surgery Additional Past Surgical History / Comment(s): bilateral knee replacements, Cataracts with lens implants with both eyes, left breast lumpectomy -benign, veins removed left leg, achillies tendon repair left leg, carpal tunnel rt hand, surgrery to repair injury end of nose, Past Anesthesia/Blood Transfusion Reactions: Postoperative Nausea & Vomiting (PONV) Additional Past Anesthesia/Blood Transfusion Reaction / Comment(s): had a blood transfusion at 7 years old, no reactions known. no family hx-adopted Past Psychological History: Anxiety, Depression Smoking Status: Former smoker Past Alcohol Use History: None Reported Past Drug Use History: None Reported - Past Family History Sister(s) Family Medical History: Cancer Additional Family Medical History / Comment(s): form of Leukemia - bone marrow transplant from patient Brother(s) Family Medical History: Diabetes Mellitus Father Additional Family Medical History / Comment(s): from enlarged heart General Exam General appearance: alert, in no apparent distress Head exam: Present: atraumatic, normocephalic Eye exam: Present: normal appearance. Absent: scleral icterus, conjunctival injection ENT exam: Present: normal oropharynx Neck exam: Present: normal inspection Respiratory exam: Present: normal lung sounds bilaterally Cardiovascular Exam: Present: irregular rhythm, normal heart sounds. Absent: systolic murmur, diastolic murmur, rubs, gallop GI/Abdominal exam: Present: soft. Absent: distended, tenderness, guarding, rebound, rigid Course Vital Signs 01/26/22 01/27/22 01/27/22 21:16 03:29 04:36 Temperature 98.6 F Pulse Rate 78 64 69 Respiratory 18 18 18 Rate Blood Pressure 146/62 134/89 152/83 O2 Sat by Pulse 94 L 99 98 Oximetry Medical Decision Making - Lab Data Result diagrams: 01/26/22 22:04 01/26/22 22:04 Lab Results 01/26/22 01/26/22 01/26/22 Range/Units 22:04 22:04 22:04 WBC 7.8 (3.8-10.6) k/uL RBC 4.19 (3.80-5.40) m/uL Hgb 13.5 (11.4-16.0) gm/dL Hct 40.6 (34.0-46.0) % MCV 96.9 (80.0-100.0) fL MCH 32.3 (25.0-35.0) pg MCHC 33.3 (31.0-37.0) g/dL RDW 13.6 (11.5-15.5) % Plt Count 212 (150-450) k/uL MPV 7.5 Neutrophils % 63 % Lymphocytes % 26 % Monocytes % 5 % Eosinophils % 3 % Basophils % 1 % Neutrophils # 4.9 (1.3-7.7) k/uL Lymphocytes # 2.0 (1.0-4.8) k/uL Monocytes # 0.4 (0-1.0) k/uL Eosinophils # 0.2 (0-0.7) k/uL Basophils # 0.0 (0-0.2) k/uL PT 9.8 (9.0-12.0) sec INR 0.9 (<1.2) APTT 22.4 (22.0-30.0) sec Sodium 138 (137-145) mmol/L Potassium 3.8 (3.5-5.1) mmol/L Chloride 105 (98-107) mmol/L Carbon Dioxide 29 (22-30) mmol/L Anion Gap 4 mmol/L BUN 34 H (7-17) mg/dL Creatinine 1.57 H (0.52-1.04) mg/dL Est GFR (CKD-EPI)AfAm 38 (>60 ml/min/1.73 sqM) Est GFR (CKD-EPI)NonAf 33 (>60 ml/min/1.73 sqM) Glucose 89 (74-99) mg/dL Calcium 8.4 (8.4-10.2) mg/dL Total Bilirubin 0.6 (0.2-1.3) mg/dL AST 27 (14-36) U/L ALT 20 (4-34) U/L Alkaline Phosphatase 48 (38-126) U/L Troponin I (0.000-0.034) ng/mL NT-Pro-B Natriuret Pep pg/mL Total Protein 6.0 L (6.3-8.2) g/dL Albumin 3.3 L (3.5-5.0) g/dL 01/26/22 01/26/22 Range/Units 22:04 22:04 WBC (3.8-10.6) k/uL RBC (3.80-5.40) m/uL Hgb (11.4-16.0) gm/dL Hct (34.0-46.0) % MCV (80.0-100.0) fL MCH (25.0-35.0) pg MCHC (31.0-37.0) g/dL RDW (11.5-15.5) % Plt Count (150-450) k/uL MPV Neutrophils % % Lymphocytes % % Monocytes % % Eosinophils % % Basophils % % Neutrophils # (1.3-7.7) k/uL Lymphocytes # (1.0-4.8) k/uL Monocytes # (0-1.0) k/uL Eosinophils # (0-0.7) k/uL Basophils # (0-0.2) k/uL PT (9.0-12.0) sec INR (<1.2) APTT (22.0-30.0) sec Sodium (137-145) mmol/L Potassium (3.5-5.1) mmol/L Chloride (98-107) mmol/L Carbon Dioxide (22-30) mmol/L Anion Gap mmol/L BUN (7-17) mg/dL Creatinine (0.52-1.04) mg/dL Est GFR (CKD-EPI)AfAm (>60 ml/min/1.73 sqM) Est GFR (CKD-EPI)NonAf (>60 ml/min/1.73 sqM) Glucose (74-99) mg/dL Calcium (8.4-10.2) mg/dL Total Bilirubin (0.2-1.3) mg/dL AST (14-36) U/L ALT (4-34) U/L Alkaline Phosphatase (38-126) U/L Troponin I <0.012 (0.000-0.034) ng/mL NT-Pro-B Natriuret Pep 639 pg/mL Total Protein (6.3-8.2) g/dL Albumin (3.5-5.0) g/dL Disposition Clinical Impression: Congestive heart failure Disposition: ADMITTED IP TO THIS HOSP Condition: Fair Is patient prescribed a controlled substance at d/c from ED?: No
[2022-01-27] MEDS ORDERED: MORPHINE SULFATE 4 MG/ML SYRINGE IV STA (04:21)
[2022-01-27] MEDS ORDERED: FUROSEMIDE 10 MG/ML 4 ML VIAL IV STA (04:23)
[2022-01-27] MEDS ORDERED: FUROSEMIDE 10 MG/ML 4 ML VIAL IV SCH (05:45)
[2022-01-27] MEDS ORDERED: ALBUTEROL NEBULIZED 2.5 MG/3 ML INHALATION PRN (08:34)
[2022-01-27] MEDS ORDERED: TORSEMIDE 20 MG TAB PO SCH (09:00)
[2022-01-27] MEDS: MULTIVITAMINS, THERA 1 EACH TAB PO SCH (10:00)
[2022-01-27] MEDS: PANTOPRAZOLE 40 MG TABLET PO SCH ×2 (10:00→21:55)
[2022-01-27] MEDS: CHOLECALCIFEROL 125 MCG (5000 IU) TABLET PO SCH (10:00)
[2022-01-27] MEDS: AMIODARONE 200 MG TAB PO SCH (10:00)
[2022-01-27] MEDS: APIXABAN 5 MG TAB PO SCH ×2 (10:00→21:55)
[2022-01-27] MEDS: atenoloL 25 MG TAB PO SCH (10:00)
[2022-01-27] MEDS: LEVOTHYROXINE 50 MCG TAB PO SCH (10:01)
[2022-01-27] MEDS: IPRATROPIUM 0.5 MG/2.5 ML NEBU INHALATION SCH ×3 (11:55→22:19)
[2022-01-27] MEDS: ACETAMINOPHEN TAB 325 MG TAB PO PRN (13:41)
[2022-01-27 14:45] VITALS: BMI 51.2
[2022-01-27] MEDS: FUROSEMIDE 10 MG/ML 4 ML VIAL IV SCH (16:23)
--- NOTE | 2022-01-27 19:22 | HP ---
HISTORY AND PHYSICAL This is a 71-year-old white female who came in with significant swelling and heart failure. She was seen in the cardiology office a few days ago. Her swelling of the legs got progressively worse despite being switched off of Lasix to torsemide. She gained 20 pounds over the weekend. She came in with congestive heart failure exacerbation. We will get Cardiology involved. She had a lot of fluid buildup and swelling in her legs after she got COVID and worsened her lungs. Interstitial fibrosis was seen on CT scan. HOME MEDICINES: See list. Fourteen-point review of systems except for shortness of breath, severe leg swelling, PND, orthopnea. PAST MEDICAL HISTORY: Atrial fibrillation, DVT, fibromyalgia, COVID-19, sleep disorder, hypertension, osteoarthritis. PAST SURGICAL HISTORY: Back surgery, breast surgery, cholecystectomy, heart catheterization, joint replacement, orthopedic surgeries. PSYCH HISTORY: Anxiety, depression. FAMILY HISTORY: Sister with cancer. Brother with diabetes mellitus. Father with enlarged heart. PHYSICAL EXAMINATION: Temperature 98.6, pulse 69-78, respiratory rate 16 to 18, blood pressure 140s to 150s over 60s to 80s, O2 94 to 9. BUN is 34, creatinine 1.57. White count 7.8, hemoglobin is 13.4. ASSESSMENT: 1. Acute diastolic heart failure. 2. Fluid overload. Will start her either back on IV Lasix or possibly switch her to torsemide through the IV, as she has large amount of fluid buildup. Prognosis is guarded. She should respond to diuresis over the next 24 to 48 hours. MMODL / IJN: [id number] /
[2022-01-27] MEDS ORDERED: NON FORMULARY DRUG (Budesonide/Glycopyr/Formoterol [Breztri Aerosphere Inhaler] 10.7 GM Gm INHALATION SCH (20:00)
[2022-01-27] MEDS ORDERED: POTASSIUM PO SCH (21:00)
[2022-01-27] MEDS ORDERED: NON FORMULARY DRUG (Alpha Lipoic Acid [Alpha Lipoic Acid] 600 MG Tablet) PO SCH (21:00)
[2022-01-27] MEDS: MIRTAZAPINE 15 MG TAB PO SCH (21:54)
[2022-01-27] MEDS: THIAMINE 100 MG TAB PO SCH (21:55)
[2022-01-27] MEDS: MAGNESIUM OXIDE 400 MG TAB PO SCH (21:55)
[2022-01-27] MEDS: SYMBICORT 160-4.5 MCG INHALER INHALATION SCH (22:19)
[2022-01-28] MEDS: FUROSEMIDE 10 MG/ML 4 ML VIAL IV SCH ×4 (00:27→23:19)
[2022-01-28] MEDS: LEVOTHYROXINE 50 MCG TAB PO SCH (06:16)
[2022-01-28] MEDS: PANTOPRAZOLE 40 MG TABLET PO SCH ×2 (07:54→21:27)
[2022-01-28] MEDS: APIXABAN 5 MG TAB PO SCH ×2 (07:54→21:27)
[2022-01-28] MEDS: MULTIVITAMINS, THERA 1 EACH TAB PO SCH (07:54)
[2022-01-28] MEDS: CHOLECALCIFEROL 125 MCG (5000 IU) TABLET PO SCH (07:54)
[2022-01-28] MEDS: AMIODARONE 200 MG TAB PO SCH (07:55)
[2022-01-28] MEDS: atenoloL 25 MG TAB PO SCH (07:55)
[2022-01-28] MEDS: SYMBICORT 160-4.5 MCG INHALER INHALATION SCH ×2 (08:14→20:44)
[2022-01-28] MEDS: IPRATROPIUM 0.5 MG/2.5 ML NEBU INHALATION SCH ×4 (08:14→20:44)
[2022-01-28] MEDS ORDERED: ASPIRIN 325 MG TAB PO SCH (09:00)
[2022-01-28] MEDS ORDERED: PATIENT'S OWN (Dulaglutide [Trulicity] 3 MG/0.5 ML Each) SQ SCH (09:00)
[2022-01-28] MEDS: ACETAMINOPHEN TAB 325 MG TAB PO PRN (10:02)
--- NOTE | 2022-01-28 10:14 | P.CNPUL ---
History of Present Illness Consult date: 01/28/22 Reason for consult: dyspnea Chief complaint: Increased swelling of the lower extremity along with shortness of breath History of present illness: Patient is a morbidly obese 71-year-old female with prior history of congestive heart failure patient in fact was in the hospital with exacerbation of CHF and lower extremity edema a month ago was treated with diuretics subsequently was discharged feeling better but however in the last 4 or 5 days increased swelling in the lower extremity has been noted along with increasing shortness of breath and orthopnea decided to come back in the hospital on specific questioning no history of first headache loss of consciousness or dizziness, no cough or sputum production is present, denies any night sweats fever or chills, denies any nausea vomiting or diarrhea, on arrival his CBC was within normal limit guaiacs were normal d-dimer was normal, BUN/creatinine elevated 30/1.57, BNP was 639, troponin was within normal limit chest x-ray no acute pulmonary process seen, subtle fibrotic changes noted which were stable, patient legs are wrapped, swelling was up to the trunk, patient has severe degree of sleep disorder breathing and sleep apnea he uses CPAP machine at home which she brought from home, she is also on direct oral anticoagulant as well as amiodarone currently she is on high-dose 40 mg of Lasix every 8 hourly along with continuation of Symbicort and home medications. She has a remote history of smoking quit his smoking 20-30 years ago used to smoke less than a pack in a week Review of Systems All systems: negative Past Medical History Past Medical History: Atrial Fibrillation, Blood Disorder, Heart Failure, Deep Vein Thrombosis (DVT), Fibromyalgia, Hypertension, Osteoarthritis (OA), Skin Disorder, Sleep Apnea/CPAP/BIPAP, Thyroid Disorder Additional Past Medical History / Comment(s): obesity, MELIA, COPD, exsmoker, COVID 19 (Sep 2021), diverticulosis, real cyst, CKD stage 2, Obesity on Trulicity (lost weight) 05/04/20 FELL ON SIT OF HER WALKER AND BROKE LEFT DISTAL RADIUS. CHRONIC BACK PAIN. [employer] (BLOOD COAGULATION STABLE PER DR. Ashley ANDERSON IN FALL 2018). SOB, states has "fibrosis inlungs" u optical migraines. HX: ulcer, swelling of feet, psoriasis, anemia.was told that she had a "slient [place]" Last Myocardial Infarction Date:: unknown History of Any Multi-Drug Resistant Organisms: None Reported Past Surgical History: Back Surgery, Breast Surgery, Cholecystectomy, Heart Catheterization, Hysterectomy, Joint Replacement, Orthopedic Surgery Additional Past Surgical History / Comment(s): bilateral knee replacements, Cataracts with lens implants with both eyes, left breast lumpectomy -benign, veins removed left leg, achillies tendon repair left leg, carpal tunnel rt hand, surgrery to repair injury end of nose, Past Anesthesia/Blood Transfusion Reactions: Postoperative Nausea & Vomiting (PONV) Additional Past Anesthesia/Blood Transfusion Reaction / Comment(s): had a blood transfusion at 7 years old, no reactions known. no family hx-adopted Past Psychological History: Anxiety, Depression Smoking Status: Former smoker Past Alcohol Use History: None Reported Past Drug Use History: None Reported - Past Family History Sister(s) Family Medical History: Cancer Additional Family Medical History / Comment(s): form of Leukemia - bone marrow transplant from patient Brother(s) Family Medical History: Diabetes Mellitus Father Additional Family Medical History / Comment(s): from enlarged heart Medications and Allergies Home Medications Medication Instructions Recorded Confirmed Type Multivit-Min/Iron/Folic/Lutein 1 tab PO DAILY 04/08/17 01/27/22 History [Centrum Silver Women Tablet] Albuterol Sulfate [Albuterol 2 puff PO RT-Q4H PRN 01/11/22 01/27/22 History Sulfate Hfa] Alpha Lipoic Acid 600 mg PO HS 01/11/22 01/27/22 History Apixaban [Eliquis] 5 mg PO BID 01/11/22 01/27/22 History Cholecalciferol [Vitamin D3 (125 250 mcg PO DAILY 01/11/22 01/27/22 History Mcg = 5000 Iu)] Dulaglutide [Trulicity] 3 mg SQ WE 01/11/22 01/27/22 History Magnesium Oxide [Gomes] 500 mg PO DAILY 01/11/22 01/27/22 History Potassium 500 mg PO DAILY 01/11/22 01/27/22 History Thiamine [Vitamin B-1] 100 mg PO HS 01/11/22 01/27/22 History Amiodarone [Cordarone] 200 mg PO DAILY 01/27/22 01/27/22 History Budesonide/Glycopyr/Formoterol 2 puff INHALATION RT-BID 01/27/22 01/27/22 History [Breztri Aerosphere Inhaler] Levothyroxine Sodium [Synthroid] 50 mcg PO DAILY 01/27/22 01/27/22 History Mirtazapine [Remeron] 15 mg PO HS 01/27/22 01/27/22 History Omeprazole 40 mg PO BID 01/27/22 01/27/22 History Torsemide [Demadex] 10 mg PO DAILY 01/27/22 01/27/22 History atenoloL [Tenormin] 25 mg PO DAILY 01/27/22 01/27/22 History Allergies Allergy/AdvReac Type Severity Reaction Status Date / Time bee venom protein (honey bee) Allergy Anaphylaxis Verified 01/27/22 07:23 ibuprofen [From Motrin] Allergy renal Verified 01/27/22 07:23 failure pregabalin [From Lyrica] Allergy Rapid Verified 01/27/22 07:23 Heart Rate/afib aspirin AdvReac nose bleeds Verified 01/27/22 07:23 green pepper AdvReac Vomiting Verified 01/27/22 07:23 Physical Exam Vitals: Vital Signs Temp Pulse Pulse Resp BP Pulse Ox 01/28/22 08:29 78 01/28/22 08:18 100 01/28/22 08:17 77 01/28/22 07:00 97.4 F L 68 18 119/77 95 01/28/22 02:00 69 18 103/64 97 01/27/22 20:00 97.3 F L 65 16 109/61 98 01/27/22 16:32 60 01/27/22 16:20 60 01/27/22 14:06 98.4 F 71 14 125/75 97 01/27/22 12:10 64 01/27/22 11:56 60 Intake and Output 01/27/22 01/28/22 01/28/22 22:59 06:59 14:59 Intake Total 480 240 Balance 480 240 Intake: Oral 480 240 Other: Voiding Method Incontinent # Voids 2 3 Weight 148.5 kg - Constitutional General appearance: disheveled, mild distress - EENT Eyes: EOMI, PERRLA ENT: hearing grossly normal Ears: bilateral: normal - Neck Carotids: bilateral: upstroke normal Thyroid: bilateral: normal size - Respiratory Respiratory: bilateral: diminished - Cardiovascular Rhythm: regular Heart sounds: normal: S1, S2 - Gastrointestinal General gastrointestinal: normal bowel sounds - Integumentary Integumentary: normal turgor - Neurologic Neurologic: CNII-XII intact - Musculoskeletal Musculoskeletal: gait normal, generalized weakness, strength equal bilaterally - Psychiatric Psychiatric: A&O x's 3, appropriate affect, intact judgment & insight Results - Laboratory Findings CBC and BMP: 01/26/22 22:04 01/26/22 22:04 PT/INR, D-dimer PT 9.8 sec (9.0-12.0) 01/26/22 22:04 INR 0.9 (<1.2) 01/26/22 22:04 D-Dimer 0.27 mg/L FEU (<0.60) 01/27/22 14:23 Abnormal lab findings: Abnormal Labs 01/26/22 22:04 BUN 34 H Creatinine 1.57 H Total Protein 6.0 L Albumin 3.3 L - Diagnostic Findings Chest x-ray: report reviewed, image reviewed Assessment and Plan Assessment: Shortness of breath due to fluid overload Sleep disorder breathing and sleep apnea Mild intermittent asthma not in exacerbation Acute on chronic diastolic heart failure Chronic kidney disease Chronic atrial fibrillation Hypertension hypertensive cardiovascular disease Van Willebrand disease History of silent [place] Plan: Continue Symbicort Continue gentle diuresis Hold on antibiotics and IV steroids Continue direct oral anticoagulant Monitor and observe renal functions closely Monitor observe weight Continue to use CPAP machine from home Further recommendations pending plan of care as per clinical response of the patient Time with Patient: Greater than 30
[2022-01-28] MEDS: HYDROmorphone 0.5 MG/0.5 ML SYRINGE IVP PRN ×2 (10:23→21:28)
--- NOTE | 2022-01-28 15:25 | PN ---
PROGRESS NOTE This 71-year-old white female remains on IV Lasix for congestive heart failure, acute on chronic diastolic heart failure. She is breathing better with less edema. BUN 34, creatinine 1.57. Albumin is low at 3.3. BNP was 639. She continues to improve. Possible discharge home in the next 24 to 48 hours. Saturating 97% on room air. Blood pressure 132/75, temperature 98.1, pulse 64, respiratory rate 18. ASSESSMENT: 1. Acute diastolic heart failure. 2. Hypertension. 3. Chronic obstructive pulmonary disease. 4. Pulmonary fibrosis. 5. Status post COVID. Remains on inhaler, diuresis. Prognosis guarded. Follow up as an outpatient. Possible discharge home in the next 24 to 48 hours. MMODL / IJN: [id number] /
[2022-01-28] MEDS: MIRTAZAPINE 15 MG TAB PO SCH (21:28)
[2022-01-28] MEDS: MAGNESIUM OXIDE 400 MG TAB PO SCH (21:28)
[2022-01-28] MEDS: THIAMINE 100 MG TAB PO SCH (21:28)
[2022-01-29] MEDS: LEVOTHYROXINE 50 MCG TAB PO SCH (05:49)
[2022-01-29] MEDS: IPRATROPIUM 0.5 MG/2.5 ML NEBU INHALATION SCH ×3 (07:26→16:24)
[2022-01-29] MEDS: SYMBICORT 160-4.5 MCG INHALER INHALATION SCH (07:34)
[2022-01-29] MEDS: FUROSEMIDE 10 MG/ML 4 ML VIAL IV SCH ×2 (07:36→16:16)
[2022-01-29] MEDS: AMIODARONE 200 MG TAB PO SCH ×2 (07:36→10:30)
[2022-01-29] MEDS: APIXABAN 5 MG TAB PO SCH (07:36)
[2022-01-29] MEDS: MULTIVITAMINS, THERA 1 EACH TAB PO SCH (07:36)
[2022-01-29] MEDS: CHOLECALCIFEROL 125 MCG (5000 IU) TABLET PO SCH (07:37)
[2022-01-29] MEDS: atenoloL 25 MG TAB PO SCH (07:37)
[2022-01-29] MEDS: PANTOPRAZOLE 40 MG TABLET PO SCH (07:37)
[2022-01-29] MEDS ORDERED: DOXYCYCLINE 100 MG CAP PO SCH (12:00)
--- NOTE | 2022-01-29 12:01 | P.PN ---
Subjective Progress Note Date: 01/29/22 Principal diagnosis: Shortness of breath due to fluid overload Sleep disorder breathing and sleep apnea Mild intermittent asthma not in exacerbation Acute on chronic diastolic heart failure Chronic kidney disease Chronic atrial fibrillation Hypertension hypertensive cardiovascular disease Van Willebrand disease History of silent [place] 01/29/2022, patient seen eval examined during the rounds swelling in the lower extremity is improved shortness of breath improved however patient is coughing producing light yellow sputum, would. Put patient on oral doxycycline for 7-10 days as tolerated, however otherwise patient is stable from pulmonary standpoint for discharge home we'll sign off at this point and follow-up as outpatient Patient is a morbidly obese 71-year-old female with prior history of congestive heart failure patient in fact was in the hospital with exacerbation of CHF and lower extremity edema a month ago was treated with diuretics subsequently was discharged feeling better but however in the last 4 or 5 days increased swelling in the lower extremity has been noted along with increasing shortness of breath and orthopnea decided to come back in the hospital on specific questioning no history of first headache loss of consciousness or dizziness, no cough or sputum production is present, denies any night sweats fever or chills, denies any nausea vomiting or diarrhea, on arrival his CBC was within normal limit guaiacs were normal d-dimer was normal, BUN/creatinine elevated 30/1.57, BNP was 639, troponin was within normal limit chest x-ray no acute pulmonary process seen, subtle fibrotic changes noted which were stable, patient legs are wrapped, swelling was up to the trunk, patient has severe degree of sleep disorder breathing and sleep apnea he uses CPAP machine at home which she brought from home, she is also on direct oral anticoagulant as well as amiodarone currently she is on high-dose 40 mg of Lasix every 8 hourly along with continuation of Symbicort and home medications. She has a remote history of smoking quit his smoking 20-30 years ago used to smoke less than a pack in a week Objective - Vital Signs Vital signs: Vital Signs Temp 98.5 F 01/29/22 07:00 Pulse 72 01/29/22 11:29 Resp 18 01/29/22 08:00 BP 99/65 01/29/22 07:00 Pulse Ox 97 01/29/22 07:00 Intake & Output 01/28/22 01/29/22 01/29/22 18:59 06:59 18:59 Intake Total 600 240 Balance 600 240 Weight 148.5 kg Intake: Oral 600 240 Other: Voiding Method Toilet Bedside Commode Incontinent # Voids 4 1 - Exam Constitutional General appearance: disheveled, mild distress - EENT Eyes: EOMI, PERRLA ENT: hearing grossly normal Ears: bilateral: normal - Neck Carotids: bilateral: upstroke normal Thyroid: bilateral: normal size - Respiratory Respiratory: bilateral: diminished - Cardiovascular Rhythm: regular Heart sounds: normal: S1, S2 - Gastrointestinal General gastrointestinal: normal bowel sounds - Integumentary Integumentary: normal turgor - Neurologic Neurologic: CNII-XII intact - Musculoskeletal Musculoskeletal: gait normal, generalized weakness, strength equal bilaterally - Psychiatric Psychiatric: A&O x's 3, appropriate affect, intact judgment & insight - Labs CBC & Chem 7: 01/26/22 22:04 01/26/22 22:04 Assessment and Plan Assessment: Shortness of breath due to fluid overload Sleep disorder breathing and sleep apnea Mild intermittent asthma not in exacerbation Acute bronchitis Acute on chronic diastolic heart failure Chronic kidney disease Chronic atrial fibrillation Hypertension hypertensive cardiovascular disease Van Willebrand disease History of silent [place] Plan: Trial of oral doxycycline for 5-7 days Continue Symbicort Continue gentle diuresis Hold on IV steroids Continue direct oral anticoagulant Monitor and observe renal functions closely Monitor observe weight Continue to use CPAP machine from home Further recommendations pending plan of care as per clinical response of the patient We'll sign off at this point of time follow-up as outpatient Time with Patient: Greater than 30
[2022-01-29 13:42] VITALS: BP 103/56; RESP 15; TEMP 99
[2022-01-29 16:33] VITALS: PULSE 65
[2022-01-29] MEDS ORDERED: TORSEMIDE 20 MG TAB PO SCH (21:00)
[2022-01-29] MEDS ORDERED: atenoloL 25 MG TAB PO SCH (21:00)
--- NOTE | 2022-01-29 21:45 | DS ---
DISCHARGE SUMMARY DISCHARGE MEDICATIONS: 1. Demadex 40 mg b.i.d. 2. Tenormin 25 b.i.d. 3. Symbicort 160/4.5 two puffs b.i.d. 4. Vibramycin 100 b.i.d. for 7 days. 5. Multivitamin daily. 6. Vitamin D3 5000 international units daily. 7. Tenormin 25 b.i.d. 8. Magnesium oxide 500 mg daily. 9. B1 100 mg daily. 10.Albuterol 2 puffs q.4 hours p.r.n. 11.Eliquis 5 mg b.i.d. 12.Remeron 15 at bedtime. 13.Levothyroxine 50 mcg daily. 14.Trulicity 3 mg on Wednesdays. 15.Omeprazole 40 b.i.d. 16. inhaler 2 puffs b.i.d. 17.Multivitamin daily. 18.Eliquis 5 mg b.i.d. CONDITION: Stable. PROGNOSIS: Guarded. The patient came into the hospital with congestive heart failure, acute on chronic diastolic, atrial fibrillation, atypical chest pain with some shortness of breath and weight gain. The patient received IV Lasix, as the torsemide she was on at home failed, per the underground roof bolter. The patient got better, had diuresis and lost 6 pounds in two days. Discussed with her. Will increase the torsemide dose at home and get her out of here. She is planned to go home today, at which time we will send her home and she will follow up as an outpatient. Prognosis is guarded. Please see further orders. MMODL / IJN: [id number] /
== END 2022-01-29 19:15 | disposition home or self-care (01) ==
LOC: EC 20:24 → 6NMEDSUR 01-27 05:33
PROVIDERS: ADMIT Family Medicine; ATTEND Family Medicine
DX: I13.0 Hypertensive heart and chronic kidney disease with heart failure and stage 1 through stage 4 chronic kidney disease, or unspecified chronic kidney disease (principal); I50.33 Acute on chronic diastolic (congestive) heart failure; N18.2 Chronic kidney disease, stage 2 (mild); J44.0 Chronic obstructive pulmonary disease with (acute) lower respiratory infection; J20.9 Acute bronchitis, unspecified; J45.20 Mild intermittent asthma, uncomplicated; I48.20 Chronic atrial fibrillation, unspecified; G47.33 Obstructive sleep apnea (adult) (pediatric); J84.10 Pulmonary fibrosis, unspecified; D68.0 Von Willebrand disease; M19.90 Unspecified osteoarthritis, unspecified site; I25.2 Old myocardial infarction; D64.9 Anemia, unspecified; M79.7 Fibromyalgia; E07.9 Disorder of thyroid, unspecified; K57.90 Diverticulosis of intestine, part unspecified, without perforation or abscess without bleeding; G89.29 Other chronic pain; M54.9 Dorsalgia, unspecified; F32.A Depression, unspecified; L40.9 Psoriasis, unspecified; F41.9 Anxiety disorder, unspecified; G56.01 Carpal tunnel syndrome, right upper limb; E66.01 Morbid (severe) obesity due to excess calories; Z68.42 Body mass index [BMI] 45.0-49.9, adult; Z79.899 Other long term (current) drug therapy; Z79.890 Hormone replacement therapy; Z79.01 Long term (current) use of anticoagulants; Z91.030 Bee allergy status; Z88.6 Allergy status to analgesic agent; Z91.018 Allergy to other foods; Z90.49 Acquired absence of other specified parts of digestive tract; Z98.1 Arthrodesis status; Z86.69 Personal history of other diseases of the nervous system and sense organs; Z98.41 Cataract extraction status, right eye; Z98.42 Cataract extraction status, left eye; Z96.1 Presence of intraocular lens; Z90.710 Acquired absence of both cervix and uterus; Z96.653 Presence of artificial knee joint, bilateral; Z87.891 Personal history of nicotine dependence; Z86.16 Personal history of COVID-19; Z83.3 Family history of diabetes mellitus; Z80.6 Family history of leukemia
CPT/HCPCS: 99285; 96374; 96375 ×2; 96376 ×3; 36415; 94640 ×6; 93005; 85379; 83880; 80053; 84484; 85025; 85610; 85730; 71046; G0378 ×3; J2270; J1940 ×3; J1170

== ENCOUNTER 2022-08-10 09:42 | Emergency (ER) | payer MEDICARE ==
[2022-08-10 09:52] VITALS: TEMP 98.3
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
[2022-08-10] MEDS ORDERED: MORPHINE SULFATE 4 MG/ML SYRINGE IVP STA (12:37)
[2022-08-10 13:03] LABS: Basophils % (A) 0 %; Eosinophils % (A) 1 %; HCT 39.9 % (34.0-46.0); HGB 13.7 gm/dL (11.4-16.0); Lymphocytes # (A) 1.2 k/uL (1.0-4.8); Lymphocytes % (A) 11 %; MCH 31.9 pg (25.0-35.0); MCHC 34.4 g/dL (31.0-37.0); MCV 92.6 fL (80.0-100.0); Mean Platelet Volume 8.5; Monocytes # (A) 0.7 k/uL (0-1.0); Monocytes % (A) 6 %; Neutrophils # (A) 8.9 k/uL (1.3-7.7); Neutrophils % (A) 80 %; Platelet Count 246 k/uL (150-450); RBC 4.31 m/uL (3.80-5.40); RDW 12.9 % (11.5-15.5)
[2022-08-10 13:04] LABS: Eosinophils # (A) 0.1 k/uL (0-0.7)
[2022-08-10 13:19] LABS: C Reactive Protein 4.1 mg/dL (<1.0); Calcium 9.5 mg/dL (8.4-10.2); Potassium 3.5 mmol/L (3.5-5.1)
[2022-08-10 14:14] LABS: Erythrocyte Sedimentation Rate 25 mm/hr (0-20)
[2022-08-10] MEDS ORDERED: SODIUM CHLORIDE 0.9% 500 ML 500 ML IV ONE (14:26)
--- NOTE | 2022-08-10 14:33 | US ---
EXAMINATION TYPE: US venous doppler duplex LE LT DATE OF EXAM: 08/10/2022 2:22 PM COMPARISON: US CLINICAL HISTORY: pain swelling. Pain and swelling. Hx of DVT. Patient takes eliquis. SIDE PERFORMED: Left TECHNIQUE: The lower extremity deep venous system is examined utilizing real time linear array sonog chantell with graded compression, doppler sonography and color-flow sonography. VESSELS IMAGED: Common Femoral Vein Deep Femoral Vein Greater Saphenous Vein area, possible small segment seen within groin, pt has had surgery on veins in this leg, probably on GSV. Femoral Vein Popliteal Vein Small Saphenous Vein * Proximal Calf Veins (* superficial vessels) Left Leg: No evidence of DVT in veins imaged at this time. Duplicate popliteal vein noted. IMPRESSION: No evidence of deep vein thrombosis of the left lower extremity.
[2022-08-10] MEDS ORDERED: traMADol 50 MG STARTER PACK 3 TAB BTL PO STA (15:17)
[2022-08-10 16:14] VITALS: BP 90/68; PULSE 80; RESP 16
== END 2022-08-10 16:49 | disposition home or self-care (01) ==
LOC: EC 09:42
DX: M79.672 Pain in left foot (principal); M79.671 Pain in right foot; I48.91 Unspecified atrial fibrillation; I11.0 Hypertensive heart disease with heart failure; I50.9 Heart failure, unspecified; E07.9 Disorder of thyroid, unspecified; G47.30 Sleep apnea, unspecified; F41.9 Anxiety disorder, unspecified; F32.A Depression, unspecified; Z87.891 Personal history of nicotine dependence; Z91.030 Bee allergy status; Z88.6 Allergy status to analgesic agent; Z91.018 Allergy to other foods; Z79.890 Hormone replacement therapy; Z79.899 Other long term (current) drug therapy; Z79.01 Long term (current) use of anticoagulants
CPT/HCPCS: 36415; 93005; 83880; 80048; 85652; 84484; 85025; 86140; 93971; 99284; 96374; J2270

== ENCOUNTER 2022-09-17 21:06 | Observation (INO) | payer MEDICARE ==
[2022-09-17] MEDS ORDERED: MORPHINE SULFATE 4 MG/ML SYRINGE IV STA (21:33)
[2022-09-17] MEDS ORDERED: ONDANSETRON 4 MG/2 ML VIAL IVP STA (21:33)
[2022-09-17] MEDS ORDERED: SODIUM CHLORIDE 0.9% 500 ML 500 ML IV STA (21:33)
[2022-09-17 22:13] LABS: ALT 32 U/L (4-34); AST 30 U/L (14-36); African American GFR (CKD) 42 (>60 ml/min/1.73 sqM); Albumin 3.3 g/dL (3.5-5.0); Alkaline Phosphatase 93 U/L (38-126); Amylase 38 U/L (30-110); Anion Gap 7 mmol/L; Blood Urea Nitrogen 49 mg/dL (7-17); Calcium 8.6 mg/dL (8.4-10.2); Carbon Dioxide 33 mmol/L (22-30); Chloride 99 mmol/L (98-107); Glucose 97 mg/dL (74-99); Lipase 108 U/L (23-300); Non-African American GFR(CKD) 36 (>60 ml/min/1.73 sqM); Sodium 139 mmol/L (137-145); Total Bilirubin 0.5 mg/dL (0.2-1.3); Total Protein 6.2 g/dL (6.3-8.2)
--- NOTE | 2022-09-17 22:31 | ED ---
General Adult HPI - General Chief complaint: Abdominal Pain Stated complaint: vomiting Time Seen by Provider: 09/17/22 21:18 Source: patient, EMS Mode of arrival: EMS Limitations: no limitations - History of Present Illness Initial comments: This patient is a 71-year-old woman who presents with complaint of having abdominal pains and diarrhea going back a couple of weeks intermittently. The patient states symptoms had come on she had a number of episodes of diarrhea also little vomiting then the symptoms cleared up for number days but she had recurrence this morning. She has had multiple watery bowel movements and abdominal cramping present diffusely. She has not noted fever or chills. No bloody or dark tarry stools. -: week(s) Location: abdomen Radiation: non-radiation Quality: aching Consistency: intermittent Improves with: none Worsens with: none Associated Symptoms: nausea/vomiting Treatments Prior to Arrival: none - Related Data Home Medications Medication Instructions Recorded Confirmed Multivit-Min/Iron/Folic/Lutein 1 tab PO DAILY 04/08/17 08/10/22 [Centrum Silver Women Tablet] Apixaban [Eliquis] 5 mg PO BID@1100,2300 01/11/22 08/10/22 Levothyroxine Sodium [Synthroid] 50 mcg PO DAILY 01/27/22 08/10/22 Omeprazole 40 mg PO BID 01/27/22 08/10/22 Acetaminophen [Tylenol Arthritis] 650 mg PO Q8H PRN 08/10/22 08/10/22 Cyanocobalamin [Vitamin B-12] 500 mcg PO DAILY 08/10/22 08/10/22 Escitalopram [Lexapro] 10 mg PO DAILY 08/10/22 08/10/22 Mounjaro (Unknown Dose) 1 dose SQ DIRECTED 08/10/22 08/10/22 Olmesartan/Hydrochlorothiazide 1 tab PO DAILY 08/10/22 08/10/22 [Olmesartan-Hctz 20-12.5 mg Tab] Torsemide [Demadex] 20 mg PO TID@1100,1700,2300 08/10/22 08/10/22 atenoloL [Tenormin] 25 mg PO DIRECTED 08/10/22 08/10/22 Allergies Allergy/AdvReac Type Severity Reaction Status Date / Time bee venom protein (honey bee) Allergy Anaphylaxis Verified 09/17/22 21:32 ibuprofen [From Motrin] Allergy renal Verified 09/17/22 21:32 failure pregabalin [From Lyrica] Allergy Rapid Verified 09/17/22 21:32 Heart Rate/afib aspirin AdvReac nose bleeds Verified 09/17/22 21:32 green pepper AdvReac Vomiting Verified 09/17/22 21:32 Review of Systems ROS Statement: Those systems with pertinent positive or pertinent negative responses have been documented in the HPI. ROS Other: All systems not noted in ROS Statement are negative. Constitutional: Denies: fever, chills Respiratory: Denies: cough, dyspnea Cardiovascular: Denies: chest pain, palpitations, edema Gastrointestinal: Reports: abdominal pain, nausea, diarrhea. Denies: melena, hematochezia Genitourinary: Denies: dysuria, hematuria Musculoskeletal: Denies: back pain Skin: Denies: rash Neurological: Denies: headache, weakness, numbness Past Medical History Past Medical History: Atrial Fibrillation, Blood Disorder, Heart Failure, Deep Vein Thrombosis (DVT), Fibromyalgia, Hypertension, Osteoarthritis (OA), Skin Disorder, Sleep Apnea/CPAP/BIPAP, Thyroid Disorder Additional Past Medical History / Comment(s): obesity, MELIA, COPD, exsmoker, COVID 19 (Sep 2021), diverticulosis, real cyst, CKD stage 2, Obesity on Trulicity (lost weight) 05/04/20 FELL ON SIT OF HER WALKER AND BROKE LEFT DISTAL RADIUS. CHRONIC BACK PAIN. [employer] (BLOOD COAGULATION STABLE PER DR. BABCOCK IN FALL 2018). SOB, states has "fibrosis inlungs" u optical migraines. HX: ulcer, swelling of feet, psoriasis, anemia.was told that she had a "slient [place]" Last Myocardial Infarction Date:: unknown History of Any Multi-Drug Resistant Organisms: None Reported Past Surgical History: Back Surgery, Breast Surgery, Cholecystectomy, Heart Cat heterization, Hysterectomy, Joint Replacement, Orthopedic Surgery Additional Past Surgical History / Comment(s): bilateral knee replacements, Cataracts with lens implants with both eyes, left breast lumpectomy -benign, veins removed left leg, achillies tendon repair left leg, carpal tunnel rt hand, surgrery to repair injury end of nose, Past Anesthesia/Blood Transfusion Reactions: Postoperative Nausea & Vomiting (PONV) Additional Past Anesthesia/Blood Transfusion Reaction / Comment(s): had a blood transfusion at 7 years old, no reactions known. no family hx-adopted Past Psychological History: Anxiety, Depression Smoking Status: Former smoker Past Alcohol Use History: None Reported Past Drug Use History: None Reported - Past Family History Sister(s) Family Medical History: Cancer Additional Family Medical History / Comment(s): form of Leukemia - bone marrow transplant from patient Brother(s) Family Medical History: Diabetes Mellitus Father Additional Family Medical History / Comment(s): from enlarged heart General Exam Limitations: no limitations General appearance: alert, in no apparent distress Head exam: Present: atraumatic, normocephalic Eye exam: Present: normal appearance Neck exam: Present: normal inspection Respiratory exam: Present: normal lung sounds bilaterally. Absent: respiratory distress, wheezes, rales, rhonchi, stridor Cardiovascular Exam: Present: regular rate, normal rhythm, normal heart sounds. Absent: systolic murmur, diastolic murmur, rubs, gallop GI/Abdominal exam: Present: soft. Absent: distended, tenderness, guarding, rebound, rigid, mass Extremities exam: Present: normal inspection, normal capillary refill. Absent: pedal edema, calf tenderness Back exam: Present: normal inspection. Absent: CVA tenderness (R), CVA tenderness (L) Neurological exam: Present: alert Skin exam: Present: warm, dry, intact, normal color. Absent: rash Course Vital Signs 09/17/22 09/17/22 09/17/22 21:25 22:00 22:30 Temperature 98.2 F Pulse Rate 84 97 90 Respiratory 20 20 18 Rate Blood Pressure 120/74 136/82 131/83 O2 Sat by Pulse 95 99 98 Oximetry 09/17/22 09/17/22 09/18/22 23:00 23:30 00:00 Temperature Pulse Rate 101 H 84 95 Respiratory 22 18 20 Rate Blood Pressure 124/79 112/55 110/79 O2 Sat by Pulse 100 100 100 Oximetry 09/18/22 09/18/22 09/18/22 00:30 01:00 01:30 Temperature Pulse Rate 106 H 89 103 H Respiratory 20 20 20 Rate Blood Pressure 113/69 103/58 113/64 O2 Sat by Pulse 100 100 99 Oximetry Medical Decision Making - Medical Decision Making Patient is 71-year-old woman having prolonged intermittent diarrhea as well as abdominal pain. She has not had much change in symptoms despite treatment here. Discussed case with her physician who will admit for further evaluation and treatment. - Lab Data Result diagrams: 09/17/22 21:51 09/17/22 21:51 Lab Results 09/17/22 09/17/22 09/17/22 Range/Units 21:51 21:51 21:51 WBC 15.0 H (3.8-10.6) k/uL RBC 4.25 (3.80-5.40) m/uL Hgb 13.5 (11.4-16.0) gm/dL Hct 40.1 (34.0-46.0) % MCV 94.4 (80.0-100.0) fL MCH 31.9 (25.0-35.0) pg MCHC 33.8 (31.0-37.0) g/dL RDW 12.4 (11.5-15.5) % Plt Count 355 (150-450) k/uL MPV 7.9 Neutrophils % 85 % Lymphocytes % 9 % Monocytes % 5 % Eosinophils % 1 % Basophils % 1 % Neutrophils # 12.7 H (1.3-7.7) k/uL Lymphocytes # 1.3 (1.0-4.8) k/uL Monocytes # 0.8 (0-1.0) k/uL Eosinophils # 0.1 (0-0.7) k/uL Basophils # 0.1 (0-0.2) k/uL Sodium 139 (137-145) mmol/L Potassium 3.0 L (3.5-5.1) mmol/L Chloride 99 (98-107) mmol/L Carbon Dioxide 33 H (22-30) mmol/L Anion Gap 7 mmol/L BUN 49 H (7-17) mg/dL Creatinine 1.46 H (0.52-1.04) mg/dL Est GFR (CKD-EPI)AfAm 42 (>60 ml/min/1.73 sqM) Est GFR (CKD-EPI)NonAf 36 (>60 ml/min/1.73 sqM) Glucose 97 (74-99) mg/dL Lactic Ac Sepsis Rflx Plasma Lactic Acid Angelo 2.6 H* (0.7-2.0) mmol/L Calcium 8.6 (8.4-10.2) mg/dL Total Bilirubin 0.5 (0.2-1.3) mg/dL AST 30 (14-36) U/L ALT 32 (4-34) U/L Alkaline Phosphatase 93 (38-126) U/L Total Protein 6.2 L (6.3-8.2) g/dL Albumin 3.3 L (3.5-5.0) g/dL Amylase 38 (30-110) U/L Lipase 108 (23-300) U/L Urine Color Urine Appearance (Clear) Urine pH (5.0-8.0) Ur Specific [place] (1.001-1.035) Urine Protein (Negative) Urine Glucose (UA) (Negative) Urine Ketones (Negative) Urine Blood (Negative) Urine Nitrite (Negative) Urine Bilirubin (Negative) Urine Urobilinogen (<2.0) mg/dL Ur Leukocyte Esterase (Negative) Acetone, Qual Negative (Negative) 09/17/22 09/18/22 09/18/22 Range/Units 22:19 00:34 02:30 WBC (3.8-10.6) k/uL RBC (3.80-5.40) m/uL Hgb (11.4-16.0) gm/dL Hct (34.0-46.0) % MCV (80.0-100.0) fL MCH (25.0-35.0) pg MCHC (31.0-37.0) g/dL RDW (11.5-15.5) % Plt Count (150-450) k/uL MPV Neutrophils % % Lymphocytes % % Monocytes % % Eosinophils % % Basophils % % Neutrophils # (1.3-7.7) k/uL Lymphocytes # (1.0-4.8) k/uL Monocytes # (0-1.0) k/uL Eosinophils # (0-0.7) k/uL Basophils # (0-0.2) k/uL Sodium (137-145) mmol/L Potassium (3.5-5.1) mmol/L Chloride (98-107) mmol/L Carbon Dioxide (22-30) mmol/L Anion Gap mmol/L BUN (7-17) mg/dL Creatinine (0.52-1.04) mg/dL Est GFR (CKD-EPI)AfAm (>60 ml/min/1.73 sqM) Est GFR (CKD-EPI)NonAf (>60 ml/min/1.73 sqM) Glucose (74-99) mg/dL Lactic Ac Sepsis Rflx Y Plasma Lactic Acid Angelo 1.5 (0.7-2.0) mmol/L Calcium (8.4-10.2) mg/dL Total Bilirubin (0.2-1.3) mg/dL AST (14-36) U/L ALT (4-34) U/L Alkaline Phosphatase (38-126) U/L Total Protein (6.3-8.2) g/dL Albumin (3.5-5.0) g/dL Amylase (30-110) U/L Lipase (23-300) U/L Urine Color Yellow Urine Appearance Clear (Clear) Urine pH 6.0 (5.0-8.0) Ur Specific [place] 1.011 (1.001-1.035) Urine Protein Negative (Negative) Urine Glucose (UA) Negative (Negative) Urine Ketones Negative (Negative) Urine Blood Negative (Negative) Urine Nitrite Negative (Negative) Urine Bilirubin Negative (Negative) Urine Urobilinogen <2.0 (<2.0) mg/dL Ur Leukocyte Esterase Negative (Negative) Acetone, Qual (Negative) Disposition Clinical Impression: Abdominal pain, Nausea vomiting and diarrhea Disposition: ADMITTED IP TO THIS HOSP Condition: Fair Is patient prescribed a controlled substance at d/c from ED?: No
[2022-09-17 22:35] LABS: Basophils # (A) 0.1 k/uL (0-0.2); Basophils % (A) 1 %; Eosinophils # (A) 0.1 k/uL (0-0.7); Eosinophils % (A) 1 %; HCT 40.1 % (34.0-46.0); HGB 13.5 gm/dL (11.4-16.0); Lymphocytes # (A) 1.3 k/uL (1.0-4.8); Lymphocytes % (A) 9 %; MCH 31.9 pg (25.0-35.0); MCHC 33.8 g/dL (31.0-37.0); MCV 94.4 fL (80.0-100.0); Mean Platelet Volume 7.9; Monocytes # (A) 0.8 k/uL (0-1.0); Monocytes % (A) 5 %; Neutrophils # (A) 12.7 k/uL (1.3-7.7); Neutrophils % (A) 85 %; Platelet Count 355 k/uL (150-450); RBC 4.25 m/uL (3.80-5.40); RDW 12.4 % (11.5-15.5)
--- NOTE | 2022-09-18 02:21 | CT ---
EXAMINATION TYPE: CT abdomen pelvis wo con DATE OF EXAM: 09/18/2022 COMPARISON: 01/11/2022 HISTORY: ABD PAIN CT DLP: 1943.9 mGycm Automated exposure control for dose reduction was used. Images obtained from the diaphragm to the floor of the pelvis with no contrast. There is some mild subsegmental atelectasis at the lung bases. Heart size is normal. No pericardial effusion. Liver spleen and stomach pancreas appear intact. There are clips from cholecystectomy. The bile ducts are not dilated. There is no adrenal mass. Kidneys have normal size. No hydronephrosis. There is 4 cm cortical cyst po sterior right kidney. No retroperitoneal adenopathy. Appendix is posterior and appears normal. The bl adder distends smoothly. The ureters are not dilated. No inguinal hernia. There are numerous sigmoid diverticula. No diverticulitis. The lumbar vertebrae have fairly normal alignment. There is a mild thoracolumbar levoscoliosis. No co mpression fracture. The bony pelvis is intact. The hip joints are intact. There is 3 cm fat-containing umbilical hernia. There is no mesenteric edema. No ascites or free air. No sign of a bowel obstruction IMPRESSION: There are mild multilevel spondylotic changes in the lumbar spine. No compression fracture. Colonic diverticulosis without diverticulitis. Normal appendix. Minimal subsegmental atelectasis at t he lung bases. No significant change.
[2022-09-18] MEDS ORDERED: SODIUM CHLORIDE 0.9% 1,000 ML IV ONE (02:44)
[2022-09-18] MEDS ORDERED: ONDANSETRON 4 MG/2 ML VIAL IVP STA (02:44)
[2022-09-18] MEDS ORDERED: POTASSIUM CHLORIDE ER 20 MEQ TAB.ER PO STA (02:44)
[2022-09-18 02:50] LABS: Appearance,Urine Clear (Clear); Bilirubin,Urine Negative (Negative); Blood,Urine Negative (Negative); Color,Urine Yellow; Glucose,Urine (UA) Negative (Negative); Ketones,Urine Negative (Negative); Leukocyte Esterase,Urine Negative (Negative); Nitrite,Urine Negative (Negative); Protein,Urine Negative (Negative); Specific Gravity,Urine 1.011 (1.001-1.035); Urobilinogen,Urine <2.0 mg/dL (<2.0)
[2022-09-18] MEDS ORDERED: NALOXONE 0.4 MG/ML 1 ML VIAL IV PRN (02:52)
[2022-09-18] MEDS ORDERED: NON FORMULARY DRUG (Acetaminophen [Tylenol Arthritis] 650 MG Tablet) PO PRN (02:55)
[2022-09-18] MEDS: SODIUM CHLORIDE 0.9% 1,000 ML IV SCH ×2 (03:26→16:57)
[2022-09-18] MEDS: LEVOTHYROXINE 50 MCG TAB PO SCH (06:00)
[2022-09-18] MEDS: PANTOPRAZOLE 40 MG TABLET PO SCH ×2 (08:30→17:46)
[2022-09-18] MEDS: APIXABAN 5 MG TAB PO SCH ×2 (08:30→21:30)
[2022-09-18] MEDS: LOSARTAN 50 MG TAB PO SCH (08:31)
[2022-09-18] MEDS: TORSEMIDE 20 MG TAB PO SCH ×3 (08:34→21:37)
[2022-09-18] MEDS: atenoloL 25 MG TAB PO SCH (08:51)
[2022-09-18] MEDS ORDERED: hydroCHLOROthiazide 12.5 MG CAP PO SCH (09:00)
[2022-09-18] MEDS ORDERED: FAMOTIDINE 20 MG TAB PO SCH (09:00)
[2022-09-18] MEDS: ACETAMINOPHEN TAB 325 MG TAB PO PRN ×2 (13:22→21:28)
[2022-09-18] MEDS: ONDANSETRON 4 MG/2 ML VIAL IVP PRN ×2 (13:23→21:24)
[2022-09-18] MEDS ORDERED: CHOLESTYRAMINE (WITH SUGAR) 4 GM PACKET PO PRN (13:53)
[2022-09-18] MEDS: traMADol 50 MG TAB PO PRN ×2 (14:09→21:30)
[2022-09-18] MEDS: GABAPENTIN 100 MG CAP PO SCH ×2 (16:00→21:28)
[2022-09-19] MEDS: GABAPENTIN 300 MG CAP PO SCH ×4 (00:36→23:09)
--- NOTE | 2022-09-19 00:43 | HP ---
HISTORY AND PHYSICAL HISTORY OF PRESENT ILLNESS: A 71-year-old female with abdominal pain and diarrhea for the past 2 weeks, came with hypokalemia, diarrhea and a little vomiting, multiple watery bowel movements, crampy diffusion. No bloody or dark tarry stools. Nonradiating nausea, vomiting. HOME MEDICINES: 1. Multivitamin daily. 2. Eliquis 5 mg b.i.d. 3. Synthroid 50 mcg daily. 4. Omeprazole 40 mg b.i.d. 5. Lexapro 10 mg daily. 6. Mounjaro 5 mg subcu weekly. 7. Olmesartan-hydrochlorothiazide 20/12.5 one daily. 8. Demadex 20 t.i.d. 9. Tenormin 25 b.i.d. ALLERGIES: Bee pollen, Motrin, Lyrica, aspirin, green peppers. PAST MEDICAL HISTORY: History of fibromyalgia, osteoarthritis, skin disorder, sleep apnea, hypothyroidism, COPD, diverticulosis, obesity. PAST SURGICAL HISTORY: Back surgery, breast surgery, cholecystectomy, heart catheterization, joint replacement, orthopedic surgery, left breast lumpectomy, left carotid surgery, anxiety, depression. FAMILY HISTORY: Sister with cancer, leukemia. PHYSICAL EXAMINATION: VITAL SIGNS: Temperature 98.2, blood pressure is 120s to 130s over 70s to 80s, O2 is 95% to 98%, pulse is 90s to 101. BMI is over 40. CARDIOVASCULAR: S1, S2. LUNGS: Rales at the bases. GI: Soft, nontender. HEMATOLOGY: Negative Homans. PSYCH: Fair mood and affect. OPHTHALMOLOGIC: Pupils are equal, round, and reactive. NEUROLOGIC: Alert and oriented x3. LABORATORY DATA: White count 15, hemoglobin is 13. BUN is 49, creatinine is 1.46, lactic acid 2.6, total protein 6.2. IMPRESSION: 1. Abdominal pain. 2. Nausea. 3. Vomiting. 4. Diarrhea. 5. Possible gastroenteritis. 6. Hypokalemia, replace potassium. 7. Sleep apnea, started her on CPAP. 8. Rule out congestive heart failure, diastolic. 9. History of atrial fibrillation. 10.Obesity. 11.Hypothyroidism. 12.Prediabetes. Follow up in next 24 to 48 hours. PROGNOSIS: Guarded. MMODL / IJN: [id number] /
[2022-09-19] MEDS: SODIUM CHLORIDE 0.9% 1,000 ML IV SCH ×3 (03:51→23:16)
[2022-09-19] MEDS: ACETAMINOPHEN TAB 325 MG TAB PO PRN (05:05)
[2022-09-19] MEDS: traMADol 50 MG TAB PO PRN ×2 (05:07→12:20)
[2022-09-19] MEDS: LEVOTHYROXINE 50 MCG TAB PO SCH (06:35)
[2022-09-19] MEDS: PANTOPRAZOLE 40 MG TABLET PO SCH ×2 (08:12→18:37)
[2022-09-19] MEDS: APIXABAN 5 MG TAB PO SCH ×2 (08:12→23:11)
[2022-09-19] MEDS: ESCITALOPRAM 10 MG TAB PO SCH (08:12)
[2022-09-19] MEDS: atenoloL 25 MG TAB PO SCH (08:12)
[2022-09-19] MEDS: LOSARTAN 50 MG TAB PO SCH (08:12)
[2022-09-19] MEDS: CYANOCOBALAMIN 500 MCG TAB PO SCH (08:12)
[2022-09-19] MEDS: FAMOTIDINE 20 MG TAB PO SCH (08:12)
[2022-09-19 08:59] LABS: Basophils # (A) 0.04 X 10*3/uL (0.00-0.10); Basophils % (A) 0.4 %; Eosinophils # (A) 0.15 X 10*3/uL (0.04-0.35); Eosinophils % (A) 1.5 %; HCT 34.8 % (37.2-46.3); HGB 11.7 g/dL (12.0-15.0); Immature Grans, Automated 3.7 %; Lymphocytes # (A) 1.55 X 10*3/uL (0.90-5.00); MCH 31.3 pg (27.0-32.0); MCHC 33.6 g/dL (32.0-37.0); Monocytes # (A) 0.64 X 10*3/uL (0.20-1.00); Monocytes % (A) 6.6 %; NRBC Per 100 WBC 0 /100 WBCS (0.0-0.0); Neutrophils # (A) 6.95 X 10*3/uL (1.80-7.70); Neutrophils % (A) 71.8 %; Platelet Count 335 X 10*3/uL (140-440); RBC 3.74 X 10*6/uL (4.10-5.20); WBC 9.69 X 10*3/uL (4.50-10.00)
[2022-09-19 10:31] LABS: African American GFR (CKD) 45.3 (60.0-200.0); Albumin 2.9 g/dL (3.8-4.9); Albumin/Globulin Ratio 1.32 (1.60-3.17); Anion Gap 9.2 mmol/L (10.00-18.00); BUN/Creat Ratio 15.88 Ratio (12.00-20.00); Blood Urea Nitrogen 21.6 mg/dL (9.0-27.0); Calcium 8.2 mg/dL (8.7-10.3); Carbon Dioxide 31.8 mmol/L (20.0-27.5); Globulin 2.2 g/dL (1.6-3.3); Non-African American GFR(CKD) 39.1 (60.0-200.0); Potassium 2.9 mmol/L (3.5-5.5); Total Bilirubin 0.4 mg/dL (0.30-1.20)
[2022-09-19] MEDS: POTASSIUM CHLORIDE ER 20 MEQ TAB.ER PO SCH (12:21)
[2022-09-19] MEDS: TORSEMIDE 20 MG TAB PO SCH ×3 (12:21→23:11)
[2022-09-19] MEDS ORDERED: POTASSIUM CHLORIDE 20 MEQ in WATER FOR INJECTION 1 100ML.BAG IVPB STA (17:23)
--- NOTE | 2022-09-19 18:25 | XR ---
EXAMINATION TYPE: XR ankle complete bilateral DATE OF EXAM: 09/19/2022 COMPARISON: NONE HISTORY: Pain TECHNIQUE: 3 views FINDINGS: There is moderate plantar and Achilles calcaneal spurring. Ankle mortise is anatomic. There is soft tissue swelling around the ankle. No significant joint space narrowing. There is spurring in the mid foot anteriorly. IMPRESSION: Degenerative spur formation. No fracture seen. Soft tissue swelling.
[2022-09-19] MEDS: HYDROcodone/APAP 7.5-325MG 1 EACH TAB PO PRN (18:37)
[2022-09-19] MEDS: methylPREDNISolone SOD SUCCI 40 MG/ML 1 ML VIAL IV SCH ×2 (18:38→23:11)
--- NOTE | 2022-09-19 22:11 | PN ---
PROGRESS NOTE SUBJECTIVE: A 71-year-old white female with morbid obesity. She states her foot has not improved with increased Neurontin. She says it is more in the joint due to severe pain. OBJECTIVE: CARDIOVASCULAR: S1, S2. LUNGS: Clear. GI: Soft. HEMATOLOGY: Negative Homans. PSYCH: Fair mood and affect. NEUROLOGIC: Alert and oriented x3. OPHTHALMOLOGIC: Pupils are equal, round, and reactive. PLAN: Could do x-rays of the feet. Check uric acid. Get Solu-Medrol for arthritis process in the foot. Re-x-ray of the feet PT OT. Replace his potassium at hypokalemia 3. We will give her an extra 20/40 by mouth every day, cardiovascular, S1, S2. Lungs clear. We stopped the HydroDIURIL due to hypokalemia. PROGNOSIS: Guarded. FOLLOWUP: Next 24 to 48 hours for possible rehab placement. MMODL / IJN: [id number] /
[2022-09-19] MEDS: COLCHICINE 0.6 MG EACH PO SCH (23:10)
[2022-09-20] MEDS: HYDROcodone/APAP 7.5-325MG 1 EACH TAB PO PRN ×3 (01:04→22:32)
[2022-09-20 07:53] LABS: Basophils % (A) 0 %; Eosinophils % (A) 0 %; HCT 37.9 % (34.0-46.0); HGB 12.8 gm/dL (11.4-16.0); Lymphocytes # (A) 0.8 k/uL (1.0-4.8); Lymphocytes % (A) 9 %; MCH 32.3 pg (25.0-35.0); MCHC 33.9 g/dL (31.0-37.0); MCV 95.2 fL (80.0-100.0); Mean Platelet Volume 7.2; Monocytes # (A) 0.1 k/uL (0-1.0); Monocytes % (A) 2 %; Neutrophils # (A) 7.1 k/uL (1.3-7.7); Neutrophils % (A) 88 %; Platelet Count 323 k/uL (150-450); RBC 3.98 m/uL (3.80-5.40); RDW 12.3 % (11.5-15.5); WBC 8.1 k/uL (3.8-10.6)
[2022-09-20 08:12] LABS: ALT 42 U/L (4-34); AST 20 U/L (14-36); African American GFR (CKD) 55 (>60 ml/min/1.73 sqM); Albumin 2.8 g/dL (3.5-5.0); Alkaline Phosphatase 110 U/L (38-126); Anion Gap 3 mmol/L; Blood Urea Nitrogen 16 mg/dL (7-17); Calcium 8.2 mg/dL (8.4-10.2); Carbon Dioxide 34 mmol/L (22-30); Chloride 100 mmol/L (98-107); Globulin 2.7 g/dL; Glucose 164 mg/dL (74-99); Non-African American GFR(CKD) 48 (>60 ml/min/1.73 sqM); Potassium 3.8 mmol/L (3.5-5.1); Sodium 137 mmol/L (137-145); Total Bilirubin 0.4 mg/dL (0.2-1.3); Total Protein 5.5 g/dL (6.3-8.2)
[2022-09-20] MEDS: methylPREDNISolone SOD SUCCI 40 MG/ML 1 ML VIAL IV SCH ×3 (10:02→22:29)
[2022-09-20] MEDS: GABAPENTIN 300 MG CAP PO SCH ×3 (10:03→20:57)
[2022-09-20] MEDS: POTASSIUM CHLORIDE ER 20 MEQ TAB.ER PO SCH (10:03)
[2022-09-20] MEDS: PANTOPRAZOLE 40 MG TABLET PO SCH ×2 (10:03→16:51)
[2022-09-20] MEDS: CYANOCOBALAMIN 500 MCG TAB PO SCH (10:04)
[2022-09-20] MEDS: atenoloL 25 MG TAB PO SCH (10:06)
[2022-09-20] MEDS: FAMOTIDINE 20 MG TAB PO SCH (10:07)
[2022-09-20] MEDS: COLCHICINE 0.6 MG EACH PO SCH ×2 (10:07→20:57)
[2022-09-20] MEDS: ESCITALOPRAM 10 MG TAB PO SCH (10:08)
[2022-09-20] MEDS: LOSARTAN 50 MG TAB PO SCH (10:09)
[2022-09-20] MEDS: TORSEMIDE 20 MG TAB PO SCH ×3 (10:09→22:28)
[2022-09-20] MEDS: LEVOTHYROXINE 50 MCG TAB PO SCH (10:13)
[2022-09-20] MEDS: APIXABAN 5 MG TAB PO SCH ×2 (10:22→22:28)
[2022-09-20] MEDS: SODIUM CHLORIDE 0.9% 1,000 ML IV SCH ×2 (20:57→20:59)
[2022-09-21] MEDS: SODIUM CHLORIDE 0.9% 1,000 ML IV SCH ×3 (04:50→23:28)
[2022-09-21] MEDS: HYDROcodone/APAP 7.5-325MG 1 EACH TAB PO PRN ×3 (05:32→21:07)
[2022-09-21] MEDS: LEVOTHYROXINE 50 MCG TAB PO SCH (05:32)
[2022-09-21] MEDS: atenoloL 25 MG TAB PO SCH (09:08)
[2022-09-21] MEDS: CYANOCOBALAMIN 500 MCG TAB PO SCH (09:08)
[2022-09-21] MEDS: GABAPENTIN 300 MG CAP PO SCH ×3 (09:08→21:08)
[2022-09-21] MEDS: FAMOTIDINE 20 MG TAB PO SCH (09:08)
[2022-09-21] MEDS: LOSARTAN 50 MG TAB PO SCH (09:09)
[2022-09-21] MEDS: COLCHICINE 0.6 MG EACH PO SCH ×2 (09:09→21:08)
[2022-09-21] MEDS: methylPREDNISolone SOD SUCCI 40 MG/ML 1 ML VIAL IV SCH ×3 (09:09→23:28)
[2022-09-21] MEDS: POTASSIUM CHLORIDE ER 20 MEQ TAB.ER PO SCH (09:09)
[2022-09-21] MEDS: ESCITALOPRAM 10 MG TAB PO SCH (09:09)
[2022-09-21] MEDS: PANTOPRAZOLE 40 MG TABLET PO SCH ×2 (09:09→17:58)
[2022-09-21] MEDS: APIXABAN 5 MG TAB PO SCH ×2 (11:07→23:28)
[2022-09-21] MEDS: TORSEMIDE 20 MG TAB PO SCH ×3 (11:07→21:07)
[2022-09-22] MEDS: HYDROcodone/APAP 7.5-325MG 1 EACH TAB PO PRN ×2 (05:05→11:35)
[2022-09-22] MEDS: LEVOTHYROXINE 50 MCG TAB PO SCH (05:05)
[2022-09-22 08:13] VITALS: RESP 16
[2022-09-22] MEDS: LOSARTAN 50 MG TAB PO SCH (08:39)
[2022-09-22] MEDS: POTASSIUM CHLORIDE ER 20 MEQ TAB.ER PO SCH (08:39)
[2022-09-22] MEDS: FAMOTIDINE 20 MG TAB PO SCH (08:40)
[2022-09-22] MEDS: COLCHICINE 0.6 MG EACH PO SCH (08:40)
[2022-09-22] MEDS: CYANOCOBALAMIN 500 MCG TAB PO SCH (08:40)
[2022-09-22] MEDS: PANTOPRAZOLE 40 MG TABLET PO SCH ×2 (08:40→17:33)
[2022-09-22] MEDS: methylPREDNISolone SOD SUCCI 40 MG/ML 1 ML VIAL IV SCH ×2 (08:40→17:32)
[2022-09-22] MEDS: ESCITALOPRAM 10 MG TAB PO SCH (08:40)
[2022-09-22] MEDS: GABAPENTIN 300 MG CAP PO SCH ×2 (08:40→17:33)
[2022-09-22] MEDS: atenoloL 25 MG TAB PO SCH (08:41)
--- NOTE | 2022-09-22 10:27 | PN ---
PROGRESS NOTE SUBJECTIVE: She is up in the chair. Her gout in her right foot is improving, high uric acid of 11. Colchicine has been given 0.6 b.i.d. She continues to improve from medical standpoint. OBJECTIVE: CARDIOVASCULAR: S1, S2. LUNGS: Clear. GI: Soft. HEMATOLOGY: Negative Homans. MUSCULOSKELETAL: . PSYCH: Fair mood and affect. NEUROLOGIC: Alert and oriented x3. ASSESSMENT: Acute gout, gastroenteritis, hypokalemia. The patient is much improved. Possible discharge home in the next 24 to 48 hours. fpc. Her range of motion is improved. Prognosis is guarded. MMODL / IJN: [id number] /
[2022-09-22 10:37] LABS: African American GFR (CKD) 50.1 (60.0-200.0); Albumin 3.1 g/dL (3.8-4.9); Albumin/Globulin Ratio 1.34 (1.60-3.17); Anion Gap 9.5 mmol/L (10.00-18.00); BUN/Creat Ratio 22.56 Ratio (12.00-20.00); Blood Urea Nitrogen 28.2 mg/dL (9.0-27.0); Calcium 8.7 mg/dL (8.7-10.3); Carbon Dioxide 30.1 mmol/L (20.0-27.5); Globulin 2.3 g/dL (1.6-3.3); Non-African American GFR(CKD) 43.2 (60.0-200.0); Potassium 4.1 mmol/L (3.5-5.5); Total Bilirubin 0.2 mg/dL (0.30-1.20); Total Protein 5.4 g/dL (6.2-8.2)
[2022-09-22] MEDS: SODIUM CHLORIDE 0.9% 1,000 ML IV SCH (11:25)
[2022-09-22] MEDS: APIXABAN 5 MG TAB PO SCH (11:34)
[2022-09-22] MEDS: TORSEMIDE 20 MG TAB PO SCH ×2 (11:35→17:33)
[2022-09-22 11:43] LABS: Basophils # (M) 0 X 10*3/uL (0.00-0.10); Eosinophils # (M) 0 X 10*3/uL (0.04-0.35); HCT 37.2 % (37.2-46.3); HGB 11.9 g/dL (12.0-15.0); Lymphocytes # (M) 0.94 X 10*3/uL (0.90-5.00); MCH 30.9 pg (27.0-32.0); MCV 96.6 fL (80.0-97.0); Mean Platelet Volume 9.1 fL (9.5-12.2); Monocytes # (M) 0.23 X 10*3/uL (0.20-1.00); Myelocytes % 1 % (0-0); NRBC Per 100 WBC 0 /100 WBCS (0.0-0.0); Neutrophils # (M) 10.45 X 10*3/uL (2.00-8.90); Neutrophils % (M) 89 %; Platelet Count 400 X 10*3/uL (140-440); RBC 3.85 X 10*6/uL (4.10-5.20); RDW 12.7 % (11.5-14.5); WBC 11.74 X 10*3/uL (4.50-10.00)
[2022-09-22 13:27] VITALS: BP 163/78; PULSE 72; TEMP 98.4
== END 2022-09-22 19:02 | disposition home or self-care (01) ==
LOC: EC 21:06 → 5NMEDONC 09-18 02:55
PROVIDERS: ADMIT Family Medicine; ATTEND Family Medicine
DX: K52.9 Noninfective gastroenteritis and colitis, unspecified (principal); E66.01 Morbid (severe) obesity due to excess calories; Z68.42 Body mass index [BMI] 45.0-49.9, adult; M10.9 Gout, unspecified; E87.6 Hypokalemia; E03.9 Hypothyroidism, unspecified; I48.91 Unspecified atrial fibrillation; R73.03 Prediabetes; I13.0 Hypertensive heart and chronic kidney disease with heart failure and stage 1 through stage 4 chronic kidney disease, or unspecified chronic kidney disease; N18.2 Chronic kidney disease, stage 2 (mild); I50.9 Heart failure, unspecified; D63.1 Anemia in chronic kidney disease; Z20.822 Contact with and (suspected) exposure to COVID-19; G47.33 Obstructive sleep apnea (adult) (pediatric); M79.7 Fibromyalgia; M19.90 Unspecified osteoarthritis, unspecified site; Z86.718 Personal history of other venous thrombosis and embolism; Z87.81 Personal history of (healed) traumatic fracture; L98.9 Disorder of the skin and subcutaneous tissue, unspecified; J44.9 Chronic obstructive pulmonary disease, unspecified; Z86.16 Personal history of COVID-19; Z90.49 Acquired absence of other specified parts of digestive tract; Z98.890 Other specified postprocedural states; G89.29 Other chronic pain; M54.9 Dorsalgia, unspecified; K57.90 Diverticulosis of intestine, part unspecified, without perforation or abscess without bleeding; F41.9 Anxiety disorder, unspecified; L40.9 Psoriasis, unspecified; Z87.891 Personal history of nicotine dependence; F32.A Depression, unspecified; D68.00 Von Willebrand disease, unspecified; Z80.6 Family history of leukemia; Z98.42 Cataract extraction status, left eye; Z98.41 Cataract extraction status, right eye; Z96.653 Presence of artificial knee joint, bilateral; Z96.1 Presence of intraocular lens; Z79.890 Hormone replacement therapy; Z79.85 Long-term (current) use of injectable non-insulin antidiabetic drugs; Z79.01 Long term (current) use of anticoagulants; Z79.899 Other long term (current) drug therapy; Z88.6 Allergy status to analgesic agent; Z91.030 Bee allergy status; Z88.8 Allergy status to other drugs, medicaments and biological substances; Z91.018 Allergy to other foods; Z83.3 Family history of diabetes mellitus
CPT/HCPCS: 96376 ×6; 96361 ×5; 96365; 96366; 96375 ×2; 99285; 36415; 94660 ×3; 97116; 97162; 97535; 97166; 83880; 80053 ×4; 84443; 82150; 82009; 83605 ×2; 83690; 84550; 85025 ×4; 81003; 87324; 87045; 87046; 83036; 87635; 73610; 74176; G0378 ×5; J2270; J2920 ×4; J3480; J2405 ×2; Q9967

== ENCOUNTER → 2022-12-31 | Outpatient (CLI) | payer MEDICARE ==
[2022-12-31 11:41] VITALS: BP 108/61; PULSE 80; RESP 18; TEMP 99
--- NOTE | 2022-12-31 14:47 | P.PAINPG ---
PQRS Measure Charge Sheet Comment: HISTORY OF PRESENT ILLNESS: 72 yr old female as a referral from Dr Mccarty presents today w severe and chronic LBP secondary to DDD, spondylosis and facet arthropathy without myelopathy for evaluation. Pt states pain level is provoked at 7/10 in intensity, constant, localized in the lumbar spine, burning in character w shooting pain towards the BLEs towards the back of calves. Pain is provoked by walking/ standing for periods of 15 min or more. Pain is alleviated by PT semi weekly x 12 wks which ended in Nov 2022, heat, ice, topical, use of a walker for ambulatory assistance, repositioning and rest. PMH: aFib, Blood Disorder, CHF, DVT, Fibromyalgia, HTN, OA, Von [place] Disease, MELIA, Hypothyroidism, Obesity, CKD Stage 2, Psoriasis, MDD/ Anxiety PSH: L Distal Radius Fracture, Back Surgery, L Breast Lumpectomy, Cholecystectomy, Heart Catheterization, Hysterectomy, BL Knee Replacement, Orth opedic Surgery, BL Cataract Resection w Lens Implant, L Achilles Tendon Repair, R CTR, Nasal Surgery SH: Former tobacco user, No ETOH abuse, No illicit drug use FH: Sis- Leukemia, Bro- DM. Fa- Cardiomegaly All: See list Meds: See list REVIEW OF ORGAN SYSTEMS: CONSTITUTIONAL: No fevers or chills. No recent weight loss. NEUROLOGICAL: + numbness and tingling along the distal extremities. No seizure disorders or headaches. MUSCULOSKELETAL: + pain PSYCHIATRIC: Denies current depression or suicidal thoughts. Physical Examinations : Constitutional : Cooperative , not in acute distress . Neurologic : Cranial nerve II to XII intact. No focal neurological deficits. Psychiatric : alert & oriented x 3. Matching mood & appropriate affect. Judgment & insight intact. Musculoskeletal : Cervical Spine Motor strength in the deltoid and biceps: Normal right side. Normal Left side Motor strength biceps and the wrist extensors: Normal right side . Normal left side Motor strength in the triceps muscle: Normal right side. Normal left side Deep tendon reflexes: Normal at the biceps. Normal at Brachioradialis. Normal at triceps Vertebral body tenderness to deep palpation over Cervical facet loading test: positive bilaterally Spurling test: positive bilaterally Neck distraction test: positive bilaterally Luis sign: positive bilaterally Lumbar spine Motor strength lower extremities ,thigh and legs 5/5 Right side , 5/5 Left side Deep tendon reflexes : Normal Knee Jerk. Normal Ankle Jerk Vertebral body tenderness over L4 Lumbar facet Loading Test: positive Right / positive Left Range of motion of the lumbar spine Flexion 30 degrees, extension 10 degrees Straight Leg Raise test: Left/ Right positive at degree Autumn test: positive right / positive left. Severe tenderness over the Sacroiliac joint on the Right / Left sides Gaenslen test: positive bilaterally Seated flexion test: positive bilaterally. Sacral spine : Severe tenderness over the Sacroiliac joint: right side / left side Range of motion: Flexion of the lumbar spine <60 degrees Range of motion: Extension of the lumbar spine <20 degrees Gaenslen's Test positive Bautista's Test positive Autumn test: positive right side / left side Thigh Thrust Test Sacral Thrust Test Imaging: CT without contrast of the lumbar spine from 01/14/22 reviewed Assessment/ Plan : Lumbar DDD Recommendation of BL TFESI L4-L5 #1. May need a series of injections for optimal pain relief. Risks, benefits of procedure discussed and patient verbalized understanding. Admits to aspirin or anti- coagulant use or medical history of diabetes. Protocol for discontinuation/ continuation of medications jim procedure discussed. All questions answered. I have spent greater than 30 minutes on patient care today. Dr Beatty was available by phone for the evaluation of this patient. The time was used to review the medical records including relevant urine studies and Prescription history (MAPs), review of the available imaging, evaluation and examination of the patient, coordination of care with the medical staff and if applicable referring physicians, as well as creation of the medical record PQRS Narrative: Smoking Status Former smoker Home Medications: Ambulatory Orders Multivit-Min/Iron/Folic/Lutein [Centrum Silver Women Tablet] 1 tab PO DAILY 04/08/17 Apixaban [Eliquis] 5 mg PO BID@1100,2300 01/11/22 Levothyroxine Sodium [Synthroid] 50 mcg PO DAILY 01/27/22 Omeprazole 40 mg PO BID 01/27/22 Acetaminophen [Tylenol Arthritis] 650 mg PO Q8H PRN 08/10/22 Cyanocobalamin [Vitamin B-12] 500 mcg PO DAILY 08/10/22 Escitalopram [Lexapro] 10 mg PO DAILY 08/10/22 Torsemide [Demadex] 20 mg PO TID@1100,1700,2300 08/10/22 Dulaglutide [Trulicity] 3 mg SQ WE 09/18/22 atenoloL [Tenormin] 25 mg PO DAILY 09/18/22 Cholestyramine (with Sugar) [Questran Packet] 4 gm PO ACHS PRN 30 Days #60 packet 09/22/22 Colchicine [Colcrys] 0.6 mg PO BID 90 Days #180 each 09/22/22 Gabapentin [Neurontin] 300 mg PO TID cap 09/22/22 HYDROcodone/APAP 7.5-325MG [[place] 7.5-325] 1 each PO Q6HR PRN tab 09/22/22 Losartan [Cozaar] 100 mg PO DAILY 90 Days #90 tab 09/22/22 Potassium Chloride ER [K-Dur 20] 40 meq PO DAILY 90 Days #90 tab 09/22/22 Controlled Substance Measures - Controlled Substance Measures Is patient prescribed a controlled substance at discharge?: No
== END ==
LOC: PNWHC3 10:30
PROVIDERS: ATTEND Specialist
DX: M51.36 Other intervertebral disc degeneration, lumbar region (principal); I48.91 Unspecified atrial fibrillation; I50.9 Heart failure, unspecified; Z86.718 Personal history of other venous thrombosis and embolism; I11.0 Hypertensive heart disease with heart failure; M79.4 Hypertrophy of (infrapatellar) fat pad; M19.90 Unspecified osteoarthritis, unspecified site; G47.33 Obstructive sleep apnea (adult) (pediatric); E03.9 Hypothyroidism, unspecified; E66.9 Obesity, unspecified; N18.2 Chronic kidney disease, stage 2 (mild); F32.9 Major depressive disorder, single episode, unspecified; F41.9 Anxiety disorder, unspecified; Z87.891 Personal history of nicotine dependence; I12.9 Hypertensive chronic kidney disease with stage 1 through stage 4 chronic kidney disease, or unspecified chronic kidney disease; Z79.890 Hormone replacement therapy; Z79.01 Long term (current) use of anticoagulants; Z91.02 Food additives allergy status; Z88.6 Allergy status to analgesic agent; Z88.8 Allergy status to other drugs, medicaments and biological substances
CPT/HCPCS: 99211

== ENCOUNTER → 2023-03-17 | Outpatient (CLI) | payer MEDICARE ==
--- NOTE | 2023-03-17 14:40 | MM ---
Reason for Exam: Characterization of a palpable mass. Last mammogram was performed 14 year(s) and 4 month(s) ago. Patient History: Menarche at age 10. First Full-Term at age 18. Hysterectomy at age 48. Postmenopausal. 1991, Incisional Biopsy on the Left side. 1992, Excisional Biopsy on the Left side. Risk Values: Sydnie 5 year model risk: 2.1%. NCI Lifetime model risk: 5.4%. Tissue Density: The breast tissue is almost entirely fat. Findings: Analyzed By CAD. No new suspicious masses, calcifications or distortions. Nothing correlates with with palpable marker. Overall Assessment: Incomplete: need additional imaging evaluation, BI-RAD 0 Management: Diagnostic Breast Ultrasound of the left breast. Results were given to the patient verbally at the time of exam. Patient should continue monthly self-breast exams. A clinical breast exam by your physician is recommended on an annual basis. This exam should not preclude additional follow-up of suspicious palpable abnormalities. Note on Sydnie scores and lifetime risk: 1. A Sydnie score greater than 3% is considered moderate risk. If this is the case, consider specialist referral to assess eligibility for a risk reducing agent. 2. If overall lifetime risk for the development of breast cancer is 20% or higher, the patient may qualify for future screening with alternating mammogram and breast MRI. Electronically signed and approved by: Demond Reyna DO
--- NOTE | 2023-03-17 15:10 | USB ---
Reason for Exam: Clinical finding. Patient History: Menarche at age 10. First Full-Term at age 18. Hysterectomy at age 48. Postmenopausal. 1991, Incisional Biopsy on the Left side. 1992, Excisional Biopsy on the Left side. Risk Values: Sydnie 5 year model risk: 2.1%. NCI Lifetime model risk: 5.4%. Technique: Method: Targeted. Patient Position: Supine. Prior Study Comparison: 01/22/1998 Bilateral Screening Mammogram, [facility]. 08/20/2005 Bilateral Diagnostic Mammogram, [facility]. 11/09/2008 Bilateral Diagnostic Mammogram, [facility]. Findings: The area of palpable concern of the left breast was scanned. Imaged: Ultrasound imaging of: All 4 quadrants, the retroareolar region and axilla. No finding to correlate patient's area of palpable abnormality.. No evidence for organizing fluid collection or mass. Overall Assessment: Negative, BI-RAD 1 Management: Screening Mammogram of both breasts in 1 year. A clinical breast exam by your physician is recommended on an annual basis and results should be correlated with mammographic findings. This exam should not preclude additional follow-up of suspicious palpable abnormalities. Results were given to the patient verbally at the time of exam. Electronically signed and approved by: Demond Reyna DO
--- NOTE | 2023-03-17 16:50 | BD ---
EXAMINATION TYPE: Axial Bone Density DATE OF EXAM: 03/17/2023 CLINICAL HISTORY: 72 years old Female. ICD-10 CODE: Z78.0 POST MENOPAUSAL Height: 66 Weight: 271.2 FRAX RISK QUESTIONS: Alcohol (3 or more units per day): no Family History (Parent hip fracture): no Glucocorticoids (More than 3mos): yes History of Fracture in Adulthood: yes Wrist, LS-Spine, Fingers, Toes Secondary Osteoporosis: 1. Type 1 Diabetes: no 2. Hyperthyroidism: no 3. Menopause before 45: no 4. Malnutrition: no 5. Chronic liver disease: no Rheumatoid Arthritis: yes Current Tobacco Use: no RISK FACTORS HISTORY OF: Hip Fracture (Right/Left): no Spine Fracture: yes 2007 L%-S1 History of Wrist Fracture: Lt Wrist When: 2020 Surgery to Spine/Hip(right/left)/Wrist (right/left): Lt Wrist 2019 Family History of Osteoporosis: no Active: somewhat Diet low in dairy products/other sources of calcium: no Postmenopausal woman: yes Take estrogen and/or progesterone medications: no Lost more than 2 inches in height since high school: yes Frequent falls: no Poor Health: no Hyperparathyroidism: no Adrenal Insufficiency: no MEDICATIONS: Prednisone or other steroids: , 2021 for 14 days, February 2022 for 7 days, Aug 2022 for 7 days Thyroid Medications: Levothyroxin How Long: Since 2011 Osteoporosis Medications: no Additional Medications: BP Meds, Vit D, Multi Vit, Hydroxychloroquine Additional History: EXAM MEASUREMENTS: Bone mineral densitometry was performed using the [employer]. Bone mineral density as measured about the Lumbar spine is: ----- L1-L4(G/cm2): 1.310 T Score Values are as follows: ----- L1: -0.7 ----- L2: -0.2 ----- L3: 2.5 ----- L4: 1.6 ----- L1-L4: 1.1 Z Score Values are as follows: ----- L1: -0.1 ----- L2: 0.3 ----- L3: 3.0 ----- L4:2.1 ----- L1-L4: 1.6 Baseline Study Bone mineral density about the R hip (g/cm2): 0.899 Bone mineral density about the L hip (g/cm2): 0.931 T Score values are as follows: -----R Neck: -1.4 -----L Neck: -1.4 -----R Total: -0.1 -----L Total: 0.2 Z Score values are as follows: -----R Neck: -0.3 -----L Neck: -0.4 -----R Total: -0.1 -----L Total: 0.2 Baseline Study FRAX%s: The graph provided illustrates a 17.8% chance for a major osteoporotic fx and a 2.7% chance f or the hips probability for fx in 10 years time. IMPRESSION: Osteopenia (T Score between -2.5 and -1). There is slightly increased risk of fracture and the patient may be considered for treatment. Re-Screen 2-5 years. NOTE: T-SCORE=SD OF THE YOUNG ADULT MEAN.
== END | disposition home or self-care (01) ==
LOC: RADMAMWWP 14:06
PROVIDERS: ATTEND Family Medicine
DX: N63.20 Unspecified lump in the left breast, unspecified quadrant (principal); N64.4 Mastodynia; Z78.0 Asymptomatic menopausal state
CPT/HCPCS: 77080; 77066; 76642; G0279; 77062

== ENCOUNTER → 2023-08-03 | Outpatient (CLI) | payer MEDICARE ==
--- NOTE | 2023-08-03 14:59 | CT ---
EXAMINATION TYPE: CT brain wo con DATE OF EXAM: 08/03/2023 COMPARISON: 05/17/2012 HISTORY: Severe headache radiating from frontal head to posterior skull x 1 month. Head trauma 2008. CT DLP: [address] of the brain was performed. The ventricles, basal cisterns and sulci overlying the cerebral convexities demonstrate mild enlargem ent. There is no evidence for intracranial hemorrhage or sulcal effacement. There is decreased attenuation about the periventricular white matter and deep white matter of both c erebral hemispheres, compatible with chronic small vessel ischemia. Differential diagnosis does inclu de demyelination. No mass effects are seen.No midline shift. Osseous calvarium is intact. If symptoms persist consider MRI. IMPRESSION: 1. Age related atrophic and chronic small vessel ischemic change without acute intracranial process s een at this time.
== END | disposition home or self-care (01) ==
LOC: RADCTMAIN 14:25
PROVIDERS: ATTEND Family Medicine
DX: R51.9 Headache, unspecified (principal); G31.1 Senile degeneration of brain, not elsewhere classified; I67.82 Cerebral ischemia
CPT/HCPCS: 70450

== ENCOUNTER 2024-03-02 11:43 | Emergency (ER) | payer MEDICARE ==
[2024-03-02 11:49] VITALS: RESP 16; TEMP 97.9
--- NOTE | 2024-03-02 11:55 | ED ---
Recheck HPI - General Source: patient, RN notes reviewed Mode of arrival: wheelchair Limitations: no limitations <Lisa Pappas - Last Filed: 03/02/24 11:54> <Bell Perez - Last Filed: 03/02/24 19:58> - General Chief Complaint: Recheck/Abnormal Lab/Rx Stated Complaint: coughing up blood/nose bleed Time Seen by Provider: 03/02/24 11:54 - History of Present Illness Initial Comments: Quick note: 73-year-old female presented to the ER with a chief complaint of hemoptysis and epistaxis. She states last night she was sitting watching TV and started to cough up large blood clots. She states this occurred for about 40 minutes. She states this morning she also had a nosebleed. She is currently taking Eliquis. She does state yesterday while walking up the ramp to her house she was experiencing some exertional dyspnea. Patient does have a past medical history significant of blood clots. (Lisa Pappas) 73-year-old female presenting with chief complaint of hemoptysis and epistaxis. Patient reports that last night while she was sitting watching TV she coughed up some blood clots. She was having no pain or shortness of breath. She called her PCP who told her that if this does not resolve in a half an hour to report to the ER. She states that symptoms resolved and she went to bed. Today she had a sudden onset nosebleed, she called her PCP who advised her to report to the ER at that time. Patient is on Eliquis due to A-fib and history of DVT. Patient has had a small amount of exertional dyspnea. She is having no chest pain. No abdominal pain, nausea, vomiting. No fevers or URI-like symptoms. No injuries. No recent surgery or long travel (Bell Perez) - Related Data Home Medications Medication Instructions Recorded Confirmed Multivit-Min/Iron/Folic/Lutein 1 tab PO DAILY 04/08/17 12/31/22 [Centrum Silver Women Tablet] Apixaban [Eliquis] 5 mg PO BID@1100,2300 01/11/22 12/31/22 Levothyroxine Sodium [Synthroid] 50 mcg PO DAILY 01/27/22 12/31/22 Omeprazole 40 mg PO BID 01/27/22 12/31/22 Cyanocobalamin [Vitamin B-12] 500 mcg PO DAILY 08/10/22 12/31/22 atenoloL [Tenormin] 25 mg PO DAILY 09/18/22 12/31/22 Furosemide [Lasix] 20 mg PO 12/31/22 Hydroxychloroquine Sulfate 200 mg PO DAILY 12/31/22 12/31/22 [Plaquenil] Tirzepatide [Mounjaro] 5 mg SQ 12/31/22 Previous Rx's Medication Instructions Recorded Losartan [Cozaar] 100 mg PO DAILY 90 Days #90 tab 09/22/22 Allergies Allergy/AdvReac Type Severity Reaction Status Date / Time bee venom protein (honey bee) Allergy Anaphylaxis Verified 03/02/24 11:48 ibuprofen [From Motrin] Allergy renal Verified 03/02/24 11:48 failure pregabalin [From Lyrica] Allergy Rapid Verified 03/02/24 11:48 Heart Rate/afib aspirin AdvReac nose bleeds Verified 03/02/24 11:48 castro pepper [green pepper] AdvReac Vomiting Verified 03/02/24 11:48 Review of Systems ROS Other: All systems not noted in ROS Statement are negative. <Lisa Pappas - Last Filed: 03/02/24 11:54> ROS Other: All systems not noted in ROS Statement are negative. <Bell Perez - Last Filed: 03/02/24 19:58> ROS Statement: Those systems with pertinent positive or pertinent negative responses have been documented in the HPI. Past Medical History Past Medical History: Atrial Fibrillation, Blood Disorder, Heart Failure, Deep Vein Thrombosis (DVT), Fibromyalgia, Hypertension, Osteoarthritis (OA), Skin Disorder, Sleep Apnea/CPAP/BIPAP, Thyroid Disorder Additional Past Medical History / Comment(s): obesity, MELIA, COPD, exsmoker, COVID 19 (Sep 2021), diverticulosis, real cyst, CKD stage 2, Obesity on Trulicity (lost weight) 05/04/20 FELL ON SIT OF HER WALKER AND BROKE LEFT DISTAL RADIUS. CHRONIC BACK PAIN. [employer] (BLOOD COAGULATION STABLE PER DR. BABCOCK IN FALL 2018). SOB, states has "fibrosis inlungs" u optical migraines. HX: ulcer, swelling of feet, psoriasis, anemia.was told that she had a "slient CO". LUPUS Last Myocardial Infarction Date:: unknown History of Any Multi-Drug Resistant Organisms: None Reported Past Surgical History: Back Surgery, Breast Surgery, Cholecystectomy, Heart Catheterization, Hysterectomy, Joint Replacement, Orthopedic Surgery Additional Past Surgical History / Comment(s): bilateral knee replacements, Cataracts with lens implants with both eyes, left breast lumpectomy -benign, veins removed left leg, achillies tendon repair left leg, carpal tunnel rt hand, surgrery to repair injury end of nose, Past Anesthesia/Blood Transfusion Reactions: Postoperative Nausea & Vomiting (PONV) Additional Past Anesthesia/Blood Transfusion Reaction / Comment(s): had a blood transfusion at 7 years old, no reactions known. no family hx-adopted Past Psychological History: Anxiety, Depression Smoking Status: Former smoker - Past Family History Sister(s) Family Medical History: Cancer Additional Family Medical History / Comment(s): form of Leukemia - bone marrow transplant from patient Brother(s) Family Medical History: Diabetes Mellitus Father Additional Family Medical History / Comment(s): from enlarged heart <Lisa Pappas - Last Filed: 03/02/24 11:54> General Exam Limitations: no limitations <Lisa Pappas - Last Filed: 03/02/24 11:54> Limitations: no limitations General appearance: alert, in no apparent distress Head exam: Present: atraumatic, normocephalic Eye exam: Present: normal appearance, EOMI Neck exam: Present: normal inspection. Absent: meningismus Respiratory exam: Present: normal lung sounds bilaterally. Absent: respiratory distress, wheezes, rales, rhonchi, stridor Cardiovascular Exam: Present: regular rate, normal rhythm, normal heart sounds. Absent: systolic murmur, diastolic murmur, rubs, gallop, clicks Neurological exam: Present: alert, oriented X3 Psychiatric exam: Present: normal affect, normal mood Skin exam: Present: normal color <Bell Perez - Last Filed: 03/02/24 19:58> - General Exam Comments Initial Comments: Visual Physical Exam Vital signs reviewed General: Well-appearing, nontoxic, no acute distress. Head: Normocephalic, atraumatic Eyes: PERRLA, EOMI ENT: Airway patent Chest: Nonlabored breathing Skin: No visual rash, normal skin tone Neuro: Alert and oriented 3 Musculoskeletal: No gross abnormalities (Lisa Pappas) Course Vital Signs 03/02/24 03/02/24 03/02/24 11:46 17:27 18:44 Temperature 97.9 F Pulse Rate 80 80 88 Respiratory 16 16 16 Rate Blood Pressure 138/79 133/84 133/90 O2 Sat by Pulse 97 97 98 Oximetry Medical Decision Making <Lisa Pappas - Last Filed: 03/02/24 11:54> - Lab Data Result diagrams: 03/02/24 12:06 03/02/24 11:59 <Bell Perez - Last Filed: 03/02/24 19:58> - Medical Decision Making I performed the quick note portion of this chart. Electronically signed by Lisa Pappas PA-C (Lisa Pappas) Was pt. sent in by a medical professional or institution ([facility], [facility], urgent care, hospital, or snf...) When possible be specific @ -No Did you speak to anyone other than the patient for history (EMS, parent, family, police, friend...)? What history was obtained from this source @ -No Did you review nursing and triage notes (agree or disagree)? Why? @ -I reviewed and agree with nursing and triage notes Were old charts reviewed (outside hosp., previous admission, EMS record, old EKG, old radiological studies, urgent care reports/EKG's, snf records)? Report findings @ -No old charts were reviewed Differential Diagnosis (chest pain, altered mental status, abdominal pain women, abdominal pain men, vaginal bleeding, weakness, fever, dyspnea, syncope, headache, dizziness, GI bleed, back pain, seizure, CVA, palpatations, mental health, musculoskeletal)? @ -Differential includes epistaxis, pulmonary embolism, esophageal varices, this is not an all-inclusive list EKG interpreted by me (3pts min.). @ -EKG shows atrial fibrillation ventricular rate 67. WI interval indeterminable. QRS 89. QT 410. QTc 426. X-rays interpreted by me (1pt min.). @ -Chest x-ray shows no evidence for acute pulmonary disease CT interpreted by me (1pt min.). @ -CT is negative for pulmonary embolism. Coronary calcifications and left atrial large were noted U/S interpreted by me (1pt. min.). @ -None done What testing was considered but not performed or refused? (CT, X-rays, U/S, labs)? Why? @ -None What meds were considered but not given or refused? Why? @ -None Did you discuss the management of the patient with other professionals (professionals i.e. Dr., PA, SOLE SCR[employer]ER, lab, RT, psych nurse, director of social media marketing, senior construction manager, teacher, flight communications officer, director of casework department)? Give summary @ -No Was smoking cessation discussed for >3mins.? @ -No Was critical care preformed (if so, how long)? @ -No Were there social determinants of health that impacted care today? How? (Homelessness, low income, unemployed, alcoholism, drug addiction, transportation, low edu. Level, literacy, decrease access to med. care, [facility], rehab)? @ -No Was there de-escalation of care discussed even if they declined (Discuss DNR or withdrawal of care, Hospice)? DNR status @ -No What co-morbidities impacted this encounter? (DM, HTN, Smoking, COPD, CAD, Cancer, CVA, ARF, Chemo, Hep., AIDS, mental health diagnosis, sleep apnea, morbid obesity)? @ -None Was patient admitted / discharged? Hospital course, mention meds given and route, prescriptions, significant lab abnormalities, going to OR and other pertinent info. @ -73-year-old female presenting with chief complaint of hemoptysis and epistaxis. Patient coughed up a blood clot last night and today she had a nosebleed. She is on Eliquis. Workup is initiated by triage. No leukocytosis or anemia. Potassium is 2.9, patient received oral replacement here. BUN and creatinine are mildly elevated 18 and 1.31 respectively, this is consistent with the patient's baseline. Negative chest x-ray. D-dimer is 0.68. CT reveals no pulmonary embolism. It is likely that the patient had previous nosebleed which then went on the back of her throat and form some clots that she then later coughed up. Patient is having no acute complaints at this time. She is educated on today's findings and discharged home. Follow-up with PCP. Report back to ER with any new or worsening symptoms. Discussed return parameters and answered all questions. Patient conveyed verbal understanding and agreed to the plan. I discussed this case in detail with my attending Dr. Rodriguez Undiagnosed new problem with uncertain prognosis? @ -No Drug Therapy requiring intensive monitoring for toxicity (Heparin, Nitro, Insulin, Cardizem)? @ -No Were any procedures done? @ -No Diagnosis/symptom? @ -Epistaxis Acute, or Chronic, or Acute on Chronic? @ -Acute Uncomplicated (without systemic symptoms) or Complicated (systemic symptoms)? @ -Uncomplicated Side effects of treatment? @ -No Exacerbation, Progression, or Severe Exacerbation? @ -No Poses a threat to life or bodily function? How? (Chest pain, USA, CO, pneumonia, PE, COPD, DKA, ARF, appy, cholecystitis, CVA, Diverticulitis, Homicidal, Maribeth cidal, threat to staff... and all critical care pts) @ -Low likelihood at this time (Bell Perez) - Lab Data Lab Results 03/02/24 03/02/24 03/02/24 Range/Units 11:59 11:59 12:06 WBC 5.1 (3.8-10.6) k/uL RBC 4.09 (3.80-5.40) m/uL Hgb 12.7 (11.4-16.0) gm/dL Hct 38.2 (34.0-46.0) % MCV 93.5 (80.0-100.0) fL MCH 31.1 (25.0-35.0) pg MCHC 33.2 (31.0-37.0) g/dL RDW 12.8 (11.5-15.5) % Plt Count 272 (150-450) k/uL MPV 7.7 Neutrophils % 59 % Lymphocytes % 28 % Monocytes % 6 % Eosinophils % 5 % Basophils % 1 % Neutrophils # 3.0 (1.3-7.7) k/uL Lymphocytes # 1.4 (1.0-4.8) k/uL Monocytes # 0.3 (0-1.0) k/uL Eosinophils # 0.3 (0-0.7) k/uL Basophils # 0.1 (0-0.2) k/uL PT 10.8 (10.0-12.5) sec INR 1.0 (<1.2) APTT 25.4 (22.0-30.0) sec D-Dimer 0.68 H (<0.60) mg/L FEU Sodium 141 (137-145) mmol/L Potassium 2.9 L (3.5-5.1) mmol/L Chloride 101 (98-107) mmol/L Carbon Dioxide 35 H (22-30) mmol/L Anion Gap 5 mmol/L BUN 18 H (7-17) mg/dL Creatinine 1.31 H (0.52-1.04) mg/dL Est GFR (CKD-EPI)AfAm 47 (>60 ml/min/1.73 sqM) Est GFR (CKD-EPI)NonAf 40 (>60 ml/min/1.73 sqM) Glucose 91 (74-99) mg/dL Calcium 8.7 (8.4-10.2) mg/dL Total Bilirubin 1.0 (0.2-1.3) mg/dL AST 25 (14-36) U/L ALT 12 (4-34) U/L Alkaline Phosphatase 64 (38-126) U/L Total Protein 6.2 L (6.3-8.2) g/dL Albumin 3.5 (3.5-5.0) g/dL Disposition <Lisa Pappas - Last Filed: 03/02/24 11:54> Is patient prescribed a controlled substance at d/c from ED?: No Time of Disposition: 18:26 <Bell Perez - Last Filed: 03/02/24 19:58> Clinical Impression: Epistaxis Disposition: HOME SELF-CARE Condition: Good Instructions (If sedation given, give patient instructions): Nosebleed (ED) Additional Instructions: Follow-up with your PCP. Report back to ER with any new or worsening symptoms. Referrals: Leobardo Mccarty MD [Primary Care Provider] - 1-2 days
[2024-03-02 12:15] LABS: Basophils # (A) 0.1 k/uL (0-0.2); Basophils % (A) 1 %; Eosinophils # (A) 0.3 k/uL (0-0.7); Eosinophils % (A) 5 %; HCT 38.2 % (34.0-46.0); HGB 12.7 gm/dL (11.4-16.0); Lymphocytes # (A) 1.4 k/uL (1.0-4.8); Lymphocytes % (A) 28 %; MCH 31.1 pg (25.0-35.0); MCHC 33.2 g/dL (31.0-37.0); MCV 93.5 fL (80.0-100.0); Mean Platelet Volume 7.7; Monocytes # (A) 0.3 k/uL (0-1.0); Monocytes % (A) 6 %; Neutrophils % (A) 59 %; Platelet Count 272 k/uL (150-450); RBC 4.09 m/uL (3.80-5.40); RDW 12.8 % (11.5-15.5); WBC 5.1 k/uL (3.8-10.6)
[2024-03-02 12:35] LABS: ALT 12 U/L (4-34); AST 25 U/L (14-36); African American GFR (CKD) 47 (>60 ml/min/1.73 sqM); Albumin 3.5 g/dL (3.5-5.0); Alkaline Phosphatase 64 U/L (38-126); Anion Gap 5 mmol/L; Blood Urea Nitrogen 18 mg/dL (7-17); Calcium 8.7 mg/dL (8.4-10.2); Carbon Dioxide 35 mmol/L (22-30); Chloride 101 mmol/L (98-107); Glucose 91 mg/dL (74-99); Non-African American GFR(CKD) 40 (>60 ml/min/1.73 sqM); Potassium 2.9 mmol/L (3.5-5.1); Sodium 141 mmol/L (137-145); Total Protein 6.2 g/dL (6.3-8.2)
[2024-03-02 12:56] LABS: Partial Thromboplastin Time 25.4 sec (22.0-30.0); Prothrombin Time 10.8 sec (10.0-12.5)
--- NOTE | 2024-03-02 13:43 | XR ---
EXAMINATION TYPE: XR chest 2V DATE OF EXAM: 03/02/2024 COMPARISON: 01/26/2022 HISTORY: Shortness of breath TECHNIQUE: Frontal and lateral views of the chest are obtained. FINDINGS: Scattered senescent parenchymal changes noted. Hyperinflation compatible with COPD. No evidence for infiltrate. No evidence for atelectasis. Heart size is stable. Mediastinal structures are stable and grossly unremarkable. No evidence for hilar prominence. Degenerative changes dorsal spine. IMPRESSION: 1. No evidence for acute pulmonary disease.
[2024-03-02] MEDS: POTASSIUM CHLORIDE ER 20 MEQ TAB.ER PO STA ×3 (17:25→17:32)
--- NOTE | 2024-03-02 18:11 | CT ---
EXAMINATION TYPE: CT chest angio for PE DATE OF EXAM: 03/02/2024 COMPARISON: NONE HISTORY: hemoptysis CT DLP: 664.4 mGycm. Automated Exposure Control for Dose Reduction was Utilized. CONTRAST: CTA scan of the thorax is performed with IV Contrast, patient injected with 100 ml mL of Is ovue 370. MIP Images are created on CT scanner and reviewed. 3D reconstructed images are created on an independent workstation and reviewed. FINDINGS: LUNGS: No acute pulmonary process. Airways are unremarkable. PLEURAL SPACES: Negative MEDIASTINUM: There is satisfactory enhancement of the pulmonary artery and its branches with no CT ev idence for pulmonary embolism. Coronary calcifications noted. There is no cardiomegaly but there is left atrial enlargement. There is no acute aortic process and the aorta is not dilated. There are multifocal nonspecific subcentimeter short axis hilar or mediastinal lymph nodes. OTHER: No focal aggressive skeletal findings. No acute upper abdominal process. IMPRESSION: 1. Negative for pulmonary embolism. 2. Coronary calcifications and left atrial enlargement noted.
[2024-03-02 18:45] VITALS: BP 133/90; PULSE 88
== END 2024-03-02 18:45 | disposition home or self-care (01) ==
LOC: EC 11:43
DX: R04.0 Epistaxis (principal); R79.89 Other specified abnormal findings of blood chemistry; I48.91 Unspecified atrial fibrillation; Z79.01 Long term (current) use of anticoagulants; Z91.030 Bee allergy status; Z88.6 Allergy status to analgesic agent; Z91.018 Allergy to other foods; Z87.891 Personal history of nicotine dependence; Z86.16 Personal history of COVID-19
CPT/HCPCS: 99284; 36415; 93005; 85379; 80053; 85025; 85610; 85730; 71046; 71275; Q9967

== ENCOUNTER 2024-06-08 06:55 | Day surgery (SDC) | payer MEDICARE ==
[~2024-06-08 06:55] MED LIST changes: +ALPRAZolam 0.25 MG TAB PO PRN; +ALPRAZolam 0.5 MG TAB PO PRN; -AMPICILLIN-SULBACTAM 3 GM in SODIUM CHLORIDE 0.9% 100 ML IVPB ONE; +ASPIRIN 325 MG TAB PO STA; +HEPARIN SODIUM,PORCINE (1 ML) 2,500 UNIT in SODIUM CHLORIDE 0.9% 250 ML IRRIGATION PRN; +HEPARIN SODIUM,PORCINE 10,000 UNIT in SODIUM CHLORIDE 0.9% 1,000 ML IRRIGATION PRN; +NITROGLYCERIN SL TABS 0.4 MG TAB SUBLINGUAL PRN; +SODIUM CHLORIDE 0.9% 1,000 ML in EMPTY BAG 1 BAG IV SCH
[2024-06-08] MEDS: IV FLUID CONTINUATION 1,000 ML IV ONE (07:21)
[2024-06-08 07:46] LABS: Glucose,Whole Blood 104 mg/dL (70-110)
[2024-06-08 07:51] VITALS: TEMP 98.4
[2024-06-08 07:56] LABS: Basophils % (A) 1 %; Eosinophils # (A) 0.1 k/uL (0-0.7); Eosinophils % (A) 2 %; HCT 36.2 % (34.0-46.0); HGB 12.1 gm/dL (11.4-16.0); Lymphocytes # (A) 1.6 k/uL (1.0-4.8); Lymphocytes % (A) 24 %; MCH 31.6 pg (25.0-35.0); MCHC 33.4 g/dL (31.0-37.0); MCV 94.6 fL (80.0-100.0); Mean Platelet Volume 7.4; Monocytes # (A) 0.4 k/uL (0-1.0); Monocytes % (A) 6 %; Neutrophils # (A) 4.6 k/uL (1.3-7.7); Neutrophils % (A) 66 %; Platelet Count 256 k/uL (150-450); RBC 3.83 m/uL (3.80-5.40); WBC 6.9 k/uL (3.8-10.6)
[2024-06-08 08:09] LABS: African American GFR (CKD) 35 (>60 ml/min/1.73 sqM); Anion Gap 5 mmol/L; Blood Urea Nitrogen 36 mg/dL (7-17); Calcium 9.1 mg/dL (8.4-10.2); Carbon Dioxide 32 mmol/L (22-30); Chloride 99 mmol/L (98-107); Glucose 94 mg/dL (74-99); Non-African American GFR(CKD) 30 (>60 ml/min/1.73 sqM); Potassium 4.4 mmol/L (3.5-5.1); Sodium 136 mmol/L (137-145)
[2024-06-08] MEDS: HEPARIN SODIUM,PORCINE (1 ML) 2,500 UNIT in SODIUM CHLORIDE 0.9% 250 ML IRRIGATION ONE (12:50)
[2024-06-08] MEDS: HEPARIN SODIUM,PORCINE 10,000 UNIT in SODIUM CHLORIDE 0.9% 1,000 ML IRRIGATION ONE (12:50)
[2024-06-08] MEDS: MIDAZOLAM 2 MG/2 ML VIAL IVP ONE (13:45)
[2024-06-08] MEDS: ASPIRIN 325 MG TAB PO ONE (13:45)
[2024-06-08] MEDS: LIDOCAINE 1% INJ 10MG/ML (20 ML MDV) SQ ONE (13:46)
[2024-06-08] MEDS: VERAPAMIL SYRINGE (5 MG/10 ML) INTRAARTER ONE (13:47)
[2024-06-08] MEDS: HEPARIN SODIUM 1,000 UN/ML (10ML VL) IVP ONE (13:51)
[2024-06-08] MEDS: IOPAMIDOL-370 100ML BTL INJ ONE (13:59)
[2024-06-08] MEDS ORDERED: RX INFO: IV CONTRAST WAS GIVEN 1 EACH MISC MISCELLANE PRN (14:02)
[2024-06-08 16:27] VITALS: BP 125/60; PULSE 59; RESP 16
[2024-06-08] MEDS ORDERED: HYDROXYCHLOROQUINE SULFATE 200 MG TAB PO SCH (21:00)
[2024-06-08] MEDS ORDERED: FUROSEMIDE 20 MG TAB PO SCH (21:00)
--- NOTE | 2024-06-08 21:32 | P.PCN ---
Date of Procedure: 06/08/24 Operative Findings: Cardiac catheterization Performing physician Sam Schumacher Procedure performed Selective right and left coronary angiogram Left heart catheterization Ultrasound-guided access of the right radial artery Indication Symptomatic 73-year-old female patient with abnormal stress test Complications None Level of sedation Moderate with sedation length of 12 minutes Procedure description After obtaining an informed consent the patient was brought to the cardiac Pipe Fitter Maintenance. The right radial artery was cannulated using a prosthetic under ultrasound guidance and the micropuncture wire passed easily then I placed a 6 Georg[place] 11 cm sheath at the right radial artery and selective right and left coronary angiogram using JR4 and JL 3.5 catheter after the patient was given 2 mg of verapamil and heparin as well. The fellow was given intra-arterially and heparin intravenous. After that left heart catheterization was performed using pigtail catheter. The procedure was completed with no complication Selective coronary angiogram The RCA is a large-caliber vessel and the dominant vessel that appears to be angiographically normal The left main is angiographically normal The LCx is a large-caliber vessel nondominant vessel with no high-grade stenosis was identified The LAD appears to be angiographically normal also with no high-grade stenosis was identified Hemodynamic The LVEDP was about 8 mmHg with no significant gradient across aortic valve Conclusion Normal coronary angiogram Normal left-sided filling pressure Postprocedure management Medical treatment
[2024-06-09] MEDS ORDERED: NON FORMULARY DRUG (Multivit-Min/Iron/Folic/Lutein [Centrum Silver Women Tablet] 1 EACH Ta PO SCH (09:00)
[2024-06-09] MEDS ORDERED: atenoloL 50 MG TAB PO SCH (09:00)
[2024-06-09] MEDS ORDERED: PANTOPRAZOLE 40 MG TABLET PO SCH (09:00)
[2024-06-09] MEDS ORDERED: LEVOTHYROXINE 100 MCG TAB PO SCH (09:00)
[2024-06-09] MEDS ORDERED: CYANOCOBALAMIN 500 MCG TAB PO SCH (09:00)
[2024-06-09] MEDS ORDERED: LOSARTAN 50 MG TAB PO SCH (09:00)
[2024-06-15] MEDS ORDERED: NON FORMULARY DRUG (Tirzepatide [Mounjaro] 5 MG/0.5 ML Pen.Injctr) SQ SCH (09:00)
== END 2024-06-08 16:56 | disposition home or self-care (01) ==
LOC: CATHCVL 06:55
PROVIDERS: ATTEND Internal Medicine Interventional Cardiology
DX: I50.32 Chronic diastolic (congestive) heart failure
CPT/HCPCS: 80048; 85025; 93458